=== PATIENT | male | born 1940 | race African-American/Black ===

== ENCOUNTER → 2016-12-13 | Outpatient (CLI) | payer MEDICARE, BC ==
[~2016-12-13] MED LIST: APIX5TAB PO; ASPI1TAB69 PO; ASPI325T PO; CARV6.25 PO; CARV6.252 PO; CLON.5 PO; CLON1 PO; CLON1TAB PO; CLON2TAB PO; FLEC100 PO; FLEC100T PO; LISI-360 PO; LISI10TA3 PO; MEMA1TAB2 PO; NAME10SO PO; PANT40TA3 PO; PROT40TA PO; RISP0.5T20 PO; RISP1TAB2 PO; SIMV40TA OR; TAB-TAB PO; WALKER WHEELS/F1 MIS; ZOCO40TA PO
[2016-12-13 12:38] LABS: AUTOMATED NEUTROPHIL # 4.2 TH/MM3 (1.8-7.7); BASOPHIL % 0.3 % (0.0-2.0); EOSINOPHIL # 0.2 TH/MM3 (0-0.4); EOSINOPHIL % 2.6 % (0.0-4.0); HEMATOCRIT 40.5 % (39.0-51.0); HEMO FLAGS DIFF FINAL; LYMPH % 23.1 % (9.0-44.0); LYMPHOCYTE # 1.6 TH/MM3 (1.0-4.8); MEAN CELL VOLUME 89.5 FL (80.0-100.0); MEAN CORPUSCULAR HEMOGLOBIN 30.8 PG (27.0-34.0); MEAN CORPUSCULAR HGB CONC 34.4 % (32.0-36.0); MONO % 12.7 % (0.0-8.0); NEUT % 61.3 % (16.0-70.0); PLATELET COUNT 169 TH/MM3 (150-450); RED BLOOD COUNT 4.52 MIL/MM3 (4.50-5.90); RED CELL DISTRIBUTION WIDTH 13.6 % (11.6-17.2); WHITE BLOOD COUNT 6.8 TH/MM3 (4.0-11.0)
[2016-12-13 13:04] LABS: POTASSIUM 4.3 MEQ/L (3.5-5.1)
== END ==
LOC: CPRE 11:27
PROVIDERS: ATTEND Orthopaedic Surgery Orthopaedic Surgery of the Spine
DX: Z01.812 Encounter for preprocedural laboratory examination (principal); M51.36 Other intervertebral disc degeneration, lumbar region
CPT/HCPCS: 36415; 80048; 85025

== ENCOUNTER 2016-12-18 12:32 | Observation (INO) | payer MEDICARE, BC ==
[~2016-12-18] VITALS: Ht 177.8 cm; Wt 90.7 kg
[~2016-12-18 12:32] MED LIST changes: -ASPI325T PO; -CARV6.25 PO; -CLON.5 PO; -CLON1 PO; -CLON1TAB PO; -FLEC100 PO; +LACTATED RINGER'S 1000 ML INJ 1,000 ML IV ONE; -LISI-360 PO; -NAME10SO PO; +NEOSTIGMINE 3 MG/3 ML SYR IV ONE; +ONDANSETRON HCL 4 MG/2 ML VIAL IV PUSH ONE; +PHENYLEPH/NS 1000 MCG/10 ML SYR IV ONE; +PROPOFOL 200 MG/20 ML AMP IV ONE; -PROT40TA PO; -RISP0.5T20 PO; -RISP1TAB2 PO; -SIMV40TA OR; -TAB-TAB PO; -WALKER WHEELS/F1 MIS; +ePHEDrine/NS 25 MG/5 ML SYR IV ONE
[2016-12-18] MEDS ORDERED: CHLORHEXIDINE GLUCONATE 2 % 1 PACK (2 CLOTHS) TOPICAL PRN (13:00)
[2016-12-18] MEDS ORDERED: INSULIN HUMAN REGULAR 1,000 UNITS/10 ML VIAL SQ PRN (13:00)
[2016-12-18] MEDS ORDERED: METOPROLOL TARTRATE 25 MG TAB PO PRN (13:00)
[2016-12-18] MEDS ORDERED: POVIDONE IODINE 5% (ANTISEPSIS KIT) 4 APPLICATIONS EACH NARE PRN (13:00)
[2016-12-18] MEDS ORDERED: SODIUM CHLORID 0.9% 500 ML IV PRN (13:00)
[2016-12-18] MEDS ORDERED: LACTATED RINGER'S 1000 ML IV PRN (13:00)
[2016-12-18] MEDS ORDERED: RISP1TAB2 PO (13:10)
[2016-12-18 13:12] VITALS: BP 185/104; PULSE 60; RESP 20; TEMP 98.6; O2SAT 99
[2016-12-18] MEDS ORDERED: GENTAMICIN SULFATE 80 MG/2 ML VIAL ONE (13:15)
[2016-12-18] MEDS ORDERED: CHLORHEXIDINE GLUCONATE 4% SOLN 120 ML BTL TOPICAL SCH (13:15)
[2016-12-18] MEDS ORDERED: ceFAZolin 1,000 MG/NS 100 ML IV SCH ×2 (13:15)
[2016-12-18] MEDS ORDERED: ceFAZolin INJ 1,000 MG VIAL ONE (14:26)
[2016-12-18] MEDS ORDERED: BUPIVACAINE/EPINEPHRINE 0.25% 50 ML VIAL ONE (14:26)
[2016-12-18] MEDS ORDERED: DO NOT ADM ANY ANTICOAGULANT DRUGS PRN (17:39)
[2016-12-18] MEDS ORDERED: ALUMINUM/MAGNESIUM/SIMETH 30 ML CUP PO PRN (17:45)
[2016-12-18] MEDS ORDERED: NALOXONE HCL 0.4 MG/ML AMP IV PRN ×2 (17:45)
[2016-12-18] MEDS ORDERED: BISACODYL 10 MG SUPP RECTAL PRN (17:45)
[2016-12-18] MEDS ORDERED: SODIUM CHLORIDE 0.9% FLUSH 5 ML FLUSH IVF PRN (17:45)
[2016-12-18] MEDS ORDERED: ONDANSETRON HCL 4 MG/2 ML VIAL IV PRN (17:45)
[2016-12-18] MEDS ORDERED: SOD PHOSPHATE/SOD BIPHOSPHATE (ADULT) ENEMA 133ML PR PRN (17:45)
[2016-12-18] MEDS ORDERED: ACETAMINOPHEN/HYDROcodone 325 MG/5 MG TAB PO PRN ×2 (17:45)
[2016-12-18] MEDS ORDERED: Post-op Orders (for Pharmacy) MISC XX ONE (17:45)
[2016-12-18] MEDS ORDERED: MORPHINE SULFATE 4 MG/ML INJ IV PUSH PRN (17:45)
--- NOTE | 2016-12-18 17:47 | RADRPT ---
EXAM DATE/TIME: 12/18/2016 16:58 [facility] COMPARISON: No previous studies available for comparison. INDICATIONS : Lumbar spine L5-S1 laminectomy. OR. MEDICAL HISTORY : None. SURGICAL HISTORY : None. ENCOUNTER: Initial ACUITY: 1 day PAIN SCORE: Non-responsive. LOCATION: Lumbar L5-S1 FINDINGS: A single lateral view of the lumbar spine was performed. There is a localization device placed poste riorly at the last disc space level. This appears to be L5-S1. CONCLUSION: 1. Level localization L5-S1. David Del Cid MD on December 18, 2016 at 17:44 Board Certified Radiologist. This report was verified electronically.
[2016-12-18] MEDS ORDERED: MIDAZOLAM HCL 2 MG/2 ML VIAL ONE (17:51)
[2016-12-18] MEDS ORDERED: *LABETALOL HCL 100 MG/20 ML VIAL PERIprocedural Use ONLY ONE (17:51)
[2016-12-18] MEDS ORDERED: fentaNYL CITRATE 250 MCG/5 ML AMP ONE (17:51)
[2016-12-18] MEDS ORDERED: *morphine SULFATE 8 MG/ML PERIprocedure ONLY ONE ×2 (18:05→18:52)
[2016-12-18] MEDS ORDERED: *ENALAPRILAT 1.25 MG/ML VIAL PERIprocedural Use ONLY ONE (19:18)
[2016-12-18 19:50] VITALS: O2SAT 98
[2016-12-18 20:00] VITALS: BP 175/92; PULSE 63; RESP 18; TEMP 96.5; O2SAT 100
[2016-12-18] MEDS: LISINOPRIL 10 MG TAB PO SCH (20:24)
[2016-12-18] MEDS: MEMANTINE HCL 10 MG TAB PO SCH (20:24)
[2016-12-18] MEDS: CARVEDILOL 6.25 MG TAB PO SCH (20:24)
[2016-12-18] MEDS: FLECAINIDE ACETATE 100 MG TAB PO SCH (20:25)
[2016-12-18] MEDS ORDERED: risperiDONE 1 MG TAB PO SCH (21:00)
[2016-12-18] MEDS ORDERED: ZOLPIDEM TARTRATE 5 MG TAB PO PRN (21:00)
[2016-12-18] MEDS ORDERED: clonazePAM 1 MG TAB PO SCH (21:00)
[2016-12-18] MEDS ORDERED: SODIUM CHLORIDE 0.9% FLUSH 5 ML FLUSH IVF SCH (21:00)
[2016-12-19 00:09] VITALS: BP 135/93; PULSE 72; RESP 18; TEMP 97.5; O2SAT 98
[2016-12-19 03:50] VITALS: BP 131/82; PULSE 75; RESP 19; TEMP 98.1; O2SAT 98
--- NOTE | 2016-12-19 07:03 | PD.ORT.PN ---
Subjective Subjective Remarks POD#1 L5-S1 garza,diskectomy All pre-op pain/weakness in legs gone No sob/chest Patient wishes to go home Objective Vitals Vital Signs Date Time Temp Pulse Resp B/P Pulse Ox O2 Delivery O2 Flow Rate FiO2 12/19/16 03:50 98.1 75 19 131/82 98 12/19/16 00:09 97.5 72 18 135/93 98 12/18/16 20:00 96.5 63 18 175/92 100 12/18/16 19:50 98 Nasal Cannula 2.00 12/18/16 19:30 64 14 164/94 97 Nasal Cannula 2 12/18/16 19:15 65 14 172/102 97 Nasal Cannula 2 12/18/16 19:00 98.2 64 12 166/98 97 Nasal Cannula 2 12/18/16 18:45 65 14 158/96 97 Nasal Cannula 2 12/18/16 18:30 65 14 160/87 99 Nasal Cannula 2 12/18/16 18:15 66 14 164/102 97 Nasal Cannula 2 12/18/16 18:00 67 14 166/84 97 Nasal Cannula 2 12/18/16 17:45 72 12 196/121 100 Simple Mask 8 12/18/16 17:41 97.6 71 12 198/96 100 Simple Mask 8 12/18/16 13:12 98.6 60 20 185/104 99 I/O 12/18/16 12/18/16 12/18/16 12/19/16 12/19/16 12/19/16 06:59 14:59 22:59 06:59 14:59 22:59 Intake Total 1340 ml 240 ml Output Total 25 ml 400 ml Balance 1315 ml -160 ml Intake Oral 240 ml 240 ml IV Total 100 ml Other 1000 ml Output Urine Total 400 ml Estimated Blood Loss 25 ml # Voids 1 1 # Bowel Movements 0 0 Objective Remarks Lumbar spine dressings dry,no swelling Motor LE +5/5 Assessment & Plan Assessment and Plan Ortho stable Expained operative findings;answered multiple questions D/C home today Jose Barrera MD December 19, 2016 07:03
[2016-12-19 08:00] VITALS: BP 123/77; PULSE 80; RESP 19; TEMP 98.6; O2SAT 96
[2016-12-19] MEDS: MEMANTINE HCL 10 MG TAB PO SCH (08:22)
[2016-12-19] MEDS: CARVEDILOL 6.25 MG TAB PO SCH (08:22)
[2016-12-19] MEDS: FLECAINIDE ACETATE 100 MG TAB PO SCH (08:22)
[2016-12-19] MEDS: LISINOPRIL 10 MG TAB PO SCH (08:22)
[2016-12-19] MEDS ORDERED: MULTIVITAMINS/MINERALS THERAPEUTIC TAB PO SCH (09:00)
[2016-12-19] MEDS ORDERED: PANTOPRAZOLE SOD 40 MG DELAYED RELEASE TAB PO SCH (09:00)
[2016-12-19] MEDS ORDERED: PRAVASTATIN SOD 80 MG TAB PO SCH (09:00)
[2016-12-19] MEDS ORDERED: NON-FORMULARY DRUG (Simvastatin (Zocor) 40 MG) PO SCH (09:00)
--- NOTE | 2016-12-19 11:18 | PD.CONS ---
HPI Service [facility] Consult Requested By Primary Care Physician Adryan Lopez M.D. Diagnoses: Past Family Social History Allergies: Coded Allergies: No Known Allergies (Unverified , 12/18/16) Physical Exam Vital Signs Vital Signs Date Time Temp Pulse Resp B/P Pulse Ox O2 Delivery O2 Flow Rate FiO2 12/19/16 08:00 98.6 80 19 123/77 96 12/19/16 03:50 98.1 75 19 131/82 98 12/19/16 00:09 97.5 72 18 135/93 98 12/18/16 20:00 96.5 63 18 175/92 100 12/18/16 19:50 98 Nasal Cannula 2.00 12/18/16 19:30 64 14 164/94 97 Nasal Cannula 2 12/18/16 19:15 65 14 172/102 97 Nasal Cannula 2 12/18/16 19:00 98.2 64 12 166/98 97 Nasal Cannula 2 12/18/16 18:45 65 14 158/96 97 Nasal Cannula 2 12/18/16 18:30 65 14 160/87 99 Nasal Cannula 2 12/18/16 18:15 66 14 164/102 97 Nasal Cannula 2 12/18/16 18:00 67 14 166/84 97 Nasal Cannula 2 12/18/16 17:45 72 12 196/121 100 Simple Mask 8 12/18/16 17:41 97.6 71 12 198/96 100 Simple Mask 8 12/18/16 13:12 98.6 60 20 185/104 99 Physical Exam GENERAL: This is a well-nourished, well-developed patient, in no apparent distress. SKIN: No rashes, ecchymoses or lesions. Cool and dry. HEAD: Atraumatic. Normocephalic. No temporal or scalp tenderness. EYES: Pupils equal round and reactive. Extraocular motions intact. No scleral icterus. No injection or drainage. ENT: Nose without bleeding, purulent drainage or septal hematoma. Throat without erythema, tonsillar hypertrophy or exudate. Uvula midline. Airway patent. NECK: Trachea midline. No JVD or lymphadenopathy. Supple, nontender, no meningeal signs. CARDIOVASCULAR: Regular rate and rhythm without murmurs, gallops, or rubs. RESPIRATORY: Clear to auscultation. Breath sounds equal bilaterally. No wheezes , rales, or rhonchi. GASTROINTESTINAL: Abdomen soft, non-tender, nondistended. No hepato-splenomegaly , or palpable masses. No guarding. MUSCULOSKELETAL: Extremities without clubbing, cyanosis, or edema. No joint tenderness, effusion, or edema noted. No calf tenderness. Negative Homans sign bilaterally. NEUROLOGICAL: Awake and alert. Cranial nerves II through XII intact. Motor and sensory grossly within normal limits. Five out of 5 muscle strength in all muscle groups. Normal speech. Mackenzie Reyes MD December 19, 2016 11:18
--- NOTE | 2016-12-19 11:51 | MP ---
cc: JOSE ESCOBAR M.D., JOSHUA R. M.D. GILLESPY, MARK ARAB, DINESH MD DATE OF SURGERY: 12/18/2016 PREOPERATIVE DIAGNOSIS: 1. L5-S1 large central right-sided herniated nucleus pulposus 2. Lumbar spine degenerative osteoarthritis. POSTOPERATIVE DIAGNOSIS 1. L5-S1 large central right-sided herniated nucleus pulposus. 2. Lumbar spine degenerative osteoarthritis. PROCEDURE: L5-S1 bilateral hemilaminectomy, foraminotomy, partial facetectomy, decompression nerve root; L5-S1 diskectomy. SURGEON Jose Escobar MD SHELL FREEZING MACHINE OPERATOR: ELTON Echevarria SPECIMENS None. ESTIMATED BLOOD LOSS: Less than 25 cc COMPLICATIONS None ANESTHESIA General DRAINS: None. CONDITION: The condition is stable. PLAN OF ACTIVITY: Per orders. PROCEDURE: The patient was brought into the operating room had satisfactory general anesthesia by the Department of Anesthesia. The patient was carefully transferred to the [facility] spinal frame. All pressure points were well-padded. Lumbosacral spine was prepped and draped in usual sterile manner. The localizing x-ray used under fluoroscopy, it identified the L5-S1 interspace. 20 cc of 0.25% Marcaine with epinephrine was used to infiltrate the subcutaneous tissue and operative site. A L5-S1 bilateral decompressive hemilaminectomy performed with foraminotomies and partial facetectomy on the right side. The ligamentum flavum was removed and nerve root was gently retracted medially. Patient found to have moderately large central right-sided herniated nucleus pulposus. The disk itself was removed in multiple large pieces. Patient found to have no further nerve compressive pathology. There is no bleeding. No evidence of cerebrospinal fluid leak. The wound was irrigated with copious amounts of sterile saline, the wound itself was soft and dry. The wound was closed in routine manner. Fascia closed #2 Tycron suture. Subcutaneous layers with 2-0 Vicryl. Skin approximated with interrupted 2-0 nylon. Sterile dressings were applied. The patient tolerated the procedure well and arrived in recovery room in stable and satisfactory condition. MD IRMA Avendano/jorge luis /5:23 PM /11:37 AM
--- NOTE | 2016-12-19 11:51 | HHI.FF ---
Face to Face Verification Diagnosis: (1) Atrial fibrillation (2) Hypertension (3) S/P diskectomy Physical Therapy Order: Evaluate and Treat Home Health Nursing Order: Medical education Signs/symptoms of disease process I have seen patient Phillip Dhaliwal on 12/19/16. My clinical findings support the need for the requested home health care services because: Ltd mobility - disease progression Patient has SOB I certify that my clinical findings support that this patient is homebound because: Post-op weakness Mackenzie Reyes MD December 19, 2016 11:51
[2016-12-19] MEDS ORDERED: WALKER WHEELS/F1 MIS (11:54)
[2016-12-19] MEDS ORDERED: DOCUSATE SODIUM 100 MG CAP PO SCH (21:00)
== END 2016-12-19 12:16 | disposition home or self-care (01) ==
LOC: HSDC 12:32 → N06A 20:00
PROVIDERS: ADMIT Orthopaedic Surgery Orthopaedic Surgery of the Spine; ATTEND Orthopaedic Surgery Orthopaedic Surgery of the Spine
DX: M51.27 Other intervertebral disc displacement, lumbosacral region (principal); M47.816 Spondylosis without myelopathy or radiculopathy, lumbar region; R29.6 Repeated falls; R26.81 Unsteadiness on feet; M25.432 Effusion, left wrist; I48.2 Chronic atrial fibrillation; R41.82 Altered mental status, unspecified; G93.40 Encephalopathy, unspecified; M54.30 Sciatica, unspecified side; I10 Essential (primary) hypertension; R74.8 Abnormal levels of other serum enzymes; E03.9 Hypothyroidism, unspecified; E78.5 Hyperlipidemia, unspecified; K21.9 Gastro-esophageal reflux disease without esophagitis; G47.30 Sleep apnea, unspecified; R45.1 Restlessness and agitation; Y92.009 Unspecified place in unspecified non-institutional (private) residence as the place of occurrence of the external cause; Z86.73 Personal history of transient ischemic attack (TIA), and cerebral infarction without residual deficits; Z95.0 Presence of cardiac pacemaker; Z85.46 Personal history of malignant neoplasm of prostate; Z79.01 Long term (current) use of anticoagulants
CPT/HCPCS: 00630; 63030; 70450; 71010; 72020; 72125; 73110; 76000; 80048; 81001; 85025; 94150; 97162; 99285; G0378; G8987; G8988; J0690; J1580; J2060; J2250; J2270; J2370; J2405; J2710; J3010; J7120; 82550; 82552; 83735; 84484; 93005; 95819; G9168-GN; G9169-GN; G9170-GN; J1630

== ENCOUNTER 2016-12-19 20:19 | Observation (INO) | payer MEDICARE, BC ==
[~2016-12-19] VITALS: Ht 180.3 cm; Wt 85.2 kg
[~2016-12-19 20:19] MED LIST changes: -APIX5TAB PO; -LACTATED RINGER'S 1000 ML INJ 1,000 ML IV ONE; -NEOSTIGMINE 3 MG/3 ML SYR IV ONE; -ONDANSETRON HCL 4 MG/2 ML VIAL IV PUSH ONE; -PHENYLEPH/NS 1000 MCG/10 ML SYR IV ONE; -PROPOFOL 200 MG/20 ML AMP IV ONE; +RISP1TAB2 PO; +WALKER WHEELS/F1 MIS; -ePHEDrine/NS 25 MG/5 ML SYR IV ONE
[2016-12-19 20:21] VITALS: BP 149/93; PULSE 73; RESP 16; TEMP 99.3; O2SAT 98
--- NOTE | 2016-12-19 20:31 | PD ---
Physical Exam Time Seen by Provider: 20:30 Narrative 76 y/o male discharged today after undergoing diskectomy/laminectomy yesterday. He has been confused, falling frequently. Vital signs reviewed. Seen at triage desk. Awaiting bed placement. Data Data Last Documented VS Vital Signs Date Time Temp Pulse Resp B/P Pulse Ox O2 Delivery O2 Flow Rate FiO2 12/19/16 20:21 99.3 73 16 149/93 98 Room Air [facility] Medical Record Reviewed: Yes Supervised Visit with MARTHA: Jackson Bergeron December 19, 2016 20:31
--- NOTE | 2016-12-19 22:06 | PD ---
HPI Chief Complaint: Fall Time Seen by Provider: 21:44 Travel History International Travel<30 days: No Contact w/Intl Traveler<30days: No Traveled to known affect area: No History of Present Illness HPI The patient is a 76 year old male who presents to the [facility] emergency department with a history of undergoing L5-S1 laminectomy and discectomy yesterday on December 18, 2016. According to the family at the bedside the patient was instructed that he would be admitted to the hospital for possibly 2 days and then go to rehabilitation. Today the patient became increasingly confused in the hospital. The patient became paranoid and insisted on leaving at 11 AM. According to the family the patient was discharged home early. They did drive him home. Since being home he's had multiple episodes of falling due to his unsteady gait. The patient has swelling to the left wrist. The patient denies having any pain. The patient is unable to recall having the surgery. The patient is oriented to person, however not play stating that he is at the "[facility] office". The patient is oriented to year, however not month. The patient is not oriented to situation. The patient's family is concerned that they are not able to care for him at home as he keeps getting off related to the confusion and they're concerned that he will fall and injure himself. The patient does have a baseline level of dementia, however he is usually oriented to person, place, and situation according to the family. The patient's family report that the pain medication that he was given postop seemed to make his confusion worse. The patient has not had any fevers postop. The patient has been eating and drinking well and passing gas according to the family. [facility] Past Medical History Narrative Medical The patient's past medical history is significant for a history of hypothyroid disorder, history of atrial fibrillation status post 3 prior ablations, history of a pacemaker placement, history of prostate cancer in 1999, history of hypertension, hyperlipidemia, dementia. The patient is normally anticoagulated on Eliquis, however this was stopped last Sunday. The patient did resume taking an aspirin daily today. 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) Psychiatric: Yes (DEMENTIA) Reproductive: No Respiratory: Yes Integumentary: No Radiation Therapy: Yes Sleep Apnea: Yes ("MINOR") Thyroid Disease: Yes ( growth removed) Ulcer: Yes Past Surgical History Narrative Surgical The patient's past surgical history is significant for L5-S1 laminectomy and discectomy on December 18, 2016, pacemaker placement, prostatectomy Abdominal Surgery: No AICD: No Cardiac Surgery: Yes (PACEMAKER) Ear Surgery: No Endocrine Surgery: Yes (GROWTH REMOVED FROM THYROID) Eye Surgery: No Genitourinary Surgery: Yes (PROSTATECTOMY) Gynecologic Surgery: No Joint Replacement: No Oral Surgery: No Pacemaker: Yes Thoracic Surgery: No Social History Alcohol Use: No Tobacco Use: No (FORMER) Substance Use: No Allergies-Medications (Allergen,Severity, Reaction): Coded Allergies: No Known Allergies (Unverified , 12/19/16) Reported Meds & Prescriptions Reported Meds & Active Scripts Active Walker with Front Wheels (Device) 1 Mis Mis 1 Ea .ROUTE DIRECTED Reported Risperidone 1 Mg Tab 1 Mg PO HS Aspirin 81 Mg Tabdr 81 Mg PO DAILY Zocor (Simvastatin) 40 Mg Tab 40 Mg PO DAILY Clonazepam 2 Mg Tab 2 Mg PO HS Pantoprazole (Pantoprazole Sodium) 40 Mg Tab 40 Mg PO DAILY Memantine 10 Mg Tab 10 Mg PO BID Lisinopril 10 Mg Tab 10 Mg PO BID Carvedilol 6.25 Mg Tab 6.25 Mg PO BID Flecainide (Flecainide Acetate) 100 Mg Tab 100 Mg PO BID Review of Systems Except as stated in HPI: all other systems reviewed are Neg General / Constitutional: No: Fever Eyes: No: Visual changes HENT: No: Headaches, Neck Stiffness, Neck Pain Cardiovascular: No: Chest Pain or Discomfort Respiratory: No: Shortness of Breath Gastrointestinal: No: Abdominal Pain Genitourinary: No: Dysuria Musculoskeletal: No: Pain Skin: No Rash Neurologic: Positive: Change in Mentation, No: Weakness, Focal Abnormalities, Headache, Slurred Speech, Sensory Disturbance Psychiatric: No: Depression Endocrine: No: Polydipsia Hematologic/Lymphatic: No: Easy Bruising Physical Exam Narrative General: The patient is a well-developed well-nourished male in no acute distress. Head and Neck exam: Head is normocephalic atraumatic. Eyes: EOMI, pupils are equal round and reactive to light. Nose: Midline septum with pink mucous membranes Mouth: Dentition unremarkable. Moist mucus membranes. Posterior oropharynx is not erythematous. No tonsillar hypertrophy. Uvula midline. Airway patent. Neck: No palpable lymphadenopathy. No nuchal rigidity. No thyromegaly. Cardiovascular: Regular rate and rhythm without murmurs, gallops, or rubs. Lungs: Clear to auscultation bilaterally. No wheezes, rhonchi, or rales. Abdomen: Soft, without tenderness to palpation in all 4 quadrants of the abdomen. No guarding, rebound, or rigidity. Normal bowel sounds are audible. No tenderness on palpation of McBurney's point. Extremities: No clubbing or cyanosis. No significant lower extremity edema. The patient's left wrist, the area of interest is have some swelling noted, however he denies any tenderness on palpation. He has full range of motion with extension, flexion, finger movements including putting his hand into a fist and extending his fingers. The patient's family report that he did bump his left wrist when he fell one of the times earlier today. 2+ pulses in all 4 extremities. Back: No spinous process tenderness to palpation. No costovertebral angle tenderness to palpation. The patient has a bandage in place along the low back that was removed. This was clean, dry, and intact. The patient has sutures in place. The patient's wound appears to be in good repair with minimal drainage. The patient has no surrounding erythema, edema, or tenderness on palpation. Neurologic Exam: Cranial nerves 2-12 were intact on exam. Strength is 5/5 in all 4 extremities. No sensory deficits noted. The patient is oriented to person, however not place , month, or situation. Skin Exam: No rash noted. Data Data Last Documented VS Vital Signs Date Time Temp Pulse Resp B/P Pulse Ox O2 Delivery O2 Flow Rate FiO2 12/19/16 22:38 70 20 165/92 96 Room Air 12/19/16 20:21 99.3 Orders Complete Blood Count With Diff (12/19/16 22:00) Basic Metabolic Panel (Bmp) (12/19/16 22:00) Urinalysis - C+S If Indicated (12/19/16 22:00) Ct Brain W/O Iv Contrast(Rout) (12/19/16 22:00) Iv Access Insert/Monitor (12/19/16 22:00) Ecg Monitoring (12/19/16 22:00) Oximetry (12/19/16 22:00) Ct Cerv Spine W/O Contrast (12/19/16 ) Chest, Single Ap (12/19/16 22:00) Wrist, Complete ([id number]) (12/19/16 22:00) Ice/Cold Pack (12/19/16 22:00) Place In Observation (12/19/16 ) Vital Signs (Adult) Q4H (12/19/16 22:47) Neuro Checks Q4H (12/19/16 22:47) Activity Bed Rest (12/19/16 22:47) Cut Out Operator / Telemetry .CONTINUOUS (12/19/16 22:47) Diet Heart Healthy (12/20/16 Breakfast) Sodium Chloride 0.9% Flush (Ns Flush) (12/19/16 23:00) Sodium Chloride 0.9% Flush (Ns Flush) (12/20/16 09:00) Ondansetron Inj (Zofran Inj) (12/19/16 23:00) Basic Metabolic Panel (Bmp) (12/20/16 06:00) Complete Blood Count With Diff (12/20/16 06:00) Case Management Consult (12/19/16 22:47) Naloxone Inj (Narcan Inj) (12/19/16 23:00) Admit Order (Ed Use Only) (12/19/16 22:49) Labs Laboratory Tests Test 12/19/16 22:08 White Blood Count 12.2 TH/MM3 Red Blood Count 4.80 MIL/MM3 Hemoglobin 13.8 GM/DL Hematocrit 42.4 % Mean Corpuscular Volume 88.3 FL Mean Corpuscular Hemoglobin 28.7 PG Mean Corpuscular Hemoglobin 32.6 % Concent Red Cell Distribution Width 13.5 % Platelet Count 142 TH/MM3 Mean Platelet Volume 8.1 FL Neutrophils (%) (Auto) 79.8 % Lymphocytes (%) (Auto) 12.9 % Monocytes (%) (Auto) 6.5 % Eosinophils (%) (Auto) 0.2 % Basophils (%) (Auto) 0.6 % Neutrophils # (Auto) 9.7 TH/MM3 Lymphocytes # (Auto) 1.6 TH/MM3 Monocytes # (Auto) 0.8 TH/MM3 Eosinophils # (Auto) 0.0 TH/MM3 Basophils # (Auto) 0.1 TH/MM3 CBC Comment DIFF FINAL Differential Comment Sodium Level 139 MEQ/L Potassium Level 4.5 MEQ/L Chloride Level 104 MEQ/L Carbon Dioxide Level 29.0 MEQ/L Anion Gap 6 MEQ/L Blood Urea Nitrogen 13 MG/DL Creatinine 1.09 MG/DL Estimat Glomerular Filtration 80 ML/MIN Rate Random Glucose 105 MG/DL Calcium Level 9.4 MG/DL MDM Medical Decision Making Medical Screen Exam Complete: Yes Emergency Medical Condition: Yes Medical Record Reviewed: Yes Interpretation(s) Last Impressions Wrist X-Ray 12/19/162199 Signed Impressions: Service Date/Time: Monday, December 19, 2016 22:16 - CONCLUSION: Normal examination for a patient of this age. Sami Luis MD Head CT 12/19/162199 Signed Impressions: Service Date/Time: Monday, December 19, 2016 23:03 - CONCLUSION: Negative noncontrast CT. Severino Jameson MD Chest X-Ray 12/19/162199 Signed Impressions: Service Date/Time: Monday, December 19, 2016 22:14 - CONCLUSION: 1. Pacer leads in right atrium and right ventricle. No focal consolidation or effusion. Sami Luis MD Cervical Spine CT 12/19/16 0000 Signed Impressions: Service Date/Time: Monday, December 19, 2016 23:03 - CONCLUSION: Negative acute trauma CT with no acute fracture or malalignment.. Severino Jameson MD Differential Diagnosis Altered mental status related to baseline level of dementia with increased confusion from new pain medication regimen, versus stress related to being postop, versus urinary tract infection, versus pneumonia, versus intracranial abnormality, versus metabolic encephalopathy Narrative Course During the course of the patients emergency department visit, the patients history, examination, and differential diagnosis were reviewed with the patient. The patient had IV access obtained and blood work sent for analysis. The patient was placed on a airbrush painter with oximetry and blood pressure monitoring. The patient was provided Ativan 0.5 mg IV 1 when he became agitated after being in the emergency department awaiting laboratory studies. The patients laboratory studies were reviewed and remarkable for a white count of 12.2, hemoglobin 13.8, platelets 142 with neutrophils 79.8, BMP is remarkable for a GFR of 80, urinalysis is unremarkable. Radiology studies were reviewed and remarkable for CT scan of the head and neck showed no acute abnormality. Left wrist x-ray showed no acute bony abnormality , chest x-ray showed no acute abnormality. The patient's case was discussed with Dr. Paredes who recommended that the patient be admitted to the hospitalist service. The patient's case was discussed with Dr. Lin who did agree to admit the patient for further evaluation and treatment at this time. The patients results were discussed with the patient, including the plan of care. I explained that further testing and/ or monitoring is indicated based on the patients history, examination, and/ or laboratory findings. Therefore, I recommended admission for additional evaluation. The patient expressed understanding and was agreeable with this plan. The patient was admitted to the hospital in stable condition and sent to a bed under the care of the [facility] hospitalist service. Physician Communication Physician Communication Spoke to Dr. Paredes at approximately 10:12 PM regarding this patient's case. He recommended that the patient be admitted to the hospitalist service for the confusion and a consultation be placed with Dr. Jose Barrera for the patient' s postoperative care. Diagnosis Primary Impression: Altered mental status Qualified Code: R41.0 - Disorientation Additional Impression: Postoperative confusion Admitting Information Admitting Physician Requests: Admit Maryann Warren MD December 19, 2016 22:06
[2016-12-19 22:38] VITALS: BP 165/92; PULSE 70; RESP 20; O2SAT 96
[2016-12-19 22:42] LABS: AUTOMATED NEUTROPHIL # 9.7 TH/MM3 (1.8-7.7); BASOPHIL # 0.1 TH/MM3 (0-0.2); BASOPHIL % 0.6 % (0.0-2.0); EOSINOPHIL % 0.2 % (0.0-4.0); HEMATOCRIT 42.4 % (39.0-51.0); HEMO FLAGS DIFF FINAL; LYMPH % 12.9 % (9.0-44.0); LYMPHOCYTE # 1.6 TH/MM3 (1.0-4.8); MEAN CELL VOLUME 88.3 FL (80.0-100.0); MEAN CORPUSCULAR HEMOGLOBIN 28.7 PG (27.0-34.0); MEAN CORPUSCULAR HGB CONC 32.6 % (32.0-36.0); MONO % 6.5 % (0.0-8.0); NEUT % 79.8 % (16.0-70.0); PLATELET COUNT 142 TH/MM3 (150-450); RED CELL DISTRIBUTION WIDTH 13.5 % (11.6-17.2); WHITE BLOOD COUNT 12.2 TH/MM3 (4.0-11.0)
--- NOTE | 2016-12-19 22:48 | RADRPT ---
EXAM DATE/TIME: 12/19/2016 22:14 [facility] COMPARISON: CHEST SINGLE AP, April 24, 2014, 12:43. INDICATIONS : Syncopal episode today. MEDICAL HISTORY : Hypertension. Hypercholesterolemia. Carcinoma, prostatic. A-fib. SURGICAL HISTORY : Pacemaker. ENCOUNTER: Initial ACUITY: 1 day PAIN SCORE: Non-responsive. LOCATION: Bilateral chest FINDINGS: A single view of the chest demonstrates pacer leads overlying right atrium and right ventricle. No ef fusion. No pneumothorax. Mildly tortuous aorta. CONCLUSION: 1. Pacer leads in right atrium and right ventricle. No focal consolidation or effusion. Sami Luis MD on December 19, 2016 at 22:45 Board Certified Radiologist. This report was verified electronically.
[2016-12-19 22:51] LABS: POTASSIUM 4.5 MEQ/L (3.5-5.1)
--- NOTE | 2016-12-19 22:54 | RADRPT ---
EXAM DATE/TIME: 12/19/2016 22:16 [facility] COMPARISON: No previous studies available for comparison. INDICATIONS : Left wrist pain after fall. MEDICAL HISTORY : None. SURGICAL HISTORY : None. ENCOUNTER: Initial ACUITY: 1 day PAIN SCORE: 5/10 LOCATION: Left wrist. FINDINGS: Three view examination of the left wrist demonstrates no soft tissue swelling, dislocation, or fractu re. The carpal bones are in normal alignment. The joint spaces are maintained. Bony mineralization is normal. CONCLUSION: Normal examination for a patient of this age. Sami Luis MD on December 19, 2016 at 22:51 Board Certified Radiologist. This report was verified electronically.
[2016-12-19] MEDS ORDERED: NALOXONE HCL 0.4 MG/ML AMP IV PRN (23:00)
[2016-12-19] MEDS ORDERED: ONDANSETRON HCL 4 MG/2 ML VIAL IVP PRN (23:00)
[2016-12-19] MEDS ORDERED: SODIUM CHLORIDE 0.9% FLUSH 10 ML FLUSH IV FLUSH PRN (23:00)
--- NOTE | 2016-12-19 23:21 | RADRPT ---
EXAM DATE/TIME: 12/19/2016 23:03 [facility] COMPARISON: No previous studies available for comparison. INDICATIONS : Altered mental status. RADIATION DOSE: 36.86 CTDIvol (mGy) MEDICAL HISTORY : Hypertension. Afib. SURGICAL HISTORY : Pacemaker. ENCOUNTER: Initial ACUITY: 1 day PAIN SCALE: 0/10 LOCATION: cranial TECHNIQUE: Multiple contiguous axial images were obtained of the head. Using automated exposure control and adj ustment of the mA and/or kV according to patient size, radiation dose was kept as low as reasonably a chievable to obtain optimal diagnostic quality images. FINDINGS: CEREBRUM: The ventricles are normal for age. No evidence of midline shift, mass lesion, hemorrhage or acute in farction. No extra-axial fluid collections are seen. POSTERIOR FOSSA: The cerebellum and brainstem are intact. The 4th ventricle is midline. The cerebellopontine angle i s unremarkable. EXTRACRANIAL: The visualized portion of the orbits is intact. SKULL: The calvaria is intact. No evidence of skull fracture. CONCLUSION: Negative noncontrast CT. Severino Jameson MD on December 19, 2016 at 23:18 Board Certified Radiologist. This report was verified electronically.
--- NOTE | 2016-12-19 23:23 | RADRPT ---
EXAM DATE/TIME: 12/19/2016 23:03 [place] COMPARISON: No previous studies available for comparison. INDICATIONS : Patient altered and fell today. RADIATION DOSE: 26.82 CTDIvol (mGy) MEDICAL HISTORY : None SURGICAL HISTORY : None. ENCOUNTER: Initial ACUITY: 1 day PAIN SCALE: 0/10 LOCATION: neck TECHNIQUE: Volumetric scanning of the cervical spine was performed. Multiplanar reconstructions i n the sagittal, coronal and oblique axial planes were performed. Using automated exposure control a nd adjustment of the mA and/or kV according to patient size, radiation dose was kept as low as reason ably achievable to obtain optimal diagnostic quality images. FINDINGS: The sagittal reconstructions demonstrate normal alignment and normal prevertebral soft tissues. The d ens is intact and there is a normal atlantoaxial relationship. There is fusion of the C4, C5 and C6 v ertebral bodies. Degenerative disc changes are noted at the C2-3, C3-4 and C6-7 levels with disc spac e narrowing and hypertrophic change. The axial images demonstrate that the vertebral bodies and posterior elements are intact. The soft ti ssues are within normal limits. There is no evidence of acute fracture or malalignment. Degenerative changes are again noted. CONCLUSION: Negative acute trauma CT with no acute fracture or malalignment.. Severino Jameson MD on December 19, 2016 at 23:19 Board Certified Radiologist. This report was verified electronically.
[2016-12-19] MEDS ORDERED: LORazepam 2 MG/ML VIAL IV PUSH ONE (23:30)
[2016-12-19 23:43] VITALS: BP 168/87; PULSE 66; RESP 20; O2SAT 98
[2016-12-19 23:43] LABS: BLOOD, URINE NEG (NEG); GLUCOSE,URINE NEG (NEG); KETONE, URINE NEG (NEG); NITRITE,URINE NEG (NEG); URINE COLOR LIGHT-YELLOW (YELLW/STRAW)
[2016-12-19 23:47] LABS: COMMENT (UR) CULT NOT INDICATED; CULTURE IF INDICATED CULT NOT INDICATED
[2016-12-20] VITALS (9 sets, daily range): BP systolic 113–165; BP diastolic 70–92; PULSE 60–81; RESP 18–20; TEMP 98.5–100.4; O2SAT 94–98
[2016-12-20] MEDS ORDERED: LISINOPRIL 10 MG TAB PO ONE (00:45)
[2016-12-20] MEDS ORDERED: CARVEDILOL 6.25 MG TAB PO ONE (00:45)
[2016-12-20] MEDS ORDERED: HALOPERIDOL LACTATE 5 MG/ML AMP IV PUSH ONE ×2 (01:30→05:00)
--- NOTE | 2016-12-20 02:35 | HHI.HP ---
[facility] Service [facility] Primary Care Physician dAryan Lopez M.D. Admission Diagnosis Post op confusion s/p laminectomy/ discectomy Diagnoses: Chief Complaint: not able to give complaints Travel History International Travel<30 Days: No Contact w/Intl Traveler <30 Da: No Traveled to Known Affected Are: No History of Present Illness History from ER physician communication, review of medical records, and nursing staff. Patient is an elderly gentleman who is quite sleepy and confused at present. He did receive Haldol 2 mg IV just about an hour prior to my arrival. This was given because he was severely agitated upon arrival to medical floors. As per ER physician communication, patient was brought in by family members because he was more and more agitated and kept falling while at home. He was just discharged from our hospital yesterday December 19, 2016 after having had laminectomy done on December 18, 2016. Family was present in ER they reported pt was increasingly paranoid and insisted on leaving around 11: 00a.m. on 12/19/16 post op day 1 He was then discharged and he became increasingly confused and fall down multiple times at home. Post in the emergency room and on medical floor, patient was oriented mostly to self. He does not remember that he had surgery. Review of Systems ROS Limitations: Altered Mental Status (not able to obtain ROS at all due to AMS) Past Family Social History Past Medical History Per EMR: Atrial fibrillationstatus post ablation 3 Chronic anticoagulationon Eliquis. This was stopped on Sunday. He was resumed on aspirin today. He was told to have Eliquis only a few days later. Status post pacemaker placement History of prostate cancerin 1999 Hypertension History of TIA Hyperlipidemia Dementia Hypothyroidism Arthritis GERD Sleep apnea Past Surgical History Per EMR: Pacemaker placement L5-S1 laminectomy and discectomy on December 18, 2016 Prostatectomy Goiter removal Reported Medications Patient's medications listed on EMRreviewed Allergies: Coded Allergies: No Known Allergies (Unverified , 12/19/16) Family History Not able to obtain Social History Not able to obtain.Per records, no history of smoking/alcohol abuse/drug abuse. Physical Exam Vital Signs Vital Signs Date Time Temp Pulse Resp B/P Pulse Ox O2 Delivery O2 Flow Rate FiO2 12/20/16 01:48 137/81 12/20/16 00:14 98.9 67 18 165/92 97 12/19/16 23:43 66 20 168/87 98 Room Air 12/19/16 23:11 65 20 96 12/19/16 22:38 70 20 165/92 96 Room Air 12/19/16 20:21 99.3 73 16 149/93 98 Room Air Physical Exam GENERAL: This is a well-nourished, well-developed patient, in no apparent distress. Mostly sleeping after receiving Haldol. Easily awakens to verbal stimuli. SKIN: No rashes, ecchymoses or lesions. Cool and dry. HEAD: Atraumatic. Normocephalic. No temporal or scalp tenderness. EYES: No scleral icterus. No injection or drainage. ENT: Nose without bleeding, purulent drainage or septal hematoma. Airway patent. NECK: Trachea midline. No JVD . Supple, nontender, no meningeal signs. CARDIOVASCULAR: Regular rate and rhythm without murmurs, gallops, or rubs. RESPIRATORY: Clear to auscultation. Breath sounds equal bilaterally. No wheezes , rales, or rhonchi. GASTROINTESTINAL: Abdomen soft, non-tender, nondistended. No guarding. MUSCULOSKELETAL: Extremities without clubbing, cyanosis, or edema. No calf tenderness. Surgical site at the back clean. No purulent discharge. Neurology: No obvious signs of acute deficits. Limited exam as patient is not able to follow commands properly. Laboratory Laboratory Tests Test 12/19/16 12/19/16 22:08 23:20 White Blood Count 12.2 Red Blood Count 4.80 Hemoglobin 13.8 Hematocrit 42.4 Mean Corpuscular Volume 88.3 Mean Corpuscular Hemoglobin 28.7 Mean Corpuscular Hemoglobin 32.6 Concent Red Cell Distribution Width 13.5 Platelet Count 142 Mean Platelet Volume 8.1 Neutrophils (%) (Auto) 79.8 Lymphocytes (%) (Auto) 12.9 Monocytes (%) (Auto) 6.5 Eosinophils (%) (Auto) 0.2 Basophils (%) (Auto) 0.6 Neutrophils # (Auto) 9.7 Lymphocytes # (Auto) 1.6 Monocytes # (Auto) 0.8 Eosinophils # (Auto) 0.0 Basophils # (Auto) 0.1 CBC Comment DIFF FINAL Differential Comment Sodium Level 139 Potassium Level 4.5 Chloride Level 104 Carbon Dioxide Level 29.0 Anion Gap 6 Blood Urea Nitrogen 13 Creatinine 1.09 Estimat Glomerular Filtration 80 Rate Random Glucose 105 Calcium Level 9.4 Urine Color LIGHT-YELLOW Urine Turbidity CLEAR Urine pH 6.0 Urine Specific Elrod 1.004 Urine Protein NEG Urine Glucose (UA) NEG Urine Ketones NEG Urine Occult Blood NEG Urine Nitrite NEG Urine Bilirubin NEG Urine Urobilinogen LESS THAN 2.0 Urine Leukocyte Esterase NEG Urine RBC LESS THAN 1 Urine WBC 1 Microscopic Urinalysis Comment CULT NOT INDICATED Result Diagram: 12/19/16220712/19/162207 Imaging Last 48 hours Impressions Wrist X-Ray 12/19/162199 Signed Impressions: Service Date/Time: Monday, December 19, 2016 22:16 - CONCLUSION: Normal examination for a patient of this age. Sami Luis MD Head CT 12/19/162199 Signed Impressions: Service Date/Time: Monday, December 19, 2016 23:03 - CONCLUSION: Negative noncontrast CT. Severino Jameson MD Chest X-Ray 12/19/162199 Signed Impressions: Service Date/Time: Monday, December 19, 2016 22:14 - CONCLUSION: 1. Pacer leads in right atrium and right ventricle. No focal consolidation or effusion. Sami Luis MD Cervical Spine CT 12/19/16 0000 Signed Impressions: Service Date/Time: Monday, December 19, 2016 23:03 - CONCLUSION: Negative acute trauma CT with no acute fracture or malalignment.. Severino Jameson MD Assessment and Plan Assessment and Plan Impression: Altered mental statuson postop day 1 of L5-S1 laminectomy and discectomy Mild leukocytosis with left shift. No evidence of acute infection. Likely stress response. Other comorbid conditions: Atrial fibrillationstatus post ablation 3 Chronic anticoagulationon Eliquis. This was stopped on Sunday. He was resumed on aspirin today. He was told to have Eliquis only a few days later. Status post pacemaker placement History of prostate cancerin 1999 Hypertension History of TIA Hyperlipidemia Dementia Hypothyroidism Arthritis GERD Sleep apnea Plan: Neurochecks every [address] is negative for any acute infarct/hemorrhage/mass affect. Likely this is secondary to postanesthesia and medications of factors. We'll monitor closely. We'll repeat his CBC in a.m. to follow for resolution. Otherwise, patient looks quite well. He would need physical therapy and possibly a rehabilitation placement. Case management was consulted. Resume home meds apart from Eliquis DVT prophylaxiswith SCD. Would need to resume Eliquis in a few days. GI prophylaxis on pantoprazole. Discussed Condition With patient, patient's nurse Jaylene Lin MD December 20, 2016 02:35
--- NOTE | 2016-12-20 07:43 | PD.ORT.PN ---
Subjective Subjective Remarks POD#2 L5-S1 lami,discectomy;readmitted for confusion last night Patient has h/o "early dementia" Pre op LE pain gone Objective Vitals Vital Signs Date Time Temp Pulse Resp B/P Pulse Ox O2 Delivery O2 Flow Rate FiO2 12/20/16 04:58 99.7 65 18 134/71 94 12/20/16 01:48 137/81 12/20/16 00:14 98.9 67 18 165/92 97 12/19/16 23:43 66 20 168/87 98 Room Air 12/19/16 23:11 65 20 96 12/19/16 22:38 70 20 165/92 96 Room Air 12/19/16 20:21 99.3 73 16 149/93 98 Room Air I/O 12/19/16 12/19/16 12/19/16 12/20/16 12/20/16 12/20/16 07:00 15:00 23:00 07:00 15:00 23:00 Intake Total 240 ml Output Total 700 ml Balance -460 ml Intake Oral 240 ml Output Urine Total 700 ml # Voids 1 # Bowel Movements 0 Result Diagram: 12/19/16220712/19/162207 Imaging Last 24 hours Impressions Wrist X-Ray 12/19/162199 Signed Impressions: Service Date/Time: Monday, December 19, 2016 22:16 - CONCLUSION: Normal examination for a patient of this age. Sami Luis MD Head CT 12/19/162199 Signed Impressions: Service Date/Time: Monday, December 19, 2016 23:03 - CONCLUSION: Negative noncontrast CT. Severino Jameson MD Chest X-Ray 12/19/162199 Signed Impressions: Service Date/Time: Monday, December 19, 2016 22:14 - CONCLUSION: 1. Pacer leads in right atrium and right ventricle. No focal consolidation or effusion. Sami Luis MD Objective Remarks Good strength bilateral LE Patient much more confused today,restrained;required Haldol for sedation last night Assessment & Plan Assessment and Plan OOB with assist PT,rehab Patient's expressed to me she cannot manange patient at home [employer] agent business services for SNF placement Jose Barrera MD December 20, 2016 07:43
[2016-12-20 07:56] LABS: AUTOMATED NEUTROPHIL # 9.1 TH/MM3 (1.8-7.7); BASOPHIL % 0.3 % (0.0-2.0); EOSINOPHIL % 0.3 % (0.0-4.0); HEMO FLAGS DIFF FINAL; LYMPH % 10.2 % (9.0-44.0); LYMPHOCYTE # 1.1 TH/MM3 (1.0-4.8); MEAN CELL VOLUME 88.5 FL (80.0-100.0); MEAN CORPUSCULAR HEMOGLOBIN 28.9 PG (27.0-34.0); MEAN CORPUSCULAR HGB CONC 32.7 % (32.0-36.0); MONO % 7.4 % (0.0-8.0); NEUT % 81.8 % (16.0-70.0); PLATELET COUNT 136 TH/MM3 (150-450); RED BLOOD COUNT 4.52 MIL/MM3 (4.50-5.90); RED CELL DISTRIBUTION WIDTH 13.9 % (11.6-17.2); WHITE BLOOD COUNT 11.2 TH/MM3 (4.0-11.0)
[2016-12-20 08:22] LABS: BICARBONATE 26.8 MEQ/L (21.0-32.0); POTASSIUM 3.7 MEQ/L (3.5-5.1)
[2016-12-20] MEDS: PRAVASTATIN SOD 40 MG TAB PO SCH (08:47)
[2016-12-20] MEDS: PANTOPRAZOLE SOD 40 MG DELAYED RELEASE TAB PO SCH (08:47)
[2016-12-20] MEDS: ASPIRIN EC 81 MG TABEC PO SCH (08:47)
[2016-12-20] MEDS: LISINOPRIL 10 MG TAB PO SCH ×2 (08:47→20:07)
[2016-12-20] MEDS: MEMANTINE HCL 10 MG TAB PO SCH ×2 (08:47→20:07)
[2016-12-20] MEDS: CARVEDILOL 6.25 MG TAB PO SCH ×2 (08:47→20:07)
[2016-12-20] MEDS: SODIUM CHLORIDE 0.9% FLUSH 10 ML FLUSH IV FLUSH SCH ×2 (08:48→20:07)
[2016-12-20] MEDS: FLECAINIDE ACETATE 100 MG TAB PO SCH ×2 (08:53→20:07)
--- NOTE | 2016-12-20 15:07 | HHI.PR ---
Subjective Remarks Follow-up altered mental status, atrial fibrillation. Patient remains confused. He has no complaints at this time. Denies pain currently. Objective Vitals Vital Signs Date Time Temp Pulse Resp B/P Pulse Ox O2 Delivery O2 Flow Rate FiO2 12/20/16 12:00 98.5 67 20 128/78 98 12/20/16 08:00 99.4 81 19 143/87 94 12/20/16 04:58 99.7 65 18 134/71 94 12/20/16 01:48 137/81 12/20/16 00:14 98.9 67 18 165/92 97 12/19/16 23:43 66 20 168/87 98 Room Air 12/19/16 23:11 65 20 96 12/19/16 22:38 70 20 165/92 96 Room Air 12/19/16 20:21 99.3 73 16 149/93 98 Room Air I/O 12/19/16 12/19/16 12/19/16 12/20/16 12/20/16 12/20/16 07:00 15:00 23:00 07:00 15:00 23:00 Intake Total 240 ml Output Total 700 ml Balance -460 ml Intake Oral 240 ml Output Urine Total 700 ml # Voids 1 # Bowel Movements 0 Result Diagram: 12/20/1630 12/20/16629 Imaging Last Impressions Wrist X-Ray 12/19/162199 Signed Impressions: Service Date/Time: Monday, December 19, 2016 22:16 - CONCLUSION: Normal examination for a patient of this age. Sami Luis MD Head CT 12/19/162199 Signed Impressions: Service Date/Time: Monday, December 19, 2016 23:03 - CONCLUSION: Negative noncontrast CT. Severino Jameson MD Chest X-Ray 12/19/162199 Signed Impressions: Service Date/Time: Monday, December 19, 2016 22:14 - CONCLUSION: 1. Pacer leads in right atrium and right ventricle. No focal consolidation or effusion. Sami Luis MD Cervical Spine CT 12/19/16 0000 Signed Impressions: Service Date/Time: Monday, December 19, 2016 23:03 - CONCLUSION: Negative acute trauma CT with no acute fracture or malalignment.. Severino Jameson MD Objective Remarks General: No acute distress. Heart: Regular rate and rhythm. No murmur. Lungs: Clear to auscultation bilaterally. No wheezes, rales, or rhonchi. Breathing is nonlabored. Abdomen: Soft, nontender, nondistended. Extremities: No lower extremity edema. Psych: Alert, confused. Not oriented to location, year, date. Urinary Catheter: No Vascular Central Line Catheter: No A/P Problem List: (1) Hyperlipidemia ICD Code: E78.5 Status: Acute (2) Atrial fibrillation ICD Code: I48.91 Status: Acute (3) Hypertension ICD Code: I10 Status: Acute (4) Postoperative confusion ICD Code: R41.0 Status: Acute (5) Encephalopathy ICD Code: G93.40 Status: Acute Assessment and Plan 1. Encephalopathy: Patient developed altered mental status on postop day 1 following L5-S1 laminectomy and discectomy. Appreciate orthopedic surgery recommendations. Patient remains confused. Does have baseline dementia as well. Continue Namenda. 2. History of atrial fibrillation: Status post ablation 3. On chronic anticoagulation Eliquis, which was stopped on Sunday. He was placed on aspirin yesterday. Continue flecainide, Coreg. 3. Hypertension: Continue Coreg, lisinopril. 4. Hyperlipidemia: Continue statin. 5. GERD: Continue Protonix. 6. DVT prophylaxis: On aspirin. Will resume anticoagulation when okay with surgery. Discharge Planning Patient will need SNF at discharge. Case management to assist with discharge planning. Curt De Los Santos MD December 20, 2016 15:07
[2016-12-20] MEDS: clonazePAM 1 MG TAB PO SCH (20:07)
[2016-12-20] MEDS: risperiDONE 1 MG TAB PO SCH (20:07)
[2016-12-21] VITALS (7 sets, daily range): BP systolic 109–140; BP diastolic 57–84; PULSE 63–88; RESP 17–18; TEMP 97.5–99.9; O2SAT 95–98
--- NOTE | 2016-12-21 08:29 | PD.ORT.PN ---
Subjective Subjective Remarks pt doing better, much less confused today than yesterday appears to be at his baseline mild confusion to his early dementia no complaints of radiating leg pain, mild back pain w/transfers Objective Vitals Vital Signs Date Time Temp Pulse Resp B/P Pulse Ox O2 Delivery O2 Flow Rate FiO2 12/21/16 07:41 97.5 68 17 128/75 97 12/21/16 03:12 99.9 68 18 137/81 96 12/21/16 00:01 98.6 75 18 140/84 98 12/20/16 20:30 74 12/20/16 19:39 98.7 76 18 113/70 97 12/20/16 17:05 68 12/20/16 16:00 100.4 60 18 133/74 98 12/20/16 12:00 98.5 67 20 128/78 98 I/O 12/20/16 12/20/16 12/20/16 12/21/16 12/21/16 12/21/16 07:00 15:00 23:00 07:00 15:00 23:00 Intake Total 240 ml 600 ml 360 ml 240 ml Output Total 700 ml 400 ml Balance -460 ml 600 ml -40 ml 240 ml Intake Oral 240 ml 600 ml 360 ml 240 ml Output Urine Total 700 ml 400 ml # Voids 1 2 2 # Bowel Movements 0 0 0 Result Diagram: 12/20/1662912/20/16 06 Imaging Last 24 hours Impressions Wrist X-Ray 12/19/162199 Signed Impressions: Service Date/Time: Monday, December 19, 2016 22:16 - CONCLUSION: Normal examination for a patient of this age. Sami Luis MD Head CT 12/19/162199 Signed Impressions: Service Date/Time: Monday, December 19, 2016 23:03 - CONCLUSION: Negative noncontrast CT. Severino Jameson MD Chest X-Ray 12/19/162199 Signed Impressions: Service Date/Time: Monday, December 19, 2016 22:14 - CONCLUSION: 1. Pacer leads in right atrium and right ventricle. No focal consolidation or effusion. Sami Luis MD Objective Remarks seen by Dr. Jose Barrera lumbar wound healing well Good strength bilateral LE Assessment & Plan Assessment and Plan dressing changes daily OOB with assist PT,rehab patient to be discharged to [facility] [place] [facility] today orthopedically stable okay to resume Eliquis on 12/25/16 from orthopedic point of view tylenol only for pain, do not recommend narcotic meds due to patients dementia and confusion. Sandhya Sands December 21, 2016 08:29
[2016-12-21] MEDS ORDERED: ACETAMINOPHEN 500 MG CPLT PO PRN (08:30)
[2016-12-21] MEDS: PRAVASTATIN SOD 40 MG TAB PO SCH (08:42)
[2016-12-21] MEDS: PANTOPRAZOLE SOD 40 MG DELAYED RELEASE TAB PO SCH (08:42)
[2016-12-21] MEDS: MEMANTINE HCL 10 MG TAB PO SCH ×2 (08:42→22:55)
[2016-12-21] MEDS: ASPIRIN EC 81 MG TABEC PO SCH (08:42)
[2016-12-21] MEDS: CARVEDILOL 6.25 MG TAB PO SCH ×2 (08:42→22:55)
[2016-12-21] MEDS: FLECAINIDE ACETATE 100 MG TAB PO SCH ×2 (08:42→22:56)
[2016-12-21] MEDS: LISINOPRIL 10 MG TAB PO SCH ×2 (08:42→22:55)
[2016-12-21] MEDS: SODIUM CHLORIDE 0.9% FLUSH 10 ML FLUSH IV FLUSH SCH ×2 (08:43→22:56)
--- NOTE | 2016-12-21 10:22 | HHI.PR ---
Subjective Remarks Follow-up encephalopathy. Patient remains confused. He denies pain currently. He has no complaints at this time. Objective Vitals Vital Signs Date Time Temp Pulse Resp B/P Pulse Ox O2 Delivery O2 Flow Rate FiO2 12/21/16 07:41 97.5 68 17 128/75 97 12/21/16 03:12 99.9 68 18 137/81 96 12/21/16 00:01 98.6 75 18 140/84 98 12/20/16 20:30 74 12/20/16 19:39 98.7 76 18 113/70 97 12/20/16 17:05 68 12/20/16 16:00 100.4 60 18 133/74 98 12/20/16 12:00 98.5 67 20 128/78 98 I/O 12/20/16 12/20/16 12/20/16 12/21/16 12/21/16 12/21/16 06:59 14:59 22:59 06:59 14:59 22:59 Intake Total 240 ml 600 ml 360 ml 240 ml Output Total 700 ml 400 ml Balance -460 ml 600 ml -40 ml 240 ml Intake Oral 240 ml 600 ml 360 ml 240 ml Output Urine Total 700 ml 400 ml # Voids 1 2 2 # Bowel Movements 0 0 0 Result Diagram: 12/20/1662912/20/16629 Imaging Last Impressions Wrist X-Ray 12/19/162199 Signed Impressions: Service Date/Time: Monday, December 19, 2016 22:16 - CONCLUSION: Normal examination for a patient of this age. Sami Luis MD Head CT 12/19/162199 Signed Impressions: Service Date/Time: Monday, December 19, 2016 23:03 - CONCLUSION: Negative noncontrast CT. Severino Jameson MD Chest X-Ray 12/19/162199 Signed Impressions: Service Date/Time: Monday, December 19, 2016 22:14 - CONCLUSION: 1. Pacer leads in right atrium and right ventricle. No focal consolidation or effusion. Sami Luis MD Cervical Spine CT 12/19/16 0000 Signed Impressions: Service Date/Time: Monday, December 19, 2016 23:03 - CONCLUSION: Negative acute trauma CT with no acute fracture or malalignment.. Severino Jameson MD Objective Remarks General: No acute distress. Heart: Regular rate and rhythm. No murmur. Lungs: Clear to auscultation bilaterally. No wheezes, rales, or rhonchi. Breathing is nonlabored. Abdomen: Soft, nontender, nondistended. Extremities: No lower extremity edema. Psych: Alert, confused. Not oriented to location, year, date. Procedures None Urinary Catheter: No Vascular Central Line Catheter: No A/P Problem List: (1) Hyperlipidemia ICD Code: E78.5 Status: Acute (2) Atrial fibrillation ICD Code: I48.91 Status: Acute (3) Hypertension ICD Code: I10 Status: Acute (4) Postoperative confusion ICD Code: R41.0 Status: Acute (5) Encephalopathy ICD Code: G93.40 Status: Acute Assessment and Plan 1. Encephalopathy: Patient developed altered mental status on postop day 1 following L5-S1 laminectomy and discectomy. Appreciate orthopedic surgery recommendations. Patient remains confused, but mental status does appear to be improving somewhat. Does have baseline dementia as well. Continue Namenda. 2. History of atrial fibrillation: Status post ablation 3. On chronic anticoagulation Eliquis, which was stopped on Sunday. He was placed on aspirin yesterday. Continue flecainide, Coreg. 3. Hypertension: Continue Coreg, lisinopril. 4. Hyperlipidemia: Continue statin. 5. GERD: Continue Protonix. 6. DVT prophylaxis: On aspirin. Will resume anticoagulation when okay with surgery. Per orthopedic surgery, okay to restart Eliquis on 12/25/16. Discharge Planning Patient will need SNF/rehabilitation at discharge. Case management to assist with discharge planning. Curt De Los Santos MD December 21, 2016 10:22
[2016-12-21] MEDS: risperiDONE 1 MG TAB PO SCH (22:55)
[2016-12-21] MEDS: clonazePAM 1 MG TAB PO SCH (22:55)
[2016-12-22] VITALS: BP 120/78; PULSE 70; RESP 16; TEMP 98.6; O2SAT 97
[2016-12-22 04:00] VITALS: BP 116/71; PULSE 67; RESP 18; TEMP 98.2; O2SAT 96
--- NOTE | 2016-12-22 07:06 | PD.ORT.PN ---
Subjective Subjective Remarks pt doing better appears to be at his baseline mild confusion to his early dementia no complaints of radiating leg pain, mild back pain w/transfers Objective Vitals Vital Signs Date Time Temp Pulse Resp B/P Pulse Ox O2 Delivery O2 Flow Rate FiO2 12/22/16 04:00 98.2 67 18 116/71 96 12/22/16 00:00 98.6 70 16 120/78 97 12/21/16 20:00 98.7 66 17 121/73 98 12/21/16 17:07 88 12/21/16 15:56 99.4 71 17 109/57 95 12/21/16 11:36 97.6 63 17 119/72 98 12/21/16 07:41 97.5 68 17 128/75 97 I/O 12/21/16 12/21/16 12/21/16 12/22/16 12/22/16 12/22/16 07:00 15:00 23:00 07:00 15:00 23:00 Intake Total 240 ml 500 ml 480 ml 360 ml Balance 240 ml 500 ml 480 ml 360 ml Intake Oral 240 ml 500 ml 480 ml 360 ml # Voids 2 2 3 3 # Bowel Movements 0 0 Result Diagram: 12/20/16 0630 12/20/16 0630 Imaging Last 24 hours Impressions Wrist X-Ray 12/19/162199 Signed Impressions: Service Date/Time: Monday, December 19, 2016 22:16 - CONCLUSION: Normal examination for a patient of this age. Sami Luis MD Head CT 12/19/162199 Signed Impressions: Service Date/Time: Monday, December 19, 2016 23:03 - CONCLUSION: Negative noncontrast CT. Severino Jameson MD Chest X-Ray 12/19/162199 Signed Impressions: Service Date/Time: Monday, December 19, 2016 22:14 - CONCLUSION: 1. Pacer leads in right atrium and right ventricle. No focal consolidation or effusion. Sami Luis MD Objective Remarks seen by Dr. Jose Barrera lumbar wound healing well Good strength bilateral LE Assessment & Plan Assessment and Plan dressing changes daily OOB with assist PT,rehab okay to resume Eliquis on 12/25/16 from orthopedic point of view tylenol only for pain, do not recommend narcotic meds due to patients dementia and confusion discharge to SNF today, orthopedically stable Sandhya Sands December 22, 2016 07:06
[2016-12-22 07:41] VITALS: BP 139/84; PULSE 66; RESP 18; TEMP 96.4; O2SAT 99
[2016-12-22] MEDS: CARVEDILOL 6.25 MG TAB PO SCH ×2 (09:20→19:50)
[2016-12-22] MEDS: FLECAINIDE ACETATE 100 MG TAB PO SCH ×2 (09:20→19:50)
[2016-12-22] MEDS: MEMANTINE HCL 10 MG TAB PO SCH ×2 (09:20→19:50)
[2016-12-22] MEDS: PANTOPRAZOLE SOD 40 MG DELAYED RELEASE TAB PO SCH (09:20)
[2016-12-22] MEDS: ASPIRIN EC 81 MG TABEC PO SCH (09:20)
[2016-12-22] MEDS: PRAVASTATIN SOD 40 MG TAB PO SCH (09:20)
[2016-12-22] MEDS: SODIUM CHLORIDE 0.9% FLUSH 10 ML FLUSH IV FLUSH SCH ×2 (09:21→19:52)
[2016-12-22] MEDS: LISINOPRIL 10 MG TAB PO SCH ×2 (09:21→19:50)
[2016-12-22 11:40] VITALS: BP 136/82; PULSE 60; RESP 18; TEMP 98.3; O2SAT 99
--- NOTE | 2016-12-22 12:00 | HHI.PR ---
Subjective Remarks Follow-up encephalopathy. Patient's is at bedside and provides further history. Apparently the patient does not have baseline confusion. He was driving up until about a week ago, just prior to surgery. He has been falling more recently and that has limited his physical activity. Up until about a month ago he was walking 6 miles per day. She states that he is slightly less confused today, but still does not know where we are or what year it is. The patient denies chest pain, dyspnea, nausea, vomiting. Objective Vitals Vital Signs Date Time Temp Pulse Resp B/P Pulse Ox O2 Delivery O2 Flow Rate FiO2 12/22/16 11:40 98.3 60 18 136/82 99 12/22/16 07:41 96.4 66 18 139/84 99 12/22/16 04:00 98.2 67 18 116/71 96 12/22/16 00:00 98.6 70 16 120/78 97 12/21/16 20:00 98.7 66 17 121/73 98 12/21/16 17:07 88 12/21/16 15:56 99.4 71 17 109/57 95 I/O 12/21/16 12/21/16 12/21/16 12/22/16 12/22/16 12/22/16 07:00 15:00 23:00 07:00 15:00 23:00 Intake Total 240 ml 500 ml 480 ml 360 ml Balance 240 ml 500 ml 480 ml 360 ml Intake Oral 240 ml 500 ml 480 ml 360 ml # Voids 2 2 3 3 # Bowel Movements 0 0 Result Diagram: 12/20/1662912/20/16629 Imaging Last Impressions Wrist X-Ray 12/19/162199 Signed Impressions: Service Date/Time: Monday, December 19, 2016 22:16 - CONCLUSION: Normal examination for a patient of this age. Sami Luis MD Head CT 12/19/162199 Signed Impressions: Service Date/Time: Monday, December 19, 2016 23:03 - CONCLUSION: Negative noncontrast CT. Severino Jameson MD Chest X-Ray 12/19/162199 Signed Impressions: Service Date/Time: Monday, December 19, 2016 22:14 - CONCLUSION: 1. Pacer leads in right atrium and right ventricle. No focal consolidation or effusion. Sami Luis MD Cervical Spine CT 12/19/16 0000 Signed Impressions: Service Date/Time: Monday, December 19, 2016 23:03 - CONCLUSION: Negative acute trauma CT with no acute fracture or malalignment.. Severino Jameson MD Objective Remarks General: No acute distress. Heart: Regular rate and rhythm. No murmur. Lungs: Clear to auscultation bilaterally. No wheezes, rales, or rhonchi. Breathing is nonlabored. Abdomen: Soft, nontender, nondistended. Extremities: No lower extremity edema. Psych: Alert, confused. Not oriented to location, year, date. States we are at [facility], it is 1976, and it is February. Procedures None Urinary Catheter: No Vascular Central Line Catheter: No A/P Problem List: (1) Encephalopathy ICD Code: G93.40 Status: Acute (2) Postoperative confusion ICD Code: R41.0 Status: Acute (3) Hyperlipidemia ICD Code: E78.5 Status: Chronic (4) Atrial fibrillation ICD Code: I48.91 Status: Chronic (5) Hypertension ICD Code: I10 Status: Chronic Assessment and Plan 1. Encephalopathy: Patient developed altered mental status on postop day 1 following L5-S1 laminectomy and discectomy. Appreciate orthopedic surgery recommendations. Patient remains confused, but mental status does appear to be improving somewhat. Does have baseline dementia, but according to his he had been functioning at a high level until the surgery. Continue Namenda. Check EEG, MRI of the brain. Occupational therapy, speech therapy. Discussed with Dr. Prasad, rehab medicine, about possible need for inpatient rehab at discharge. Consider neurology consult. 2. History of atrial fibrillation: Status post ablation 3. On chronic anticoagulation Eliquis, which was stopped on Sunday. He was placed on aspirin yesterday. Continue flecainide, Coreg. 3. Hypertension: Continue Coreg, lisinopril. 4. Hyperlipidemia: Continue statin. 5. GERD: Continue Protonix. 6. DVT prophylaxis: On aspirin. Will resume anticoagulation when okay with surgery. Per orthopedic surgery, okay to restart Eliquis on 12/25/16. From discussion with the patient's , it sounds that his mental status has changed and that he is not at his baseline currently. He remains quite confused. Discharge Planning Patient will need SNF/rehabilitation at discharge. Case management to assist with discharge planning. Curt De Los Santos MD December 22, 2016 12:00
[2016-12-22 15:42] VITALS: BP 158/99; PULSE 60; RESP 18; TEMP 97.4; O2SAT 99
[2016-12-22] MEDS: clonazePAM 1 MG TAB PO SCH (19:50)
[2016-12-22] MEDS: risperiDONE 1 MG TAB PO SCH (19:50)
[2016-12-22 20:15] VITALS: BP 145/92; PULSE 66; RESP 17; TEMP 98.3; O2SAT 98
[2016-12-23] VITALS (11 sets, daily range): BP systolic 123–179; BP diastolic 78–112; PULSE 59–80; RESP 16–18; TEMP 95.4–98.8; O2SAT 96–100
--- NOTE | 2016-12-23 04:59 | HHI.PR ---
Addendum to Inpatient Note Addendum Reason: Additional Documentation Additional Information The patient has had a couple 4 beat runs of V. tach this morning that were asymptomatic. Vital signs are stable and oxygen saturation is 100% on room air. Patient is not diaphoretic, short of breath, nausea, or vomiting. Will check CBC, BMP, magnesium, and troponin I and will follow results. Sophia Lopez December 23, 2016 04:59
[2016-12-23 05:36] LABS: AUTOMATED NEUTROPHIL # 5.1 TH/MM3 (1.8-7.7); BASOPHIL % 0.7 % (0.0-2.0); EOSINOPHIL # 0.1 TH/MM3 (0-0.4); EOSINOPHIL % 1.8 % (0.0-4.0); HEMATOCRIT 35.2 % (39.0-51.0); HEMO FLAGS DIFF FINAL; LYMPH % 17.1 % (9.0-44.0); LYMPHOCYTE # 1.2 TH/MM3 (1.0-4.8); MEAN CELL VOLUME 88.9 FL (80.0-100.0); MEAN CORPUSCULAR HGB CONC 33.8 % (32.0-36.0); MONO % 8.5 % (0.0-8.0); NEUT % 71.9 % (16.0-70.0); PLATELET COUNT 136 TH/MM3 (150-450); RED BLOOD COUNT 3.96 MIL/MM3 (4.50-5.90); RED CELL DISTRIBUTION WIDTH 13.4 % (11.6-17.2)
[2016-12-23 05:53] LABS: BICARBONATE 28.4 MEQ/L (21.0-32.0); MAGNESIUM 2.3 MG/DL (1.5-2.5); POTASSIUM 3.9 MEQ/L (3.5-5.1)
[2016-12-23] MEDS: PRAVASTATIN SOD 40 MG TAB PO SCH (08:12)
[2016-12-23] MEDS: LISINOPRIL 10 MG TAB PO SCH ×2 (08:12→20:08)
[2016-12-23] MEDS: FLECAINIDE ACETATE 100 MG TAB PO SCH ×2 (08:12→20:08)
[2016-12-23] MEDS: MEMANTINE HCL 10 MG TAB PO SCH ×2 (08:13→20:08)
[2016-12-23] MEDS: ASPIRIN EC 81 MG TABEC PO SCH (08:13)
[2016-12-23] MEDS: SODIUM CHLORIDE 0.9% FLUSH 10 ML FLUSH IV FLUSH SCH ×2 (08:13→20:08)
[2016-12-23] MEDS: CARVEDILOL 6.25 MG TAB PO SCH ×2 (08:13→20:08)
[2016-12-23] MEDS: PANTOPRAZOLE SOD 40 MG DELAYED RELEASE TAB PO SCH (08:13)
--- NOTE | 2016-12-23 08:29 | PD.ORT.PN ---
Subjective Post Op Day #: 4 Subjective Remarks having confusion. Objective Vitals Vital Signs Date Time Temp Pulse Resp B/P Pulse Ox O2 Delivery O2 Flow Rate FiO2 12/23/16 04:25 97.2 62 17 143/86 100 12/23/16 00:17 97.5 65 17 126/80 100 12/22/16 20:15 98.3 66 17 145/92 98 12/22/16 15:42 97.4 60 18 158/99 99 12/22/16 11:40 98.3 60 18 136/82 99 I/O 12/22/16 12/22/16 12/22/16 12/23/16 12/23/16 12/23/16 07:00 15:00 23:00 07:00 15:00 23:00 Intake Total 360 ml 600 ml 240 ml 240 ml Balance 360 ml 600 ml 240 ml 240 ml Intake Oral 360 ml 600 ml 240 ml 240 ml # Voids 3 6 2 3 # Bowel Movements 0 0 1 Result Diagram: 12/23/1651512/23/16515 Imaging Last 24 hours Impressions Wrist X-Ray 12/19/162199 Signed Impressions: Service Date/Time: Monday, December 19, 2016 22:16 - CONCLUSION: Normal examination for a patient of this age. Sami Luis MD Head CT 12/19/162199 Signed Impressions: Service Date/Time: Monday, December 19, 2016 23:03 - CONCLUSION: Negative noncontrast CT. Severino Jameson MD Chest X-Ray 12/19/162199 Signed Impressions: Service Date/Time: Monday, December 19, 2016 22:14 - CONCLUSION: 1. Pacer leads in right atrium and right ventricle. No focal consolidation or effusion. Sami Luis MD Objective Remarks lumbar wound healing well dressing c/d/i Good strength bilateral LE Assessment & Plan Ortho Post Op Day #: 4 Problem List: Assessment and Plan dressing changes daily OOB with assist PT,rehab okay to resume Eliquis on 12/25/16 from orthopedic point of view tylenol only for pain, do not recommend narcotic meds due to patients dementia and confusion orthopedically stable Chaparro Mora December 23, 2016 08:29
--- NOTE | 2016-12-23 10:26 | HHI.PR ---
Subjective Remarks Follow up encephalopathy, v-tach. Patient denies chest pain, dyspnea, headache, vision changes. No chest pain or palpitations overnight. Objective Vitals Vital Signs Date Time Temp Pulse Resp B/P Pulse Ox O2 Delivery O2 Flow Rate FiO2 12/23/16 04:25 97.2 62 17 143/86 100 12/23/16 00:17 97.5 65 17 126/80 100 12/22/16 20:15 98.3 66 17 145/92 98 12/22/16 15:42 97.4 60 18 158/99 99 12/22/16 11:40 98.3 60 18 136/82 99 I/O 12/22/16 12/22/16 12/22/16 12/23/16 12/23/16 12/23/16 07:00 15:00 23:00 07:00 15:00 23:00 Intake Total 360 ml 600 ml 240 ml 240 ml Balance 360 ml 600 ml 240 ml 240 ml Intake Oral 360 ml 600 ml 240 ml 240 ml # Voids 3 6 2 3 # Bowel Movements 0 0 1 Result Diagram: 12/23/1651512/23/16515 Imaging Last Impressions Wrist X-Ray 12/19/162199 Signed Impressions: Service Date/Time: Monday, December 19, 2016 22:16 - CONCLUSION: Normal examination for a patient of this age. Sami Luis MD Head CT 12/19/162199 Signed Impressions: Service Date/Time: Monday, December 19, 2016 23:03 - CONCLUSION: Negative noncontrast CT. Severino Jameson MD Chest X-Ray 12/19/162199 Signed Impressions: Service Date/Time: Monday, December 19, 2016 22:14 - CONCLUSION: 1. Pacer leads in right atrium and right ventricle. No focal consolidation or effusion. Sami Luis MD Cervical Spine CT 12/19/16 0000 Signed Impressions: Service Date/Time: Monday, December 19, 2016 23:03 - CONCLUSION: Negative acute trauma CT with no acute fracture or malalignment.. Severino Jameson MD Objective Remarks General: No acute distress. Sitting up in a chair. Heart: Regular rate and rhythm. No murmur. Lungs: Clear to auscultation bilaterally. No wheezes, rales, or rhonchi. Breathing is nonlabored. Abdomen: Soft, nontender, nondistended. Extremities: No lower extremity edema. Psych: Alert, confused. Oriented to [place] and year. Not oriented to month. Procedures None Urinary Catheter: No Vascular Central Line Catheter: No A/P Problem List: (1) Encephalopathy ICD Code: G93.40 Status: Acute (2) Postoperative confusion ICD Code: R41.0 Status: Acute (3) Hyperlipidemia ICD Code: E78.5 Status: Chronic (4) Atrial fibrillation ICD Code: I48.91 Status: Chronic (5) Hypertension ICD Code: I10 Status: Chronic (6) Ventricular tachycardia, nonsustained ICD Code: I47.2 Status: Acute (7) Elevated troponin I level ICD Code: R74.8 Status: Acute Assessment and Plan 1. Encephalopathy: Patient developed altered mental status on postop day 1 following L5-S1 laminectomy and discectomy. Appreciate orthopedic surgery recommendations. Patient remains confused, but mental status does appear to be improving somewhat. Does have baseline dementia, but according to his he had been functioning at a high level until the surgery. Continue Namenda. EEG is pending. Unable to do MRI due to pacemaker. Occupational therapy, speech therapy. Discussed with Dr. Prasad, rehab medicine, about possible need for inpatient rehab at discharge. Neurology consult is pending. 2. History of atrial fibrillation: Status post ablation 3. On chronic anticoagulation Eliquis, which was stopped on Sunday. Continue flecainide, Coreg , aspirin. 3. Hypertension: Continue Coreg, lisinopril. 4. Hyperlipidemia: Continue statin. 5. GERD: Continue Protonix. 6. DVT prophylaxis: On aspirin. Will resume anticoagulation when okay with surgery. Per orthopedic surgery, okay to restart Eliquis on 12/25/16. 7. Ventricular tachycardia: Patient had multiple short runs (~4 beats) of v- tach. He remained asymptomatic. Monitor on telemetry. Consult cardiology ( patient sees Dr. Berman). 8. Elevated troponin: Mildly elevated. Check serial cardiac enzymes. Discharge Planning Patient will need SNF/rehabilitation at discharge. Case management to assist with discharge planning. Curt De Los Santos MD December 23, 2016 10:26
--- NOTE | 2016-12-23 13:06 | MB ---
cc: LUKE CALZADA M.D., DINESH MD DATE OF CONSULTATION: 12/23/2016. REASON FOR CONSULTATION: Evaluate for "nonsustained ventricular tachycardia". HISTORY OF PRESENT ILLNESS: Mr. Dhaliwal is a pleasant 76-year-old gentleman with no recent history of smoking. No history of diabetes. Has history of hypertension and hyperlipidemia. No family history of coronary artery disease. No prior history of MIs or coronary artery disease. He is status post lumbar surgery and was brought back by the family because of increased confusion and agitation. This is slowly improving during his stay in-house. He is alert but and oriented only to place and person, not to time. He has some degree of dementia. He was able to answer most of my questions appropriately. He denies chest pain or shortness of breath. Denies palpitations, dizziness or syncope. Denies orthopnea, PND or leg swellings. ALLERGIES: NO KNOWN DRUG ALLERGIES. FAMILY HISTORY: Not possible to obtain accurately from him but he denies any family history of coronary artery disease or diabetes but admitted to cancer and hypertension in the family. SOCIAL HISTORY: He smoked for "a little bit" for a couple of years when he was in the [employer] and this was between ages [age] but none since then. He denies EtOH abuse or recreational drug use. MEDICATIONS: Medications at home include the following - 1. Lisinopril 10 milligrams p.o. twice a day. 2. Flecainide 100 milligrams p.o. twice a day. 3. Risperidone 1 milligram p.o. at bedtime. 4. Clonazepam 2 milligrams p.o. at bedtime. 5. Carvedilol 6.25 milligrams p.o. twice a day. 6. Memantine 10 milligrams p.o. twice a day. 7. Simvastatin 40 p.o. at bedtime. 8. Aspirin 81 milligrams p.o. daily. 9. Pantoprazole 40 milligrams p.o. daily. PAST MEDICAL AND SURGICAL HISTORY Includes as mentioned above. 1. History of ablation for atrial fibrillation. 2. Status post permanent pacemaker placement. 3. Chronic anticoagulation with Eliquis. 4. History of prostate cancer diagnosed in 1999. 5. History of TIA in the past. 6. Hyperlipidemia. 7. Dementia. 8. Hypothyroidism. 9. Gastroesophageal reflux disease (GERD). 10. Sleep apnea. 11. Prostatectomy. 12. Goiter removal in the past. 13. L5-S1 laminectomy and discectomy on December 18, 2016. REVIEW OF SYSTEMS: A twelve-point system review was unremarkable as much as I could obtain from him, apart from what is mentioned in the history of present illness. PHYSICAL EXAMINATION: GENERAL: A 76-year-old pleasant gentleman lying in bed in no acute distress. Alert and oriented times three and answers questions appropriately. VITAL SIGNS: Blood pressure is 123/83 mmHg, pulse of 65 beats per minute and regular, respirations 14 per minute, afebrile. HEAD, EYES, EARS, NOSE, THROAT: Head is normocephalic. Pupils are equal and reactive. Throat is within normal limits. NECK: The neck is supple. No carotid bruits. No thyromegaly. No jugular venous distention noted. LUNGS: Clear to auscultation and percussion. CARDIOVASCULAR: S1 and S2 are normal and there is a 1/6 systolic murmur with a faint S4 gallop. ABDOMEN: Lax and nontender. Normoactive bowel sounds. No organomegaly. No masses felt. EXTREMITIES: No cyanosis, clubbing or edema. Pulses 2+ bilaterally and no bruit noted. NEUROLOGIC: Difficult to assess but grossly intact with no focal deficits. He is alert and oriented to place and person. EKGs: There is no 12-lead EKG done. ASSESSMENT AND RECOMMENDATIONS: Wide complex arrhythmia with artifacts. There is no nonsustained ventricular tachycardia noted. He has some idioventricular rhythm versus ventricular pacing and the three to four beats noted are not fast enough to fit criteria for nonsustained ventricular tachycardia. There is some artifact on telemetry noted as well and these are not ventricular tachycardia. At this point, will continue his home cardiac medications. He has nonspecific troponin elevation of 0.06. Will get a 12-lead EKG. He denies any chest pain and would repeat the troponin in the morning and if it is further showing increased values and steady rise, then please re-consult. Otherwise, I will be available on an as-needed basis over the weekend and Dr. Berman will resume his care on Sunday, if he remains in-house. If his EKG shows any dynamic changes from prior tracings, then please re-consult. Check his electrolytes and supplement. His magnesium was 2.3 and he had a potassium of 3.9. Thyroid panel will be checked as well as a phosphorous level and treat as indicated. He has history of sleep apnea and he needs to have his C-PAP therapy to be continued because that can introduce some degree of arrhythmia as well but he appears to be in sinus overall with occasional pacing. Thank you for the consultation. MD BARTOLO Solo/RAMON /11:53 AM /12:43 PM
[2016-12-23] MEDS ORDERED: ENALAPRILAT 1.25 MG/ML VIAL IV PUSH PRN (13:15)
--- NOTE | 2016-12-23 14:42 | MG ---
cc: JENNIFER ROSADO Lab No: [id number] Date: 12/23/16 Age: 76 Sex: M Race: Hyperventilation not performed. HISTORY Confused. Dementia. MEDICATIONS 1. Aspirin. 2. Coreg. 3. Pravachol. DESCRIPTION Diffuse alpha and beta rhythms are noted. The patient falls asleep with some symmetric sleep spindles and overall synchronous and symmetric. No epileptiform or seizure activity is noted. There are no hemisphere asymmetries. Photic stimulation was performed without significant posterior driving. IMPRESSION A normal awake and sleep EEG. No evidence for a focal or diffuse abnormality. MD YARA Shin/BJAnabella /2:06 PM /2:29 PM
--- NOTE | 2016-12-23 16:20 | EKG ---
Date Performed: 12/23/2016 Time Performed: 12:58:14 PTAGE: 76 years EKG: ELECTRONIC ATRIAL PACEMAKER MODERATE T-WAVE ABNORMALITY, CONSIDER ANTEROLATERAL ISCHEMIA AB NORMAL ECG PREVIOUS TRACING : 04/04/2016 18.16 Compared to prior tracing no significant change DOCTOR: Amanda Null Interpretating Date/Time 12/23/2016 16:18:56
[2016-12-23 18:02] LABS: CKMB 2.4 NG/ML (0.5-3.6)
[2016-12-23] MEDS: clonazePAM 1 MG TAB PO SCH (20:08)
[2016-12-23] MEDS: risperiDONE 1 MG TAB PO SCH (20:08)
[2016-12-23] MEDS ORDERED: HALOPERIDOL LACTATE 5 MG/ML AMP IM ONE (21:30)
[2016-12-24] VITALS (7 sets, daily range): BP systolic 107–140; BP diastolic 64–88; PULSE 60–77; RESP 16–18; TEMP 97.8–99.1; O2SAT 94–100
--- NOTE | 2016-12-24 08:22 | PD.ORT.PN ---
Subjective Subjective Remarks having confusion. worse last night. Objective Vitals Vital Signs Date Time Temp Pulse Resp B/P Pulse Ox O2 Delivery O2 Flow Rate FiO2 12/24/16 08:02 98.5 60 18 140/88 94 12/24/16 04:35 98.3 60 16 109/73 100 12/23/16 23:00 98.2 65 16 128/81 98 12/23/16 20:15 98.8 66 16 162/103 98 12/23/16 16:00 96.2 80 16 123/78 96 12/23/16 15:07 60 12/23/16 14:15 128/86 12/23/16 12:00 95.4 59 16 149/98 100 12/23/16 09:30 123/83 I/O 12/23/16 12/23/16 12/23/16 12/24/16 12/24/16 12/24/16 07:00 15:00 23:00 07:00 15:00 23:00 Intake Total 240 ml 720 ml 240 ml 240 ml Output Total 675 ml 200 ml Balance 240 ml 45 ml 240 ml 40 ml Intake Oral 240 ml 720 ml 240 ml 240 ml Output Urine Total 675 ml 200 ml # Voids 3 2 2 # Bowel Movements 1 0 0 Result Diagram: 12/23/1616 12/23/16515 Imaging Last 24 hours Impressions Wrist X-Ray 12/19/162199 Signed Impressions: Service Date/Time: Monday, December 19, 2016 22:16 - CONCLUSION: Normal examination for a patient of this age. Sami Luis MD Head CT 12/19/162199 Signed Impressions: Service Date/Time: Monday, December 19, 2016 23:03 - CONCLUSION: Negative noncontrast CT. Severino Jameson MD Chest X-Ray 12/19/162199 Signed Impressions: Service Date/Time: Monday, December 19, 2016 22:14 - CONCLUSION: 1. Pacer leads in right atrium and right ventricle. No focal consolidation or effusion. Sami Luis MD Objective Remarks lumbar wound healing well dressing c/d/i Good strength bilateral LE neg homans Assessment & Plan Assessment and Plan dressing changes daily OOB with assist PT,rehab okay to resume Eliquis on 5/22/17 from orthopedic point of view tylenol only for pain, do not recommend narcotic meds due to patients dementia and confusion continues to have confusion cardiology following as well orthopedically stable Chaparro Mora December 24, 2016 08:22
[2016-12-24] MEDS: CARVEDILOL 6.25 MG TAB PO SCH ×2 (08:30→22:23)
[2016-12-24] MEDS: ASPIRIN EC 81 MG TABEC PO SCH (08:36)
[2016-12-24] MEDS: LISINOPRIL 10 MG TAB PO SCH ×2 (08:36→22:23)
[2016-12-24] MEDS: PRAVASTATIN SOD 40 MG TAB PO SCH (08:36)
[2016-12-24] MEDS: PANTOPRAZOLE SOD 40 MG DELAYED RELEASE TAB PO SCH (08:36)
[2016-12-24] MEDS: FLECAINIDE ACETATE 100 MG TAB PO SCH ×2 (08:36→22:22)
[2016-12-24] MEDS: MEMANTINE HCL 10 MG TAB PO SCH ×2 (08:36→22:22)
[2016-12-24] MEDS: SODIUM CHLORIDE 0.9% FLUSH 10 ML FLUSH IV FLUSH SCH ×2 (08:37→22:23)
--- NOTE | 2016-12-24 14:39 | HHI.PR ---
Subjective Remarks Follow up encephalopathy. Patient had increased agitation/confusion last night. Required restraints. The patient is more sedated today. He did receive Haldol last night. He has been more confused and is requiring significant cueing with physical therapy today. Objective Vitals Vital Signs Date Time Temp Pulse Resp B/P Pulse Ox O2 Delivery O2 Flow Rate FiO2 12/24/16 08:02 98.5 60 18 140/88 94 12/24/16 04:35 98.3 60 16 109/73 100 12/23/16 23:00 98.2 65 16 128/81 98 12/23/16 20:15 98.8 66 16 162/103 98 12/23/16 16:00 96.2 80 16 123/78 96 12/23/16 15:07 60 I/O 12/23/16 12/23/16 12/23/16 12/24/16 12/24/16 12/24/16 07:00 15:00 23:00 07:00 15:00 23:00 Intake Total 240 ml 720 ml 240 ml 240 ml Output Total 675 ml 200 ml Balance 240 ml 45 ml 240 ml 40 ml Intake Oral 240 ml 720 ml 240 ml 240 ml Output Urine Total 675 ml 200 ml # Voids 3 2 2 # Bowel Movements 1 0 0 Result Diagram: 12/23/1616 12/23/16515 Imaging Last Impressions Wrist X-Ray 12/19/162199 Signed Impressions: Service Date/Time: Monday, December 19, 2016 22:16 - CONCLUSION: Normal examination for a patient of this age. Sami Luis MD Head CT 12/19/162199 Signed Impressions: Service Date/Time: Monday, December 19, 2016 23:03 - CONCLUSION: Negative noncontrast CT. Severino Jameson MD Chest X-Ray 12/19/162199 Signed Impressions: Service Date/Time: Monday, December 19, 2016 22:14 - CONCLUSION: 1. Pacer leads in right atrium and right ventricle. No focal consolidation or effusion. Sami Luis MD Cervical Spine CT 12/19/16 0000 Signed Impressions: Service Date/Time: Monday, December 19, 2016 23:03 - CONCLUSION: Negative acute trauma CT with no acute fracture or malalignment.. Severino Jameson MD Objective Remarks General: No acute distress. Heart: Regular rate and rhythm. No murmur. Lungs: Clear to auscultation bilaterally. No wheezes, rales, or rhonchi. Breathing is nonlabored. Abdomen: Soft, nontender, nondistended. Extremities: No lower extremity edema. Psych: Alert, confused. Oriented to [place] and year. Not oriented to month. Procedures None Urinary Catheter: No Vascular Central Line Catheter: No A/P Problem List: (1) Encephalopathy ICD Code: G93.40 Status: Acute (2) Postoperative confusion ICD Code: R41.0 Status: Acute (3) Hyperlipidemia ICD Code: E78.5 Status: Chronic (4) Atrial fibrillation ICD Code: I48.91 Status: Chronic (5) Hypertension ICD Code: I10 Status: Chronic (6) Elevated troponin I level ICD Code: R74.8 Status: Acute Assessment and Plan 1. Encephalopathy: Patient developed altered mental status on postop day 1 following L5-S1 laminectomy and discectomy. Appreciate orthopedic surgery recommendations. Patient remains confused, but mental status does appear to be improving somewhat. Does have baseline dementia, but according to his he had been functioning at a high level until the surgery. Continue Namenda. EEG is pending. Unable to do MRI due to pacemaker. Occupational therapy, speech therapy. Discussed with Dr. Prasad, rehab medicine, about possible need for inpatient rehab at discharge. Appreciate neurology recommendations. 2. History of atrial fibrillation: Status post ablation 3. On chronic anticoagulation Eliquis, which was stopped on Sunday. Continue flecainide, Coreg , aspirin. 3. Hypertension: Continue Coreg, lisinopril. 4. Hyperlipidemia: Continue statin. 5. GERD: Continue Protonix. 6. DVT prophylaxis: On aspirin. Per orthopedic surgery, okay to restart Eliquis on 12/25/16. 7. Arrhythmia, wide complex: Also artifact present on telemetry. Appreciate cardiology recommendations. 8. Elevated troponin: Serial enzymes are negative. Appreciate cardiology recommendations. Discharge Planning Patient will need SNF/rehabilitation at discharge. Case management to assist with discharge planning. Curt De Los Santos MD December 24, 2016 14:39
[2016-12-24] MEDS ORDERED: HALOPERIDOL 0.5 MG TAB PO PRN (18:00)
[2016-12-24] MEDS: clonazePAM 1 MG TAB PO SCH (22:22)
[2016-12-24] MEDS: risperiDONE 1 MG TAB PO SCH (22:23)
--- NOTE | 2016-12-24 23:25 | HHI.PR ---
Review/Management Diagnosis Dementia Behavioral changes Sleep disorder s/p lumbar laminectomy Plan Neurochecks Q4h Risperidone 0.25mg bid Clonazepam 1mh nightly Placement/ rehab Diagnosis/Plan: Subjective Subjective Comments Patient is reportedly becomes more agitated at night, had to be under 4 point restraint the previous night As per daughter, patient with a sleep disorder, and h/o sleep walking During the encounter, patient was calm this afternoon EEG with no ictal activity Head CT scan with no acute intracranial abnormality Active Medications Current Medications Medications (Trade) Dose Ordered Sig/Benjamin Route Start Time Stop Time Status Last Admin (NS Flush) 2 ml UNSCH PRN IV FLUSH 12/19/16 23:00 (NS Flush) 2 ml BID IV FLUSH 12/20/16 09:00 12/24/16 22:23 (Zofran Inj) 4 mg Q6H PRN IVP 12/19/16 23:00 (Narcan Inj) 0.4 mg UNSCH PRN IV 12/19/16 23:00 (Ecotrin Ec) 81 mg DAILY PO 12/20/16 09:00 12/24/16 08:36 (Coreg) 6.25 mg BID PO 12/20/16 09:00 12/24/16 22:23 (Tambocor) 100 mg BID PO 12/20/16 09:00 12/24/16 22:22 (Prinivil) 10 mg BID PO 12/20/16 09:00 12/24/16 22:23 (Namenda) 10 mg BID PO 12/20/16 09:00 12/24/16 22:22 (Protonix) 40 mg DAILY PO 12/20/16 09:00 12/24/16 08:36 (risperDAL) 1 mg HS PO 12/20/16 21:00 12/24/16 22:23 (Pravachol) 80 mg DAILY PO 12/20/16 09:00 12/24/16 08:36 (Tylenol) 500 mg Q6H PRN PO 12/21/16 08:30 (Vasotec Inj) 0.625 mg Q6H PRN IV PUSH 12/23/16 13:15 (Haldol) 0.5 mg TID PRN PO 12/24/16 18:00 12/24/16 18:38 (KlonoPIN) 1 mg DAILY@18 PO 12/25/16 18:00 (KlonoPIN) 0.5 mg DAILY PO 12/25/16 09:00 (risperDAL) 0.5 mg BID@09,18 PO 12/25/16 09:00 Allergies Allergies Coded Allergies MRI PRECAUTION (Verified Adverse Reaction, Severe, MRI PRECAUTION/PACEMAKER, ) Exam I&O / VS 12/23/16 12/23/16 12/24/16 15:00 23:00 07:00 Intake Total 720 ml 240 ml Output Total 675 ml Balance 45 ml 240 ml Intake Oral 720 ml 240 ml Output Urine Total 675 ml # Voids 2 2 # Bowel Movements 0 Vital Signs Date Time Temp Pulse Resp B/P Pulse Ox O2 Delivery O2 Flow Rate FiO2 12/24/16 20:05 99.1 60 17 137/88 100 12/24/16 16:00 98.7 68 18 107/64 98 12/24/16 12:00 97.8 60 18 109/69 100 12/24/16 08:02 98.5 60 18 140/88 94 12/24/16 04:35 98.3 60 16 109/73 100 General: Alert and Oriented, No acute distress Eye: PERRL, Normal conjuctiva, Vision unchanged Respiratory: Lungs CTA, Non-labored respirations Cardiology: Normal rate, No murmur Neurologic: Alert, Oriented, Normal sensory, Normal motor, No focal defects, CN II-XII intact, Normal DTR's Psychiatric: Cooperative, Appropriate mood & affect Objective Micro and Labs Laboratory Tests Test 12/24/16 06:18 Troponin I 0.03 Bucky Chaudhari MD December 24, 2016 23:25
[2016-12-25 00:20] VITALS: BP 101/67; PULSE 57; RESP 17; TEMP 98.9; O2SAT 100
[2016-12-25 04:45] VITALS: BP 125/86; PULSE 52; RESP 18; TEMP 98.4; O2SAT 98
[2016-12-25 07:59] VITALS: BP 118/80; PULSE 65; RESP 18; TEMP 98.1; O2SAT 97
[2016-12-25] MEDS: ASPIRIN EC 81 MG TABEC PO SCH (08:59)
[2016-12-25] MEDS: PRAVASTATIN SOD 40 MG TAB PO SCH (08:59)
[2016-12-25] MEDS: FLECAINIDE ACETATE 100 MG TAB PO SCH (08:59)
[2016-12-25] MEDS: PANTOPRAZOLE SOD 40 MG DELAYED RELEASE TAB PO SCH (08:59)
[2016-12-25] MEDS: LISINOPRIL 10 MG TAB PO SCH (09:00)
[2016-12-25] MEDS: MEMANTINE HCL 10 MG TAB PO SCH (09:00)
[2016-12-25] MEDS ORDERED: risperiDONE 0.5 MG TAB PO SCH (09:00)
[2016-12-25] MEDS: SODIUM CHLORIDE 0.9% FLUSH 10 ML FLUSH IV FLUSH SCH (09:00)
[2016-12-25] MEDS: CARVEDILOL 6.25 MG TAB PO SCH (09:00)
[2016-12-25] MEDS ORDERED: clonazePAM 0.5 MG TAB PO SCH (09:00)
[2016-12-25 10:19] VITALS: BP 118/75
--- NOTE | 2016-12-25 10:36 | MB ---
cc: ALBARO CHAUDHARI MD DATE OF CONSULTATION: 12/22/2016 REASON FOR CONSULTATION: Encephalopathy. HISTORY OF PRESENT ILLNESS Mr. Dhaliwal is a 76-year-old -Citizen Of [place] male who is seen status post laminectomy / diskectomy with reported with altered mental status as per the emergency room physician on review of medical records, the patient was brought in by family members because he was more agitated kept falling more at home. He was just discharged from the hospital on 12/19/2016 status post laminectomy 12/18/2016. REVIEW OF SYSTEMS 12-point review of systems is negative except for what is stated in the HPI. PAST MEDICAL HISTORY 1. Atrial fibrillation status post ablation times three. 2. Chronic anticoagulation Eliquis. 3. Status post pacemaker placement. 4. Prostate cancer. 5. Hypertension 6. Transient ischemic attack. 7. Hyperlipidemia. 8. Dementia 9. Hypothyroidism. 10. Arthritis. 11. Gastroesophageal reflux disease. 12. Sleep apnea. PAST SURGICAL HISTORY 1. Pacemaker placement. 2. L5-S1 laminectomy diskectomy. 3. Prostatectomy. 4. Goiter removal. ALLERGIES NO KNOWN DRUG ALLERGIES. FAMILY HISTORY Noncontributory MEDICATIONS 1. Risperidone. 2. Aspirin. 3. Zocor. 4. Clonazepam. 5. Pantoprazole. 6. Memantine. 7. Lisinopril. 8. Carvedilol. 9. Flecainide. PHYSICAL EXAMINATION IN GENERAL: Awake, alert, pleasant not in acute distress and is walking in the hallway with physical therapy. HEAD, EYES, EARS, NOSE, AND THROAT: Atraumatic, normocephalic. Intact hearing. Intact vision. CARDIOVASCULAR SYSTEM: Regular rate and rhythm. RESPIRATORY: Clear to auscultation. No wheezes. EXTREMITIES: No clubbing, no cyanosis, no edema. NEUROLOGIC: Awake, alert, oriented to person, not to place ([place], [place]). time partially to time the 2016/ Sunday. Intact repetition. Intact speech content. Intact comprehension with historian good remote summary. Cranial nerves II-XII are grossly intact. Upper and lower extremity motor function is grossly intact with some give-way lower extremity status post surgery. Sensation intact bilateral symmetrical [id number] bilateral intact. Normal stance. No ataxia. DIAGNOSTIC IMAGING: - Head CT scan without contrast with was negative for any acute intracranial abnormality. LABORATORY DATA White blood cells 11.2, hemoglobin 13.1, MCV 88.5, sodium 140, potassium 3.7, calcium 9.2, random glucose of 114. BUN 10, creatinine 105. Urine unremarkable. DIAGNOSTIC IMPRESSION 1. Encephalopathy. 2. Likely metabolic related to medication adverse affect. 3. Chronic atrial fibrillation status post ablation. 4. Hypertension. 5. History of Transient ischemic attack. 6. Hyperlipidemia. 7. Dementia. PLAN 1. Neuro checks 2. Improving neurologic status and examination is unremarkable 3. EEG 4. Fall precautions. 5. Diet. 6. Call for questions Thank you for opportunity participate in care of the patient Albaro Chaudhari MD [facility]/jorge luis /11:26 PM /10:33 AM MTDD
[2016-12-25 12:00] VITALS: BP 108/68; PULSE 60; RESP 20; TEMP 97.7; O2SAT 98
[2016-12-25] MEDS ORDERED: CLON1 PO (14:50)
[2016-12-25] MEDS ORDERED: RISP0.5T20 PO (14:50)
[2016-12-25] MEDS ORDERED: CLON.5 PO (14:50)
--- NOTE | 2016-12-25 14:51 | HHI.DCPOC ---
Discharge Care Plan Diagnosis: (1) Elevated troponin I level (2) Hypertension (3) Atrial fibrillation (4) Hyperlipidemia (5) Encephalopathy (6) Postoperative confusion (7) Dementia Goals to Promote Your Health * To prevent worsening of your condition and complications * To maintain your health at the optimal level Directions to Meet Your Goals Take your medications as prescribed Follow your dietary instruction Follow activity as directed Keep your appointments as scheduled Take your immunizations and boosters as scheduled If your symptoms worsen call your PCP, if no PCP go to Urgent Care Center or Emergency Room Smoking is Dangerous to Your Health. Avoid second hand smoke Call the 24-hour hour crisis hotline for domestic abuse at Curt De Los Santos MD December 25, 2016 14:51
--- NOTE | 2016-12-25 14:52 | HHI.FF ---
Face to Face Verification Diagnosis: (1) Encephalopathy (2) Postoperative confusion (3) Hyperlipidemia (4) Atrial fibrillation (5) Hypertension (6) Elevated troponin I level (7) Dementia Physical Therapy Order: Evaluate and Treat Home Health Nursing Order: Nursing assessment with vital signs I have seen patient Phillip Dhaliwal on 12/25/16. My clinical findings support the need for the requested home health care services because: High risk of falls I certify that my clinical findings support that this patient is homebound because: Unsteady gait/balance Curt De Los Santos MD December 25, 2016 14:52
--- NOTE | 2016-12-25 14:53 | HHI.DS ---
Discharge Summary Admission Date December 19, 2016 at 22:51 Discharge Date: December 25, 2016 Admitting Diagnosis Post op confusion s/p laminectomy/ discectomy (1) Encephalopathy ICD Code: G93.40 (2) Postoperative confusion ICD Code: R41.0 (3) Hyperlipidemia ICD Code: E78.5 (4) Atrial fibrillation ICD Code: I48.91 (5) Hypertension ICD Code: I10 (6) Elevated troponin I level ICD Code: R74.8 Procedures None Brief History - From Admission History from ER physician communication, review of medical records, and nursing staff. Patient is an elderly gentleman who is quite sleepy and confused at present. He did receive Haldol 2 mg IV just about an hour prior to my arrival. This was given because he was severely agitated upon arrival to medical floors. As per ER physician communication, patient was brought in by family members because he was more and more agitated and kept falling while at home. He was just discharged from our hospital yesterday December 19, 2016 after having had laminectomy done on December 18, 2016. Family was present in ER they reported pt was increasingly paranoid and insisted on leaving around 11: 00a.m. on 12/19/16 post op day 1 He was then discharged and he became increasingly confused and fall down multiple times at home. Post in the emergency room and on medical floor, patient was oriented mostly to self. He does not remember that he had surgery. CBC/BMP: 12/23/16 0516 12/23/16 0516 Significant Findings Laboratory Tests Test 12/23/16 12/23/16 05:16 17:02 Red Blood Count 3.96 MIL/MM3 (4.50-5.90) Hemoglobin 11.9 GM/DL (13.0-17.0) Hematocrit 35.2 % (39.0-51.0) Platelet Count 136 TH/MM3 (150-450) Neutrophils (%) (Auto) 71.9 % (16.0-70.0) Monocytes (%) (Auto) 8.5 % (0.0-8.0) Troponin I 0.06 NG/ML (0.02-0.05) Total Creatine Kinase 373 U/L (39-308) PE at Discharge General: No acute distress. Heart: Regular rate and rhythm. No murmur. Lungs: Clear to auscultation bilaterally. No wheezes, rales, or rhonchi. Breathing is nonlabored. Abdomen: Soft, nontender, nondistended. Extremities: No lower extremity edema. Psych: Alert, confused. Oriented to [place] and year. Not oriented to month. Pt update on day of discharge The patient is reporting pain at the surgical site in his low back. Denies chest pain, dyspnea, nausea, vomiting, abdominal pain. He and his state that he is ready to go home. He has been confused today, about the same as yesterday. Hospital Course Patient was admitted for management of altered mental status. Orthopedic surgery was consulted for routine postoperative care. He continued to have confusion, which did improve somewhat throughout the hospitalization. Physical therapy was continued. Neurology was consulted. The patient's encephalopathy was felt to be most likely secondary to medications/anesthesia worsening his mental status on top of his baseline dementia. EEG was normal. Head CT was negative. Could not do MRI secondary to pacemaker. Case management was consulted for assistance with discharge planning. The patient did not meet criteria for inpatient rehabilitation and arrangements were not able to be made for fpc facility. The patient and his family were requesting discharge home and did not want to go to SNF anyway. Arrangements were made for discharge home with home health care. Pt Condition on Discharge: Stable Discharge Disposition: Disch w/ Home Health Serv Discharge Time: > 30 minutes Discharge Instructions DIET: Follow Instructions for: Heart Healthy Diet Activities you can perform: See Additionl Instruction Other Activity Instructions: With assistance Follow up Referrals: Orthopedics - 3-5 Days with Jose Barrera MD PCP Follow-up - 1 Week New Medications: Apixaban (Eliquis) 5 Mg Tab 5 MG PO BID Blood Clot Prevention #60 Ref 0 TAB Clonazepam (Klonopin) 1 Mg Tab 1 MG PO DAILY@18 Anxiety #15 Ref 0 TAB Clonazepam (Klonopin) 0.5 Mg Tab 0.5 MG PO DAILY Anxiety #15 Ref 0 TAB Risperidone (Risperdal) 0.5 Mg Tab 0.5 MG PO BID@09,18 agitation #60 Ref 0 TAB Continued Medications: Aspirin (Aspirin) 81 Mg Tabdr 81 MG PO DAILY TAB Carvedilol (Carvedilol) 6.25 Mg Tab 6.25 MG PO BID #60 Ref 0 TAB Flecainide (Flecainide) 100 Mg Tab 100 MG PO BID Regulate Heart Beat #60 Ref 0 TAB Lisinopril (Lisinopril) 10 Mg Tab 10 MG PO BID #30 Ref 0 TAB Memantine (Memantine) 10 Mg Tab 10 MG PO BID Alzheimer's Dementia Ref 0 TAB Pantoprazole (Pantoprazole) 40 Mg Tab 40 MG PO DAILY Reflux #30 Ref 0 TAB Simvastatin (Zocor) 40 Mg Tab 40 MG PO DAILY Cholesterol Management #30 Ref 0 TAB Discontinued Medications: Clonazepam (Clonazepam) 2 Mg Tab 2 MG PO HS #60 Ref 0 TAB Risperidone (Risperidone) 1 Mg Tab 1 MG PO HS #30 Ref 0 TAB Curt De Los Santos MD December 25, 2016 14:53
[2016-12-25] MEDS ORDERED: APIX5TAB PO (14:57)
--- NOTE | 2016-12-25 16:01 | EKG ---
Date Performed: 12/24/2016 Time Performed: 14:03:22 PTAGE: 76 years EKG: Sinus rhythm NONSPECIFIC T-WAVE ABNORMALITY When compared to previous tracing, T wave abnormalities are Slightly improved. BORDERLINE ECG PREVIOUS TRACING : 12/23/2016 12.58 DOCTOR: Lawrence Warren Interpretating Date/Time 12/25/2016 16:01:05
[2016-12-25] MEDS ORDERED: clonazePAM 1 MG TAB PO SCH (18:00)
== END 2016-12-25 15:57 | disposition home health service (06) ==
LOC: NEPE 20:19 → INTOOBSV 22:51 → NEDA 22:51 → N06A 12-20 00:06
PROVIDERS: ADMIT Family Medicine; ATTEND Family Medicine
DX: R29.6 Repeated falls (principal); R26.81 Unsteadiness on feet; M25.432 Effusion, left wrist; I48.2 Chronic atrial fibrillation; R41.82 Altered mental status, unspecified; G93.40 Encephalopathy, unspecified; M54.30 Sciatica, unspecified side; I10 Essential (primary) hypertension; R74.8 Abnormal levels of other serum enzymes; E03.9 Hypothyroidism, unspecified; E78.5 Hyperlipidemia, unspecified; K21.9 Gastro-esophageal reflux disease without esophagitis; G47.30 Sleep apnea, unspecified; R45.1 Restlessness and agitation; Y92.009 Unspecified place in unspecified non-institutional (private) residence as the place of occurrence of the external cause; Z86.73 Personal history of transient ischemic attack (TIA), and cerebral infarction without residual deficits; Z95.0 Presence of cardiac pacemaker; Z85.46 Personal history of malignant neoplasm of prostate; Z79.01 Long term (current) use of anticoagulants
CPT/HCPCS: 70450; 71010; 72125; 73110; 80048; 81001; 82550; 82552; 83735; 84484; 85025; 93005; 95819; 99285; G0378; G8987-GO; G8987-GP; G8988-GO; G8988-GP; G9168-GN; G9169-GN; G9170-GN; J1630; J2060

== ENCOUNTER 2017-04-28 12:59 | Emergency (ER) | payer MEDICARE, BC ==
[~2017-04-28] VITALS: Ht 180.3 cm; Wt 86.0 kg
[2017-04-28] VITALS (7 sets, daily range): BP systolic 159–187; BP diastolic 89–112; PULSE 60–64; RESP 14–23; TEMP 98.8; O2SAT 10–100
[~2017-04-28 12:59] MED LIST changes: +APIX5TAB PO; +CLON.5 PO; +CLON1 PO; -CLON2TAB PO; +RISP0.5T20 PO; -RISP1TAB2 PO
--- NOTE | 2017-04-28 13:17 | PD ---
Physical Exam Date Seen by Provider: Apr 28, 2017 Time Seen by Provider: 13:14 Narrative 77-year-old Afro-[place] male with severe headache right behind his left eye since this morning. Patient has history of TIA treated at [facility] discharge yesterday. This was #3 of 3. Patient currently being treated for bladder cancer with chemotherapy with his last chemotherapy treatment 3 days ago. Patient has had some nausea this morning. Patient denies visual changes. He denies any other neurological findings. Patient has a pacemaker and is an MRI precaution. Vital signs are reviewed. Patient is awaiting bed placement. Data Data Last Documented VS Vital Signs Date Time Temp Pulse Resp B/P (MAP) Pulse Ox O2 Delivery O2 Flow Rate FiO2 04/28/17 13:02 98.8 64 20 187/112 (137) 98 Room Air [facility] Medical Record Reviewed: Yes Supervised Visit with MARTHA: Yes Condition: Stable Liu Suero Apr 28, 2017 13:17
[2017-04-28] MEDS ORDERED: SODIUM CHLORIDE 0.9% FLUSH 10 ML FLUSH IVF PRN (13:30)
[2017-04-28] MEDS ORDERED: QUET1TAB7 PO (13:49)
[2017-04-28] MEDS ORDERED: AMLO10TA2 PO (13:49)
[2017-04-28] MEDS ORDERED: ASPI81CH37 CHEW (13:49)
[2017-04-28] MEDS ORDERED: CLON2TAB PO (13:49)
--- NOTE | 2017-04-28 14:02 | RADRPT ---
EXAM DATE/TIME: 04/28/2017 13:33 [place] COMPARISON: CT BRAIN W/O CONTRAST, December 19, 2016, 23:03. INDICATIONS : Cephalgia. RADIATION DOSE: 56.35 CTDIvol (mGy) MEDICAL HISTORY : Carcinoma, bladder. Cardiovascular disease Hypertension. SURGICAL HISTORY : Chemotherapy ENCOUNTER: Initial ACUITY: 1 day PAIN SCALE: 8/10 LOCATION: cranial TECHNIQUE: Multiple contiguous axial images were obtained of the head. Using automated exposure control and adj ustment of the mA and/or kV according to patient size, radiation dose was kept as low as reasonably a chievable to obtain optimal diagnostic quality images. DICOM format image data is available electro nically for review and comparison. FINDINGS: CEREBRUM: The ventricles are normal for age. No evidence of midline shift, mass lesion, hemorrhage or acute in farction. No extra-axial fluid collections are seen. POSTERIOR FOSSA: The cerebellum and brainstem are intact. The 4th ventricle is midline. The cerebellopontine angle i s unremarkable. EXTRACRANIAL: The visualized portion of the orbits is intact. SKULL: The calvaria is intact. No evidence of skull fracture. CONCLUSION: Stable negative noncontrast CT. Severino Jameson MD on April 28, 2017 at 13:59 Board Certified Radiologist. This report was verified electronically.
[2017-04-28 14:45] LABS: AUTOMATED NEUTROPHIL # 7.4 TH/MM3 (1.8-7.7); BASOPHIL % 0.2 % (0.0-2.0); EOSINOPHIL # 0.1 TH/MM3 (0-0.4); HEMATOCRIT 42.8 % (39.0-51.0); HEMO FLAGS DIFF FINAL; LYMPH % 10.5 % (9.0-44.0); LYMPHOCYTE # 0.9 TH/MM3 (1.0-4.8); MEAN CELL VOLUME 89.5 FL (80.0-100.0); MEAN CORPUSCULAR HEMOGLOBIN 29.4 PG (27.0-34.0); MEAN CORPUSCULAR HGB CONC 32.8 % (32.0-36.0); NEUT % 84.3 % (16.0-70.0); PLATELET COUNT 167 TH/MM3 (150-450); RED BLOOD COUNT 4.78 MIL/MM3 (4.50-5.90); RED CELL DISTRIBUTION WIDTH 13.2 % (11.6-17.2); WHITE BLOOD COUNT 8.7 TH/MM3 (4.0-11.0)
[2017-04-28 14:58] LABS: BLOOD, URINE NEG (NEG); COMMENT (UR) CULT NOT INDICATED; CULTURE IF INDICATED CULT NOT INDICATED; GLUCOSE,URINE NEG (NEG); KETONE, URINE NEG (NEG); MUCUS URINE FEW /lpf (OCC); NITRITE,URINE NEG (NEG); URINE COLOR LIGHT-YELLOW (YELLW/STRAW)
[2017-04-28] MEDS ORDERED: diphenhydrAMINE HCL 50 MG/ML VIAL IV PUSH ONE (15:00)
[2017-04-28] MEDS ORDERED: DEXAMETHASONE SOD PHOS 20 MG/5 ML VIAL IV PUSH ONE (15:00)
[2017-04-28] MEDS ORDERED: METOCLOPRAMIDE HCL 10 MG/2 ML VIAL IV PUSH ONE (15:00)
[2017-04-28 15:05] LABS: PROTHROMBIN TIME - PATIENT 11.4 SEC (9.8-11.6)
[2017-04-28 15:06] LABS: ALT (GPT) 25 U/L (12-78); ANION GAP 4 MEQ/L (5-15); AST (GOT) 27 U/L (15-37); BICARBONATE 27.6 MEQ/L (21.0-32.0); BLOOD UREA NITROGEN 12 MG/DL (7-18); CHLORIDE 102 MEQ/L (98-107); GLOMERULAR FILTRATION RATE 82 ML/MIN (>89); SODIUM (NA) 134 MEQ/L (136-145)
[2017-04-28 15:08] LABS: ALKALINE PHOSPHATASE 82 U/L (45-117); TOTAL BILIRUBIN ADULT 0.5 MG/DL (0.2-1.0)
--- NOTE | 2017-04-28 15:14 | PD ---
HPI Chief Complaint: Headache Time Seen by Provider: 13:50 Travel History International Travel<30 days: No Contact w/Intl Traveler<30days: No Traveled to known affect area: No History of Present Illness HPI Patient is a 77-year-old male who presents to emergency with complaints of severe headache behind his left eye which started this morning. As per patient' s was at bedside, patient has had multiple TIAs in the past few weeks. Patient's reports that on , patient was admitted for a TIA workup, reports that she was told by nursing to pick him up from the hospital as patient request to leave AGAINST MEDICAL ADVICE. Request concern as patient does have dementia and is unable to make decisions for himself. was concerned as he left AMA yesterday and she is not sure why he left the hospital Reports that during his inpatient stay, he was seen by Dr. Berman his move coordinator who was concerned for him. Reports that he never finished his TIA workup. Reports that when he had his symptoms on , he had speech changes as well as a severe headache. Patient at this time reports pain behind his left eye. Patient denies any vision changes at this time. Patient denies any fall or trauma. Patient denies any chest pain or shortness of breath. Patient's family reports the patient is on Eliquis as he has a pacemaker and has history of afib. Reports that his pacemaker is not MRI compatible. PFSH Past Medical History Arthritis: Yes Atrial Fibrillation: Yes Blood Disorders: No Heart Rhythm Problems: Yes Cancer: Yes (PROSTATE/BLADDER) Cardiovascular Problems: Yes (A FIB,A FLUTTER, MINI STROKE, PACE MAKER, BLOOD CLOTS) High Cholesterol: Yes Chemotherapy: Yes Chest Pain: No Congestive Heart Failure: No Cerebrovascular Accident: Yes (TIA X 3) Dementia: Yes Diabetes: No Diminished Hearing: No Endocrine: Yes Gastrointestinal Disorders: Yes GERD: Yes Glaucoma: No Genitourinary: Yes Hepatitis: No Hiatal Hernia: No Hypertension: Yes Immune Disorder: No Medical other: Yes (BLOOD CLOT) Musculoskeletal: Yes Neurologic: Yes (HERNIATED DISK, 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) Psychiatric: Yes (DEMENTIA) Reproductive: No Respiratory: Yes Integumentary: No Radiation Therapy: Yes Sleep Apnea: Yes Thyroid Disease: Yes ( growth removed) Ulcer: Yes Past Surgical History Abdominal Surgery: No AICD: No Cardiac Surgery: Yes (PACEMAKER, ABLATIONS X 2) Ear Surgery: No Endocrine Surgery: Yes (GROWTH REMOVED FROM THYROID) Eye Surgery: No Genitourinary Surgery: Yes (PROSTATECTOMY) Gynecologic Surgery: No Joint Replacement: No Oral Surgery: No Pacemaker: Yes Thoracic Surgery: No Other Surgery: Yes Social History Alcohol Use: No Tobacco Use: No Substance Use: No Allergies-Medications (Allergen,Severity, Reaction): Coded Allergies: MRI PRECAUTION (Verified Adverse Reaction, Severe, MRI PRECAUTION/ PACEMAKER, 04/28/17) [facility] PACEMAKER/ 12/22/16 [facility] Reported Meds & Prescriptions Reported Meds & Active Scripts Active Eliquis (Apixaban) 5 Mg Tab 5 Mg PO BID Reported Quetiapine (Quetiapine Fumarate) 25 Mg Tab 25 Mg PO HS Amlodipine (Amlodipine Besylate) 10 Mg Tab 10 Mg PO HS Clonazepam 2 Mg Tab 2 Mg PO HS Aspirin Low Dose (Aspirin) 81 Mg Chew 81 Mg CHEW HS Zocor (Simvastatin) 40 Mg Tab 40 Mg PO HS Pantoprazole (Pantoprazole Sodium) 40 Mg Tab 40 Mg PO DAILY Memantine 10 Mg Tab 10 Mg PO BID Lisinopril 10 Mg Tab 10 Mg PO DAILY Carvedilol 6.25 Mg Tab 6.25 Mg PO BID Flecainide (Flecainide Acetate) 100 Mg Tab 100 Mg PO BID Review of Systems General / Constitutional: No: Fever Eyes: No: Visual changes HENT: Positive: Headaches Cardiovascular: No: Chest Pain or Discomfort Respiratory: No: Shortness of Breath Gastrointestinal: Positive: Abdominal Pain Genitourinary: No: Dysuria Musculoskeletal: No: Pain Skin: No Rash Neurologic: No: Weakness Psychiatric: No: Depression Endocrine: No: Polydipsia Hematologic/Lymphatic: No: Easy Bruising Physical Exam Narrative GENERAL: NAD SKIN: Focused skin assessment warm/dry. HEAD: Atraumatic. Normocephalic. EYES: Pupils equal and round. No scleral icterus. No injection or drainage. ENT: No nasal bleeding or discharge. Mucous membranes pink and moist. NECK: Trachea midline. No JVD. CARDIOVASCULAR: Regular rate and rhythm. No murmur appreciated. RESPIRATORY: No accessory muscle use. Clear to auscultation. Breath sounds equal bilaterally. GASTROINTESTINAL: Abdomen soft, non-tender, nondistended. Hepatic and splenic margins not palpable. MUSCULOSKELETAL: No obvious deformities. No clubbing. No cyanosis. No edema. NEUROLOGICAL: Awake and alert. No obvious cranial nerve deficits. Motor grossly within normal limits. Normal speech. PSYCHIATRIC: Appropriate mood and affect; insight and judgment normal. Data Data Last Documented VS Vital Signs Date Time Temp Pulse Resp B/P (MAP) Pulse Ox O2 Delivery O2 Flow Rate FiO2 04/28/17 14:12 100 Room Air 04/28/17 13:02 98.8 64 20 Orders Orders Complete Blood Count With Diff (04/28/17 13:23) Comprehensive Metabolic Panel (04/28/17 13:23) Prothrombin Time / Inr (Pt) (04/28/17 13:23) Act Partial Throm Time (Ptt) (04/28/17 13:23) Ct Brain W/O Iv Contrast(Rout) (04/28/17 13:23) Ecg Monitoring (04/28/17 13:23) Iv Access Insert/Monitor (04/28/17 13:23) Oximetry (04/28/17 13:23) Sodium Chloride 0.9% Flush (Ns Flush) (04/28/17 13:30) Lipase (04/28/17 13:24) Urinalysis - C+S If Indicated (04/28/17 13:24) Dexamethasone Inj (Decadron Inj) (04/28/17 15:00) Metoclopramide Inj (Reglan Inj) (04/28/17 15:00) Diphenhydramine Inj (Benadryl Inj) (04/28/17 15:00) Electrocardiogram (04/28/17 ) Labs Laboratory Tests Test 04/28/17 14:05 04/28/17 14:36 White Blood Count 8.7 TH/MM3 Red Blood Count 4.78 MIL/MM3 Hemoglobin 14.0 GM/DL Hematocrit 42.8 % Mean Corpuscular Volume 89.5 FL Mean Corpuscular Hemoglobin 29.4 PG Mean Corpuscular Hemoglobin Concent 32.8 % Red Cell Distribution Width 13.2 % Platelet Count 167 TH/MM3 Mean Platelet Volume 8.1 FL Neutrophils (%) (Auto) 84.3 % Lymphocytes (%) (Auto) 10.5 % Monocytes (%) (Auto) 4.0 % Eosinophils (%) (Auto) 1.0 % Basophils (%) (Auto) 0.2 % Neutrophils # (Auto) 7.4 TH/MM3 Lymphocytes # (Auto) 0.9 TH/MM3 Monocytes # (Auto) 0.3 TH/MM3 Eosinophils # (Auto) 0.1 TH/MM3 Basophils # (Auto) 0.0 TH/MM3 CBC Comment DIFF FINAL Differential Comment Prothrombin Time 11.4 SEC Prothromb Time International Ratio 1.0 RATIO Activated Partial Thromboplast Time 30.0 SEC Blood Urea Nitrogen 12 MG/DL Creatinine 1.06 MG/DL Random Glucose 104 MG/DL Total Protein 7.9 GM/DL Albumin 4.1 GM/DL Calcium Level 9.0 MG/DL Alkaline Phosphatase 82 U/L Aspartate Amino Transf (AST/SGOT) 27 U/L Alanine Aminotransferase (ALT/SGPT) 25 U/L Total Bilirubin 0.5 MG/DL Sodium Level 134 MEQ/L Potassium Level 5.0 MEQ/L Chloride Level 102 MEQ/L Carbon Dioxide Level 27.6 MEQ/L Anion Gap 4 MEQ/L Estimat Glomerular Filtration Rate 82 ML/MIN Lipase 68 U/L Urine Color LIGHT-YELLOW Urine Turbidity CLEAR Urine pH 8.0 Urine Specific [place] 1.009 Urine Protein NEG mg/dL Urine Glucose (UA) NEG mg/dL Urine Ketones NEG mg/dL Urine Occult Blood NEG Urine Nitrite NEG Urine Bilirubin NEG Urine Urobilinogen LESS THAN 2.0 MG/DL Urine Leukocyte Esterase NEG Urine RBC 4 /hpf Urine WBC 2 /hpf Urine Mucus FEW /lpf Microscopic Urinalysis Comment CULT NOT INDICATED MDM Medical Decision Making Medical Screen Exam Complete: Yes Emergency Medical Condition: Yes Medical Record Reviewed: Yes Interpretation(s) Vital Signs Date Time Temp Pulse Resp B/P (MAP) Pulse Ox O2 Delivery O2 Flow Rate FiO2 04/28/17 14:12 100 Room Air 04/28/17 13:02 98.8 64 20 187/112 (137) 98 Room Air Differential Diagnosis Differential includes TIA, ich, complicated migraine, electrolyte abnormality, uti Narrative Course 77-year-old male who presents to emergency complaints of headache and TIA. Patient was worked up for TIA on for a hospital and left AMA, returns to emergency room with return of left-sided eye pain and headache. Family concerned for possible TIA. CT of head ordered. Labs ordered. Plan to administer migraine cocktail Last Impressions Head CT 04/28/17 1323 Signed Impressions: Service Date/Time: Friday, April 28, 2017 13:33 - CONCLUSION: Stable negative noncontrast CT. Severino Jameson MD Vital Signs Date Time Temp Pulse Resp B/P (MAP) Pulse Ox O2 Delivery O2 Flow Rate FiO2 04/28/17 14:12 100 Room Air 04/28/17 13:02 98.8 64 20 187/112 (137) 98 Room Air Patient reevaluated, patient reports that he is feeling much better at this time. Discussed with patient's and step daughter all results and studies and offered patient admission to the hospital for TIA workup. Patient as well as family refuses admission to the hospital, see workup from [facility], was seen by Dr. Grier on 04/27/17 and he did not believe that patient had a TIA. he did recommend EEG at that time. EEG was performed but currently pending. Patient family feel comfortable having patient discharged to home with outpatient follow up as patient does have a neurologist Dr. Vargas. Symptoms began after patient started chemotherapy for his cancer, could be symptoms from chemotherapy. Patient will talk to his urologist about maybe change of chemotherapy treatment for his bladder cancer. Signs and symptoms of when to return to the hospital was reviewed with patient and his family in detail Diagnosis Primary Impression: Cephalgia Qualified Codes: R51 - Headache Patient Instructions: General Instructions Additional Instructions: Please provide patient with a copy of his lab work and studies at discharge Return to ER as needed Please follow up with your neurologist as soon as possible Return to ER if symptoms worsen or persist Med/Other Pt SpecificInfo: Prescription(s) given Scripts Hnkzgtlyss-Tddhgmchveupq-Ibytxfce-Codeine (Fioricet-Codeine) 39-008-48-30 Mg Cap 1-2 CAP PO Q4H Y for HEADACHE, #12 CAP 0 Refills Do not exceed 6 capsules/day. Prov: Amina Silva DO 04/28/17 Disposition: 01 DISCHARGE HOME Condition: Stable Amina Silva DO Apr 28, 2017 15:14
[2017-04-28] MEDS ORDERED: BUTA1CAP2 PO (17:43)
--- NOTE | 2017-04-29 13:58 | EKG ---
Date Performed: 04/28/2017 Time Performed: 15:22:50 PTAGE: 77 years EKG: Sinus rhythm NONSPECIFIC T-WAVE ABNORMALITY Compared to prior tracing no significant change BORDERLINE ECG PREVIOUS TRACING : 12/24/2016 14.03 DOCTOR: Freddy Stevens Interpretating Date/Time 04/29/2017 13:57:24
[2017-05-23] MEDS ORDERED: WHEEMIS3 (16:35)
[2017-05-23] MEDS ORDERED: GETGO ROLLING W1 MI1 (16:35)
[2017-05-26] MEDS ORDERED: ONDA4TAB7 SL (12:16)
[2017-05-26] MEDS ORDERED: QUET1TAB7 PEG (12:16)
[2017-05-26] MEDS ORDERED: PRAV80TA PEG (12:16)
[2017-05-26] MEDS ORDERED: NAME10TA PEG (12:16)
[2017-05-26] MEDS ORDERED: PREV30TA3 PEG (12:16)
[2017-05-26] MEDS ORDERED: ASPI81CH25 CHEW (12:16)
[2017-05-26] MEDS ORDERED: GNP5TAB6 PO (12:16)
[2017-05-26] MEDS ORDERED: NYST1000 SWISH-SPIT (12:16)
[2017-05-26] MEDS ORDERED: LISI-519 PO (12:16)
[2017-05-26] MEDS ORDERED: DILT31TA PEG (12:16)
[2017-05-26] MEDS ORDERED: METO10TA PEG (12:16)
[2017-05-26] MEDS ORDERED: APIX5TAB G-TUBE (12:16)
[2017-05-26] MEDS ORDERED: CARV6.25 PEG (12:16)
== END 2017-04-28 18:19 | disposition home or self-care (01) ==
LOC: NEPE 12:59
DX: R51 Headache (principal); R94.31 Abnormal electrocardiogram [ECG] [EKG]; C67.9 Malignant neoplasm of bladder, unspecified; R11.0 Nausea; I48.91 Unspecified atrial fibrillation; E78.00 Pure hypercholesterolemia, unspecified; F03.90 Unspecified dementia, unspecified severity, without behavioral disturbance, psychotic disturbance, mood disturbance, and anxiety; I10 Essential (primary) hypertension; Z79.899 Other long term (current) drug therapy; Z86.73 Personal history of transient ischemic attack (TIA), and cerebral infarction without residual deficits; Z95.0 Presence of cardiac pacemaker; Z92.21 Personal history of antineoplastic chemotherapy
CPT/HCPCS: 70450; 80053; 81001; 83690; 85025; 85610; 85730; 93005; 96374; 96375; 99285; J1100; J1200; J2765

== ENCOUNTER 2017-04-29 09:29 | Inpatient (IN) | payer MEDICARE, BC ==
[~2017-04-29] VITALS: Ht 180.3 cm; Wt 81.4 kg
[~2017-04-29 09:29] MED LIST changes: +AMLO10TA2 PO; -ASPI1TAB69 PO; +ASPI81CH37 CHEW; +BUTA1CAP2 PO; -CLON.5 PO; -CLON1 PO; +CLON2TAB PO; +QUET1TAB7 PO; -RISP0.5T20 PO; -WALKER WHEELS/F1 MIS
[2017-04-29 09:31] VITALS: BP 140/80; PULSE 72; RESP 24; TEMP 98.7; O2SAT 97
--- NOTE | 2017-04-29 09:50 | PD ---
HPI Chief Complaint: Neuro Symptoms/ Deficits Time Seen by Provider: 09:49 Travel History International Travel<30 days: No Contact w/Intl Traveler<30days: No Traveled to known affect area: No History of Present Illness HPI 77-year-old male came to the emergency room with history of right sided weakness as per the family. The is giving the main history as well as her son. As per them patient was in the emergency room at [facility] [place] night for some weakness and was diagnosed with possible TIA. He was supposed to be admitted but patient left AMA. Yesterday he came to this emergency room for headache. He had a CAT scan and workup done. When he was discharged home with family noticed that he was leaning a little to the left side. Patient was last seen his baseline normal self at 11:30 in the morning. Since he went home as per the every time he try to stand up from a sitting position he kept falling. He has fallen about 6 times since then. He also noticed that he kept falling to his left side and has been unable to walk because of left-sided weakness. Patient has history of dementia. He is awake and answering questions although slowly. He is aware in time and place and person. Vital signs are stable. Patient has a pacemaker in the warned us that an MRI cannot be done. His brewery pumper is Dr. Berman. [facility] Past Medical History Narrative Medical List of his past medical, surgical, social and family history is reviewed from the nursing note. 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) Psychiatric: Yes (DEMENTIA) Reproductive: No Respiratory: Yes Integumentary: No Radiation Therapy: Yes Sleep Apnea: Yes Thyroid Disease: Yes ( growth removed) Ulcer: Yes Past Surgical History Abdominal Surgery: No AICD: No Cardiac Surgery: Yes (PACEMAKER, ABLATIONS X 2) Ear Surgery: No Endocrine Surgery: Yes (GROWTH REMOVED FROM THYROID) Eye Surgery: No Genitourinary Surgery: Yes (PROSTATECTOMY) Gynecologic Surgery: No Joint Replacement: No Oral Surgery: No Pacemaker: Yes Thoracic Surgery: No Other Surgery: Yes Social History Alcohol Use: No Tobacco Use: No Substance Use: No Allergies-Medications (Allergen,Severity, Reaction): Coded Allergies: MRI PRECAUTION (Verified Adverse Reaction, Severe, MRI PRECAUTION/ PACEMAKER, 04/29/17) [facility]ED PACEMAKER/ 12/22/16 [facility] Comments List of his allergies reviewed from the nursing note. Reported Meds & Prescriptions Reported Meds & Active Scripts Active Fioricet-Codeine (Ospuytyawl-Xkpdxvqzsbfon-Trfdhmdu-Codeine) 39-198-57-30 Mg Cap 1-2 Cap PO Q4H PRN Do not exceed 6 capsules/day. Eliquis (Apixaban) 5 Mg Tab 5 Mg PO BID Reported Quetiapine (Quetiapine Fumarate) 25 Mg Tab 25 Mg PO HS Amlodipine (Amlodipine Besylate) 10 Mg Tab 10 Mg PO HS Clonazepam 2 Mg Tab 2 Mg PO HS Aspirin Low Dose (Aspirin) 81 Mg Chew 81 Mg CHEW HS Zocor (Simvastatin) 40 Mg Tab 40 Mg PO HS Pantoprazole (Pantoprazole Sodium) 40 Mg Tab 40 Mg PO DAILY Memantine 10 Mg Tab 10 Mg PO BID Lisinopril 10 Mg Tab 10 Mg PO DAILY Carvedilol 6.25 Mg Tab 6.25 Mg PO BID Flecainide (Flecainide Acetate) 100 Mg Tab 100 Mg PO BID Narrative Medication List of his home medications reviewed from the nursing note. Review of Systems Except as stated in HPI: all other systems reviewed are Neg Physical Exam Narrative GENERAL: Awake, alert, dementia, elderly, looks older than his age SKIN: Focused skin assessment warm/dry. HEAD: Atraumatic. Normocephalic. EYES: Pupils equal and round. No scleral icterus. No injection or drainage. ENT: No nasal bleeding or discharge. Mucous membranes pink and moist. NECK: Trachea midline. No JVD. CARDIOVASCULAR: Regular rate and rhythm. No murmur appreciated. RESPIRATORY: No accessory muscle use. Clear to auscultation. Breath sounds equal bilaterally. GASTROINTESTINAL: Abdomen soft, non-tender, nondistended. Hepatic and splenic margins not palpable. MUSCULOSKELETAL: No obvious deformities. No clubbing. No cyanosis. No edema. NEUROLOGICAL: Awake and alert. No obvious cranial nerve deficits. Slight weakness of his left upper extremity. Normal speech. NIH stroke score of 2 PSYCHIATRIC: Appropriate mood and affect; insight and judgment normal. Data Data Last Documented VS Orders Orders Electrocardiogram (04/29/17 10:08) Prothrombin Time / Inr (Pt) (04/29/17 10:08) Complete Blood Count With Diff (04/29/17 10:08) Basic Metabolic Panel (Bmp) (04/29/17 10:08) Creatine Kinase (Cpk) (04/29/17 10:08) Troponin I (04/29/17 10:08) Urinalysis - C+S If Indicated (04/29/17 10:08) Ct Brain W/O Iv Contrast(Rout) (04/29/17 10:08) Ecg Monitoring (04/29/17 10:08) Iv Access Insert/Monitor (04/29/17 10:08) Oximetry (04/29/17 10:08) Sodium Chloride 0.9% Flush (Ns Flush) (04/29/17 10:15) Sodium Chlorid 0.9% 500 Ml Inj (Ns 500 M (04/29/17 10:15) Cta Brain W Iv Contrast W 3d (04/29/17 ) Cta Neck W Iv Contrast W 3d (04/29/17 ) Urine Culture (04/29/17 10:30) Ceftriaxone Inj (Rocephin Inj) (04/29/17 11:30) Iohexol 350 Inj (Omnipaque 350 Inj) (04/29/17 12:12) Admit Order (Ed Use Only) (04/29/17 13:21) Labs Laboratory Tests Test 04/29/17 10:15 04/29/17 10:30 White Blood Count 14.3 TH/MM3 Red Blood Count 4.92 MIL/MM3 Hemoglobin 14.2 GM/DL Hematocrit 43.6 % Mean Corpuscular Volume 88.6 FL Mean Corpuscular Hemoglobin 28.9 PG Mean Corpuscular Hemoglobin Concent 32.6 % Red Cell Distribution Width 13.1 % Platelet Count 191 TH/MM3 Mean Platelet Volume 8.0 FL Neutrophils (%) (Auto) 86.7 % Lymphocytes (%) (Auto) 7.0 % Monocytes (%) (Auto) 6.2 % Eosinophils (%) (Auto) 0.0 % Basophils (%) (Auto) 0.1 % Neutrophils # (Auto) 12.4 TH/MM3 Lymphocytes # (Auto) 1.0 TH/MM3 Monocytes # (Auto) 0.9 TH/MM3 Eosinophils # (Auto) 0.0 TH/MM3 Basophils # (Auto) 0.0 TH/MM3 CBC Comment DIFF FINAL Differential Comment Prothrombin Time 11.4 SEC Prothromb Time International Ratio 1.0 RATIO Blood Urea Nitrogen 23 MG/DL Creatinine 1.70 MG/DL Random Glucose 122 MG/DL Calcium Level 9.3 MG/DL Sodium Level 138 MEQ/L Potassium Level 4.3 MEQ/L Chloride Level 104 MEQ/L Carbon Dioxide Level 25.3 MEQ/L Anion Gap 9 MEQ/L Estimat Glomerular Filtration Rate 48 ML/MIN Total Creatine Kinase 133 U/L Troponin I 0.02 NG/ML Urine Color YELLOW Urine Turbidity HAZY Urine pH 5.5 Urine Specific [place] 1.024 Urine Protein 30 mg/dL Urine Glucose (UA) NEG mg/dL Urine Ketones TRACE mg/dL Urine Occult Blood SMALL Urine Nitrite NEG Urine Bilirubin NEG Urine Urobilinogen LESS THAN 2.0 MG/DL Urine Leukocyte Esterase TRACE Urine RBC 9 /hpf Urine WBC 2 /hpf Urine WBC Clumps OCC Urine Bacteria FEW /hpf Urine Hyaline Casts 26 /lpf Urine Mucus FEW /lpf Microscopic Urinalysis Comment CATH-CULTURE IND MDM Medical Decision Making Medical Screen Exam Complete: Yes Emergency Medical Condition: Yes Medical Record Reviewed: Yes Interpretation(s) Twelve-lead EKG was reviewed by me. Normal sinus rhythm, normal axis, diffuse T -wave inversion. Heart rate of 65 bpm. Differential Diagnosis CVA, advanced dementia, ACS, UTI, electrolyte abnormality Narrative Course 11:34 AM blood test results are back. WBC is elevated especially compared to yesterday. Patient has a UTI. I started him on IV Rocephin. Patient was given IV fluid bolus as well. BUN and creatinine has worsened some since yesterday. Awaiting for the CT scanner and CT angiogram of the brain. Patient will require admission eventually. 1:[address] scan of the head is negative. CTA of the head is negative as well. CT of the neck shows carotid dissection which is localized. I will discuss this with the vascular surgeon. Patient will be admitted to the ICU. Awaiting for the vascular surgeon and the waiter/waitress head. 1:11 PM as per the vascular surgeon Dr. Kidd he does not do carotid artery stenting. He was okay with me calling IR and consulting them. 1:44 PM as per the interventional radiologist nothing is to be done at this point except for anticoagulant. Patient is already on Eliquis and hence no heparin is ordered. Critical Care Narrative Aggregate critical care time was 45 minutes. Time to perform other separately billable procedures was not included in the critical care time. My time did not include minutes spent treating any other patients simultaneously or on activities that did not directly contribute to the patient's treatment. The services I provided to this patient were to treat and/or prevent clinically significant deterioration that could result in: Left-sided weakness, carotid dissection I provided critical care services requiring my management, as noted below: Chart data review, documentation time, medication orders and management, vital sign assessments/reviewing monitor data, ordering and reviewing lab tests, ordering and interpreting/reviewing x-rays and diagnostic studies, care of the patient and discussion of the patient with the admitting physicians. Procedures EKG Prior to Arrival: No Physician Communication Physician Communication Dr. Kidd, Dr. Hinkle, Dr. Chatman Diagnosis Primary Impression: Dementia Qualified Codes: F03.90 - Unspecified dementia without behavioral disturbance Additional Impressions: CVA (cerebral vascular accident) Qualified Codes: I63.8 - Other cerebral infarction Carotid artery dissection UTI (urinary tract infection) Qualified Codes: N39.0 - Urinary tract infection, site not specified Admitting Information Admitting Physician Requests: Caity Gibbons MD Apr 29, 2017 09:50
[2017-04-29 10:15] VITALS: O2SAT 97
[2017-04-29] MEDS ORDERED: SODIUM CHLORIDE 0.9% FLUSH 10 ML FLUSH IVF PRN (10:15)
[2017-04-29] MEDS ORDERED: SODIUM CHLORID 0.9% 500 ML INJ 500 ML IV ONE (10:15)
[2017-04-29 10:50] LABS: AUTOMATED NEUTROPHIL # 12.4 TH/MM3 (1.8-7.7); BASOPHIL % 0.1 % (0.0-2.0); HEMATOCRIT 43.6 % (39.0-51.0); HEMO FLAGS DIFF FINAL; MEAN CELL VOLUME 88.6 FL (80.0-100.0); MEAN CORPUSCULAR HEMOGLOBIN 28.9 PG (27.0-34.0); MEAN CORPUSCULAR HGB CONC 32.6 % (32.0-36.0); MONO % 6.2 % (0.0-8.0); NEUT % 86.7 % (16.0-70.0); PLATELET COUNT 191 TH/MM3 (150-450); RED BLOOD COUNT 4.92 MIL/MM3 (4.50-5.90); RED CELL DISTRIBUTION WIDTH 13.1 % (11.6-17.2); WHITE BLOOD COUNT 14.3 TH/MM3 (4.0-11.0)
[2017-04-29 11:03] LABS: BACTERIA, URINE FEW /hpf; BLOOD, URINE SMALL (NEG); COMMENT (UR) CATH-CULTURE IND; CULTURE IF INDICATED CATH CULTURE IND; GLUCOSE,URINE NEG (NEG); HYALINE CAST, URINE 26 /lpf (RARE); KETONE, URINE TRACE mg/dL (NEG); MUCUS URINE FEW /lpf (OCC); NITRITE,URINE NEG (NEG); PH, URINE 5.5 (5.0-8.5); URINE COLOR YELLOW (YELLW/STRAW)
[2017-04-29 11:05] LABS: PROTHROMBIN TIME - PATIENT 11.4 SEC (9.8-11.6)
[2017-04-29 11:12] LABS: BICARBONATE 25.3 MEQ/L (21.0-32.0); POTASSIUM 4.3 MEQ/L (3.5-5.1)
[2017-04-29] MEDS ORDERED: cefTRIAXone INJ 1,000 MG in SODIUM CHLORIDE 0.9% INJ 100 ML IV ONE (11:30)
--- NOTE | 2017-04-29 12:02 | RADRPT ---
EXAM DATE/TIME: 04/29/2017 11:31 [place] COMPARISON: CT BRAIN W/O CONTRAST, April 28, 2017, 13:33. INDICATIONS : Trauma; multiple falls last night. RADIATION DOSE: 42.43 CTDIvol (mGy) MEDICAL HISTORY : Dementia. Stroke Cardiovascular diseaseHypertention. SURGICAL HISTORY : Pacemaker. ENCOUNTER: Initial ACUITY: 1 day PAIN SCALE: 5/10 LOCATION: cranial TECHNIQUE: Multiple contiguous axial images were obtained of the head. Using automated exposure control and adj ustment of the mA and/or kV according to patient size, radiation dose was kept as low as reasonably a chievable to obtain optimal diagnostic quality images. DICOM format image data is available electro nically for review and comparison. FINDINGS: CEREBRUM: There is mild generalized atrophy. Ventricles are normal. There is moderate periventricular white mat ter low attenuation. No evidence of midline shift, mass lesion, hemorrhage or acute infarction. No extra-axial fluid collections are seen. POSTERIOR FOSSA: The cerebellum and brainstem demonstrate no acute finding. The 4th ventricle is midline. The cerebel lopontine angle is unremarkable. EXTRACRANIAL: Visualized sinuses are clear. SKULL: The calvaria is intact. No evidence of skull fracture. CONCLUSION: 1. Stable noncontrast head CT. No acute intracranial abnormality is identified. 2. Chronic changes include mild cerebral atrophy and periventricular white matter change characterist ic of chronic microvascular ischemia. Mikel Angel MD on April 29, 2017 at 11:59 Board Certified Radiologist. This report was verified electronically.
[2017-04-29] MEDS ORDERED: IOHEXOL 350 MG/ML 10 ML VIAL (for RAD DIAG) IV PUSH ONE (12:12)
--- NOTE | 2017-04-29 12:31 | RADRPT ---
EXAM DATE/TIME: 04/29/2017 11:34 [facility] COMPARISON: No previous studies available for comparison. INDICATIONS : Trauma; multiple falls last night. IV CONTRAST: 75 cc Omnipaque 350 (iohexol) IV ; Cumulative dose for multiple exams. RADIATION DOSE: 16.87 CTDIvol (mGy) ; Combined studies MEDICAL HISTORY : Dementia. Stroke Cardiovascular diseasehypertention SURGICAL HISTORY : Pacemaker. ENCOUNTER: Initial ACUITY: 1 day PAIN SCALE: 0/10 LOCATION: Bilateral neck Elevated flow velocities and ICA/CCA ratios have been found to correlate with increased degrees of vessel stenosis, calculated as percentage of diameter relative to a normal segment of distal ICA/CCA. TECHNIQUE: Volumetric scanning was performed using a multirow detector CT scanner. The data was post processed with a variety of visualization algorithms including full-volume maximum intensity projection, multip lanar sliding thin-slab reformation, curved-planar reformation, and surface-rendering techniques. Us ing automated exposure control and adjustment of the mA and/or kV according to patient size, radiatio n dose was kept as low as reasonably achievable to obtain optimal diagnostic quality images. DICOM f ormat image data is available electronically for review and comparison. FINDINGS: AORTIC ARCH: There is a three-vessel origin of the great vessels from the aorta. No evidence of ostial narrowing. There is mild atherosclerotic disease at the arch. RIGHT CAROTID: Right common carotid artery is tortuous. Bifurcation is within normal limits. There is minimal calcif ied plaque in the proximal internal carotid artery. The distal internal carotid artery at the C1-C2 l evel demonstrates a focal dilatation with short segment dissection measuring approximately 8 mm in cr aniocaudal dimension. The more distal internal carotid arteries within normal limits. LEFT CAROTID: The common carotid artery demonstrates no significant abnormality. There is minimal atherosclerotic c hange. There is minimal noncalcified plaque in the carotid bulb. No stenosis, aneurysm, or dissection is present. VERTEBRALS: The left vertebral artery is dominant. Right vertebral artery terminates into the posterior inferior cerebellar artery. CONCLUSION: 1. The distal right internal carotid artery at the C1-C2 level demonstrates a short segment of focal dissection measuring approximately 8 mm in length. The more distal internal carotid artery is normal. 2. There is no significant atherosclerotic disease or stenosis within either internal carotid artery. Mikel Angel MD on April 29, 2017 at 12:25 Board Certified Radiologist. This report was verified electronically.
--- NOTE | 2017-04-29 12:37 | RADRPT ---
EXAM DATE/TIME: 04/29/2017 11:34 [facility] COMPARISON: No previous studies available for comparison. INDICATIONS : Trauma; multiple falls last night. IV CONTRAST: 75 cc Omnipaque 350 (iohexol) IV ; Cumulative dose for multiple exams. RADIATION DOSE: 16.87 CTDIvol (mGy) ; Combined studies MEDICAL HISTORY : Dementia. Stroke Cardiovascular diseasehypertention SURGICAL HISTORY : Pacemaker. ENCOUNTER: Initial ACUITY: 1 day PAIN SCALE: 0/10 LOCATION: cranial TECHNIQUE: Volumetric scanning was performed using a multi-row detector CT scanner. The data was post processed with a variety of visualization algorithms including full volume maximum intensity projection, multi -planar sliding thin slab reformation, curved planar reformation, and surface rendering techniques. Using automated exposure control and adjustment of the mA and/or kV according to patient size, radiat ion dose was kept as low as reasonably achievable to obtain optimal diagnostic quality images. DICO M format image data is available electronically for review and comparison. FINDINGS: There is excellent visualization of the major intracranial arteries out to the second-order branch ve ssels. There is no evidence for aneurysm, vessel truncation or stenosis, and no evidence for vascula r malformation. The right vertebral artery terminates in the right PICA. Left vertebral artery and basilar artery are diminutive in size. There are patent posterior communicating arteries bilaterally. CONCLUSION: No acute intracranial vascular abnormality is identified. Mikel Angel MD on April 29, 2017 at 12:30 Board Certified Radiologist. This report was verified electronically.
--- NOTE | 2017-04-29 13:19 | HHI.HP ---
[facility] Service Critical Care Medicine Primary Care Physician Adryan Lopez M.D. Admission Diagnosis Diagnosis: Travel History International Travel<30 Days: No Contact w/Intl Traveler <30 Da: No Traveled to Known Affected Are: No History of Present Illness Is a 77-year-old [place] gentleman back presented to the ED with history of right sided weakness as per the family. The patient has a medical history significant for dementia, history obtained from patient's and son. On 04/27, per their report, the patient was in the emergency room at [facility] for some weakness and was diagnosed with possible TIA. He was supposed to be admitted but patient left AMA, after his hearing aids were lost/misplaced. Yesterday he came to [facility] with complaints of severe headache. Laboratory and imaging studies to include a CT were performed, the diagnoses of complex migraine the patient was discharged home. After discharge, with family noticed that he was leaning a little to the left side. Patient was last seen his baseline normal self at 11: 30 in the morning. Since he went home as per the every time he try to stand up from a sitting position he kept falling. He has fallen about 6 times since then. He also noticed that he kept falling to his left side and has been unable to walk because of left-sided weakness. Patient has history of dementia. He is awake and answering questions although slowly. He is aware in time and place and person. Vital signs are stable. Patient has a pacemaker in the warned us that an MRI cannot be done. His hand molder and caster is Dr. Berman. 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 Critical care medicine was consulted. [facility] Past Medical History Narrative Medical List of his past medical, surgical, social and family history is reviewed from the nursing note. 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) Psychiatric: Yes (DEMENTIA) Reproductive: No Respiratory: Yes Integumentary: No Radiation Therapy: Yes Sleep Apnea: Yes Thyroid Disease: Yes ( growth removed) Ulcer: Yes Past Surgical History Abdominal Surgery: No AICD: No Cardiac Surgery: Yes (PACEMAKER, ABLATIONS X 2) Ear Surgery: No Endocrine Surgery: Yes (GROWTH REMOVED FROM THYROID) Eye Surgery: No Genitourinary Surgery: Yes (PROSTATECTOMY) Gynecologic Surgery: No Joint Replacement: No Oral Surgery: No Pacemaker: Yes Thoracic Surgery: No Other Surgery: Yes Social History Alcohol Use: No Tobacco Use: No Substance Use: No Allergies-Medications (Allergen,Severity, Reaction): Coded Allergies: MRI PRECAUTION (Verified Adverse Reaction, Severe, MRI PRECAUTION/ PACEMAKER, 04/29/17) [facility] PACEMAKER/ 12/22/16 [facility] Comments List of his allergies reviewed from the nursing note. Reported Meds & Prescriptions Reported Meds & Active Scripts Active Fioricet-Codeine (Awkeebynsu-Aomqmsjgimndq-Likpusvl-Codeine) [id number] Mg Cap 1-2 Cap PO Q4H PRN Do not exceed 6 capsules/day. Eliquis (Apixaban) 5 Mg Tab 5 Mg PO BID Reported Quetiapine (Quetiapine Fumarate) 25 Mg Tab 25 Mg PO HS Amlodipine (Amlodipine Besylate) 10 Mg Tab 10 Mg PO HS Clonazepam 2 Mg Tab 2 Mg PO HS Aspirin Low Dose (Aspirin) 81 Mg Chew 81 Mg CHEW HS Zocor (Simvastatin) 40 Mg Tab 40 Mg PO HS Pantoprazole (Pantoprazole Sodium) 40 Mg Tab 40 Mg PO DAILY Memantine 10 Mg Tab 10 Mg PO BID Lisinopril 10 Mg Tab 10 Mg PO DAILY Carvedilol 6.25 Mg Tab 6.25 Mg PO BID Flecainide (Flecainide Acetate) 100 Mg Tab 100 Mg PO BID Narrative Medication List of his home medications reviewed from the nursing note. Review of Systems Except as stated in HPI: all other systems reviewed are Neg Past Family Social History Allergies: Coded Allergies: MRI PRECAUTION (Verified Adverse Reaction, Severe, MRI PRECAUTION/ PACEMAKER, 04/29/17) [facility] PACEMAKER/ 12/22/16 [facility] Physical Exam Vital Signs Vital Signs Date Time Temp Pulse Resp B/P (MAP) Pulse Ox O2 Delivery O2 Flow Rate FiO2 04/29/17 10:15 97 Room Air 04/29/17 09:31 98.7 72 24 140/80 (100) 97 Room Air Laboratory Laboratory Tests Test 04/29/17 10:15 04/29/17 10:30 White Blood Count 14.3 Red Blood Count 4.92 Hemoglobin 14.2 Hematocrit 43.6 Mean Corpuscular Volume 88.6 Mean Corpuscular Hemoglobin 28.9 Mean Corpuscular Hemoglobin Concent 32.6 Red Cell Distribution Width 13.1 Platelet Count 191 Mean Platelet Volume 8.0 Neutrophils (%) (Auto) 86.7 Lymphocytes (%) (Auto) 7.0 Monocytes (%) (Auto) 6.2 Eosinophils (%) (Auto) 0.0 Basophils (%) (Auto) 0.1 Neutrophils # (Auto) 12.4 Lymphocytes # (Auto) 1.0 Monocytes # (Auto) 0.9 Eosinophils # (Auto) 0.0 Basophils # (Auto) 0.0 CBC Comment DIFF FINAL Differential Comment Prothrombin Time 11.4 Prothromb Time International Ratio 1.0 Blood Urea Nitrogen 23 Creatinine 1.70 Random Glucose 122 Calcium Level 9.3 Sodium Level 138 Potassium Level 4.3 Chloride Level 104 Carbon Dioxide Level 25.3 Anion Gap 9 Estimat Glomerular Filtration Rate 48 Total Creatine Kinase 133 Troponin I 0.02 Urine Color YELLOW Urine Turbidity HAZY Urine pH 5.5 Urine Specific [place] 1.024 Urine Protein 30 Urine Glucose (UA) NEG Urine Ketones TRACE Urine Occult Blood SMALL Urine Nitrite NEG Urine Bilirubin NEG Urine Urobilinogen LESS THAN 2.0 Urine Leukocyte Esterase TRACE Urine RBC 9 Urine WBC 2 Urine WBC Clumps OCC Urine Bacteria FEW Urine Hyaline Casts 26 Urine Mucus FEW Microscopic Urinalysis Comment CATH-CULTURE IND Date/Time Source Procedure Growth Status 04/29/17 10:30 Urine Catheterized Urine Urine Culture Pending Received Result Diagram: 04/29/17 1015 04/29/17 1015 Imaging Last Impressions Head CT 04/29/17 1008 Signed Impressions: Service Date/Time: Saturday, April 29, 2017 11:31 - CONCLUSION: 1. Stable noncontrast head CT. No acute intracranial abnormality is identified. 2. Chronic changes include mild cerebral atrophy and periventricular white matter change characteristic of chronic microvascular ischemia. Mikel Angel MD Neck CTA 04/29/17 0000 Signed Impressions: Service Date/Time: Saturday, April 29, 2017 11:34 - CONCLUSION: 1. The distal right internal carotid artery at the C1-C2 level demonstrates a short segment of focal dissection measuring approximately 8 mm in length. The more distal internal carotid artery is normal. 2. There is no significant atherosclerotic disease or stenosis within either internal carotid artery. Mikel Angel MD Head CTA 04/29/17 0000 Signed Impressions: Service Date/Time: Saturday, April 29, 2017 11:34 - CONCLUSION: No acute intracranial vascular abnormality is identified. Mikel Angel MD Septic Shock Reassessment Heart: Regular rate and rhythm Lungs: Clear Skin: Warm Peripheral Pulses: Bounding Right Radial Bounding Left Radial Bounding Right Dorsalis Pedis Bounding Left Dorsalis Pedis Caprinbo VTE Risk Assessment Caprini VTE Risk Assessment: Mod/High Risk (score >= 2) Caprini Risk Assessment Model Point Value = 1 Point Value = 2 Point Value = 3 Point Value = 5 Age 41-60 Minor surgery BMI > 25 kg/m2 Swollen legs Varicose veins or History of unexplained or recurrent spontaneous Oral contraceptives or hormone replacement Sepsis (< 1 month) Serious lung disease, including pneumonia (< 1 month) Abnormal pulmonary function Acute myocardial infarction Congestive heart failure (< 1 month) History of inflammatory bowel disease Medical patient at bed rest Age 61-74 Arthroscopic surgery Major open surgery (> 45 min) Laparoscopic surgery (> 45 min) Malignancy Confined to bed (> 72 hours) Immobilizing plaster cast Central venous access Age >= 75 History of VTE Family history of VTE Factor V Leiden Prothrombin [id number] Lupus anticoagulant Anticardiolipin antibodies Elevated serum homocysteine Heparin-induced thrombocytopenia Other congenital or acquired thrombophilia Stroke (< 1 month) Elective arthroplasty Hip, pelvis, or leg fracture Acute spinal cord injury (< 1 month) Prophylaxis Regimen Total Risk Factor Score Risk Level Prophylaxis Regimen 0-1 Low Early ambulation 2 Moderate Order ONE of the following: *Sequential Compression Device (SCD) *Heparin 5000 units SQ BID 3-4 Higher Order ONE of the following medications: *Heparin 5000 units SQ TID *Enoxaparin/Lovenox 40 mg SQ daily (WT < 150 kg, CrCl > 30 mL/min) *Enoxaparin/Lovenox 30 mg SQ daily (WT < 150 kg, CrCl > 10-29 mL/min) *Enoxaparin/Lovenox 30 mg SQ BID (WT < 150 kg, CrCl > 30 mL/min) AND/OR *Sequential Compression Device (SCD) 5 or more Highest Order ONE of the following medications: *Heparin 5000 units SQ TID (Preferred with Epidurals) *Enoxaparin/Lovenox 40 mg SQ daily (WT < 150 kg, CrCl > 30 mL/min) *Enoxaparin/Lovenox 30 mg SQ daily (WT < 150 kg, CrCl > 10-29 mL/min) *Enoxaparin/Lovenox 30 mg SQ BID (WT < 150 kg, CrCl > 30 mL/min) AND *Sequential Compression Device (SCD) Assessment and Plan Assessment and Plan Assessment This is a 77-year-old gentleman that has presented to the emergency department 3 times in the last 3 days for neurologic symptomatology to include severe headaches left upper extremity weakness, vertigo. A chin noted to have after imaging studies right ICA focal dissection. Dr. Hinkel, interventional radiology was consulted by Dr. Rolle, no IR intervention regarding a stent is indicated secondary to adequate flow. The patient has had progressive neurological symptoms to include increasing weakness not only of the left upper extremity but now bilateral lower extremities and in the last 24 hours, symptoms of nausea and vomiting with dysphagia. The patient's home medications and include Eliquis, with last dose approximately 24-48 hours previously. The patient has been given a dose of aspirin 81 mg and heparin infusion will be instituted. The patient has a history of dementia and on multiple antidepressants last psychotic medications which will be held at this time. 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 History of TIA Hearing deficit Dementia Cephalgia Neurosurgery [id number] recommendations Neurology [id number] recommendations Neurochecks per ICU protocol 04/29 CTA brain-no acute vascular abnormality 04/29 CT brain-no acute abnormality Patient's home medications include Seroquel, clonazepam, memantidine-will hold for now Aspirin 81 mg one dose now, continue aspirin 81 mg daily Begin heparin infusion Respiratory: Maintain O2 sat greater than 92% Bronchodilators when necessary Cardiovascular: Pacemaker Dyslipidemia Hypertension Maintain MAP > 65mmHg Continue carvedilol 6.25 BID, [id number]/day, Norvasc 10mg/day Continue simvastatin Pacemaker-[facility] demand rate set at 60 Troponins 0.02 Renal: No Acosta -- Strict I/Os FEN/GI: Dysphagia Nausea Contact speech therapy for swallow evaluation and cognitive evaluation NPO for now Zofran 4 mg every 6 hours when necessary for nausea Protonix (home med) for GI prophylaxis Heme/ID: Monitor INR, on admission INR 1.0 Monitor CBC Heparin infusion Obtain cultures if clinically indicated Endocrine: Glucose monitoring per ICU protocol -- SSI Prophylaxis: GI Prophylaxis Protonix DVT Prophylaxis -- SCDs Heparin infusion Lines: Peripheral IVs 2 Dispo: This patient remains critically ill with one or more organ systems which are or may become a threat to life. I have spent in excess of 45 minutes discontinuously in the care and management of this patient. This time is exclusive of procedures, and includes, but is not limited to, evaluation of the patient, review of the medical record, discussions with family, consultants, nursing staff, or respiratory therapy, and documentation in the medical record. Code Status Full Discussed Condition With Dr. Rolle, ED RN and patient's at bedside Yue Chatman MD Apr 29, 2017 13:19
[2017-04-29] MEDS ORDERED: MAGNESIUM SULFATE INJ 2 GM in SODIUM CHLORIDE 0.9% INJ 96 ML IV PRN (14:00)
[2017-04-29] MEDS ORDERED: SENNOSIDES 8.6 MG TAB PO PRN (14:00)
[2017-04-29] MEDS ORDERED: POTASSIUM PHOSPHATE INJ 30 MMOL in SODIUM CHLOR 0.9% 250 ML INJ 250 ML IV PRN (14:00)
[2017-04-29] MEDS ORDERED: LACTULOSE SYRUP 20 GM/30 ML CUP PO PRN (14:00)
[2017-04-29] MEDS ORDERED: POTASSIUM PHOSPHATE MONOBASIC 500 MG TAB PO/TUBE PRN (14:00)
[2017-04-29] MEDS ORDERED: BISACODYL 10 MG SUPP RECTAL PRN (14:00)
[2017-04-29] MEDS ORDERED: SODIUM PHOSPHATE INJ 30 MMOL in SODIUM CHLOR 0.9% 250 ML INJ 240 ML IV PRN (14:00)
[2017-04-29] MEDS ORDERED: POTASSIUM CHLOR 40 MEQ PREMIX 100 ML IV PRN ×2 (14:00)
[2017-04-29] MEDS ORDERED: SODIUM CHLORIDE 0.9% FLUSH 10 ML FLUSH IV FLUSH PRN (14:00)
[2017-04-29] MEDS ORDERED: ONDANSETRON HCL 4 MG/2 ML VIAL IV PUSH ONE (14:00)
[2017-04-29] MEDS ORDERED: MAGNESIUM SULFATE INJ 4 GM in SODIUM CHLORIDE 0.9% INJ 92 ML IV PRN (14:00)
[2017-04-29] MEDS ORDERED: POTASSIUM PHOSPHATE MONOBASIC 500 MG TAB PO PRN (14:00)
[2017-04-29] MEDS ORDERED: MISCELLANEOUS NURSING INFORMATION XX SCH (14:00)
[2017-04-29] MEDS ORDERED: POTASSIUM CHLORIDE 25 MEQ EFFERVESCENT TAB PO PRN (14:00)
[2017-04-29] MEDS ORDERED: MAGNESIUM OXIDE 400 MG TAB PO PRN (14:00)
[2017-04-29] MEDS ORDERED: CHLORHEXIDINE GLUCONATE 2 % 1 PACK (2 CLOTHS) TOP PRN (14:00)
[2017-04-29] MEDS ORDERED: MAGNESIUM HYDROXIDE SUSP 30 ML CUP PO PRN (14:00)
[2017-04-29] MEDS ORDERED: POTASSIUM CHLOR 20 MEQ PREMIX 100 ML IV PRN ×2 (14:00)
[2017-04-29] MEDS ORDERED: DEXTROSE 50% IN WATER 50 ML VIAL(D50) IV PUSH PRN (14:15)
[2017-04-29] MEDS ORDERED: GLUCAGON 1 MG/ML VIAL OTHER PRN (14:15)
[2017-04-29 15:00] VITALS: BP 164/91; PULSE 66; RESP 17; O2SAT 100
[2017-04-29 17:00] VITALS: BP 171/87; PULSE 70; RESP 22; TEMP 98.2; O2SAT 100
[2017-04-29] MEDS ORDERED: ASPIRIN 81 MG CHEW TAB CHEW ONE (17:00)
[2017-04-29] MEDS: INSULIN ASPART SUPPLEMENTAL SCALE SQ SCH ×2 (17:00→21:00)
[2017-04-29] MEDS: SODIUM CHLOR 0.9% 1000 ML INJ 1,000 ML IV SCH (17:30)
--- NOTE | 2017-04-29 17:55 | PD.CONS ---
[facility] Service Neurosurgery Consult Requested By Dr Chatman Reason for Consult Carotid artery dissection Primary Care Physician Adryan Lopez M.D. History of Present Illness This is a 77-year-old [place] male who presented to the ED with new onset right sided weakness. He has a medical history significant for dementia. On 04/27, per their report, the patient was in the emergency room at [facility] [place] [facility] for some weakness and was diagnosed with possible TIA. He was supposed to be admitted but patient left AMA, after his hearing aids were misplaced. Yesterday he came to [facility] with complaints of severe headache. Laboratory and imaging studies to include a CT were performed, the diagnoses of complex migraine the patient was discharged home. After discharge, with family noticed that he was leaning to the left side. He was last seen his baseline at 11:30 in the morning. Since he went home as per the every time he try to stand up from a sitting position he kept falling. He has fallen about 6 times. He also noticed that he kept falling to his left side and has been unable to walk because of left- sided weakness. He has a pacemaker and MRI cannot be done. 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 Neurosurgery was consulted. Review of Systems ros is not possible due to his clinical condition Past Family Social History Allergies: Coded Allergies: MRI PRECAUTION (Verified Adverse Reaction, Severe, MRI PRECAUTION/ PACEMAKER, 04/29/17) [facility] PACEMAKER/ 12/22/16 [facility] Past Medical History 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 Eliquis (Apixaban) 5 Mg Tab 5 Mg PO BID Quetiapine (Quetiapine Fumarate) 25 Mg Tab 25 Mg PO HS Amlodipine (Amlodipine Besylate) 10 Mg Tab 10 Mg PO HS Clonazepam 2 Mg Tab 2 Mg PO HS Aspirin Low Dose (Aspirin) 81 Mg Chew 81 Mg CHEW HS Zocor (Simvastatin) 40 Mg Tab 40 Mg PO HS Pantoprazole (Pantoprazole Sodium) 40 Mg Tab 40 Mg PO DAILY Memantine 10 Mg Tab 10 Mg PO BID Lisinopril 10 Mg Tab 10 Mg PO DAILY Carvedilol 6.25 Mg Tab 6.25 Mg PO BID Flecainide (Flecainide Acetate) 100 Mg Tab 100 Mg PO BID Active Ordered Medications Current Medications Sodium Chloride (NS Flush) 2 ml UNSCH PRN IVF FLUSH AFTER USING IV ACCESS; Start 04/29/17 at 10:15; Stop 04/29/17 at 14:19; Status DC Sodium Chloride 500 ml @ 500 mls/hr BOLUS ONCE IV Last administered on 10:36; Start 04/29/17 at 10:15; Stop 04/29/17 at 11:14; Status DC Ceftriaxone Sodium 1000 mg/ Sodium Chloride 100 ml @ 200 mls/hr ONCE ONCE IV Last administered on 04/29/17 12:15; Start 04/29/17 at 11:30; Stop 04/29/17 at 11:59; Status DC Iohexol (Omnipaque 350 Inj) 75 ml STK-MED ONCE IV PUSH Last administered on 12:12; Start 04/29/17 at 12:12; Stop 04/29/17 at 12:13; Status DC Ondansetron HCl (Zofran Inj) 4 mg ONCE ONCE IV PUSH Last administered on 13:51; Start 04/29/17 at 14:00; Stop 04/29/17 at 14:01; Status DC Sodium Chloride 1,000 ml @ 42 mls/hr [id number] IV Last administered on 17:30; Start 04/29/17 at 14:00 Sodium Chloride (NS Flush) 2 ml UNSCH PRN IV FLUSH FLUSH AFTER USING IV ACCESS ; Start 04/29/17 at 14:00 Sodium Chloride (NS Flush) 2 ml BID IV FLUSH Last administered on 04/29/17 20: 21; Start 04/29/17 at 21:00 Pantoprazole Sodium (Protonix Inj) 40 mg DAILY IV PUSH ; Start 04/30/17 at 09:00 Ondansetron HCl (Zofran Inj) 4 mg Q6H PRN IV PUSH NAUSEA OR VOMITING; Start at 14:00 Albuterol/ Ipratropium (Duoneb Neb) 1 ampule Q4HR NEB PRN INH WHEEZING; Start 04/29/17 at 14:00 Miscellaneous Information 1 [id number] ; Start 04/29/17 at 14:00 Chlorhexidine Gluconate (Chlorhexidine 2% Cloth) 3 pack Taper DAILY@04 TOP ; Start 04/30/17 at 04:00; Stop 04/26/18 at 03:59 Chlorhexidine Gluconate (Chlorhexidine 2% Cloth) 3 pack UNSCH PRN TOP HYGIENIC CARE; Start 04/29/17 at 14:00 Senna/Docusate Sodium (Leonila-Colace) 1 tab BID PO Last administered on 20:21; Start 04/29/17 at 21:00 Magnesium Hydroxide (Milk Of Magnesia Liq) 30 ml Q12H PRN PO MILD - MODERATE CONSTIPATION; Start 04/29/17 at 14:00 Sennosides (Senokot) 17.2 mg Q12H PRN PO MODERATE - SEVERE CONSTIPATION; Start 04/29/17 at 14:00 Bisacodyl (Dulcolax Supp) 10 mg DAILY PRN RECTAL SEVERE CONSITIPATION; Start at 14:00 Lactulose (Lactulose Liq) 30 ml DAILY PRN PO SEVERE CONSITIPATION; Start at 14:00 Potassium Chloride 100 ml @ 50 mls/hr Q2H PRN IV For Potassium 2.8 - 3.2 mEq/L ; Start 04/29/17 at 14:00 Potassium Chloride 100 ml @ 50 mls/hr Q2H PRN IV For Potassium 2.8 - 3.2 mEq/L ; Start 04/29/17 at 14:00 Potassium Bicarb/ Potassium Chloride (K-Lyte Cl Eff) 50 meq UNSCH PRN PO For Potassium 3.3 - 3.5 mEq/L; Start 04/29/17 at 14:00 Potassium Chloride 100 ml @ 25 mls/hr UNSCH PRN IV For Potassium 3.3 - 3.5 mEq /L; Start 04/29/17 at 14:00 Potassium Chloride 100 ml @ 50 mls/hr Q2H PRN IV For Potassium 3.3 - 3.5 mEq/L ; Start 04/29/17 at 14:00 Magnesium Sulfate 4 gm/Sodium Chloride 100 ml @ 50 mls/hr UNSCH PRN IV For Magnesium 0.9 - 1.1 mg/dL; Start 04/29/17 at 14:00 Magnesium Oxide (Mag-Ox) 800 mg UNSCH PRN PO For Magnesium 1.2 - 1.6 mg/dL; Start 04/29/17 at 14:00 Magnesium Sulfate 2 gm/Sodium Chloride 100 ml @ 50 mls/hr UNSCH PRN IV For Magnesium 1.2 - 1.6 mg/dL; Start 04/29/17 at 14:00 Potassium Phosphate (K-Phos) 2,000 mg Q4H PRN PO For Phosphorus < 2.5 mg/dL; Start 04/29/17 at 14:00 Sodium Phosphate 30 mmol/Sodium Chloride 250 ml @ 42 mls/hr UNSCH PRN IV For Phosphorus < 2.5 mg/dL; Start 04/29/17 at 14:00 Potassium Phosphate (K-Phos) 2,000 mg UNSCH PRN PO/TUBE SEE LABEL COMMENTS; Start 04/29/17 at 14:00 Potassium Phosphate 30 mmol/ Sodium Chloride 260 ml @ 42 mls/hr UNSCH PRN IV SEE LABEL COMMENTS; Start 04/29/17 at 14:00 Dextrose (D50w (Vial) Inj) 50 ml UNSCH PRN IV PUSH HYPOGLYCEMIA-SEE COMMENTS; Start 04/29/17 at 14:15 Glucagon (Glucagon Inj) 1 mg UNSCH PRN OTHER HYPOGLYCEMIA-SEE COMMENTS; Start 04/29/17 at 14:15 Insulin Aspart (NovoLOG SUPPLEMENTAL SCALE) 1 ACHS SLIDING SCALE SQ ; Start at 17:00 Acetaminophen (Ofirmev 1000 Mg/ 100 ml Inj) 1,000 mg Q6H PRN IV PAIN SCALE 3 TO 10; Start 04/29/17 at 14:15 Aspirin (Aspirin Chew) 81 mg DAILY CHEW ; Start 04/30/17 at 09:00 Aspirin (Aspirin Chew) 81 mg ONCE ONCE CHEW Last administered on 04/29/17 17: 00; Start 04/29/17 at 17:00; Stop 04/29/17 at 17:05; Status DC Amlodipine Besylate (Norvasc) 10 mg HS PO Last administered on 04/29/17 20:21 ; Start 04/29/17 at 21:00 Carvedilol (Coreg) 6.25 mg BID PO Last administered on 04/29/17 20:21; Start 04/29/17 at 21:00 Lisinopril (Prinivil) 10 mg DAILY PO ; Start 04/30/17 at 09:00 Pravastatin Sodium (Pravachol) 80 mg HS PO Last administered on 04/29/17 20:21 ; Start 04/29/17 at 21:00 Heparin Sodium/ Dextrose 250 ml @ 10.56 mls/ hr TITRATE PRN IV Coagulation management Last administered on 04/29/17 19:37; Start 04/29/17 at 17:15 Labetalol HCl (Trandate Inj) 10 mg Q4H PRN IV PUSH SBP >140 Last administered on 04/30/17 02:51; Start 04/29/17 at 20:00 Nicardipine HCl 25 mg/Sodium Chloride 250 ml @ 50 mls/hr TITRATE PRN IV Blood pressure management Last administered on 04/30/17 04:02; Start 04/29/17 at 20: 00 Haloperidol Lactate (Haldol Inj) 2 mg Q6H PRN IV PUSH FOR PATIENT SAFETY DUE TO AGITATION/HALLUCINATIONS Last administered on 04/29/17 22:00; Start 9/24/ 17 at 22:00 Haloperidol Lactate (Haldol Inj) 2 mg ONCE ONCE IV PUSH Last administered on 02:33; Start 04/30/17 at 02:00; Stop 04/30/17 at 02:07; Status DC Dexmedetomidine HCl 200 mcg/ Sodium Chloride 52 ml @ 4.59 mls/hr TITRATE PRN IV SEDATION Last administered on 04/30/17 07:30; Start 04/30/17 at 02:00 Sodium Chloride 1,000 ml @ 999 mls/hr Q1H1M ONCE IV Last administered on 09:30; Start 04/30/17 at 09:30; Stop 04/30/17 at 10:30 Family History His family history was reviewed and is noncontributory to these events prompting to admission Social History Alcohol Use: No Tobacco Use: No Substance Use: No Physical Exam Vital Signs Vital Signs Date Time Temp Pulse Resp B/P (MAP) Pulse Ox O2 Delivery O2 Flow Rate FiO2 04/29/17 15:00 66 17 164/91 (115) 100 Room Air 04/29/17 10:15 97 Room Air 04/29/17 09:31 98.7 72 24 140/80 (100) 97 Room Air Physical Exam The patient is sedated. Localizes to painful stimulus with all 4 extremities. Cranial Nerves: Pupils equal, round, reactive to light. Eyes appear conjugated. There was no nystagmus, no papilledema. Face musculature appeared symmetrical at rest. Face sensation, olfaction, visual titus, and hearing cannot be adequately assessed due to his neurological condition. The patient has a corneal reflex. He has a gag reflex. The sternocleidomastoid and trapezius are symmetrical. Cervical Spine: His neck is soft, supple, without nuchal rigidity. Motor: His muscle tone and bulk are normal. He moves all 4 extremities Reflexes: Deep tendon reflexes are 1+ and symmetrical in the biceps, triceps, and brachioradialis, bilaterally, in the upper extremities. In the lower extremities, the patellar and ankles are 1+, bilaterally. There is a bilateral plantar flexion response. There is no clonus or other abnormal reflexes noted. Sensory: On examination there is response to painful stimuli, localizing with upper and lower extremities. Cerebellar: Examination cannot be adequately assessed due to the patient's neurological condition. Laboratory Laboratory Tests Test 04/29/17 10:15 04/29/17 10:30 White Blood Count 14.3 Red Blood Count 4.92 Hemoglobin 14.2 Hematocrit 43.6 Mean Corpuscular Volume 88.6 Mean Corpuscular Hemoglobin 28.9 Mean Corpuscular Hemoglobin Concent 32.6 Red Cell Distribution Width 13.1 Platelet Count 191 Mean Platelet Volume 8.0 Neutrophils (%) (Auto) 86.7 Lymphocytes (%) (Auto) 7.0 Monocytes (%) (Auto) 6.2 Eosinophils (%) (Auto) 0.0 Basophils (%) (Auto) 0.1 Neutrophils # (Auto) 12.4 Lymphocytes # (Auto) 1.0 Monocytes # (Auto) 0.9 Eosinophils # (Auto) 0.0 Basophils # (Auto) 0.0 CBC Comment DIFF FINAL Differential Comment Prothrombin Time 11.4 Prothromb Time International Ratio 1.0 Blood Urea Nitrogen 23 Creatinine 1.70 Random Glucose 122 Calcium Level 9.3 Sodium Level 138 Potassium Level 4.3 Chloride Level 104 Carbon Dioxide Level 25.3 Anion Gap 9 Estimat Glomerular Filtration Rate 48 Total Creatine Kinase 133 Troponin I 0.02 Urine Color YELLOW Urine Turbidity HAZY Urine pH 5.5 Urine Specific Parker 1.024 Urine Protein 30 Urine Glucose (UA) NEG Urine Ketones TRACE Urine Occult Blood SMALL Urine Nitrite NEG Urine Bilirubin NEG Urine Urobilinogen LESS THAN 2.0 Urine Leukocyte Esterase TRACE Urine RBC 9 Urine WBC 2 Urine WBC Clumps OCC Urine Bacteria FEW Urine Hyaline Casts 26 Urine Mucus FEW Microscopic Urinalysis Comment CATH-CULTURE IND Date/Time Source Procedure Growth Status 04/29/17 10:30 Urine Catheterized Urine Urine Culture Pending Received Result Diagram: 04/29/17 1015 04/29/17 1015 Imaging Last Impressions Head CT 04/29/17 1008 Signed Impressions: Service Date/Time: Saturday, April 29, 2017 11:31 - CONCLUSION: 1. Stable noncontrast head CT. No acute intracranial abnormality is identified. 2. Chronic changes include mild cerebral atrophy and periventricular white matter change characteristic of chronic microvascular ischemia. Mikel Angel MD Neck CTA 04/29/17 0000 Signed Impressions: Service Date/Time: Saturday, April 29, 2017 11:34 - CONCLUSION: 1. The distal right internal carotid artery at the C1-C2 level demonstrates a short segment of focal dissection measuring approximately 8 mm in length. The more distal internal carotid artery is normal. 2. There is no significant atherosclerotic disease or stenosis within either internal carotid artery. Mikel Angel MD Head CTA 04/29/17 0000 Signed Impressions: Service Date/Time: Saturday, April 29, 2017 11:34 - CONCLUSION: No acute intracranial vascular abnormality is identified. Mikel Angel MD Assessment and Plan Assessment and Plan Septic Shock Reassessment Heart: Regular rate and rhythm Lungs: Clear Skin: Warm Peripheral Pulses: Bounding Right Radial Bounding Left Radial Bounding Right Dorsalis Pedis Bounding Left Dorsalis Pedis Caprini VTE Risk Assessment Caprini VTE Risk Assessment Caprini VTE Risk Assessment: Mod/High Risk (score >= 2) Caprini Risk Assessment Model Point Value = 1 Point Value = 2 Point Value = 3 Point Value = 5 Age 41-60 Minor surgery BMI > 25 kg/m2 Swollen legs Varicose veins or History of unexplained or recurrent spontaneous Oral contraceptives or hormone replacement Sepsis (< 1 month) Serious lung disease, including pneumonia (< 1 month) Abnormal pulmonary function Acute myocardial infarction Congestive heart failure (< 1 month) History of inflammatory bowel disease Medical patient at bed rest Age 61-74 Arthroscopic surgery Major open surgery (> 45 min) Laparoscopic surgery (> 45 min) Malignancy Confined to bed (> 72 hours) Immobilizing plaster cast Central venous access Age >= 75 History of VTE Family history of VTE Factor V Leiden Prothrombin [id number] Lupus anticoagulant Anticardiolipin antibodies Elevated serum homocysteine Heparin-induced thrombocytopenia Other congenital or acquired thrombophilia Stroke (< 1 month) Elective arthroplasty Hip, pelvis, or leg fracture Acute spinal cord injury (< 1 month) Prophylaxis Regimen Total Risk Factor Score Risk Level Prophylaxis Regimen 0-1 Low Early ambulation 2 Moderate Order ONE of the following: *Sequential Compression Device (SCD) *Heparin 5000 units SQ BID 3-4 Higher Order ONE of the following medications: *Heparin 5000 units SQ TID *Enoxaparin/Lovenox 40 mg SQ daily (WT < 150 kg, CrCl > 30 mL/min) *Enoxaparin/Lovenox 30 mg SQ daily (WT < 150 kg, CrCl > 10-29 mL/min) *Enoxaparin/Lovenox 30 mg SQ BID (WT < 150 kg, CrCl > 30 mL/min) AND/OR *Sequential Compression Device (SCD) 5 or more Highest Order ONE of the following medications: *Heparin 5000 units SQ TID (Preferred with Epidurals) *Enoxaparin/Lovenox 40 mg SQ daily (WT < 150 kg, CrCl > 30 mL/min) *Enoxaparin/Lovenox 30 mg SQ daily (WT < 150 kg, CrCl > 10-29 mL/min) *Enoxaparin/Lovenox 30 mg SQ BID (WT < 150 kg, CrCl > 30 mL/min) AND *Sequential Compression Device (SCD) Attending Statement A/P 8mm right ICA internal carotid artery dissection at the level of C1-C2 History of TIA Hearing deficit Dementia Cephalgia Continue neuro checks in a serial fashion. CT brain-no acute abnormality. A follow-up CT of the head will be obtained in 24 hours. Start heparin drip and aspirin Neurology [id number] recommendations Recommend to consult invasive radiology shunt to determine whether he could be a candidate for stenting Consult vascular surgeon HTN. Continue carvedilol 6.25 BID, [id number]/day, Norvasc 10mg/day Hyperlipidemia. Continue simvastatin Pacemaker-St. [facility]pesh demand rate set at 60 Consult speech therapy for swallow evaluation and cognitive evaluation Pulmonary.. Continue aggressive pulmonary toilette, nasotracheal suction, and breathing treatments with nebulizers. Nutrition. NPO Renal. monitor closely urine output, BUN and creatinine Endocrine. Monitor serial Acu checks and SSI as needed in detail ID monitor for signs of infection Protonix for stress ulcer prophylaxis Redd hassan and SCD's for DVT prophylaxis. Milton Harris MD Apr 29, 2017 17:55
[2017-04-29 18:36] LABS: HEMATOCRIT 41.8 % (39.0-51.0); MEAN CELL VOLUME 88.2 FL (80.0-100.0); MEAN CORPUSCULAR HEMOGLOBIN 29.4 PG (27.0-34.0); MEAN CORPUSCULAR HGB CONC 33.3 % (32.0-36.0); PLATELET COUNT 169 TH/MM3 (150-450); RED BLOOD COUNT 4.74 MIL/MM3 (4.50-5.90); RED CELL DISTRIBUTION WIDTH 13.3 % (11.6-17.2); REVIEW FLAG FINAL; WHITE BLOOD COUNT 16.6 TH/MM3 (4.0-11.0)
[2017-04-29 18:46] LABS: APTT (PATIENT) 26.1 SEC (24.3-30.1); PROTHROMBIN TIME - PATIENT 11.6 SEC (9.8-11.6)
[2017-04-29] MEDS: HEPARIN-D5W 25,000 U/250 ML 250 ML IV PRN (19:37)
--- NOTE | 2017-04-29 19:52 | HHI.CCPN ---
Subjective Remarks/Hospital Course Noted patient being started on heparin. Hypertensive. Will target SBP 120-140 in effort to balance avoiding propagation of dissection while avoiding cerebral ischemia. I have examined patient to understand his baseline level of L hemiparesis. Will monitor exam as BP is lowered. Labetalol prn and nicardipine if needed. Discussed this with patient and family at bedside in detail. Discussed with mine shifter RN. Objective Vital Signs Date Time Temp Pulse Resp B/P (MAP) Pulse Ox O2 Delivery O2 Flow Rate FiO2 04/29/17 17:00 100 Room Air 04/29/17 17:00 98.2 70 22 171/87 (115) Result Diagram: 04/29/17 1809 04/29/17 1015 Imaging Last Impressions Head CT 04/29/17 1008 Signed Impressions: Service Date/Time: Saturday, April 29, 2017 11:31 - CONCLUSION: 1. Stable noncontrast head CT. No acute intracranial abnormality is identified. 2. Chronic changes include mild cerebral atrophy and periventricular white matter change characteristic of chronic microvascular ischemia. Mikel Angel MD Neck CTA 04/29/17 0000 Signed Impressions: Service Date/Time: Saturday, April 29, 2017 11:34 - CONCLUSION: 1. The distal right internal carotid artery at the C1-C2 level demonstrates a short segment of focal dissection measuring approximately 8 mm in length. The more distal internal carotid artery is normal. 2. There is no significant atherosclerotic disease or stenosis within either internal carotid artery. Mikel Angel MD Head CTA 04/29/17 0000 Signed Impressions: Service Date/Time: Saturday, April 29, 2017 11:34 - CONCLUSION: No acute intracranial vascular abnormality is identified. Mikel Angel MD A/P Assessment and Plan Alethea Hutson MD Apr 29, 2017 19:52
[2017-04-29 20:00] VITALS: BP 157/83; PULSE 70; RESP 18; TEMP 98.6; O2SAT 99
[2017-04-29] MEDS: CARVEDILOL 6.25 MG TAB PO SCH (20:21)
[2017-04-29] MEDS: PRAVASTATIN SOD 80 MG TAB PO SCH (20:21)
[2017-04-29] MEDS: DOCUSATE SODIUM 50 MG/SENNA 8.6 MG TAB PO SCH (20:21)
[2017-04-29] MEDS: SODIUM CHLORIDE 0.9% FLUSH 10 ML FLUSH IV FLUSH SCH (20:21)
[2017-04-29] MEDS: LABETALOL HCL 100 MG/20 ML VIAL IV PUSH PRN (20:22)
[2017-04-29 22:00] VITALS: PULSE 84
[2017-04-29] MEDS: HALOPERIDOL LACTATE 5 MG/ML AMP IV PUSH PRN (22:00)
[2017-04-30] VITALS (12 sets, daily range): BP systolic 98–157; BP diastolic 57–96; PULSE 60–96; RESP 15–26; TEMP 97.9–98.9; O2SAT 94–100
[2017-04-30] MEDS ORDERED: HALOPERIDOL LACTATE 5 MG/ML AMP IV PUSH ONE (02:00)
[2017-04-30 02:27] LABS: APTT (PATIENT) 38.3 SEC (24.3-30.1)
[2017-04-30] MEDS: LABETALOL HCL 100 MG/20 ML VIAL IV PUSH PRN (02:51)
[2017-04-30] MEDS: CHLORHEXIDINE GLUCONATE 2 % 1 PACK (2 CLOTHS) TOP SCH (04:00)
[2017-04-30] MEDS: niCARdipine INJ 25 MG in SODIUM CHLOR 0.9% 250 ML INJ 240 ML IV PRN ×2 (04:02→17:36)
[2017-04-30 05:18] LABS: HEMATOCRIT 40.8 % (39.0-51.0); MEAN CELL VOLUME 87.7 FL (80.0-100.0); MEAN CORPUSCULAR HEMOGLOBIN 28.9 PG (27.0-34.0); PLATELET COUNT 161 TH/MM3 (150-450); RED BLOOD COUNT 4.65 MIL/MM3 (4.50-5.90); RED CELL DISTRIBUTION WIDTH 13.2 % (11.6-17.2); REVIEW FLAG FINAL; WHITE BLOOD COUNT 14.7 TH/MM3 (4.0-11.0)
[2017-04-30 05:58] LABS: BICARBONATE 22.9 MEQ/L (21.0-32.0); MAGNESIUM 2.2 MG/DL (1.5-2.5); POTASSIUM 3.2 MEQ/L (3.5-5.1)
[2017-04-30] MEDS: DEXMEDETOMIDINE INJ 200 MCG in SODIUM CHLORIDE 0.9% INJ 50 ML IV PRN ×5 (07:30→23:37)
[2017-04-30] MEDS: INSULIN ASPART SUPPLEMENTAL SCALE SQ SCH ×4 (08:00→20:31)
[2017-04-30] MEDS: ASPIRIN 81 MG CHEW TAB CHEW SCH (09:00)
[2017-04-30] MEDS: DOCUSATE SODIUM 50 MG/SENNA 8.6 MG TAB PO SCH ×2 (09:00→20:31)
[2017-04-30] MEDS: LISINOPRIL 10 MG TAB PO SCH (09:00)
[2017-04-30] MEDS: SODIUM CHLORIDE 0.9% FLUSH 10 ML FLUSH IV FLUSH SCH ×2 (09:00→20:32)
[2017-04-30] MEDS: PANTOPRAZOLE SODIUM 40 MG VIAL IV PUSH SCH (09:00)
[2017-04-30] MEDS: CARVEDILOL 6.25 MG TAB PO SCH ×2 (09:00→20:31)
[2017-04-30] MEDS ORDERED: SODIUM CHLOR 0.9% 1000 ML INJ 1,000 ML IV ONE (09:30)
--- NOTE | 2017-04-30 10:12 | HHI.NSPN ---
Note Status Status: Progress Note Interval History Diagnosis Carotid artery dissection Interval History This is a 77-year-old English English male who presented to the ED with new onset right sided weakness. He has a medical history significant for dementia. On 04/27, per their report, the patient was in the emergency room at [facility] [place] for some weakness and was diagnosed with possible TIA. He was supposed to be admitted but patient left AMA, after his hearing aids were misplaced. Yesterday he came to [facility] [place] with complaints of severe headache. Laboratory and imaging studies to include a CT were performed, the diagnoses of complex migraine the patient was discharged home. After discharge, with family noticed that he was leaning to the left side. He was last seen his baseline at 11:30 in the morning. Since he went home as per the every time he try to stand up from a sitting position he kept falling. He has fallen about 6 times. He also noticed that he kept falling to his left side and has been unable to walk because of left- sided weakness. He has a pacemaker and MRI cannot be done. 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 Neurosurgery was consulted. 04/30. sedated. Response to pain. Moving all 4 extremities Labs, Micro, & Vital Signs Results Date Time Temp Pulse Resp B/P (MAP) Pulse Ox O2 Delivery O2 Flow Rate FiO2 04/30/17 06:00 96 04/30/17 04:02 112 159/90 04/30/17 04:00 98.9 92 26 157/93 (114) 96 04/30/17 04:00 92 04/30/17 02:00 90 04/30/17 00:00 94 04/30/17 00:00 98.2 94 25 151/96 (114) 100 04/29/17 22:00 84 04/29/17 20:00 70 04/29/17 20:00 98.6 70 18 157/83 (107) 99 04/29/17 19:00 100 Room Air 04/29/17 17:00 100 Room Air 04/29/17 17:00 98.2 70 22 171/87 (115) 100 04/29/17 15:00 66 17 164/91 (115) 100 Room Air 04/29/17 10:15 97 Room Air Constitutional Vital Signs Date Time Temp Pulse Resp B/P (MAP) Pulse Ox O2 Delivery O2 Flow Rate FiO2 04/30/17 06:00 96 04/30/17 04:02 112 159/90 04/30/17 04:00 98.9 92 26 157/93 (114) 96 04/30/17 04:00 92 04/30/17 02:00 90 04/30/17 00:00 94 04/30/17 00:00 98.2 94 25 151/96 (114) 100 04/29/17 22:00 84 04/29/17 20:00 70 04/29/17 20:00 98.6 70 18 157/83 (107) 99 04/29/17 19:00 100 Room Air 04/29/17 17:00 100 Room Air 04/29/17 17:00 98.2 70 22 171/87 (115) 100 04/29/17 15:00 66 17 164/91 (115) 100 Room Air 04/29/17 10:15 97 Room Air Physical Exam The patient is sedated. Localizes to painful stimulus with all 4 extremities. Cranial Nerves: Pupils equal, round, reactive to light. Eyes appear conjugated. There was no nystagmus, no papilledema. Face musculature appeared symmetrical at rest. Face sensation, olfaction, visual titus, and hearing cannot be adequately assessed due to his neurological condition. The patient has a corneal reflex. He has a gag reflex. The sternocleidomastoid and trapezius are symmetrical. Cervical Spine: His neck is soft, supple, without nuchal rigidity. Motor: His muscle tone and bulk are normal. He moves all 4 extremities Reflexes: Deep tendon reflexes are 1+ and symmetrical in the biceps, triceps, and brachioradialis, bilaterally, in the upper extremities. In the lower extremities, the patellar and ankles are 1+, bilaterally. There is a bilateral plantar flexion response. There is no clonus or other abnormal reflexes noted. Sensory: On examination there is response to painful stimuli, localizing with upper and lower extremities. Cerebellar: Examination cannot be adequately assessed due to the patient's neurological condition. Medications Current Medications Current Medications Sodium Chloride (NS Flush) 2 ml UNSCH PRN IVF FLUSH AFTER USING IV ACCESS; Start 04/29/17 at 10:15; Stop 04/29/17 at 14:19; Status DC Sodium Chloride 500 ml @ 500 mls/hr BOLUS ONCE IV Last administered on 10:36; Start 04/29/17 at 10:15; Stop 04/29/17 at 11:14; Status DC Ceftriaxone Sodium 1000 mg/ Sodium Chloride 100 ml @ 200 mls/hr ONCE ONCE IV Last administered on 04/29/17 12:15; Start 04/29/17 at 11:30; Stop 04/29/17 at 11:59; Status DC Iohexol (Omnipaque 350 Inj) 75 ml STK-MED ONCE IV PUSH Last administered on 12:12; Start 04/29/17 at 12:12; Stop 04/29/17 at 12:13; Status DC Ondansetron HCl (Zofran Inj) 4 mg ONCE ONCE IV PUSH Last administered on 13:51; Start 04/29/17 at 14:00; Stop 04/29/17 at 14:01; Status DC Sodium Chloride 1,000 ml @ 42 mls/hr [id number] IV Last administered on 17:30; Start 04/29/17 at 14:00 Sodium Chloride (NS Flush) 2 ml UNSCH PRN IV FLUSH FLUSH AFTER USING IV ACCESS ; Start 04/29/17 at 14:00 Sodium Chloride (NS Flush) 2 ml BID IV FLUSH Last administered on 04/29/17 20: 21; Start 04/29/17 at 21:00 Pantoprazole Sodium (Protonix Inj) 40 mg DAILY IV PUSH ; Start 04/30/17 at 09:00 Ondansetron HCl (Zofran Inj) 4 mg Q6H PRN IV PUSH NAUSEA OR VOMITING; Start at 14:00 Albuterol/ Ipratropium (Duoneb Neb) 1 ampule Q4HR NEB PRN INH WHEEZING; Start 04/29/17 at 14:00 Miscellaneous Information 1 [id number] XX ; Start 04/29/17 at 14:00 Chlorhexidine Gluconate (Chlorhexidine 2% Cloth) 3 pack Taper DAILY@04 TOP ; Start 04/30/17 at 04:00; Stop 04/26/18 at 03:59 Chlorhexidine Gluconate (Chlorhexidine 2% Cloth) 3 pack UNSCH PRN TOP HYGIENIC CARE; Start 04/29/17 at 14:00 Senna/Docusate Sodium (Leonila-Colace) 1 tab BID PO Last administered on t 20:21; Start 04/29/17 at 21:00 Magnesium Hydroxide (Milk Of Magnesia Liq) 30 ml Q12H PRN PO MILD - MODERATE CONSTIPATION; Start 04/29/17 at 14:00 Sennosides (Senokot) 17.2 mg Q12H PRN PO MODERATE - SEVERE CONSTIPATION; Start 04/29/17 at 14:00 Bisacodyl (Dulcolax Supp) 10 mg DAILY PRN RECTAL SEVERE CONSITIPATION; Start at 14:00 Lactulose (Lactulose Liq) 30 ml DAILY PRN PO SEVERE CONSITIPATION; Start at 14:00 Potassium Chloride 100 ml @ 50 mls/hr Q2H PRN IV For Potassium 2.8 - 3.2 mEq/L ; Start 04/29/17 at 14:00 Potassium Chloride 100 ml @ 50 mls/hr Q2H PRN IV For Potassium 2.8 - 3.2 mEq/L ; Start 04/29/17 at 14:00 Potassium Bicarb/ Potassium Chloride (K-Lyte Cl Eff) 50 meq UNSCH PRN PO For Potassium 3.3 - 3.5 mEq/L; Start 04/29/17 at 14:00 Potassium Chloride 100 ml @ 25 mls/hr UNSCH PRN IV For Potassium 3.3 - 3.5 mEq /L; Start 04/29/17 at 14:00 Potassium Chloride 100 ml @ 50 mls/hr Q2H PRN IV For Potassium 3.3 - 3.5 mEq/L ; Start 04/29/17 at 14:00 Magnesium Sulfate 4 gm/Sodium Chloride 100 ml @ 50 mls/hr UNSCH PRN IV For Magnesium 0.9 - 1.1 mg/dL; Start 04/29/17 at 14:00 Magnesium Oxide (Mag-Ox) 800 mg UNSCH PRN PO For Magnesium 1.2 - 1.6 mg/dL; Start 04/29/17 at 14:00 Magnesium Sulfate 2 gm/Sodium Chloride 100 ml @ 50 mls/hr UNSCH PRN IV For Magnesium 1.2 - 1.6 mg/dL; Start 04/29/17 at 14:00 Potassium Phosphate (K-Phos) 2,000 mg Q4H PRN PO For Phosphorus < 2.5 mg/dL; Start 04/29/17 at 14:00 Sodium Phosphate 30 mmol/Sodium Chloride 250 ml @ 42 mls/hr UNSCH PRN IV For Phosphorus < 2.5 mg/dL; Start 04/29/17 at 14:00 Potassium Phosphate (K-Phos) 2,000 mg UNSCH PRN PO/TUBE SEE LABEL COMMENTS; Start 04/29/17 at 14:00 Potassium Phosphate 30 mmol/ Sodium Chloride 260 ml @ 42 mls/hr UNSCH PRN IV SEE LABEL COMMENTS; Start 04/29/17 at 14:00 Dextrose (D50w (Vial) Inj) 50 ml UNSCH PRN IV PUSH HYPOGLYCEMIA-SEE COMMENTS; Start 04/29/17 at 14:15 Glucagon (Glucagon Inj) 1 mg UNSCH PRN OTHER HYPOGLYCEMIA-SEE COMMENTS; Start 04/29/17 at 14:15 Insulin Aspart (NovoLOG SUPPLEMENTAL SCALE) 1 ACHS SLIDING SCALE SQ ; Start at 17:00 Acetaminophen (Ofirmev 1000 Mg/ 100 ml Inj) 1,000 mg Q6H PRN IV PAIN SCALE 3 TO 10; Start 04/29/17 at 14:15 Aspirin (Aspirin Chew) 81 mg DAILY CHEW ; Start 04/30/17 at 09:00 Aspirin (Aspirin Chew) 81 mg ONCE ONCE CHEW Last administered on 04/29/17 17: 00; Start 04/29/17 at 17:00; Stop 04/29/17 at 17:05; Status DC Amlodipine Besylate (Norvasc) 10 mg HS PO Last administered on 04/29/17 20:21 ; Start 04/29/17 at 21:00 Carvedilol (Coreg) 6.25 mg BID PO Last administered on 04/29/17 20:21; Start 04/29/17 at 21:00 Lisinopril (Prinivil) 10 mg DAILY PO ; Start 04/30/17 at 09:00 Pravastatin Sodium (Pravachol) 80 mg HS PO Last administered on 04/29/17 20:21 ; Start 04/29/17 at 21:00 Heparin Sodium/ Dextrose 250 ml @ 10.56 mls/ hr TITRATE PRN IV Coagulation management Last administered on 04/29/17 19:37; Start 04/29/17 at 17:15 Labetalol HCl (Trandate Inj) 10 mg Q4H PRN IV PUSH SBP >140 Last administered on 04/30/17 02:51; Start 04/29/17 at 20:00 Nicardipine HCl 25 mg/Sodium Chloride 250 ml @ 50 mls/hr TITRATE PRN IV Blood pressure management Last administered on 04/30/17 04:02; Start 04/29/17 at 20: 00 Haloperidol Lactate (Haldol Inj) 2 mg Q6H PRN IV PUSH FOR PATIENT SAFETY DUE TO AGITATION/HALLUCINATIONS Last administered on 04/29/17 22:00; Start at 22:00 Haloperidol Lactate (Haldol Inj) 2 mg ONCE ONCE IV PUSH Last administered on 02:33; Start 04/30/17 at 02:00; Stop 04/30/17 at 02:07; Status DC Dexmedetomidine HCl 200 mcg/ Sodium Chloride 52 ml @ 4.59 mls/hr TITRATE PRN IV SEDATION Last administered on 04/30/17 07:30; Start 04/30/17 at 02:00 Sodium Chloride 1,000 ml @ 999 mls/hr Q1H1M ONCE IV Last administered on 09:30; Start 04/30/17 at 09:30; Stop 04/30/17 at 10:30 Medical Decision Making MDM Remarks Last [address] 04/29/17 1008 Signed Impressions: Service Date/Time: Saturday, April 29, 2017 11:31 - CONCLUSION: 1. Stable noncontrast head CT. No acute intracranial abnormality is identified. 2. Chronic changes include mild cerebral atrophy and periventricular white matter change characteristic of chronic microvascular ischemia. Mikel Angel MD Neck CTA 04/29/17 0000 Signed Impressions: Service Date/Time: Saturday, April 29, 2017 11:34 - CONCLUSION: 1. The distal right internal carotid artery at the C1-C2 level demonstrates a short segment of focal dissection measuring approximately 8 mm in length. The more distal internal carotid artery is normal. 2. There is no significant atherosclerotic disease or stenosis within either internal carotid artery. Mikel Angel MD Head CTA 04/29/17 0000 Signed Impressions: Service Date/Time: Saturday, April 29, 2017 11:34 - CONCLUSION: No acute intracranial vascular abnormality is identified. Mikel Angel MD Plan Plan Remarks Septic Shock Reassessment Heart: Regular rate and rhythm Lungs: Clear Skin: Warm Peripheral Pulses: Bounding Right Radial Bounding Left Radial Bounding Right Dorsalis Pedis Bounding Left Dorsalis Pedis Caprini VTE Risk Assessment Caprini VTE Risk Assessment Caprini VTE Risk Assessment: Mod/High Risk (score >= 2) Caprini Risk Assessment Model Point Value = 1 Point Value = 2 Point Value = 3 Point Value = 5 Age 41-60 Minor surgery BMI > 25 kg/m2 Swollen legs Varicose veins or History of unexplained or recurrent spontaneous Oral contraceptives or hormone replacement Sepsis (< 1 month) Serious lung disease, including pneumonia (< 1 month) Abnormal pulmonary function Acute myocardial infarction Congestive heart failure (< 1 month) History of inflammatory bowel disease Medical patient at bed rest Age 61-74 Arthroscopic surgery Major open surgery (> 45 min) Laparoscopic surgery (> 45 min) Malignancy Confined to bed (> 72 hours) Immobilizing plaster cast Central venous access Age >= 75 History of VTE Family history of VTE Factor V Leiden Prothrombin [id number] Lupus anticoagulant Anticardiolipin antibodies Elevated serum homocysteine Heparin-induced thrombocytopenia Other congenital or acquired thrombophilia Stroke (< 1 month) Elective arthroplasty Hip, pelvis, or leg fracture Acute spinal cord injury (< 1 month) Prophylaxis Regimen Total Risk Factor Score Risk Level Prophylaxis Regimen 0-1 Low Early ambulation 2 Moderate Order ONE of the following: *Sequential Compression Device (SCD) *Heparin 5000 units SQ BID 3-4 Higher Order ONE of the following medications: *Heparin 5000 units SQ TID *Enoxaparin/Lovenox 40 mg SQ daily (WT < 150 kg, CrCl > 30 mL/min) *Enoxaparin/Lovenox 30 mg SQ daily (WT < 150 kg, CrCl > 10-29 mL/min) *Enoxaparin/Lovenox 30 mg SQ BID (WT < 150 kg, CrCl > 30 mL/min) AND/OR *Sequential Compression Device (SCD) 5 or more Highest Order ONE of the following medications: *Heparin 5000 units SQ TID (Preferred with Epidurals) *Enoxaparin/Lovenox 40 mg SQ daily (WT < 150 kg, CrCl > 30 mL/min) *Enoxaparin/Lovenox 30 mg SQ daily (WT < 150 kg, CrCl > 10-29 mL/min) *Enoxaparin/Lovenox 30 mg SQ BID (WT < 150 kg, CrCl > 30 mL/min) AND *Sequential Compression Device (SCD) Attending Statement A/P right ICA internal carotid artery dissection at the level of C1-C2 History of TIA Hearing deficit Dementia Cephalgia Continue neuro checks in a serial fashion. CT brain-no acute abnormality. Recommend an MRI of the brain to rule out ischemic infarction Continue full anticoagulation with heparin drip and aspirin Neurology [id number] recommendations Recommend to consult invasive radiology shunt to determine whether he could be a candidate for stenting ConsultATION vascular surgeon was noted HTN. Continue carvedilol 6.25 BID, btilaglnrs86nd/day, Norvasc 10mg/day Hyperlipidemia. Continue simvastatin Pacemaker-St. Kalpesh demand rate set at 60 Consult speech therapy for swallow evaluation and cognitive evaluation Pulmonary.. Continue aggressive pulmonary toilette, nasotracheal suction, and breathing treatments with nebulizers. Nutrition. NPO Renal. monitor closely urine output, BUN and creatinine Endocrine. Monitor serial Acu checks and SSI as needed in detail ID monitor for signs of infection Protonix for stress ulcer prophylaxis Redd hassan and SCD's for DVT prophylaxis. Milton Harris MD Apr 30, 2017 10:12
[2017-04-30] MEDS: RESP: ALBUTEROL 2.5 MG/IPRATROPIUM 0.5 MG NEB (PRN) INH (12:25)
[2017-04-30 12:59] LABS: APTT (PATIENT) 52.7 SEC (24.3-30.1)
--- NOTE | 2017-04-30 13:40 | PD.CAR.PN ---
CVT Progress Note Subjective/Hospital Course: 04/30/17 Patient seen and evaluated Full consult dictated and discussed with family At this point would not recommend stenting due to complexity of comorbidities that could be involved in this patient's neurologic deterioration, including hypertension paroxysmal atrial fibrillation, coronary artery disease small vessel disease of the brain and dementia etc. Stenting is generally indicated for patients with carotid dissection who fail anticoagulation therapy. In this particular patient I will only one point of reference this time so I would like to see how patient does in next few days before making decision on stenting versus not. Stenting itself carries a risk of stroke as such an should be carefully considered before proceeding with it. Will continue follow the patient Continue heparin anticoagulation Thanks J Objective: Vital Signs Date Time Temp Pulse Resp B/P (MAP) Pulse Ox O2 Delivery O2 Flow Rate FiO2 04/30/17 07:00 98 Room Air 04/30/17 06:00 96 04/30/17 04:02 112 159/90 04/30/17 04:00 98.9 92 26 157/93 (114) 96 04/30/17 04:00 92 04/30/17 02:00 90 04/30/17 00:00 94 04/30/17 00:00 98.2 94 25 151/96 (114) 100 04/29/17 22:00 84 04/29/17 20:00 70 04/29/17 20:00 98.6 70 18 157/83 (107) 99 04/29/17 19:00 100 Room Air 04/29/17 17:00 100 Room Air 04/29/17 17:00 98.2 70 22 171/87 (115) 100 04/29/17 15:00 66 17 164/91 (115) 100 Room Air Labs: Laboratory Tests Test 04/30/17 02:03 04/30/17 04:55 04/30/17 11:54 Activated Partial Thromboplast Time 38.3 SEC (24.3-30.1) 52.7 SEC (24.3-30.1) White Blood Count 14.7 TH/MM3 (4.0-11.0) Red Blood Count 4.65 MIL/MM3 (4.50-5.90) Hemoglobin 13.4 GM/DL (13.0-17.0) Hematocrit 40.8 % (39.0-51.0) Mean Corpuscular Volume 87.7 FL (80.0-100.0) Mean Corpuscular Hemoglobin 28.9 PG (27.0-34.0) Mean Corpuscular Hemoglobin Concent 33.0 % (32.0-36.0) Red Cell Distribution Width 13.2 % (11.6-17.2) Platelet Count 161 TH/MM3 (150-450) Mean Platelet Volume 8.0 FL (7.0-11.0) Blood Urea Nitrogen 19 MG/DL (7-18) Creatinine 1.17 MG/DL (0.60-1.30) Random Glucose 135 MG/DL (74-106) Calcium Level 9.1 MG/DL (8.5-10.1) Phosphorus Level 2.8 MG/DL (2.5-4.9) Magnesium Level 2.2 MG/DL (1.5-2.5) Sodium Level 141 MEQ/L (136-145) Potassium Level 3.2 MEQ/L (3.5-5.1) Chloride Level 107 MEQ/L (98-107) Carbon Dioxide Level 22.9 MEQ/L (21.0-32.0) Anion Gap 11 MEQ/L (5-15) Estimat Glomerular Filtration Rate 73 ML/MIN (>89) Result Diagram: 04/30/17 0455 04/30/17 0455 Nitin Dooley MD Apr 30, 2017 13:40
[2017-04-30] MEDS: SODIUM CHLOR 0.9% 1000 ML INJ 1,000 ML IV SCH (13:49)
--- NOTE | 2017-04-30 13:58 | MB ---
cc: NITIN SOSA MD DATE OF CONSULTATION: 04/30/2017 REASON FOR CONSULTATION Right carotid artery dissection. HISTORY OF PRESENT DISEASE This unfortunate 77-year-old male was brought to our hospital with signs and symptoms of TIA versus an evolving stroke. The patient on work-up was found to have a very short segment of carotid artery dissection on the right just before entry to the skull. Question arose about the significance of this or any connection to the patient's symptoms now or earlier. The past medical history of this is complex. The patient has had symptoms since November this year with several episodes of weakness, inability to walk and slurring of speech. He was seen since November in several hospitals including [facility] where he signed out AMA, [facility], and a few other places. The patient keeps falling and is unable to walk. He also has a history of dementia. At this point he is disoriented, trying to get up and I cannot get anything from the patient with all things translated through the family. PAST MEDICAL HISTORY 1. Prostate and bladder cancer for which the patient is receiving chemotherapy. 2. Coronary artery disease. 3. Paroxysmal atrial fibrillation. 4. Pacemaker placement for sick sinus syndrome. 5. Repeated TIAs in the last 4-5 months. 6. COPD. 7. Arthritis. PAST SURGICAL HISTORY 1. Pacemaker placement. 2. Cardiac ablation. 3. Prostatectomy for which the patient is not receiving chemotherapy. 4. Partial thyroidectomy. SOCIAL HISTORY The patient does not smoke or drink. He is suffering fairly advanced neurocognitive changes with dementia. PHYSICAL EXAMINATION GENERAL: A 77-year-old gentleman. HEENT: Normocephalic. No trauma to the head. Pupils are equally reactive. Extraocular muscles intact. NECK: Supple. Bilateral carotid pulses. I do not perceive any bruits. CHEST: Clear. Decreased breath sounds of both lung titus consistent with moderate COPD. HEART: Regular rhythm. At this point the patient does not have atrial fibrillation and is being controlled apparently with a number of medications for the same including flecainide and amlodipine as well as quetiapine and carvedilol. ABDOMEN: Soft. No rebound or guarding. No masses. EXTREMITIES: The patient has bilateral femoral pulse on palpation, distal pulses by Doppler. No signs of acute vascular deficit. BACK: Normal. NEUROLOGIC: On neurologic exam the patient is confused and demented and it is very hard to get anything out of him, although I am told that he could answer simple questions appropriately in the past. He seems to be moving all four extremities but he is not talking to me. The patient apparently is whispering to the family otherwise. IMPRESSION/RECOMMENDATIONS CTA indeed shows a 1 cm in length carotid dissection distally just before the base of the skull entry at the level of C1-C2. This is an isolated finding. The remainder of the carotid study seems to be fine and the patient does not have any hemodynamically significant stenosis. The reasons for dissection are many. In the majority of younger people the dissection will occur due to a trauma either in a motor vehicle crash with the seat belt or due to a blow to the neck. Spontaneous carotid dissection occurs occasionally in patients with connective tissue disease like Marfan's syndrome, Ivan-Donlos syndrome or other dysplastic musculoskeletal congenital disorders. The range of these is very low in general. Spontaneous dissection of the carotid can also occur in adults due to degenerative disease of the vessels, arteriosclerotic plaques flushing off and things like that. I am not sure why this gentleman had the dissection and if it was related to some sort of a traumatic event or simply arteriosclerotic disease. Either way he does have this flap in the vessel. The approach to these is variable and ranges from observation, anticoagulation, stent placement and surgery. Clearly surgery is out of question this high in the neck, but a stent would not be a bad option. Stent placement is only indicated in patients who have symptoms despite anticoagulation. I have never seen this gentleman before so I have no point of reference but it seems like since he is on heparin he has not had any symptoms that have worsened. In this particular gentleman there are many reasons for TIAs and neurologic deficits other than this small flap. The patient has advanced arteriosclerotic disease and small vessel disease of the brain based on his cardiovascular history. He has hypertension that is very hard to control and he has dementia. All of these will lead to neurologic symptoms and it is very hard to tell if the flap has anything to do with this. At this point I believe the patient should be observed, kept on anticoagulants and will see how he does. If the patient suddenly has a deterioration in neurologic status on anticoagulants that can be clearly related to the flap by physiologic behavior and by anatomic location then the patient should have a stent; otherwise, a stent should not be placed. Placing a stent itself has its risks of stroke and neurologic deficit and therefore decision to do this has to be carefully weighed off. I will discuss this with interventional radiology as well. Right now would not recommend placement of a stent as long as the patient is not getting worse on anticoagulants. Thank you very much for the referral. Critical care time 40 minutes. Nitin CHANG /1:22 PM /1:36 PM
--- NOTE | 2017-04-30 13:58 | EKG ---
Date Performed: 04/29/2017 Time Performed: 09:42:43 PTAGE: 77 years EKG: Sinus rhythm ST DEVIATION AND MODERATE T-WAVE ABNORMALITY, CONSIDER LATERAL ISCHEMIA ABNORMAL ECG Compared to mino or tracing no significant change PREVIOUS TRACING : 04/28/2017 15.22 DOCTOR: Thai Rivas Interpretating Date/Time 04/30/2017 13:56:04
--- NOTE | 2017-04-30 16:11 | PD.VS.CON ---
History of Present Illness Chief Complaint: Distal RIGHT internal carotid artery w/ a short segment of focal dissection (8 mm in length) Consult Requested by: History of Present Illness Pt pleasantly confused - HX obtained by spouse at the BS Mr. Dhaliwal is a pleasantly confused 77/AA/M who has been having episodes of slurred speech, unilateral weakness (Left) and headaches since November of this year. reported symptoms developed after receiving chemotherapy treatments for bladder cancer Recent episode several days ago where he was seen and evaluated at [facility] where they informed the of the R ICA dissection (found back in November) Pt left AMA and continued to have difficulties speaking with left sided weakness , brought patient to [place] for an evaluation of reoccurring symptoms is unsure if dissection has changed in size reported pt was walking 6 miles daily before these episodes developed Pt in restraints currently as patient became combative last night (Gayatri Rosenthal) Past/Family/Social History Past Medical History Bladder CA Prostate CA Atrial Fibrillation TIA Dementia Hyperlipidemia Past Surgical History Pacemaker Ablations X2 Growth removed from Thyroid Prostatectomy Social History Neg- Smoker Neg- alcohol Neg- Illicit drug usage Live with spouse at home (Gayatri Rosenthal) Home Medications Active Scripts Cztucdmfud-Ozrpyrpiywwal-Okxypqgf-Codeine (Fioricet-Codeine) 46-056-14-30 Mg Cap , 1-2 CAP PO Q4H Y for HEADACHE, #12 CAP 0 Refills Do not exceed 6 capsules/day. Prov:Amina Silva DO 04/28/17 Apixaban (Eliquis) 5 Mg Tab, 5 MG PO BID for Blood Clot Prevention, #60 TAB 0 Refills Prov:Curt De Los Santos MD 12/25/16 Reported Medications Quetiapine (Quetiapine) 25 Mg Tab, 25 MG PO HS, #30 TAB 0 Refills 04/28/17 Amlodipine (Amlodipine) 10 Mg Tab, 10 MG PO HS for Blood Pressure Management, # 30 TAB 0 Refills 04/28/17 Clonazepam (Clonazepam) 2 Mg Tab, 2 MG PO HS, #60 TAB 0 Refills 04/28/17 Aspirin (Aspirin Low Dose) 81 Mg Chew, 81 MG CHEW HS, TAB 0 Refills 04/28/17 Simvastatin (Zocor) 40 Mg Tab, 40 MG PO HS for Cholesterol Management, #30 TAB 0 Refills 5/10/17 Pantoprazole (Pantoprazole) 40 Mg Tab, 40 MG PO DAILY for Reflux, #30 TAB 0 Refills 12/13/16 Memantine (Memantine) 10 Mg Tab, 10 MG PO BID for Alzheimer's Dementia, TAB 0 Refills 12/13/16 Lisinopril (Lisinopril) 10 Mg Tab, 10 MG PO DAILY, #30 TAB 0 Refills 12/13/16 Carvedilol (Carvedilol) 6.25 Mg Tab, 6.25 MG PO BID, #60 TAB 0 Refills 12/13/16 Flecainide (Flecainide) 100 Mg Tab, 100 MG PO BID for Regulate Heart Beat, #60 TAB 0 Refills 12/13/16 Discontinued Scripts Clonazepam (Klonopin) 0.5 Mg Tab, 0.5 MG PO DAILY for Anxiety, #15 TAB 0 Refills Prov:Curt De Los Santos MD 12/25/16 Clonazepam (Klonopin) 1 Mg Tab, 1 MG PO DAILY@18 for Anxiety, #15 TAB 0 Refills Prov:Curt De Los Santos MD 12/25/16 Walker with Front Wheels (Walker with Front Wheels) 1 Mis Mis, 1 EA .ROUTE DIRECTED, #1 EA 0 Refills Prov:Mackenzie Reyes MD 12/19/16 Coded Allergies: MRI PRECAUTION (Verified Adverse Reaction, Severe, MRI PRECAUTION/ PACEMAKER, 04/29/17) [facility] PACEMAKER/ 12/22/16 VSV Physical Exam Vitals/I&O Date Time Temp Pulse Resp B/P (MAP) Pulse Ox O2 Delivery O2 Flow Rate FiO2 04/30/17 07:00 98 Room Air 04/30/17 06:00 96 04/30/17 04:02 112 159/90 04/30/17 04:00 98.9 92 26 157/93 (114) 96 04/30/17 04:00 92 04/30/17 02:00 90 04/30/17 00:00 94 04/30/17 00:00 98.2 94 25 151/96 (114) 100 04/29/17 22:00 84 04/29/17 20:00 70 04/29/17 20:00 98.6 70 18 157/83 (107) 99 04/29/17 19:00 100 Room Air 04/29/17 17:00 100 Room Air 04/29/17 17:00 98.2 70 22 171/87 (115) 100 04/30/17 04/30/17 04/30/17 07:00 15:00 23:00 Intake Total 200 ml Balance 200 ml Neuro: Alert and confused Oriented X1 CN 2-12 intact (Gayatri Rosenthal SCIENCE ANALYST) Laboratory Tests Test 04/29/17 18:09 04/30/17 02:03 04/30/17 04:55 04/30/17 11:54 White Blood Count 16.6 14.7 Red Blood Count 4.74 4.65 Hemoglobin 13.9 13.4 Hematocrit 41.8 40.8 Mean Corpuscular Volume 88.2 87.7 Mean Corpuscular Hemoglobin 29.4 28.9 Mean Corpuscular Hemoglobin Concent 33.3 33.0 Red Cell Distribution Width 13.3 13.2 Platelet Count 169 161 Mean Platelet Volume 7.9 8.0 Prothrombin Time 11.6 Prothromb Time International Ratio 1.0 Activated Partial Thromboplast Time 26.1 38.3 52.7 Phosphorus Level 2.8 2.8 Blood Urea Nitrogen 19 Creatinine 1.17 Random Glucose 135 Calcium Level 9.1 Magnesium Level 2.2 Sodium Level 141 Potassium Level 3.2 Chloride Level 107 Carbon Dioxide Level 22.9 Anion Gap 11 Estimat Glomerular Filtration Rate 73 Date/Time Source Procedure Growth Status 04/29/17 10:30 Urine Catheterized Urine Urine Culture - Preliminary NO GROWTH IN 24 HOURS. Resulted Last [address] 04/29/17 1008 Signed Impressions: Service Date/Time: Saturday, April 29, 2017 11:31 - CONCLUSION: 1. Stable noncontrast head CT. No acute intracranial abnormality is identified. 2. Chronic changes include mild cerebral atrophy and periventricular white matter change characteristic of chronic microvascular ischemia. Mikel Angel MD Neck CTA 04/29/17 0000 Signed Impressions: Service Date/Time: Saturday, April 29, 2017 11:34 - CONCLUSION: 1. The distal right internal carotid artery at the C1-C2 level demonstrates a short segment of focal dissection measuring approximately 8 mm in length. The more distal internal carotid artery is normal. 2. There is no significant atherosclerotic disease or stenosis within either internal carotid artery. Mikel Angel MD Head CTA 04/29/17 0000 Signed Impressions: Service Date/Time: Saturday, April 29, 2017 11:34 - CONCLUSION: No acute intracranial vascular abnormality is identified. Mikel Angel MD (Gayatri Rosenthal) Assessment and Plan Assessment: (1) Carotid artery dissection Status: Acute (2) CVA (cerebral vascular accident) Status: Acute Plan Pt seen and evaluated for a RIGHT ICA dissection Plan Will obtain recent CT from [facility] for comparison Not a surgical candidate at this time If ICA dissection w/o change would Recommend an out patient surveillance CTA Discussed w/ Gayatri LEROY [facility] [phone] (Gayatri Rosenthal) Plan Focal high R ICA dissection with minimal aneurysmal degeneration. This radiographically looks benign and I am told it was known back in November. I will get the old images (from an outside hospital) for comparison but I suspect nothing needs to be done except interval imaging, likely a repeat CTA in 1year. Inocencio Carmona MD [facility] [employer] forest ranger [facility] - Heart and Vascular Surgery at [facility] [phone] (Inocencio Carmona MD) Problem Qualifiers (1) CVA (cerebral vascular accident): Qualified Codes: I63.8 - Other cerebral infarction Gayatri Rosenthal Apr 30, 2017 16:11 Inocencio Carmona MD May 01, 2017 04:55
--- NOTE | 2017-04-30 17:20 | HHI.CCPN ---
Subjective Remarks/Hospital Course Noted patient being started on heparin. Hypertensive. Will target SBP 120-140 in effort to balance avoiding propagation of dissection while avoiding cerebral ischemia. I have examined patient to understand his baseline level of L hemiparesis. Will monitor exam as BP is lowered. Labetalol prn and nicardipine if needed. Discussed this with patient and family at bedside in detail. Discussed with shift coordinator RN. 04/30: No change in neurological status. Continue anticoagulation. Objective Vital Signs Date Time Temp Pulse Resp B/P (MAP) Pulse Ox O2 Delivery O2 Flow Rate FiO2 04/30/17 08:00 73 04/30/17 08:00 98.5 16 98/57 (71) 99 04/30/17 07:00 Room Air Intake and Output 04/30/17 04/30/17 05/01/17 08:00 16:00 00:00 Intake Total 200 ml Balance 200 ml Result Diagram: 04/30/17 0455 04/30/17 0455 Imaging Last Impressions Head CT 04/29/17 1008 Signed Impressions: Service Date/Time: Saturday, April 29, 2017 11:31 - CONCLUSION: 1. Stable noncontrast head CT. No acute intracranial abnormality is identified. 2. Chronic changes include mild cerebral atrophy and periventricular white matter change characteristic of chronic microvascular ischemia. Mikel Angel MD Neck CTA 04/29/17 0000 Signed Impressions: Service Date/Time: Saturday, April 29, 2017 11:34 - CONCLUSION: 1. The distal right internal carotid artery at the C1-C2 level demonstrates a short segment of focal dissection measuring approximately 8 mm in length. The more distal internal carotid artery is normal. 2. There is no significant atherosclerotic disease or stenosis within either internal carotid artery. Mikel Angel MD Head CTA 04/29/17 0000 Signed Impressions: Service Date/Time: Saturday, April 29, 2017 11:34 - CONCLUSION: No acute intracranial vascular abnormality is identified. Mikel Angel MD Objective Remarks Head: Atraumatic. Neck: Supple, airway widely patent. Lungs: Clear, no adventitious sounds. Heart: NL S1S2, freq PMB. No JVD. Abdomen: Benign, soft, no guarding. Neuro: Confused. Uncooperative. Speech unclear. Moves 4 limbs spontaneously. ANA MARÍA. A/P Assessment and Plan Assessment: This is a 77-year-old gentleman that has presented to the emergency department 3 times in the last 3 days for neurologic symptomatology to include severe headaches left upper extremity weakness, vertigo. Noted to have after imaging studies right ICA focal dissection. Dr. Hinkle, interventional radiology was consulted by Dr. Rolle, no IR intervention regarding a stent is indicated secondary to adequate flow. The patient has had progressive neurological symptoms to include increasing weakness not only of the left upper extremity but now bilateral lower extremities and in the last 24 hours, symptoms of nausea and vomiting with dysphagia. The patient's home medications and include Eliquis, with last dose approximately 24-48 hours previously. The patient has been given a dose of aspirin 81 mg and heparin infusion will be instituted. The patient has a history of dementia and on multiple antidepressants last psychotic medications which will be held at this time. 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 History of TIA Hearing deficit Dementia Cephalgia Neurosurgery bnoragcci-nvqswo-dh recommendations Neurology qbretzfrt-byttgh-yp recommendations Neurochecks per ICU protocol 04/29 CTA brain-no acute vascular abnormality 04/29 CT brain-no acute abnormality Patient's home medications include Seroquel, clonazepam, memantidine-will hold for now Aspirin 81 mg one dose now, continue aspirin 81 mg daily Continue heparin infusion Respiratory: Maintain O2 sat greater than 92% Bronchodilators when necessary Cardiovascular: Pacemaker Dyslipidemia Hypertension Maintain MAP > 65mmHg Continue carvedilol 6.25 BID, [id number]/day, Norvasc 10mg/day Continue simvastatin Pacemaker-St. Kalpesh demand rate set at 60 Troponins 0.02 Renal: No Acosta -- Strict I/Os FEN/GI: Dysphagia Nausea Contact speech therapy for swallow evaluation and cognitive evaluation NPO for now Zofran 4 mg every 6 hours when necessary for nausea Protonix (home med) for GI prophylaxis Heme/ID: Monitor INR, on admission INR 1.0 Monitor CBC Heparin infusion Endocrine: Glucose monitoring per ICU protocol -- SSI Prophylaxis: GI Prophylaxis - Protonix DVT Prophylaxis- SCDs - Heparin infusion Lines: Peripheral IVs 2 Dispo: Overall impression: Appears to have a fixed neurological deficit, continue heparin and hopefully avoid complete occlusion or embolic event. Shahbaz Larsen MD Apr 30, 2017 17:20
--- NOTE | 2017-04-30 17:55 | PD.TRANSFR ---
Transfer Summary Admission Date Apr 29, 2017 at 13:22 Transfer Date: May 01, 2017 Admitting Diagnosis Diagnoses: (1) CVA (cerebral vascular accident) Diagnosis: Principal (2) Altered mental status Diagnosis: Principal (3) Carotid artery dissection Diagnosis: Secondary Significant Findings Presented to ED with chronic dementia and +/- acute left arm weakness. Scans revealed chronic right internal carotid artery dissection, probable embolic debris from site. Evaluated by Neurosurgery and Vascular surgery. Recommendations were for anticoagulation. On heparin gtt, convert to oral anticoagulation long-term. Start coumadin tonight. Objective Vital Signs Date Time Temp Pulse Resp B/P (MAP) Pulse Ox O2 Delivery O2 Flow Rate FiO2 04/30/17 17:36 65 149/89 04/30/17 16:00 98.9 15 95 04/30/17 07:00 Room Air Intake and Output 04/30/17 04/30/17 05/01/17 08:00 16:00 00:00 Intake Total 200 ml 980 ml Balance 200 ml 980 ml Result Diagram: 04/30/17 0455 04/30/17 0455 Imaging Last Impressions Head CT 04/29/17 1008 Signed Impressions: Service Date/Time: Saturday, April 29, 2017 11:31 - CONCLUSION: 1. Stable noncontrast head CT. No acute intracranial abnormality is identified. 2. Chronic changes include mild cerebral atrophy and periventricular white matter change characteristic of chronic microvascular ischemia. Mikel Angel MD Neck CTA 04/29/17 0000 Signed Impressions: Service Date/Time: Saturday, April 29, 2017 11:34 - CONCLUSION: 1. The distal right internal carotid artery at the C1-C2 level demonstrates a short segment of focal dissection measuring approximately 8 mm in length. The more distal internal carotid artery is normal. 2. There is no significant atherosclerotic disease or stenosis within either internal carotid artery. Mikel Angel MD Head CTA 04/29/17 0000 Signed Impressions: Service Date/Time: Saturday, April 29, 2017 11:34 - CONCLUSION: No acute intracranial vascular abnormality is identified. Mikel Angel MD Objective Remarks Head: Atraumatic. Neck: Supple, airway widely patent. Lungs: Clear, no adventitious sounds. Heart: NL S1S2, freq PMB. No JVD. Abdomen: Benign, soft, no guarding. Neuro: Confused. Uncooperative. Speech unclear. Moves 4 limbs spontaneously. ANA MARÍA. A/P Assessment and Plan Assessment: This is a 77-year-old gentleman that has presented to the emergency department 3 times in the last 3 days for neurologic symptomatology to include severe headaches left upper extremity weakness, vertigo. Noted to have after imaging studies right ICA focal dissection. Dr. Hinkle, interventional radiology was consulted by Dr. Rolle, no IR intervention regarding a stent is indicated secondary to adequate flow. The patient has had progressive neurological symptoms to include increasing weakness not only of the left upper extremity but now bilateral lower extremities and in the last 24 hours, symptoms of nausea and vomiting with dysphagia. The patient's home medications and include Eliquis, with last dose approximately 24-48 hours previously. The patient has been given a dose of aspirin 81 mg and heparin infusion will be instituted. The patient has a history of dementia and on multiple antidepressants last psychotic medications which will be held at this time. 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 History of TIA Hearing deficit Dementia Cephalgia Neurosurgery abdkrbzzn-fltwds-dv recommendations Neurology pswkovswc-yanukk-xz recommendations Neurochecks per ICU protocol 04/29 CTA brain-no acute vascular abnormality 04/29 CT brain-no acute abnormality Patient's home medications include Seroquel, clonazepam, memantidine-will hold for now Aspirin 81 mg one dose now, continue aspirin 81 mg daily Continue heparin infusion Respiratory: Maintain O2 sat greater than 92% Bronchodilators when necessary Cardiovascular: Pacemaker Dyslipidemia Hypertension Maintain MAP > 65mmHg Continue carvedilol 6.25 BID, nrimxnlped58ld/day, Norvasc 10mg/day Continue simvastatin Pacemaker-St. Kalpesh demand rate set at 60 Troponins 0.02 Renal: No Acosta -- Strict I/Os FEN/GI: Dysphagia Nausea Contact speech therapy for swallow evaluation and cognitive evaluation NPO for now Zofran 4 mg every 6 hours when necessary for nausea Protonix (home med) for GI prophylaxis Heme/ID: Monitor INR, on admission INR 1.0 Monitor CBC Heparin infusion Endocrine: Glucose monitoring per ICU protocol -- SSI Prophylaxis: GI Prophylaxis - Protonix DVT Prophylaxis- SCDs - Heparin infusion Lines: Peripheral IVs 2 Dispo: Overall impression: Appears to have a fixed neurological deficit, continue heparin and hopefully avoid complete occlusion or embolic event. Shahbaz Larsen MD Apr 30, 2017 17:55
[2017-04-30] MEDS: WARFARIN SOD 5 MG TAB PO SCH (18:00)
[2017-04-30] MEDS: POTASSIUM CHLOR 10 MEQ PREMIX 100 ML IV PRN ×4 (19:59→23:03)
[2017-04-30] MEDS: PRAVASTATIN SOD 80 MG TAB PO SCH (20:31)
[2017-04-30] MEDS: LORazepam 2 MG/ML VIAL IV SCH (20:31)
[2017-05-01] VITALS (13 sets, daily range): BP systolic 110–141; BP diastolic 64–89; PULSE 60–81; RESP 15–24; TEMP 97.9–99.7; O2SAT 93–99
[2017-05-01] MEDS: POTASSIUM CHLOR 10 MEQ PREMIX 100 ML IV PRN ×4 (00:10→03:25)
[2017-05-01] MEDS: DEXMEDETOMIDINE INJ 200 MCG in SODIUM CHLORIDE 0.9% INJ 50 ML IV PRN ×4 (02:38→12:50)
[2017-05-01] MEDS: HALOPERIDOL LACTATE 5 MG/ML AMP IV PUSH PRN (03:20)
[2017-05-01] MEDS: CHLORHEXIDINE GLUCONATE 2 % 1 PACK (2 CLOTHS) TOP SCH (03:22)
[2017-05-01 05:17] LABS: APTT (PATIENT) 73.2 SEC (24.3-30.1); INTERNATIONAL NORMALIZED RATIO 1.1 RATIO; PROTHROMBIN TIME - PATIENT 12.1 SEC (9.8-11.6)
[2017-05-01 05:31] LABS: BICARBONATE 25.9 MEQ/L (21.0-32.0); POTASSIUM 4.2 MEQ/L (3.5-5.1)
[2017-05-01] MEDS: LABETALOL HCL 100 MG/20 ML VIAL IV PUSH PRN (06:03)
[2017-05-01] MEDS: INSULIN ASPART SUPPLEMENTAL SCALE SQ SCH ×4 (08:00→21:00)
[2017-05-01] MEDS: CARVEDILOL 6.25 MG TAB PO SCH ×2 (08:09→21:00)
[2017-05-01] MEDS: ASPIRIN 81 MG CHEW TAB CHEW SCH (08:09)
[2017-05-01] MEDS: LISINOPRIL 10 MG TAB PO SCH (08:10)
[2017-05-01] MEDS: DOCUSATE SODIUM 50 MG/SENNA 8.6 MG TAB PO SCH ×2 (08:10→21:00)
[2017-05-01] MEDS: LORazepam 2 MG/ML VIAL IV SCH ×2 (08:37→21:00)
[2017-05-01] MEDS: SODIUM CHLORIDE 0.9% FLUSH 10 ML FLUSH IV FLUSH SCH ×2 (08:38→21:11)
[2017-05-01] MEDS: PANTOPRAZOLE SODIUM 40 MG VIAL IV PUSH SCH (08:38)
--- NOTE | 2017-05-01 11:04 | RADRPT ---
EXAM DATE/TIME: 05/01/2017 10:45 [place] COMPARISON: CT BRAIN W/O CONTRAST, April 29, 2017, 11:31. INDICATIONS : Follow up cerebrovascular accident. RADIATION DOSE: 65.35 CTDIvol (mGy) MEDICAL HISTORY : Cerebrovascular disease. Cardiovascular disease Carcinoma, prostate.Bladder cancer. Dementia. Hyper tension. SURGICAL HISTORY : Pacemaker. ENCOUNTER: Subsequent ACUITY: 2 days PAIN SCALE: 0/10 LOCATION: cranial TECHNIQUE: Multiple contiguous axial images were obtained of the head. Using automated exposure control and adj ustment of the mA and/or kV according to patient size, radiation dose was kept as low as reasonably a chievable to obtain optimal diagnostic quality images. DICOM format image data is available electro nically for review and comparison. FINDINGS: There is mild volume loss and patchy hypodensity in the bilateral periventricular white matter and ce ntrum semiovale characteristic of chronic microvascular ischemic disease, and unchanged. No signs of acute infarct, hemorrhage or mass. No fractures. CONCLUSION: No significant change has occurred. Rony Palm MD on May 01, 2017 at 11:02 Board Certified Radiologist. This report was verified electronically.
--- NOTE | 2017-05-01 12:40 | MB ---
cc: MAYNOR PARADA M.D. DATE OF CONSULTATION April 30, 2017 HISTORY OF PRESENT ILLNESS This is a 77-year-old seen in neurological consultation. The patient has a history of dementia that appears to be moderately severe. His family is at bedside. On 04/27 he had the TIA type of syndrome, went to [facility] and apparently he signed out AMA. On the he came to [place] [facility] for headache and was treated as migraine, went home. Yesterday he was falling, leaning to the left, unable to walk and the family observed left-sided weakness. He was brought to the hospital and admitted. He was discovered to have some right distal internal carotid artery dissection, a small length of dissection. The CT brain was negative. There is also a history of atrial fibrillation and pacemaker. According to what I can gather from the , he has been having memory problems for four years or so. He has not been driving the past few months. He has been treated for prostate/bladder cancer. It is unclear if the patient is taking liquid Eliquis or not, but he takes some quetiapine. The initial dictation was not completed as above. In summary, I remember the physical exam when the patient was agitated, alert and he was partially oriented. He has mild generalized bradykinesis, moving all four extremities without any major weakness, but there seems to be some less motor functions involving the left-sided extremities. The reflexes were grossly symmetrical 1+, plantar responses as far as I remember were flexor. ASSESSMENT Recent TIA/stroke syndrome leading to evaluation at the [facility] and the patient declined hospitalization. He now came to [place] for further evaluation and management of the related neurologic deficits which includes mild left hemiparesis, difficulty with gait, falling. The evaluation showed a right internal carotid artery distal dissection. There is a history of dementia and a history of apparent atrial fibrillation. We will continue with the anticoagulation for the time being, supportive medical care. Discussed with the family extensively at the bedside. Stroke rehab. He could use some Ativan as the patient had been taking clonazepam at home for the past couple of years and the was concerned that without this medication, the patient would not rest. He was given some Haldol in the middle of the night with some limited benefit. I will follow the neurological care. MD JOHN PAUL Dalal/SSB /8:17 AM /12:36 PM
[2017-05-01] MEDS: SODIUM CHLOR 0.9% 1000 ML INJ 1,000 ML IV SCH (13:38)
[2017-05-01] MEDS: HEPARIN-D5W 25,000 U/250 ML 250 ML IV PRN (14:26)
--- NOTE | 2017-05-01 15:08 | HHI.PR ---
Review/Management Daily Summary 05/01 less agitated this am moves 4 limbs probable mild left hemiparesis data reviewed right ica dissection/small area, stable clinically heparin, coumadin for [address] months [address] follow up [address] angio neck in 2-3 months Subjective Subjective Comments seen early this am Active Medications Current Medications Medications (Trade) Dose Ordered Sig/Benjamin Route Start Time Stop Time Status Last Admin Sodium Chloride 1,000 ml @ 42 mls/hr [id number] IV 04/29/17 14:00 04/30/17 13:49 (NS Flush) 2 ml UNSCH PRN IV FLUSH 04/29/17 14:00 (NS Flush) 2 ml BID IV FLUSH 04/29/17 21:00 05/01/17 08:38 (Protonix Inj) 40 mg DAILY IV PUSH 04/30/17 09:00 05/01/17 08:38 (Zofran Inj) 4 mg Q6H PRN IV PUSH 04/29/17 14:00 (Duoneb Neb) 1 ampule Q4HR NEB PRN INH 04/29/17 14:00 04/30/17 12:25 Miscellaneous Information 1 Q361D XX 04/29/17 14:00 (Chlorhexidine 2% Cloth) 3 pack Taper DAILY@04 TOP 04/30/17 04:00 04/26/18 03:59 (Chlorhexidine 2% Cloth) 3 pack UNSCH PRN TOP 04/29/17 14:00 (Leonila-Colace) 1 tab BID PO 04/29/17 21:00 04/29/17 20:21 (Milk Of Magnesia Liq) 30 ml Q12H PRN PO 04/29/17 14:00 (Senokot) 17.2 mg Q12H PRN PO 04/29/17 14:00 (Dulcolax Supp) 10 mg DAILY PRN RECTAL 04/29/17 14:00 (Lactulose Liq) 30 ml DAILY PRN PO 04/29/17 14:00 Potassium Chloride 100 ml @ 50 mls/hr Q2H PRN IV 04/29/17 14:00 Potassium Chloride 100 ml @ 50 mls/hr Q2H PRN IV 04/29/17 14:00 (K-Lyte Cl Eff) 50 meq UNSCH PRN PO 04/29/17 14:00 Potassium Chloride 100 ml @ 25 mls/hr UNSCH PRN IV 04/29/17 14:00 Potassium Chloride 100 ml @ 50 mls/hr Q2H PRN IV 04/29/17 14:00 Magnesium Sulfate 4 gm/Sodium Chloride 100 ml @ 50 mls/hr UNSCH PRN IV 04/29/17 14:00 (Mag-Ox) 800 mg UNSCH PRN PO 04/29/17 14:00 Magnesium Sulfate 2 gm/Sodium Chloride 100 ml @ 50 mls/hr UNSCH PRN IV 04/29/17 14:00 (K-Phos) 2,000 mg Q4H PRN PO 04/29/17 14:00 Sodium Phosphate 30 mmol/Sodium Chloride 250 ml @ 42 mls/hr UNSCH PRN IV 04/29/17 14:00 (K-Phos) 2,000 mg UNSCH PRN PO/TUBE 04/29/17 14:00 Potassium Phosphate 30 mmol/ Sodium Chloride 260 ml @ 42 mls/hr UNSCH PRN IV 04/29/17 14:00 (D50w (Vial) Inj) 50 ml UNSCH PRN IV PUSH 04/29/17 14:15 (Glucagon Inj) 1 mg UNSCH PRN OTHER 04/29/17 14:15 (NovoLOG SUPPLEMENTAL SCALE) 1 ACHS SLIDING SCALE SQ 04/29/17 17:00 (Ofirmev 1000 Mg/ 100 ml Inj) 1,000 mg Q6H PRN IV 04/29/17 14:15 (Aspirin Chew) 81 mg DAILY CHEW 04/30/17 09:00 (Norvasc) 10 mg HS PO 04/29/17 21:00 04/29/17 20:21 (Coreg) 6.25 mg BID PO 04/29/17 21:00 04/29/17 20:21 (Prinivil) 10 mg DAILY PO 04/30/17 09:00 (Pravachol) 80 mg HS PO 04/29/17 21:00 04/29/17 20:21 Heparin Sodium/ Dextrose 250 ml @ 10.56 mls/ hr TITRATE PRN IV 04/29/17 17:15 05/01/17 14:26 (Trandate Inj) 10 mg Q4H PRN IV PUSH 04/29/17 20:00 05/01/17 06:03 Nicardipine HCl 25 mg/Sodium Chloride 250 ml @ 50 mls/hr TITRATE PRN IV 04/29/17 20:00 04/30/17 17:36 (Haldol Inj) 2 mg Q6H PRN IV PUSH 04/29/17 22:00 05/01/17 03:20 Dexmedetomidine HCl 200 mcg/ Sodium Chloride 52 ml @ 4.59 mls/hr TITRATE PRN IV 04/30/17 02:00 05/01/17 12:50 (Coumadin) 5 mg DAILY@1600 PO 04/30/17 18:00 (Ativan Inj) 1 mg BID IV 04/30/17 21:00 05/01/17 08:37 Potassium Chloride 100 ml @ 100 mls/hr Q1H PRN IV 04/30/17 20:00 05/01/17 03:25 Allergies Allergies Coded Allergies MRI PRECAUTION (Verified Adverse Reaction, Severe, MRI PRECAUTION/PACEMAKER, ) Exam I&O / VS Vital Signs Date Time Temp Pulse Resp B/P (MAP) Pulse Ox O2 Delivery O2 Flow Rate FiO2 05/01/17 14:00 61 05/01/17 12:00 98.8 60 18 113/64 (80) 96 05/01/17 12:00 60 05/01/17 10:00 62 05/01/17 08:00 81 05/01/17 08:00 99.6 81 18 141/75 (97) 96 05/01/17 07:00 66 124/63 05/01/17 06:47 92 154/83 05/01/17 06:00 79 05/01/17 04:31 60 127/67 05/01/17 04:30 98.3 60 22 127/67 (87) 93 05/01/17 04:16 60 150/76 05/01/17 04:00 72 05/01/17 02:00 60 05/01/17 00:00 97.9 60 20 130/72 (91) 98 05/01/17 00:00 62 04/30/17 22:00 60 04/30/17 20:00 65 04/30/17 20:00 97.9 62 18 128/70 (89) 98 04/30/17 19:00 Room Air 04/30/17 18:00 65 04/30/17 17:36 65 149/89 04/30/17 16:00 98.9 66 15 127/75 (92) 95 04/30/17 16:00 60 Objective Radiology Results Last [address] 05/01/17 0000 Signed Impressions: Service Date/Time: Monday, May 01, 2017 10:45 - CONCLUSION: No significant change has occurred. Rony Palm MD Laboratory Tests Test 04/29/17 10:15 04/29/17 10:30 04/29/17 18:09 04/30/17 02:03 White Blood Count 14.3 TH/MM3 (4.0-11.0) 16.6 TH/MM3 (4.0-11.0) Neutrophils (%) (Auto) 86.7 % (16.0-70.0) Lymphocytes (%) (Auto) 7.0 % (9.0-44.0) Neutrophils # (Auto) 12.4 TH/MM3 (1.8-7.7) Blood Urea Nitrogen 23 MG/DL (7-18) Creatinine 1.70 MG/DL (0.60-1.30) Random Glucose 122 MG/DL (74-106) Estimat Glomerular Filtration Rate 48 ML/MIN (>89) Urine Turbidity HAZY (CLEAR) Urine Protein 30 mg/dL (NEG-TRACE) Urine Ketones TRACE mg/dL (NEG) Urine Occult Blood SMALL (NEG) Urine Leukocyte Esterase TRACE (NEG) Urine RBC 9 /hpf (0-3) Urine WBC Clumps OCC (NONE) Urine Bacteria FEW /hpf (NONE) Urine Mucus FEW /lpf (OCC) Activated Partial Thromboplast Time 38.3 SEC (24.3-30.1) Test 04/30/17 04:55 04/30/17 11:54 05/01/17 04:01 White Blood Count 14.7 TH/MM3 (4.0-11.0) Blood Urea Nitrogen 19 MG/DL (7-18) Random Glucose 135 MG/DL (74-106) 112 MG/DL (74-106) Potassium Level 3.2 MEQ/L (3.5-5.1) Estimat Glomerular Filtration Rate 73 ML/MIN (>89) 87 ML/MIN (>89) Activated Partial Thromboplast Time 52.7 SEC (24.3-30.1) 73.2 SEC (24.3-30.1) Prothrombin Time 12.1 SEC (9.8-11.6) Micro and Labs Laboratory Tests Test 05/01/17 04:01 Prothrombin Time 12.1 Prothromb Time International Ratio 1.1 Activated Partial Thromboplast Time 73.2 Blood Urea Nitrogen 12 Creatinine 1.01 Random Glucose 112 Calcium Level 8.5 Sodium Level 140 Potassium Level 4.2 Chloride Level 106 Carbon Dioxide Level 25.9 Anion Gap 8 Estimat Glomerular Filtration Rate 87 Date/Time Source Procedure Growth Status 04/29/17 10:30 Urine Catheterized Urine Urine Culture - Final NO GROWTH IN 48 HOURS. Complete Meagan Grier MD May 01, 2017 15:08
[2017-05-01] MEDS: WARFARIN SOD 5 MG TAB PO SCH (16:00)
--- NOTE | 2017-05-01 16:39 | PD.VS.PN ---
Subjective Subjective/Hospital Course Pt sitting up in bed/restraints applied to all 4 ext at the BS Pt alert in NAD (Gayatri Rosenthal) Objective Vitals/I&O Date Time Temp Pulse Resp B/P (MAP) Pulse Ox O2 Delivery O2 Flow Rate FiO2 05/01/17 14:00 61 05/01/17 12:00 98.8 60 18 113/64 (80) 96 05/01/17 12:00 60 05/01/17 10:00 62 05/01/17 08:00 81 05/01/17 08:00 99.6 81 18 141/75 (97) 96 05/01/17 07:00 66 124/63 05/01/17 06:47 92 154/83 05/01/17 06:00 79 05/01/17 04:31 60 127/67 05/01/17 04:30 98.3 60 22 127/67 (87) 93 05/01/17 04:16 60 150/76 05/01/17 04:00 72 05/01/17 02:00 60 05/01/17 00:00 97.9 60 20 130/72 (91) 98 05/01/17 00:00 62 04/30/17 22:00 60 04/30/17 20:00 65 04/30/17 20:00 97.9 62 18 128/70 (89) 98 04/30/17 19:00 Room Air 04/30/17 18:00 65 04/30/17 17:36 65 149/89 05/01/17 05/01/17 05/01/17 07:00 15:00 23:00 Intake Total 1476.7 ml Output Total 850 ml Balance 626.7 ml (Gayatri Rosenthal) Laboratory Laboratory Tests Test 05/01/17 04:01 Prothrombin Time 12.1 Prothromb Time International Ratio 1.1 Activated Partial Thromboplast Time 73.2 Blood Urea Nitrogen 12 Creatinine 1.01 Random Glucose 112 Calcium Level 8.5 Sodium Level 140 Potassium Level 4.2 Chloride Level 106 Carbon Dioxide Level 25.9 Anion Gap 8 Estimat Glomerular Filtration Rate 87 Date/Time Source Procedure Growth Status 04/29/17 10:30 Urine Catheterized Urine Urine Culture - Final NO GROWTH IN 48 HOURS. Complete Imaging Last [address] 05/01/17 0000 Signed Impressions: Service Date/Time: Monday, May 01, 2017 10:45 - CONCLUSION: No significant change has occurred. Rony Palm MD (Gayatri Rosenthal) Assessment and Plan Assessment: (1) Carotid artery dissection Status: Acute (2) CVA (cerebral vascular accident) Status: Acute Plan Focal high R ICA dissection with minimal aneurysmal degeneration. This radiographically looks benign and I am told it was known back in November. I will get the old images (from an outside hospital) for comparison but I suspect nothing needs to be done except interval imaging, likely a repeat CTA Plan Obtained and reviewed imaging (CTA neck) from November for comparison No acute findings No surgical intervention at this time as dissection appears to be healing Arranged out patient follow up with a surveillance CTA (neck) Gayatri LEROY [facility] [phone] Discharge Planning Arranged out patient f/u (Gayatri Rosenthal) Plan I reviewed old CT from November and earlier in Apr. The carotid dissection appears to radiographically be healing without adverse sequelae. I think medical management (antiplatelet, statin and since he is on it already for a-fib , anticoagulation) and repeat imaging in 6m is appropriate. HAve set up appointment already. Discussed with his family and the patient himself. (Inocencio Carmona MD) Problem Qualifiers (1) CVA (cerebral vascular accident): Qualified Codes: I63.8 - Other cerebral infarction Gayatri Rosenthal May 01, 2017 16:39 Inocencio Carmona MD May 01, 2017 17:44
--- NOTE | 2017-05-01 18:43 | PD.CAR.PN ---
CVT Progress Note Subjective/Hospital Course: 04/30/17 Patient seen and evaluated Full consult dictated and discussed with family At this point would not recommend stenting due to complexity of comorbidities that could be involved in this patient's neurologic deterioration, including hypertension paroxysmal atrial fibrillation, coronary artery disease small vessel disease of the brain and dementia etc. Stenting is generally indicated for patients with carotid dissection who fail anticoagulation therapy. In this particular patient I will only one point of reference this time so I would like to see how patient does in next few days before making decision on stenting versus not. Stenting itself carries a risk of stroke as such an should be carefully considered before proceeding with it. Will continue follow the patient Continue heparin anticoagulation Thanks J 05/01/17 Patient has not had mute TIAs as from the clinical exam Blood pressure remains stable Agree with Dr. Santiago that patient should remain on anticoagulants during the hospitalization enough to discharge At this point risk off carotid stenting outweighs possible benefits Objective: Vital Signs Date Time Temp Pulse Resp B/P (MAP) Pulse Ox O2 Delivery O2 Flow Rate FiO2 05/01/17 18:00 61 05/01/17 16:00 60 05/01/17 16:00 99.4 60 15 110/70 (83) 97 05/01/17 14:00 61 05/01/17 12:00 98.8 60 18 113/64 (80) 96 05/01/17 12:00 60 05/01/17 10:00 62 05/01/17 08:00 81 05/01/17 08:00 99.6 81 18 141/75 (97) 96 05/01/17 07:00 66 124/63 05/01/17 06:47 92 154/83 05/01/17 06:00 79 05/01/17 04:31 60 127/67 05/01/17 04:30 98.3 60 22 127/67 (87) 93 05/01/17 04:16 60 150/76 05/01/17 04:00 72 05/01/17 02:00 60 05/01/17 00:00 97.9 60 20 130/72 (91) 98 05/01/17 00:00 62 04/30/17 22:00 60 04/30/17 20:00 65 04/30/17 20:00 97.9 62 18 128/70 (89) 98 9/25/17 19:00 Room Air Result Diagram: 04/30/17 0455 05/01/17 0401 Nitin Dooley MD May 01, 2017 18:43
[2017-05-01] MEDS: PRAVASTATIN SOD 80 MG TAB PO SCH (21:00)
[2017-05-02] VITALS (12 sets, daily range): BP systolic 127–164; BP diastolic 76–88; PULSE 60–108; RESP 14–27; TEMP 97.5–99.9; O2SAT 96–98
[2017-05-02] MEDS: CHLORHEXIDINE GLUCONATE 2 % 1 PACK (2 CLOTHS) TOP SCH (04:17)
[2017-05-02] MEDS: LABETALOL HCL 100 MG/20 ML VIAL IV PUSH PRN (04:18)
[2017-05-02] MEDS: RESP: ALBUTEROL 2.5 MG/IPRATROPIUM 0.5 MG NEB (PRN) INH ×2 (04:30→10:51)
[2017-05-02 04:55] LABS: HEMATOCRIT 38.8 % (39.0-51.0); MEAN CELL VOLUME 88.6 FL (80.0-100.0); MEAN CORPUSCULAR HEMOGLOBIN 29.3 PG (27.0-34.0); MEAN CORPUSCULAR HGB CONC 33.1 % (32.0-36.0); PLATELET COUNT 134 TH/MM3 (150-450); RED BLOOD COUNT 4.37 MIL/MM3 (4.50-5.90); RED CELL DISTRIBUTION WIDTH 13.3 % (11.6-17.2); REVIEW FLAG FINAL; WHITE BLOOD COUNT 8.4 TH/MM3 (4.0-11.0)
[2017-05-02 05:00] LABS: APTT (PATIENT) 67.4 SEC (24.3-30.1); INTERNATIONAL NORMALIZED RATIO 1.1 RATIO; PROTHROMBIN TIME - PATIENT 12.5 SEC (9.8-11.6)
[2017-05-02] MEDS: INSULIN ASPART SUPPLEMENTAL SCALE SQ SCH ×4 (08:00→21:00)
[2017-05-02] MEDS: DOCUSATE SODIUM 50 MG/SENNA 8.6 MG TAB PO SCH ×2 (09:00→21:00)
[2017-05-02] MEDS: SODIUM CHLORIDE 0.9% FLUSH 10 ML FLUSH IV FLUSH SCH ×2 (09:00→22:08)
[2017-05-02] MEDS: ASPIRIN 81 MG CHEW TAB CHEW SCH (09:00)
[2017-05-02] MEDS: LISINOPRIL 10 MG TAB PO SCH (09:00)
[2017-05-02] MEDS: CARVEDILOL 6.25 MG TAB PO SCH ×2 (09:00→21:00)
[2017-05-02] MEDS: PANTOPRAZOLE SODIUM 40 MG VIAL IV PUSH SCH (09:05)
[2017-05-02] MEDS: LORazepam 2 MG/ML VIAL IV SCH ×2 (09:06→22:08)
[2017-05-02] MEDS: niCARdipine INJ 25 MG in SODIUM CHLOR 0.9% 250 ML INJ 240 ML IV PRN (09:07)
[2017-05-02] MEDS: HEPARIN-D5W 25,000 U/250 ML 250 ML IV PRN (09:19)
--- NOTE | 2017-05-02 09:35 | HHI.PR ---
Review/Management Daily Summary 05/01 less agitated this am moves 4 limbs probable mild left hemiparesis data reviewed right ica dissection/small area, stable clinically heparin, coumadin for [address] and follow up ct angio neck in 2-3 months 05/02 spoke with family at bedside spoke with rn will try to get him oob use prn ativan dementia with itt more agitation and less cooperation, getting him oob would help heparin/coumadin Subjective Subjective Comments No new neuro events reported No headache Active Medications Current Medications Medications (Trade) Dose Ordered Sig/Benjamin Route Start Time Stop Time Status Last Admin Sodium Chloride 1,000 ml @ 42 mls/hr [id number] IV 04/29/17 14:00 04/30/17 13:49 (NS Flush) 2 ml UNSCH PRN IV FLUSH 04/29/17 14:00 (NS Flush) 2 ml BID IV FLUSH 04/29/17 21:00 05/01/17 21:11 (Protonix Inj) 40 mg DAILY IV PUSH 04/30/17 09:00 05/02/17 09:05 (Zofran Inj) 4 mg Q6H PRN IV PUSH 04/29/17 14:00 (Duoneb Neb) 1 ampule Q4HR NEB PRN INH 04/29/17 14:00 05/02/17 04:30 Miscellaneous Information 1 Q361D XX 04/29/17 14:00 (Chlorhexidine 2% Cloth) 3 pack Taper DAILY@04 TOP 04/30/17 04:00 04/26/18 03:59 05/02/17 04:17 (Chlorhexidine 2% Cloth) 3 pack UNSCH PRN TOP 04/29/17 14:00 (Leonila-Colace) 1 tab BID PO 04/29/17 21:00 04/29/17 20:21 (Milk Of Magnesia Liq) 30 ml Q12H PRN PO 04/29/17 14:00 (Senokot) 17.2 mg Q12H PRN PO 04/29/17 14:00 (Dulcolax Supp) 10 mg DAILY PRN RECTAL 04/29/17 14:00 (Lactulose Liq) 30 ml DAILY PRN PO 04/29/17 14:00 Potassium Chloride 100 ml @ 50 mls/hr Q2H PRN IV 04/29/17 14:00 Potassium Chloride 100 ml @ 50 mls/hr Q2H PRN IV 04/29/17 14:00 (K-Lyte Cl Eff) 50 meq UNSCH PRN PO 04/29/17 14:00 Potassium Chloride 100 ml @ 25 mls/hr UNSCH PRN IV 04/29/17 14:00 Potassium Chloride 100 ml @ 50 mls/hr Q2H PRN IV 04/29/17 14:00 Magnesium Sulfate 4 gm/Sodium Chloride 100 ml @ 50 mls/hr UNSCH PRN IV 04/29/17 14:00 (Mag-Ox) 800 mg UNSCH PRN PO 04/29/17 14:00 Magnesium Sulfate 2 gm/Sodium Chloride 100 ml @ 50 mls/hr UNSCH PRN IV 04/29/17 14:00 (K-Phos) 2,000 mg Q4H PRN PO 04/29/17 14:00 Sodium Phosphate 30 mmol/Sodium Chloride 250 ml @ 42 mls/hr UNSCH PRN IV 04/29/17 14:00 (K-Phos) 2,000 mg UNSCH PRN PO/TUBE 04/29/17 14:00 Potassium Phosphate 30 mmol/ Sodium Chloride 260 ml @ 42 mls/hr UNSCH PRN IV 04/29/17 14:00 (D50w (Vial) Inj) 50 ml UNSCH PRN IV PUSH 04/29/17 14:15 (Glucagon Inj) 1 mg UNSCH PRN OTHER 04/29/17 14:15 (NovoLOG SUPPLEMENTAL SCALE) 1 ACHS SLIDING SCALE SQ 04/29/17 17:00 (Ofirmev 1000 Mg/ 100 ml Inj) 1,000 mg Q6H PRN IV 04/29/17 14:15 (Aspirin Chew) 81 mg DAILY CHEW 04/30/17 09:00 (Norvasc) 10 mg HS PO 04/29/17 21:00 04/29/17 20:21 (Coreg) 6.25 mg BID PO 04/29/17 21:00 04/29/17 20:21 (Prinivil) 10 mg DAILY PO 04/30/17 09:00 (Pravachol) 80 mg HS PO 04/29/17 21:00 04/29/17 20:21 Heparin Sodium/ Dextrose 250 ml @ 10.56 mls/ hr TITRATE PRN IV 04/29/17 17:15 05/02/17 09:19 (Trandate Inj) 10 mg Q4H PRN IV PUSH 04/29/17 20:00 05/02/17 04:18 Nicardipine HCl 25 mg/Sodium Chloride 250 ml @ 50 mls/hr TITRATE PRN IV 04/29/17 20:00 05/02/17 09:07 (Haldol Inj) 2 mg Q6H PRN IV PUSH 04/29/17 22:00 05/01/17 03:20 Dexmedetomidine HCl 200 mcg/ Sodium Chloride 52 ml @ 4.59 mls/hr TITRATE PRN IV 04/30/17 02:00 05/01/17 12:50 (Coumadin) 5 mg DAILY@1600 PO 04/30/17 18:00 (Ativan Inj) 1 mg BID IV 04/30/17 21:00 05/02/17 09:06 Potassium Chloride 100 ml @ 100 mls/hr Q1H PRN IV 04/30/17 20:00 05/01/17 03:25 (Duoneb Neb) 1 ampule Q2HR NEB PRN NEB 05/02/17 04:30 Allergies Allergies Coded Allergies MRI PRECAUTION (Verified Adverse Reaction, Severe, MRI PRECAUTION/PACEMAKER, ) Exam I&O / VS Vital Signs Date Time Temp Pulse Resp B/P (MAP) Pulse Ox O2 Delivery O2 Flow Rate FiO2 05/02/17 09:07 85 157/90 05/02/17 06:00 72 05/02/17 04:00 98.9 92 27 164/84 (110) 98 05/02/17 04:00 92 05/02/17 02:00 70 05/02/17 00:00 99.9 82 25 131/79 (96) 96 05/02/17 00:00 82 05/01/17 22:00 70 05/01/17 20:00 99.7 75 24 132/89 (103) 99 05/01/17 20:00 75 05/01/17 18:00 61 05/01/17 16:00 60 05/01/17 16:00 99.4 60 15 110/70 (83) 97 05/01/17 14:00 61 05/01/17 12:00 98.8 60 18 113/64 (80) 96 05/01/17 12:00 60 05/01/17 10:00 62 Objective Micro and Labs Laboratory Tests Test 05/02/17 04:33 05/02/17 08:30 White Blood Count 8.4 Red Blood Count 4.37 Hemoglobin 12.8 Hematocrit 38.8 Mean Corpuscular Volume 88.6 Mean Corpuscular Hemoglobin 29.3 Mean Corpuscular Hemoglobin Concent 33.1 Red Cell Distribution Width 13.3 Platelet Count 134 Mean Platelet Volume 8.1 Prothrombin Time 12.5 Prothromb Time International Ratio 1.1 Activated Partial Thromboplast Time 67.4 Date/Time Source Procedure Growth Status 04/29/17 10:30 Urine Catheterized Urine Urine Culture - Final NO GROWTH IN 48 HOURS. Complete Meagan Grier MD May 02, 2017 09:35
[2017-05-02 10:42] LABS: BICARBONATE 23.6 MEQ/L (21.0-32.0); MAGNESIUM 2.5 MG/DL (1.5-2.5); POTASSIUM 3.5 MEQ/L (3.5-5.1)
[2017-05-02] MEDS: ACETAMINOPHEN 1000 MG/100 ML VIAL IV PRN (11:07)
--- NOTE | 2017-05-02 12:24 | HHI.PR ---
Subjective Remarks 77 years old right handed male seen with at bedside basically came in with headache0 seen as OP at [facility] and ewsarmad DC from ER noted by to be falling or leaning to the left side and was brought in here admitted under [facility] service transferred to [facility] service no headaches, or nausea or vomiting denies any pain- but patient appears coughing intermittently from own secretions moves all extremities spontaneously= + drift left UE Objective Vitals Vital Signs Date Time Temp Pulse Resp B/P (MAP) Pulse Ox O2 Delivery O2 Flow Rate FiO2 05/02/17 10:00 86 05/02/17 09:07 85 157/90 05/02/17 08:00 99.6 85 18 159/78 (105) 97 05/02/17 08:00 108 05/02/17 06:00 72 05/02/17 04:00 98.9 92 27 164/84 (110) 98 05/02/17 04:00 92 05/02/17 02:00 70 05/02/17 00:00 99.9 82 25 131/79 (96) 96 05/02/17 00:00 82 05/01/17 22:00 70 05/01/17 20:00 99.7 75 24 132/89 (103) 99 05/01/17 20:00 75 05/01/17 18:00 61 05/01/17 16:00 60 05/01/17 16:00 99.4 60 15 110/70 (83) 97 05/01/17 14:00 61 I/O 05/01/17 05/01/17 05/01/17 05/02/17 05/02/17 05/02/17 07:00 15:00 23:00 07:00 15:00 23:00 Intake Total 1476.7 ml 867 ml 644 ml Output Total 850 ml 750 ml 800 ml Balance 626.7 ml 117 ml -156 ml Intake IV Total 1476.7 ml 867 ml 644 ml Output Urine Total 850 ml 750 ml 800 ml # Bowel Movements 0 0 Result Diagram: 05/02/17 0433 05/02/17 0830 Imaging Last Impressions Head CT 05/01/17 0000 Signed Impressions: Service Date/Time: Monday, May 01, 2017 10:45 - CONCLUSION: No significant change has occurred. Rony Palm MD Neck CTA 04/29/17 0000 Signed Impressions: Service Date/Time: Saturday, April 29, 2017 11:34 - CONCLUSION: 1. The distal right internal carotid artery at the C1-C2 level demonstrates a short segment of focal dissection measuring approximately 8 mm in length. The more distal internal carotid artery is normal. 2. There is no significant atherosclerotic disease or stenosis within either internal carotid artery. Mikel Angel MD Head CTA 04/29/17 0000 Signed Impressions: Service Date/Time: Saturday, April 29, 2017 11:34 - CONCLUSION: No acute intracranial vascular abnormality is identified. 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 Noted to have after imaging studies right ICA focal dissection. Dr. Hinkle, interventional radiology was consulted by Dr. Rolle, no IR intervention regarding a stent is indicated secondary to adequate flow. The patient has had progressive neurological symptoms to include increasing weakness not only of the left upper extremity but now bilateral lower extremities and in the last 24 hours, symptoms of nausea and vomiting with dysphagia. The patient's home medications and include Eliquis, with last dose approximately 24-48 hours previously. The patient has been given a dose of aspirin 81 mg and heparin infusion will be instituted. The patient has a history of dementia and on multiple antidepressants last psychotic medications which will be held at this time. 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 History of TIA Hearing deficit Dementia Cephalgia Neurosurgery [id number] recommendations Neurology [id number] recommendations Neurochecks per ICU protocol 04/29 CTA brain-no acute vascular abnormality 04/29 CT brain-no acute abnormality Patient's home medications include Seroquel, clonazepam, memantidine-will hold for now Aspirin 81 mg one dose now, continue aspirin 81 mg daily Continue heparin infusion- start Coumadin and ff INR- ordered but patient NPO - failed swallowing PT/OT/speech therapy daily Respiratory: stable Maintain O2 sat greater than 92% Bronchodilators when necessary Cardiovascular: Pacemaker Dyslipidemia Hypertension Maintain MAP > 65mmHg Continue carvedilol 6.25 BID, [id number]/day, Norvasc 10mg/day Continue simvastatin Pacemaker-[facility]. Kalpesh demand rate set at 60 Troponins 0.02 Renal: No Acosta -- Strict I/Os FEN/GI: Dysphagia- failed swallowing -speech therapist ff- d/w Ramila keep NPO d/w through the course- from [facility] till now has not eaten for 6 days Insert NGT- for TF and med administration route start TF- dietary consult Zofran 4 mg every 6 hours when necessary for nausea Protonix (home med) for GI prophylaxis Heme/ID: Monitor INR, on admission INR 1.0 Monitor CBC Heparin infusion start coumadin Endocrine: Glucose monitoring per ICU protocol -- SSI Prophylaxis: GI Prophylaxis - Protonix DVT Prophylaxis- SCDs - Heparin infusion Activity- out of bed to chair daily d/w patient and at length- may need NGT Problem Qualifiers (1) CVA (cerebral vascular accident): Qualified Codes: I63.8 - Other cerebral infarction Gillian Hernandez MD May 02, 2017 12:23
[2017-05-02] MEDS: WARFARIN SOD 5 MG TAB PO SCH (16:00)
[2017-05-02] MEDS ORDERED: ZIPRASIDONE MESYLATE 20 MG VIAL IM ONE (17:00)
[2017-05-02] MEDS: PRAVASTATIN SOD 80 MG TAB PO SCH (21:00)
[2017-05-02] MEDS: DEXMEDETOMIDINE INJ 200 MCG in SODIUM CHLORIDE 0.9% INJ 50 ML IV PRN (22:06)
[2017-05-03] VITALS (12 sets, daily range): BP systolic 98–164; BP diastolic 63–98; PULSE 60–101; RESP 10–21; TEMP 97.4–100.5; O2SAT 96–100
[2017-05-03] MEDS: DEXMEDETOMIDINE INJ 200 MCG in SODIUM CHLORIDE 0.9% INJ 50 ML IV PRN ×2 (03:12→07:12)
[2017-05-03] MEDS: RESP: ALBUTEROL 2.5 MG/IPRATROPIUM 0.5 MG NEB (PRN) INH ×2 (04:05→20:56)
[2017-05-03] MEDS: SODIUM CHLOR 0.9% 1000 ML INJ 1,000 ML IV SCH (04:37)
[2017-05-03] MEDS: CHLORHEXIDINE GLUCONATE 2 % 1 PACK (2 CLOTHS) TOP SCH (04:37)
[2017-05-03 06:36] LABS: APTT (PATIENT) 63.9 SEC (24.3-30.1); PROTHROMBIN TIME - PATIENT 11.4 SEC (9.8-11.6)
[2017-05-03 07:01] LABS: ALT (GPT) 27 U/L (12-78); ANION GAP 8 MEQ/L (5-15); AST (GOT) 24 U/L (15-37); BICARBONATE 24.8 MEQ/L (21.0-32.0); BLOOD UREA NITROGEN 13 MG/DL (7-18); CHLORIDE 110 MEQ/L (98-107); GLOMERULAR FILTRATION RATE 97 ML/MIN (>89); POTASSIUM 3.9 MEQ/L (3.5-5.1); SODIUM (NA) 143 MEQ/L (136-145)
[2017-05-03 07:03] LABS: ALKALINE PHOSPHATASE 59 U/L (45-117); TOTAL BILIRUBIN ADULT 0.4 MG/DL (0.2-1.0)
[2017-05-03] MEDS: INSULIN ASPART SUPPLEMENTAL SCALE SQ SCH ×4 (08:00→20:42)
[2017-05-03] MEDS: SODIUM CHLORIDE 0.9% FLUSH 10 ML FLUSH IV FLUSH SCH ×2 (09:00→21:00)
[2017-05-03] MEDS: LISINOPRIL 10 MG TAB PO SCH (09:00)
[2017-05-03] MEDS: ASPIRIN 81 MG CHEW TAB CHEW SCH (09:00)
[2017-05-03] MEDS: CARVEDILOL 6.25 MG TAB PO SCH ×2 (09:00→21:00)
[2017-05-03] MEDS: DOCUSATE SODIUM 50 MG/SENNA 8.6 MG TAB PO SCH ×2 (09:00→21:00)
[2017-05-03] MEDS: PANTOPRAZOLE SODIUM 40 MG VIAL IV PUSH SCH (09:34)
[2017-05-03] MEDS: LORazepam 2 MG/ML VIAL IV SCH ×2 (09:34→21:08)
[2017-05-03] MEDS: HEPARIN-D5W 25,000 U/250 ML 250 ML IV PRN (09:36)
[2017-05-03] MEDS ORDERED: MIDAZOLAM HCL 5 MG/ML VIAL (1 ML) IM ONE (11:15)
--- NOTE | 2017-05-03 13:15 | RADRPT ---
EXAM DATE/TIME: 05/03/2017 12:09 CORRECTION Corrected on: May 03, 2017; [place] COMPARISON: No previous studies available for comparison. INDICATIONS : Dobhoff placement. MEDICAL HISTORY : Hypertension. Carcinoma, bladder. Cerebrovascular disease. Cardiovascular disease Carcinoma, pro state. SURGICAL HISTORY : Pacemaker. ENCOUNTER: Initial ACUITY: 1 day PAIN SCORE: Non-responsive. LOCATION: Abdomen FINDINGS: A feeding tube is not seen over the abdomen. Intestinal gas pattern is nonspecific and benign. There are degenerative bony changes. No suspicious calcific densities. CONCLUSION: Feeding tube is not seen Mikel Martins MD on May 03, 2017 at 13:16 Board Certified Radiologist. This report was verified electronically.
--- NOTE | 2017-05-03 13:17 | HHI.PR ---
Subjective Remarks seen with at bedside no headaches or complains had Dobhoff placed this am ff all commands, smiled states his name and place Objective Vitals Vital Signs Date Time Temp Pulse Resp B/P (MAP) Pulse Ox O2 Delivery O2 Flow Rate FiO2 05/03/17 12:00 98.1 61 17 164/97 (119) 100 05/03/17 12:00 61 05/03/17 10:00 60 05/03/17 08:00 98.0 62 21 157/98 (117) 100 05/03/17 08:00 62 05/03/17 06:00 60 05/03/17 04:00 60 05/03/17 04:00 98.2 60 11 144/88 (106) 98 05/03/17 02:00 66 05/03/17 00:00 97.4 60 10 98/63 (75) 96 05/03/17 00:00 60 05/02/17 22:00 64 05/02/17 20:00 60 05/02/17 20:00 97.5 60 14 141/88 (105) 98 05/02/17 18:00 60 05/02/17 16:00 98.6 80 26 134/79 (97) 98 05/02/17 16:00 68 05/02/17 14:00 76 I/O 05/02/17 05/02/17 05/02/17 05/03/17 05/03/17 05/03/17 07:00 15:00 23:00 07:00 15:00 23:00 Intake Total 644 ml 457 ml 826.6 ml Output Total 800 ml 1200 ml 875 ml Balance -156 ml -743 ml -48.4 ml Intake Oral 0 ml IV Total 644 ml 457 ml 826.6 ml Output Urine Total 800 ml 1200 ml 875 ml # Bowel Movements 0 0 0 Result Diagram: 05/02/17 0433 05/03/17 0608 Imaging Last Impressions Head CT 05/01/17 0000 Signed Impressions: Service Date/Time: Monday, May 01, 2017 10:45 - CONCLUSION: No significant change has occurred. Rony Palm MD Neck CTA 04/29/17 0000 Signed Impressions: Service Date/Time: Saturday, April 29, 2017 11:34 - CONCLUSION: 1. The distal right internal carotid artery at the C1-C2 level demonstrates a short segment of focal dissection measuring approximately 8 mm in length. The more distal internal carotid artery is normal. 2. There is no significant atherosclerotic disease or stenosis within either internal carotid artery. Mikel Angel MD Head CTA 04/29/17 0000 Signed Impressions: Service Date/Time: Saturday, April 29, 2017 11:34 - CONCLUSION: No acute intracranial vascular abnormality is identified. 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 Noted to have after imaging studies right ICA focal dissection. Dr. Hinkle, interventional radiology was consulted by Dr. Rolle, no IR intervention regarding a stent is indicated secondary to adequate flow. T 8mm right ICA internal carotid artery dissection at the level of C1-C2- - april 27 History of TIA Hearing deficit Dementia Cephalgia Neurosurgery uicaiegpq-hyxelv-cw recommendations Neurology ahtpmmjjt-bjvtze-cj recommendations Neurochecks per ICU protocol 04/29 CTA brain-no acute vascular abnormality 04/29 CT brain-no acute abnormality Patient's home medications include Seroquel, clonazepam, memantidine-will hold for now Aspirin 81 mg one dose now, continue aspirin 81 mg daily Continue heparin infusion- start Coumadin and ff INR- ordered but patient NPO - failed swallowing PT/OT/speech therapy daily Respiratory: stable Maintain O2 sat greater than 92% Bronchodilators when necessary Cardiovascular: Pacemaker Dyslipidemia Hypertension Maintain MAP > 65mmHg Continue carvedilol 6.25 BID, [id number]/day, Norvasc 10mg/day Continue simvastatin Pacemaker-St. Kalpesh demand rate set at 60 Troponins 0.02 Renal: No Acosta -- Strict I/Os FEN/GI: Dysphagia- failed swallowing- -speech therapist ff- d/w Ramila d/w through the course- from [facility] till now has not eaten for 6 days Insert NGT- for TF and med administration route- placed 05/04 start TF- dietary recommendations Zofran 4 mg every 6 hours when necessary for nausea Protonix (home med) for GI prophylaxis consider GI consult- to evaluate for PEG- patient had the acute event 04/27- failed swallowing- still Heme/ID: Monitor INR, on admission INR 1.0 Monitor CBC Heparin infusion start coumadin Endocrine: Glucose monitoring per ICU protocol -- SSI Prophylaxis: GI Prophylaxis - Protonix DVT Prophylaxis- SCDs - Heparin infusion Activity- out of bed to chair daily d/w patient and at length- may need eventual PEG Problem Qualifiers (1) CVA (cerebral vascular accident): Qualified Codes: I63.8 - Other cerebral infarction Gillian Hernandez MD May 03, 2017 13:17
[2017-05-03] MEDS: LABETALOL HCL 100 MG/20 ML VIAL IV PUSH PRN (13:28)
--- NOTE | 2017-05-03 14:18 | RADRPT ---
EXAM DATE/TIME: 05/03/2017 12:09 [place] COMPARISON: CHEST SINGLE AP, December 19, 2016, 22:14. INDICATIONS : Dobhoff placement. MEDICAL HISTORY : Hypertension. Carcinoma, bladder. Cerebrovascular disease. Cardiovascular disease Carcinoma, pro state SURGICAL HISTORY : Pacemaker. ENCOUNTER: Initial ACUITY: 1 day PAIN SCORE: Non-responsive. LOCATION: Bilateral chest FINDINGS: Single AP view of the chest. Feeding tube is coiled in the esophagus. Tip is not seen but is above th e [id number] of the radiograph. Lungs are clear. Cardiac pacemaker again noted. CONCLUSION: Feeding tube coiled in the mid esophagus. Milton Doshi MD on May 03, 2017 at 14:16 Board Certified Radiologist. This report was verified electronically.
--- NOTE | 2017-05-03 15:34 | PD.CONS ---
HPI History of Present Illness This is a 77 year old male with a history of dementia, TIA x2, who presented to the emergency room for evaluation of right sided weakness. Workup revealed a 8 mm right ICA internal carotid artery dissection at the level of C1-C2. IR was consulted but no IR intervention was recommended secondary to adequate blood flow. He was evaluated by Neurosurgery, Cardiovascular surgery, and neurology. He is currently on a heparin drip. He is getting physical therapy and speech therapy, but he has not passed his swallow evaluation. The nurse attempted to place a Dobhoff tube for feedings, but this was unsuccessful. GI was consulted for PEG tube placement. The tower foreman is following and has recommended Jevity 1.5 at 65cc/hr. The patient is lethargic but follows commands. He denies any nausea, vomiting, or abdominal pain. Spoke to Tigist Dhaliwal regarding procedure, risks, and benefits and she would like to proceed. 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 Quetiapine (Quetiapine Fumarate) 25 Mg Tab 25 Mg PO HS 04/28/17 Reported Amlodipine (Amlodipine Besylate) 10 Mg Tab 10 Mg PO HS 04/28/17 Reported Clonazepam 2 Mg Tab 2 Mg PO HS 04/28/17 Reported Aspirin Low Dose (Aspirin) 81 Mg Chew 81 Mg CHEW HS 04/28/17 Reported Eliquis (Apixaban) 5 Mg Tab 5 Mg PO BID 12/25/16 Rx Zocor (Simvastatin) 40 Mg Tab 40 Mg PO HS 12/13/16 Reported Pantoprazole (Pantoprazole Sodium) 40 Mg Tab 40 Mg PO DAILY 12/13/16 Reported Memantine 10 Mg Tab 10 Mg PO BID 12/13/16 Reported Lisinopril 10 Mg Tab 10 Mg PO DAILY 12/13/16 Reported Carvedilol 6.25 Mg Tab 6.25 Mg PO BID 12/13/16 Reported Flecainide (Flecainide Acetate) 100 Mg Tab 100 Mg PO BID 12/13/16 Reported Family History Unable to obtain Social History No tobacco, etoh, illicit drug use. (Ceci Cruz) Review of Systems Constitutional: COMPLAINS OF: Fatigue, DENIES: Weight loss Respiratory: COMPLAINS OF: Cough, DENIES: Shortness of breath Cardiovascular: DENIES: Chest pain Gastrointestinal: COMPLAINS OF: Difficulty Swallowing, DENIES: Abdominal pain, Nausea, Vomiting Neurologic: COMPLAINS OF: Localized weakness ROS Poor historian, difficult to obtain (Ceci Cruz) GI Exam Vitals I&O Vital Signs Date Time Temp Pulse Resp B/P (MAP) Pulse Ox O2 Delivery O2 Flow Rate FiO2 05/03/17 12:00 98.1 61 17 164/97 (119) 100 05/03/17 12:00 61 05/03/17 10:00 60 05/03/17 08:00 98.0 62 21 157/98 (117) 100 05/03/17 08:00 62 05/03/17 06:00 60 05/03/17 04:00 60 05/03/17 04:00 98.2 60 11 144/88 (106) 98 05/03/17 02:00 66 05/03/17 00:00 97.4 60 10 98/63 (75) 96 05/03/17 00:00 60 05/02/17 22:00 64 05/02/17 20:00 60 05/02/17 20:00 97.5 60 14 141/88 (105) 98 05/02/17 18:00 60 05/02/17 16:00 98.6 80 26 134/79 (97) 98 05/02/17 16:00 68 I/O 05/02/17 05/02/17 05/02/17 05/03/17 05/03/17 05/03/17 07:00 15:00 23:00 07:00 15:00 23:00 Intake Total 644 ml 457 ml 826.6 ml Output Total 800 ml 1200 ml 875 ml Balance -156 ml -743 ml -48.4 ml Intake Oral 0 ml IV Total 644 ml 457 ml 826.6 ml Output Urine Total 800 ml 1200 ml 875 ml # Bowel Movements 0 0 0 Imaging Last Impressions Abdomen X-Ray 05/03/17 1144 Signed Impressions: Service Date/Time: April 12:09 - CONCLUSION: Feeding tube is not seen Mikel Martins MD Chest X-Ray 05/03/17 0000 Signed Impressions: Service Date/Time: April 12:09 - CONCLUSION: Feeding tube coiled in the mid esophagus. Milton Doshi MD Head CT 05/01/17 0000 Signed Impressions: Service Date/Time: Monday, May 01, 2017 10:45 - CONCLUSION: No significant change has occurred. Rony Palm MD Neck CTA 04/29/17 0000 Signed Impressions: Service Date/Time: Saturday, April 29, 2017 11:34 - CONCLUSION: 1. The distal right internal carotid artery at the C1-C2 level demonstrates a short segment of focal dissection measuring approximately 8 mm in length. The more distal internal carotid artery is normal. 2. There is no significant atherosclerotic disease or stenosis within either internal carotid artery. Mikel Angel MD Head CTA 04/29/17 0000 Signed Impressions: Service Date/Time: Saturday, April 29, 2017 11:34 - CONCLUSION: No acute intracranial vascular abnormality is identified. Mikel Angel MD Laboratory Test 05/03/17 06:08 05/03/17 14:00 Prothrombin Time 11.4 SEC Prothromb Time International Ratio 1.0 RATIO Activated Partial Thromboplast Time 63.9 SEC Blood Urea Nitrogen 13 MG/DL Creatinine 0.92 MG/DL Random Glucose 121 MG/DL Total Protein 7.0 GM/DL Albumin 3.1 GM/DL Calcium Level 8.7 MG/DL Alkaline Phosphatase 59 U/L Aspartate Amino Transf (AST/SGOT) 24 U/L Alanine Aminotransferase (ALT/SGPT) 27 U/L Total Bilirubin 0.4 MG/DL Sodium Level 143 MEQ/L Potassium Level 3.9 MEQ/L 4.3 MEQ/L Chloride Level 110 MEQ/L Carbon Dioxide Level 24.8 MEQ/L Anion Gap 8 MEQ/L Estimat Glomerular Filtration Rate 97 ML/MIN Date/Time Source Procedure Growth Status 04/29/17 10:30 Urine Catheterized Urine Urine Culture - Final NO GROWTH IN 48 HOURS. Complete Physical Examination HEENT: Normocephalic; atraumatic; no jaundice CHEST: CTA, diminished bases CARDIAC: RRR ABDOMEN: Soft, nondistended, nontender; no hepatosplenomegaly; bowel sounds are present in all four quadrants. EXTREMITIES: No clubbing, cyanosis, or edema. SKIN: Normal; no rash; no jaundice. 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 Pt with CVA, 8 mm right ICA internal carotid artery dissection at the level of C1-C2- no IR intervention recommended secondary to adequate blood flow. On heparin drip. ST following, has not passed swallow evaluation. Nurse unsuccessful with placing Dobhoff tube. GI was consulted for PEG tube placement. Compensation Administrator recommends Jevity 1.5 at 65cc/hr. Spoke to Tigist Dhaliwal regarding procedure, risks, and benefits and she would like to proceed. PLAN: - Plan for egd with peg tube placement - Obtain consents - NPO after MN - Hold heparin - Compensation Administrator recommends Jevity 1.5 at 65cc/hr. - Pt seen and examined by Dr. Matthews and myself and this note is written on his behalf (Ceci Cruz) Physician Comments Patient was seen and examined, agree with above-noted, we'll proceed with upper endoscopy with PEG tube placement in the morning, will obtain consent antibiotic as appropriately needed (Carmelita Matthews MD) Ceci Cruz May 03, 2017 15:34 Carmelita Matthews MD May 03, 2017 19:12
[2017-05-03] MEDS: WARFARIN SOD 5 MG TAB PO SCH (16:00)
[2017-05-03] MEDS: niCARdipine INJ 25 MG in SODIUM CHLOR 0.9% 250 ML INJ 240 ML IV PRN (16:30)
[2017-05-03] MEDS: PRAVASTATIN SOD 80 MG TAB PO SCH (21:00)
[2017-05-04] VITALS (12 sets, daily range): BP systolic 128–181; BP diastolic 78–111; PULSE 86–131; RESP 17–28; TEMP 98.6–99.7; O2SAT 94–99
[2017-05-04] MEDS: HALOPERIDOL LACTATE 5 MG/ML AMP IV PUSH PRN ×3 (03:03→18:00)
[2017-05-04 04:00] LABS: APTT (PATIENT) 52.9 SEC (24.3-30.1)
[2017-05-04] MEDS: CHLORHEXIDINE GLUCONATE 2 % 1 PACK (2 CLOTHS) TOP SCH (04:00)
[2017-05-04] MEDS: ACETAMINOPHEN 1000 MG/100 ML VIAL IV PRN (04:05)
[2017-05-04] MEDS: INSULIN ASPART SUPPLEMENTAL SCALE SQ SCH ×4 (08:00→20:27)
[2017-05-04] MEDS: LORazepam 2 MG/ML VIAL IV SCH ×2 (08:01→20:26)
[2017-05-04] MEDS: PANTOPRAZOLE SODIUM 40 MG VIAL IV PUSH SCH (08:01)
[2017-05-04] MEDS: CARVEDILOL 6.25 MG TAB PO SCH ×2 (08:02→20:25)
[2017-05-04] MEDS: LISINOPRIL 10 MG TAB PO SCH (08:02)
[2017-05-04] MEDS: SODIUM CHLORIDE 0.9% FLUSH 10 ML FLUSH IV FLUSH SCH ×2 (08:02→20:26)
[2017-05-04] MEDS: DOCUSATE SODIUM 50 MG/SENNA 8.6 MG TAB PO SCH ×2 (08:02→20:25)
[2017-05-04] MEDS: ASPIRIN 81 MG CHEW TAB CHEW SCH (08:02)
--- NOTE | 2017-05-04 08:53 | HHI.PR ---
Subjective Remarks seen with at bedside having hiccups spoke more today- stated his name and "hospital", "[facility]" ff all commands pulled out his dubhoff yesterday Objective Vitals Vital Signs Date Time Temp Pulse Resp B/P (MAP) Pulse Ox O2 Delivery O2 Flow Rate FiO2 05/04/17 06:00 89 05/04/17 04:00 99.1 95 20 139/93 (108) 97 05/04/17 04:00 89 05/04/17 02:00 89 05/04/17 00:00 86 05/04/17 00:00 99.7 90 17 128/84 (99) 99 05/03/17 22:00 89 05/03/17 20:00 100.5 101 15 147/91 (109) 97 05/03/17 20:00 88 05/03/17 18:00 82 05/03/17 17:00 76 167/98 05/03/17 16:30 84 210/101 05/03/17 16:00 97.8 75 16 145/85 (105) 98 05/03/17 16:00 65 05/03/17 14:00 67 05/03/17 12:00 98.1 61 17 164/97 (119) 100 05/03/17 12:00 61 05/03/17 10:00 60 I/O 05/03/17 05/03/17 05/03/17 05/04/17 05/04/17 05/04/17 07:00 15:00 23:00 07:00 15:00 23:00 Intake Total 826.6 ml 590 ml Output Total 875 ml 500 ml 1450 ml Balance -48.4 ml 90 ml -1450 ml Intake Oral 0 ml IV Total 826.6 ml 590 ml Output Urine Total 875 ml 500 ml 1450 ml # Bowel Movements 0 0 0 Result Diagram: 05/02/17 0433 05/03/17 1400 Imaging Last Impressions Abdomen X-Ray 05/03/17 1144 Signed Impressions: Service Date/Time: April 12:09 - CONCLUSION: Feeding tube is not seen Mikel Martins MD Chest X-Ray 05/03/17 0000 Signed Impressions: Service Date/Time: April 12:09 - CONCLUSION: Feeding tube coiled in the mid esophagus. Milton Doshi MD Head CT 05/01/17 0000 Signed Impressions: Service Date/Time: Monday, May 01, 2017 10:45 - CONCLUSION: No significant change has occurred. Rony Palm MD Neck CTA 04/29/17 0000 Signed Impressions: Service Date/Time: Saturday, April 29, 2017 11:34 - CONCLUSION: 1. The distal right internal carotid artery at the C1-C2 level demonstrates a short segment of focal dissection measuring approximately 8 mm in length. The more distal internal carotid artery is normal. 2. There is no significant atherosclerotic disease or stenosis within either internal carotid artery. Mikel Angel MD Head CTA 04/29/17 0000 Signed Impressions: Service Date/Time: Saturday, April 29, 2017 11:34 - CONCLUSION: No acute intracranial vascular abnormality is identified. 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 Noted to have after imaging studies right ICA focal dissection. Dr. Hinkle, interventional radiology was consulted by Dr. Rolle, no IR intervention regarding a stent is indicated secondary to adequate flow. T 8mm right ICA internal carotid artery dissection at the level of C1-C2- - april 27 History of TIA Hearing deficit Dementia Cephalgia Failed Swallowing Neurology ff 04/29 CTA brain-no acute vascular abnormality 04/29 CT brain-no acute abnormality continue on Seroquel, on chronic benz0- currently on IV Ativan q 12 continue aspirin 81 mg daily Continue heparin infusion- start Coumadin and ff INR once PEG placed ordered but patient NPO - failed swallowing PT/OT/speech therapy daily Respiratory: stable Maintain O2 sat greater than 92% Bronchodilators when necessary Cardiovascular: Pacemaker Dyslipidemia Hypertension Maintain MAP > 65mmHg Continue carvedilol 6.25 BID, [id number]/day, Norvasc 10mg/day Continue simvastatin Pacemaker-St. Kalpesh demand rate set at 60 Renal: No Acosta -- Strict I/Os FEN/GI: Dysphagia- failed swallowing- -speech therapist ff- d/w Ramila d/w through the course- from [facility] till now has not eaten for 6 days start TF- dietary recommendations for PEG placement Zofran 4 mg every 6 hours when necessary for nausea Protonix (home med) for GI prophylaxis Heme/ID: Monitor INR, on admission INR 1.0 Monitor CBC Heparin infusion start coumadin Endocrine: Glucose monitoring per ICU protocol -- SSI Prophylaxis: GI Prophylaxis - Protonix DVT Prophylaxis- SCDs - Heparin infusion Activity- out of bed to chair daily PT/OT daily Problem Qualifiers (1) CVA (cerebral vascular accident): Qualified Codes: I63.8 - Other cerebral infarction Gillian Hernandez MD May 04, 2017 08:53
--- NOTE | 2017-05-04 09:10 | HHI.PR ---
Review/Management Daily Summary 05/01 less agitated this am moves 4 limbs probable mild left hemiparesis data reviewed right ica dissection/small area, stable clinically heparin, coumadin for 3 months and follow up ct angio neck in 2-3 months 05/02 spoke with family at bedside spoke with rn will try to get him oob use prn ativan dementia with itt more agitation and less cooperation, getting him oob would help heparin/coumadin Subjective Subjective Comments slept poorly during night otherwise ok PEG today continue anticoagulation otherwise per previous pLAN I WILL BE OUT OF TOWN, CALL PRN FOR NEURO follow up Active Medications Current Medications Medications (Trade) Dose Ordered Sig/Benjamin Route Start Time Stop Time Status Last Admin Sodium Chloride 1,000 ml @ 42 mls/hr [id number] IV 04/29/17 14:00 05/03/17 04:37 (NS Flush) 2 ml UNSCH PRN IV FLUSH 04/29/17 14:00 (NS Flush) 2 ml BID IV FLUSH 04/29/17 21:00 05/04/17 08:02 (Protonix Inj) 40 mg DAILY IV PUSH 04/30/17 09:00 05/04/17 08:01 (Zofran Inj) 4 mg Q6H PRN IV PUSH 04/29/17 14:00 (Duoneb Neb) 1 ampule Q4HR NEB PRN INH 04/29/17 14:00 05/03/17 20:56 Miscellaneous Information 1 [id number] XX 04/29/17 14:00 (Chlorhexidine 2% Cloth) 3 pack Taper DAILY@04 TOP 04/30/17 04:00 04/26/18 03:59 05/03/17 04:37 (Chlorhexidine 2% Cloth) 3 pack UNSCH PRN TOP 04/29/17 14:00 (Leonila-Colace) 1 tab BID PO 04/29/17 21:00 04/29/17 20:21 (Milk Of Magnesia Liq) 30 ml Q12H PRN PO 04/29/17 14:00 (Senokot) 17.2 mg Q12H PRN PO 04/29/17 14:00 (Dulcolax Supp) 10 mg DAILY PRN RECTAL 04/29/17 14:00 (Lactulose Liq) 30 ml DAILY PRN PO 04/29/17 14:00 Potassium Chloride 100 ml @ 50 mls/hr Q2H PRN IV 04/29/17 14:00 Potassium Chloride 100 ml @ 50 mls/hr Q2H PRN IV 04/29/17 14:00 05/02/17 21:10 (K-Lyte Cl Eff) 50 meq UNSCH PRN PO 04/29/17 14:00 Potassium Chloride 100 ml @ 25 mls/hr UNSCH PRN IV 04/29/17 14:00 Potassium Chloride 100 ml @ 50 mls/hr Q2H PRN IV 04/29/17 14:00 Magnesium Sulfate 4 gm/Sodium Chloride 100 ml @ 50 mls/hr UNSCH PRN IV 04/29/17 14:00 (Mag-Ox) 800 mg UNSCH PRN PO 04/29/17 14:00 Magnesium Sulfate 2 gm/Sodium Chloride 100 ml @ 50 mls/hr UNSCH PRN IV 04/29/17 14:00 (K-Phos) 2,000 mg Q4H PRN PO 04/29/17 14:00 Sodium Phosphate 30 mmol/Sodium Chloride 250 ml @ 42 mls/hr UNSCH PRN IV 04/29/17 14:00 (K-Phos) 2,000 mg UNSCH PRN PO/TUBE 04/29/17 14:00 Potassium Phosphate 30 mmol/ Sodium Chloride 260 ml @ 42 mls/hr UNSCH PRN IV 04/29/17 14:00 (D50w (Vial) Inj) 50 ml UNSCH PRN IV PUSH 04/29/17 14:15 (Glucagon Inj) 1 mg UNSCH PRN OTHER 04/29/17 14:15 (NovoLOG SUPPLEMENTAL SCALE) 1 ACHS SLIDING SCALE SQ 04/29/17 17:00 (Ofirmev 1000 Mg/ 100 ml Inj) 1,000 mg Q6H PRN IV 04/29/17 14:15 05/04/17 04:05 (Aspirin Chew) 81 mg DAILY CHEW 04/30/17 09:00 (Norvasc) 10 mg HS PO 04/29/17 21:00 04/29/17 20:21 (Coreg) 6.25 mg BID PO 04/29/17 21:00 04/29/17 20:21 (Prinivil) 10 mg DAILY PO 04/30/17 09:00 (Pravachol) 80 mg HS PO 04/29/17 21:00 04/29/17 20:21 Heparin Sodium/ Dextrose 250 ml @ 10.56 mls/ hr TITRATE PRN IV 04/29/17 17:15 Future Hold 05/03/17 09:36 (Trandate Inj) 10 mg Q4H PRN IV PUSH 04/29/17 20:00 05/03/17 13:28 Nicardipine HCl 25 mg/Sodium Chloride 250 ml @ 50 mls/hr TITRATE PRN IV 04/29/17 20:00 05/03/17 16:30 (Haldol Inj) 2 mg Q6H PRN IV PUSH 04/29/17 22:00 05/04/17 03:03 Dexmedetomidine HCl 200 mcg/ Sodium Chloride 52 ml @ 4.59 mls/hr TITRATE PRN IV 04/30/17 02:00 05/03/17 07:12 (Coumadin) 5 mg DAILY@1600 PO 04/30/17 18:00 (Ativan Inj) 1 mg BID IV 04/30/17 21:00 05/04/17 08:01 Potassium Chloride 100 ml @ 100 mls/hr Q1H PRN IV 04/30/17 20:00 05/01/17 03:25 (Duoneb Neb) 1 ampule Q2HR NEB PRN NEB 05/02/17 04:30 (Geodon Inj) 20 mg Q4H PRN IM 05/02/17 17:00 Allergies Allergies Coded Allergies MRI PRECAUTION (Verified Adverse Reaction, Severe, MRI PRECAUTION/PACEMAKER, ) Exam I&O / VS Vital Signs Date Time Temp Pulse Resp B/P (MAP) Pulse Ox O2 Delivery O2 Flow Rate FiO2 05/04/17 06:00 89 05/04/17 04:00 99.1 95 20 139/93 (108) 97 05/04/17 04:00 89 05/04/17 02:00 89 05/04/17 00:00 86 05/04/17 00:00 99.7 90 17 128/84 (99) 99 05/03/17 22:00 89 05/03/17 20:00 100.5 101 15 147/91 (109) 97 05/03/17 20:00 88 05/03/17 18:00 82 05/03/17 17:00 76 167/98 9/28/17 16:30 84 210/101 05/03/17 16:00 97.8 75 16 145/85 (105) 98 05/03/17 16:00 65 05/03/17 14:00 67 05/03/17 12:00 98.1 61 17 164/97 (119) 100 05/03/17 12:00 61 05/03/17 10:00 60 Objective Micro and Labs Laboratory Tests Test 05/03/17 14:00 05/04/17 03:00 Potassium Level 4.3 Activated Partial Thromboplast Time 52.9 Date/Time Source Procedure Growth Status 04/29/17 10:30 Urine Catheterized Urine Urine Culture - Final NO GROWTH IN 48 HOURS. Complete Meagan Grier MD May 04, 2017 09:10
[2017-05-04] MEDS: LABETALOL HCL 100 MG/20 ML VIAL IV PUSH PRN (10:11)
[2017-05-04] MEDS: ZIPRASIDONE MESYLATE 20 MG VIAL IM PRN (10:12)
[2017-05-04] MEDS ORDERED: SODIUM CHLORIDE 0.9% 20 ML VIAL IV ONE (12:00)
[2017-05-04] MEDS ORDERED: PROPOFOL 200 MG/20 ML AMP IV ONE (12:00)
[2017-05-04] MEDS ORDERED: ONDANSETRON HCL 4 MG/2 ML VIAL IV PUSH ONE (12:00)
[2017-05-04] MEDS ORDERED: LIDOCAINE HCL 1% PF 5 ML AMPULE OTHER ONE (12:00)
[2017-05-04] MEDS ORDERED: ROCURONIUM INJ 50 MG/5 ML SYRINGE IV PUSH ONE (12:00)
[2017-05-04] MEDS: niCARdipine INJ 25 MG in SODIUM CHLOR 0.9% 250 ML INJ 240 ML IV PRN ×2 (12:10→18:00)
[2017-05-04] MEDS: SODIUM CHLOR 0.9% 1000 ML INJ 1,000 ML IV SCH (13:05)
[2017-05-04] MEDS ORDERED: HEPARIN-D5W 25,000 U/250 ML 250 ML IV PRN (13:30)
[2017-05-04] MEDS: WARFARIN SOD 5 MG TAB PO SCH (16:00)
[2017-05-04] MEDS ORDERED: SUGAMMADEX SODIUM 200 MG/2 ML VIAL IV PUSH ONE ×2 (16:27)
[2017-05-04] MEDS ORDERED: ceFAZolin INJ 1,000 MG VIAL IV ONE (16:33)
--- NOTE | 2017-05-04 16:50 | HHI.NSPN ---
Note Status Status: Progress Note Interval History Diagnosis THIS IS A NOTE FROM 05/03 DURING ROUNDS Carotid artery dissection Interval History THIS IS A NOTE FROM 05/03 DURING ROUNDS This is a 77-year-old [place] male who presented to the ED with new onset right sided weakness. He has a medical history significant for dementia. On 04/27, per their report, the patient was in the emergency room at [facility] Sunday night for some weakness and was diagnosed with possible TIA. He was supposed to be admitted but patient left AMA, after his hearing aids were misplaced. Yesterday he came to [facility] with complaints of severe headache. Laboratory and imaging studies to include a CT were performed, the diagnoses of complex migraine the patient was discharged home. After discharge, with family noticed that he was leaning to the left side. He was last seen his baseline at 11:30 in the morning. Since he went home as per the every time he try to stand up from a sitting position he kept falling. He has fallen about 6 times. He also noticed that he kept falling to his left side and has been unable to walk because of left- sided weakness. He has a pacemaker and MRI cannot be done. 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 Neurosurgery was consulted. 04/30. Intubated and sedated. Response to pain. Moving all 4 extremities 05/03. His mental status is improoving. Denies headaches or complains. Unable to swallow. A Dobhoff feeding tube was placed this amFollows simple commands, smiled states his name and place Labs, Micro, & Vital Signs Results THIS IS A NOTE FROM 05/03 DURING ROUNDS Date Time Temp Pulse Resp B/P (MAP) Pulse Ox O2 Delivery O2 Flow Rate FiO2 05/04/17 16:00 112 05/04/17 16:00 99.2 112 24 157/87 (110) 95 05/04/17 14:00 131 05/04/17 12:10 108 181/111 05/04/17 12:00 115 05/04/17 12:00 98.6 100 20 181/111 (134) 95 05/04/17 10:00 95 05/04/17 08:00 101 05/04/17 08:00 98.7 95 22 147/97 (114) 95 05/04/17 06:00 89 05/04/17 04:00 99.1 95 20 139/93 (108) 97 05/04/17 04:00 89 05/04/17 02:00 89 05/04/17 00:00 86 05/04/17 00:00 99.7 90 17 128/84 (99) 99 05/03/17 22:00 89 05/03/17 20:00 100.5 101 15 147/91 (109) 97 05/03/17 20:00 88 05/03/17 18:00 82 05/03/17 17:00 76 167/98 Constitutional THIS IS A NOTE FROM 05/03 DURING ROUNDS Vital Signs Date Time Temp Pulse Resp B/P (MAP) Pulse Ox O2 Delivery O2 Flow Rate FiO2 05/04/17 16:00 112 05/04/17 16:00 99.2 112 24 157/87 (110) 95 05/04/17 14:00 131 05/04/17 12:10 108 181/111 05/04/17 12:00 115 05/04/17 12:00 98.6 100 20 181/111 (134) 95 05/04/17 10:00 95 05/04/17 08:00 101 05/04/17 08:00 98.7 95 22 147/97 (114) 95 05/04/17 06:00 89 05/04/17 04:00 99.1 95 20 139/93 (108) 97 05/04/17 04:00 89 05/04/17 02:00 89 05/04/17 00:00 86 05/04/17 00:00 99.7 90 17 128/84 (99) 99 05/03/17 22:00 89 05/03/17 20:00 100.5 101 15 147/91 (109) 97 05/03/17 20:00 88 05/03/17 18:00 82 05/03/17 17:00 76 167/98 Physical Exam THIS IS A NOTE FROM 05/03 DURING ROUNDS Mr winter is awake, alert. Oriented to self and place. Speech fluent. Follows commands Cranial Nerves: Pupils equal, round, reactive to light. Eyes appear conjugated. There was no nystagmus, no papilledema. Face musculature appeared symmetrical at rest. Face sensation, olfaction, visual titus, and hearing cannot be adequately assessed due to his neurological condition. The patient has a corneal reflex. He has a gag reflex. The sternocleidomastoid and trapezius are symmetrical. Cervical Spine: His neck is soft, supple, without nuchal rigidity. Motor: He moves all 4 extremities weakly and follows commands Reflexes: Deep tendon reflexes are 1+ and symmetrical in the biceps, triceps, and brachioradialis, bilaterally, in the upper extremities. In the lower extremities, the patellar and ankles are 1+, bilaterally. There is a bilateral plantar flexion response. There is no clonus or other abnormal reflexes noted. Sensory: On examination there is good response to pain localizing with upper and lower extremities. Cerebellar: Examination cannot be adequately assessed due to the patient's neurological condition. Medications Current Medications THIS IS A NOTE FROM 05/03 DURING ROUNDS Current Medications Sodium Chloride (NS Flush) 2 ml UNSCH PRN IVF FLUSH AFTER USING IV ACCESS; Start 04/29/17 at 10:15; Stop 04/29/17 at 14:19; Status DC Sodium Chloride 500 ml @ 500 mls/hr BOLUS ONCE IV Last administered on 10:36; Start 04/29/17 at 10:15; Stop 04/29/17 at 11:14; Status DC Ceftriaxone Sodium 1000 mg/ Sodium Chloride 100 ml @ 200 mls/hr ONCE ONCE IV Last administered on 04/29/17 12:15; Start 04/29/17 at 11:30; Stop 04/29/17 at 11:59; Status DC Iohexol (Omnipaque 350 Inj) 75 ml STK-MED ONCE IV PUSH Last administered on 12:12; Start 04/29/17 at 12:12; Stop 04/29/17 at 12:13; Status DC Ondansetron HCl (Zofran Inj) 4 mg ONCE ONCE IV PUSH Last administered on 13:51; Start 04/29/17 at 14:00; Stop 04/29/17 at 14:01; Status DC Sodium Chloride 1,000 ml @ 42 mls/hr [id number] IV Last administered on 06:55; Start 04/29/17 at 14:00 Sodium Chloride (NS Flush) 2 ml UNSCH PRN IV FLUSH FLUSH AFTER USING IV ACCESS ; Start 04/29/17 at 14:00 Sodium Chloride (NS Flush) 2 ml BID IV FLUSH Last administered on 05/05/17 08: 00; Start 04/29/17 at 21:00 Pantoprazole Sodium (Protonix Inj) 40 mg DAILY IV PUSH Last administered on 07:59; Start 04/30/17 at 09:00 Ondansetron HCl (Zofran Inj) 4 mg Q6H PRN IV PUSH NAUSEA OR VOMITING; Start at 14:00 Albuterol/ Ipratropium (Duoneb Neb) 1 ampule Q4HR NEB PRN INH WHEEZING Last administered on 05/05/17 06:15; Start 04/29/17 at 14:00 Miscellaneous Information 1 Q361D XX ; Start 04/29/17 at 14:00 Chlorhexidine Gluconate (Chlorhexidine 2% Cloth) Taper DAILY@04 TOP Last administered on 05/03/17 04:37; Start 04/30/17 at 04:00; Stop 04/26/18 at 03:59 Chlorhexidine Gluconate (Chlorhexidine 2% Cloth) 3 pack UNSCH PRN TOP HYGIENIC CARE; Start 04/29/17 at 14:00 Senna/Docusate Sodium (Leonila-Colace) 1 tab BID PO Last administered on 07:59; Start 04/29/17 at 21:00 Magnesium Hydroxide (Milk Of Magnesia Liq) 30 ml Q12H PRN PO MILD - MODERATE CONSTIPATION; Start 04/29/17 at 14:00 Sennosides (Senokot) 17.2 mg Q12H PRN PO MODERATE - SEVERE CONSTIPATION; Start 04/29/17 at 14:00 Bisacodyl (Dulcolax Supp) 10 mg DAILY PRN RECTAL SEVERE CONSITIPATION; Start at 14:00 Lactulose (Lactulose Liq) 30 ml DAILY PRN PO SEVERE CONSITIPATION; Start at 14:00 Potassium Chloride 100 ml @ 50 mls/hr Q2H PRN IV For Potassium 2.8 - 3.2 mEq/L ; Start 04/29/17 at 14:00 Potassium Chloride 100 ml @ 50 mls/hr Q2H PRN IV For Potassium 2.8 - 3.2 mEq/ L Last administered on 05/02/17t 21:10; Start 04/29/17 at 14:00 Potassium Bicarb/ Potassium Chloride (K-Lyte Cl Eff) 50 meq UNSCH PRN PO For Potassium 3.3 - 3.5 mEq/L; Start 04/29/17 at 14:00 Potassium Chloride 100 ml @ 25 mls/hr UNSCH PRN IV For Potassium 3.3 - 3.5 mEq /L; Start 04/29/17 at 14:00 Potassium Chloride 100 ml @ 50 mls/hr Q2H PRN IV For Potassium 3.3 - 3.5 mEq/L ; Start 04/29/17 at 14:00 Magnesium Sulfate 4 gm/Sodium Chloride 100 ml @ 50 mls/hr UNSCH PRN IV For Magnesium 0.9 - 1.1 mg/dL; Start 04/29/17 at 14:00 Magnesium Oxide (Mag-Ox) 800 mg UNSCH PRN PO For Magnesium 1.2 - 1.6 mg/dL; Start 04/29/17 at 14:00 Magnesium Sulfate 2 gm/Sodium Chloride 100 ml @ 50 mls/hr UNSCH PRN IV For Magnesium 1.2 - 1.6 mg/dL; Start 04/29/17 at 14:00 Potassium Phosphate (K-Phos) 2,000 mg Q4H PRN PO For Phosphorus < 2.5 mg/dL; Start 04/29/17 at 14:00 Sodium Phosphate 30 mmol/Sodium Chloride 250 ml @ 42 mls/hr UNSCH PRN IV For Phosphorus < 2.5 mg/dL; Start 04/29/17 at 14:00 Potassium Phosphate (K-Phos) 2,000 mg UNSCH PRN PO/TUBE SEE LABEL COMMENTS; Start 04/29/17 at 14:00 Potassium Phosphate 30 mmol/ Sodium Chloride 260 ml @ 42 mls/hr UNSCH PRN IV SEE LABEL COMMENTS; Start 04/29/17 at 14:00 Dextrose (D50w (Vial) Inj) 50 ml UNSCH PRN IV PUSH HYPOGLYCEMIA-SEE COMMENTS; Start 04/29/17 at 14:15 Glucagon (Glucagon Inj) 1 mg UNSCH PRN OTHER HYPOGLYCEMIA-SEE COMMENTS; Start 04/29/17 at 14:15 Insulin Aspart (NovoLOG SUPPLEMENTAL SCALE) 1 ACHS SLIDING SCALE SQ ; Start at 17:00 Acetaminophen (Ofirmev 1000 Mg/ 100 ml Inj) 1,000 mg Q6H PRN IV PAIN SCALE 3 TO 10 Last administered on 05/04/17 04:05; Start 04/29/17 at 14:15 Aspirin (Aspirin Chew) 81 mg DAILY CHEW Last administered on 05/05/17 07:59; Start 04/30/17 at 09:00 Aspirin (Aspirin Chew) 81 mg ONCE ONCE CHEW Last administered on 04/29/17 17: 00; Start 04/29/17 at 17:00; Stop 04/29/17 at 17:05; Status DC Amlodipine Besylate (Norvasc) 10 mg HS PO Last administered on 05/04/17 20:25 ; Start 04/29/17 at 21:00 Carvedilol (Coreg) 6.25 mg BID PO Last administered on 05/05/17 07:59; Start 04/29/17 at 21:00 Lisinopril (Prinivil) 10 mg DAILY PO Last administered on 05/05/17 07:59; Start 04/30/17 at 09:00 Pravastatin Sodium (Pravachol) 80 mg HS PO Last administered on 05/04/17 20:26 ; Start 04/29/17 at 21:00 Heparin Sodium/ Dextrose 250 ml @ 10.56 mls/ hr TITRATE PRN IV Coagulation management Last administered on 05/03/17 09:36; Start 04/29/17 at 17:15; Stop 05/04/17 at 13:25; Status DC Labetalol HCl (Trandate Inj) 10 mg Q4H PRN IV PUSH SBP >140 Last administered on 05/04/17 10:11; Start 04/29/17 at 20:00 Nicardipine HCl 25 mg/Sodium Chloride 250 ml @ 50 mls/hr TITRATE PRN IV Blood pressure management Last administered on 05/04/17 18:00; Start 04/29/17 at 20: 00 Haloperidol Lactate (Haldol Inj) 2 mg Q6H PRN IV PUSH FOR PATIENT SAFETY DUE TO AGITATION/HALLUCINATIONS Last administered on 05/04/17 18:00; Start at 22:00 Haloperidol Lactate (Haldol Inj) 2 mg ONCE ONCE IV PUSH Last administered on 02:33; Start 04/30/17 at 02:00; Stop 04/30/17 at 02:07; Status DC Dexmedetomidine HCl 200 mcg/ Sodium Chloride 52 ml @ 4.59 mls/hr TITRATE PRN IV SEDATION Last administered on 05/03/17 07:12; Start 04/30/17 at 02:00 Sodium Chloride 1,000 ml @ 999 mls/hr Q1H1M ONCE IV Last administered on 09:30; Start 04/30/17 at 09:30; Stop 04/30/17 at 10:30; Status DC Warfarin Sodium (Coumadin) 5 mg DAILY@1600 PO ; Start 04/30/17 at 18:00 Patient Medication Teaching (Coumadin Booklet) 1 ONCE ONCE .XX Last administered on 05/01/17 16:22; Start 04/30/17 at 18:15; Stop 04/30/17 at 18:16 ; Status DC Lorazepam (Ativan Inj) 1 mg BID IV Last administered on 05/05/17 08:00; Start 04/30/17 at 21:00 Potassium Chloride 100 ml @ 100 mls/hr Q1H PRN IV For Potassium 2.8-3.2 mEq/L Last administered on 05/01/17 03:25; Start 04/30/17 at 20:00 Patient Medication Teaching (Coumadin Booklet) 1 STK-MED ONCE .ROUTE ; Start at 16:21; Stop 05/01/17 at 16:22; Status DC Albuterol/ Ipratropium (Duoneb Neb) 1 ampule Q2HR NEB PRN NEB SECRETIONS; Start 05/02/17 at 04:30 Ziprasidone (Geodon Inj) 20 mg Q4H PRN IM SEVERE AGITATION Last administered on 05/04/17 10:12; Start 05/02/17 at 17:00 Ziprasidone (Geodon Inj) 20 mg ONCE ONCE IM Last administered on 05/02/17 17: 30; Start 05/02/17 at 17:00; Stop 05/02/17 at 17:14; Status DC Midazolam HCl (Versed Inj) 5 mg ONCE ONCE IM ; Start 05/03/17 at 11:15; Stop at 15:36; Status DC Heparin Sodium/ Dextrose 250 ml @ 10 mls/hr TITRATE PRN IV Coagulation management; Start 05/04/17 at 13:30; Status Future Hold Sugammadex Sodium (Bridion Inj) 200 mg STK-MED ONCE IV PUSH ; Start 05/04/17 at 16:27; Stop 05/04/17 at 16:28; Status DC Cefazolin Sodium (Ancef Inj) 1,000 mg ONCE ONCE IV Last administered on t 16:29; Start 05/04/17 at 16:33; Stop 05/04/17 at 16:37; Status DC Miscellaneous Information ALL NURSING DEPARTME... UNSCH PRN .XX SEE LABEL COMMENTS; Start 05/04/17 at 17:01; Stop 05/05/17 at 17:00 Medical Decision Making MDM Remarks THIS IS A NOTE FROM 05/03 DURING ROUNDS Last 48 hours Impressions Abdomen X-Ray 05/03/17 1144 Signed Impressions: Service Date/Time: April 12:09 - CONCLUSION: Feeding tube is not seen Mikel Martins MD Last [address] 04/29/17 1008 Signed Impressions: Service Date/Time: Saturday, April 29, 2017 11:31 - CONCLUSION: 1. Stable noncontrast head CT. No acute intracranial abnormality is identified. 2. Chronic changes include mild cerebral atrophy and periventricular white matter change characteristic of chronic microvascular ischemia. Mikel Angel MD Neck CTA 04/29/17 0000 Signed Impressions: Service Date/Time: Saturday, April 29, 2017 11:34 - CONCLUSION: 1. The distal right internal carotid artery at the C1-C2 level demonstrates a short segment of focal dissection measuring approximately 8 mm in length. The more distal internal carotid artery is normal. 2. There is no significant atherosclerotic disease or stenosis within either internal carotid artery. Mikel Angel MD Head CTA 04/29/17 0000 Signed Impressions: Service Date/Time: Saturday, April 29, 2017 11:34 - CONCLUSION: No acute intracranial vascular abnormality is identified. Mikel Angel MD Plan Plan Remarks THIS IS A NOTE FROM 05/03 DURING ROUNDS Septic Shock Reassessment Heart: Regular rate and rhythm Lungs: Clear Skin: Warm Peripheral Pulses: Bounding Right Radial Bounding Left Radial Bounding Right Dorsalis Pedis Bounding Left Dorsalis Pedis Caprini VTE Risk Assessment Caprini VTE Risk Assessment Caprini VTE Risk Assessment: Mod/High Risk (score >= 2) Caprini Risk Assessment Model Point Value = 1 Point Value = 2 Point Value = 3 Point Value = 5 Age 41-60 Minor surgery BMI > 25 kg/m2 Swollen legs Varicose veins or History of unexplained or recurrent spontaneous Oral contraceptives or hormone replacement Sepsis (< 1 month) Serious lung disease, including pneumonia (< 1 month) Abnormal pulmonary function Acute myocardial infarction Congestive heart failure (< 1 month) History of inflammatory bowel disease Medical patient at bed rest Age 61-74 Arthroscopic surgery Major open surgery (> 45 min) Laparoscopic surgery (> 45 min) Malignancy Confined to bed (> 72 hours) Immobilizing plaster cast Central venous access Age >= 75 History of VTE Family history of VTE Factor V Leiden Prothrombin [id number] Lupus anticoagulant Anticardiolipin antibodies Elevated serum homocysteine Heparin-induced thrombocytopenia Other congenital or acquired thrombophilia Stroke (< 1 month) Elective arthroplasty Hip, pelvis, or leg fracture Acute spinal cord injury (< 1 month) Prophylaxis Regimen Total Risk Factor Score Risk Level Prophylaxis Regimen 0-1 Low Early ambulation 2 Moderate Order ONE of the following: *Sequential Compression Device (SCD) *Heparin 5000 units SQ BID 3-4 Higher Order ONE of the following medications: *Heparin 5000 units SQ TID *Enoxaparin/Lovenox 40 mg SQ daily (WT < 150 kg, CrCl > 30 mL/min) *Enoxaparin/Lovenox 30 mg SQ daily (WT < 150 kg, CrCl > 10-29 mL/min) *Enoxaparin/Lovenox 30 mg SQ BID (WT < 150 kg, CrCl > 30 mL/min) AND/OR *Sequential Compression Device (SCD) 5 or more Highest Order ONE of the following medications: *Heparin 5000 units SQ TID (Preferred with Epidurals) *Enoxaparin/Lovenox 40 mg SQ daily (WT < 150 kg, CrCl > 30 mL/min) *Enoxaparin/Lovenox 30 mg SQ daily (WT < 150 kg, CrCl > 10-29 mL/min) *Enoxaparin/Lovenox 30 mg SQ BID (WT < 150 kg, CrCl > 30 mL/min) AND *Sequential Compression Device (SCD) Attending Statement THIS IS A NOTE FROM 05/03 DURING ROUNDS 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 Failed swallow test. Dobhoff tube has been placed. Startr tube feedings. He will need a PEG for nutrition Continue neuro checks.. CT brain-no acute abnormality. MRI of the brain Could not be done due to pacemaker. Follow up CT on 05/01 was stable Continue full anticoagulation with heparin drip and aspirin. Vascular surgeon has been consulted Defer to Neurology further recommendations HTN. Continue carvedilol 6.25 BID, [id number]/day, Norvasc 10mg/day Hyperlipidemia. Continue simvastatin Pacemaker-St. Kalpesh demand rate set at 60 Pulmonary.. Continue aggressive pulmonary toilette, nasotracheal suction, and breathing treatments with nebulizers. Renal. Continue to monitor closely urine output, BUN and creatinine Endocrine. Continue to onitor serial Acu checks and SSI as needed in detail Contiue to ID monitor for signs of infection Continue Protonix for stress ulcer prophylaxis Continue Redd hassan and SCD's for DVT prophylaxis. Milton Harris MD May 04, 2017 16:50
--- NOTE | 2017-05-04 16:50 | PD.PROCEDR ---
GI Procedure REFERRING PHYSICIAN BOGDAN PROCEDURE PERFORMED EGD with PEG placement INDICATION FOR PROCEDURE Dysphagia, CVA PROCEDURE: The procedure, risks and benefits were discussed with Mr. Dhaliwal and informed consent was obtained. Anesthesia sedated him with Diprivan. He was placed in the left lateral decubitus position. EGD: The Pentax videoscope was introduced through the oropharynx and advanced to the second portion of the duodenum under direct visualization. Retroflexion was performed in the stomach. FINDINGS: Esophagus this was normal Stomach this was normal Duodenum this was normal Following the evaluation of the stomach and the duodenum the stomach was insufflated with air and the area of PEG placement was identified through indentation and transillumination the area was prepped and draped in usual fashion 5 cc of lidocaine were injected locally a small incision was made then an Angiocath was passed into the stomach through which a guidewire was passed this was retrieved with the scope into that a PEG tube was attached and pulled into place and thereafter secured in usual fashion The patient tolerated procedure well and there are no immediate complications ESTIMATED BLOOD LOSS: None SPECIMENS REMOVED: None COMPLICATIONS: None IMPRESSION: Normal EGD Successful PEG placement PLAN: 1. May use PEG tube for medications today 2. May start feeding tomorrow 3. May obtain nutritional consult for tube feeding 4. Flush tube with 50 cc of water every 4-6 hours 5. Always flush tube after feedings 6. Apply abdominal binder as necessary 7. Clamp G-tube after use and flush. Amado Bazzi MD May 04, 2017 16:50
--- NOTE | 2017-05-04 16:50 | HHI.NSPN ---
Note Status Status: Progress Note Interval History Diagnosis Carotid artery dissection Interval History This is a 77-year-old [place] male who presented to the ED with new onset right sided weakness. He has a medical history significant for dementia. On 04/27, per their report, the patient was in the emergency room at [facility] [place] night for some weakness and was diagnosed with possible TIA. He was supposed to be admitted but patient left AMA, after his hearing aids were misplaced. Yesterday he came to [facility] [place] with complaints of severe headache. Laboratory and imaging studies to include a CT were performed, the diagnoses of complex migraine the patient was discharged home. After discharge, with family noticed that he was leaning to the left side. He was last seen his baseline at 11:30 in the morning. Since he went home as per the every time he try to stand up from a sitting position he kept falling. He has fallen about 6 times. He also noticed that he kept falling to his left side and has been unable to walk because of left- sided weakness. He has a pacemaker and MRI cannot be done. 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 Neurosurgery was consulted. 04/30. Intubated and sedated. Response to pain. Moving all 4 extremities 9.29, Failed swallow eval. For a PEG tube today by GI Labs, Micro, & Vital Signs Results Date Time Temp Pulse Resp B/P (MAP) Pulse Ox O2 Delivery O2 Flow Rate FiO2 05/04/17 16:00 112 05/04/17 16:00 99.2 112 24 157/87 (110) 95 05/04/17 14:00 131 05/04/17 12:10 108 181/111 05/04/17 12:00 115 05/04/17 12:00 98.6 100 20 181/111 (134) 95 05/04/17 10:00 95 05/04/17 08:00 101 05/04/17 08:00 98.7 95 22 147/97 (114) 95 05/04/17 06:00 89 05/04/17 04:00 99.1 95 20 139/93 (108) 97 05/04/17 04:00 89 05/04/17 02:00 89 05/04/17 00:00 86 05/04/17 00:00 99.7 90 17 128/84 (99) 99 05/03/17 22:00 89 05/03/17 20:00 100.5 101 15 147/91 (109) 97 05/03/17 20:00 88 05/03/17 18:00 82 05/03/17 17:00 76 167/98 Constitutional Vital Signs Date Time Temp Pulse Resp B/P (MAP) Pulse Ox O2 Delivery O2 Flow Rate FiO2 05/04/17 16:00 112 05/04/17 16:00 99.2 112 24 157/87 (110) 95 05/04/17 14:00 131 05/04/17 12:10 108 181/111 05/04/17 12:00 115 05/04/17 12:00 98.6 100 20 181/111 (134) 95 05/04/17 10:00 95 05/04/17 08:00 101 05/04/17 08:00 98.7 95 22 147/97 (114) 95 05/04/17 06:00 89 05/04/17 04:00 99.1 95 20 139/93 (108) 97 05/04/17 04:00 89 05/04/17 02:00 89 05/04/17 00:00 86 05/04/17 00:00 99.7 90 17 128/84 (99) 99 05/03/17 22:00 89 05/03/17 20:00 100.5 101 15 147/91 (109) 97 05/03/17 20:00 88 05/03/17 18:00 82 05/03/17 17:00 76 167/98 Physical Exam Mr winter is awake, alert. Oriented to self and place. Speech fluent. Follows commands Cranial Nerves: Pupils equal, round, reactive to light. Eyes appear conjugated. There was no nystagmus, no papilledema. Face musculature appeared symmetrical at rest. Face sensation, olfaction, visual titus, and hearing cannot be adequately assessed due to his neurological condition. The patient has a corneal reflex. He has a gag reflex. The sternocleidomastoid and trapezius are symmetrical. Cervical Spine: His neck is soft, supple, without nuchal rigidity. Motor: He moves all 4 extremities weakly and follows commands Reflexes: Deep tendon reflexes are 1+ and symmetrical in the biceps, triceps, and brachioradialis, bilaterally, in the upper extremities. In the lower extremities, the patellar and ankles are 1+, bilaterally. There is a bilateral plantar flexion response. There is no clonus or other abnormal reflexes noted. Sensory: On examination there is good response to pain localizing with upper and lower extremities. Cerebellar: Examination cannot be adequately assessed due to the patient's neurological condition. Medications Current Medications Current Medications Sodium Chloride (NS Flush) 2 ml UNSCH PRN IVF FLUSH AFTER USING IV ACCESS; Start 04/29/17 at 10:15; Stop 04/29/17 at 14:19; Status DC Sodium Chloride 500 ml @ 500 mls/hr BOLUS ONCE IV Last administered on 10:36; Start 04/29/17 at 10:15; Stop 04/29/17 at 11:14; Status DC Ceftriaxone Sodium 1000 mg/ Sodium Chloride 100 ml @ 200 mls/hr ONCE ONCE IV Last administered on 04/29/17 12:15; Start 04/29/17 at 11:30; Stop 04/29/17 at 11:59; Status DC Iohexol (Omnipaque 350 Inj) 75 ml STK-MED ONCE IV PUSH Last administered on 12:12; Start 04/29/17 at 12:12; Stop 04/29/17 at 12:13; Status DC Ondansetron HCl (Zofran Inj) 4 mg ONCE ONCE IV PUSH Last administered on 13:51; Start 04/29/17 at 14:00; Stop 04/29/17 at 14:01; Status DC Sodium Chloride 1,000 ml @ 42 mls/hr [id number] IV Last administered on 06:55; Start 04/29/17 at 14:00 Sodium Chloride (NS Flush) 2 ml UNSCH PRN IV FLUSH FLUSH AFTER USING IV ACCESS ; Start 04/29/17 at 14:00 Sodium Chloride (NS Flush) 2 ml BID IV FLUSH Last administered on 05/05/17 08: 00; Start 04/29/17 at 21:00 Pantoprazole Sodium (Protonix Inj) 40 mg DAILY IV PUSH Last administered on 07:59; Start 04/30/17 at 09:00 Ondansetron HCl (Zofran Inj) 4 mg Q6H PRN IV PUSH NAUSEA OR VOMITING; Start at 14:00 Albuterol/ Ipratropium (Duoneb Neb) 1 ampule Q4HR NEB PRN INH WHEEZING Last administered on 05/05/17 06:15; Start 04/29/17 at 14:00 Miscellaneous Information 1 [id number] XX ; Start 04/29/17 at 14:00 Chlorhexidine Gluconate (Chlorhexidine 2% Cloth) Taper DAILY@04 TOP Last administered on 05/03/17 04:37; Start 04/30/17 at 04:00; Stop 04/26/18 at 03:59 Chlorhexidine Gluconate (Chlorhexidine 2% Cloth) 3 pack UNSCH PRN TOP HYGIENIC CARE; Start 04/29/17 at 14:00 Senna/Docusate Sodium (Leonila-Colace) 1 tab BID PO Last administered on 07:59; Start 04/29/17 at 21:00 Magnesium Hydroxide (Milk Of Magnesia Liq) 30 ml Q12H PRN PO MILD - MODERATE CONSTIPATION; Start 04/29/17 at 14:00 Sennosides (Senokot) 17.2 mg Q12H PRN PO MODERATE - SEVERE CONSTIPATION; Start 04/29/17 at 14:00 Bisacodyl (Dulcolax Supp) 10 mg DAILY PRN RECTAL SEVERE CONSITIPATION; Start at 14:00 Lactulose (Lactulose Liq) 30 ml DAILY PRN PO SEVERE CONSITIPATION; Start at 14:00 Potassium Chloride 100 ml @ 50 mls/hr Q2H PRN IV For Potassium 2.8 - 3.2 mEq/L ; Start 04/29/17 at 14:00 Potassium Chloride 100 ml @ 50 mls/hr Q2H PRN IV For Potassium 2.8 - 3.2 mEq/ L Last administered on 05/02/17 21:10; Start 04/29/17 at 14:00 Potassium Bicarb/ Potassium Chloride (K-Lyte Cl Eff) 50 meq UNSCH PRN PO For Potassium 3.3 - 3.5 mEq/L; Start 04/29/17 at 14:00 Potassium Chloride 100 ml @ 25 mls/hr UNSCH PRN IV For Potassium 3.3 - 3.5 mEq /L; Start 04/29/17 at 14:00 Potassium Chloride 100 ml @ 50 mls/hr Q2H PRN IV For Potassium 3.3 - 3.5 mEq/L ; Start 04/29/17 at 14:00 Magnesium Sulfate 4 gm/Sodium Chloride 100 ml @ 50 mls/hr UNSCH PRN IV For Magnesium 0.9 - 1.1 mg/dL; Start 04/29/17 at 14:00 Magnesium Oxide (Mag-Ox) 800 mg UNSCH PRN PO For Magnesium 1.2 - 1.6 mg/dL; Start 04/29/17 at 14:00 Magnesium Sulfate 2 gm/Sodium Chloride 100 ml @ 50 mls/hr UNSCH PRN IV For Magnesium 1.2 - 1.6 mg/dL; Start 04/29/17 at 14:00 Potassium Phosphate (K-Phos) 2,000 mg Q4H PRN PO For Phosphorus < 2.5 mg/dL; Start 04/29/17 at 14:00 Sodium Phosphate 30 mmol/Sodium Chloride 250 ml @ 42 mls/hr UNSCH PRN IV For Phosphorus < 2.5 mg/dL; Start 04/29/17 at 14:00 Potassium Phosphate (K-Phos) 2,000 mg UNSCH PRN PO/TUBE SEE LABEL COMMENTS; Start 04/29/17 at 14:00 Potassium Phosphate 30 mmol/ Sodium Chloride 260 ml @ 42 mls/hr UNSCH PRN IV SEE LABEL COMMENTS; Start 04/29/17 at 14:00 Dextrose (D50w (Vial) Inj) 50 ml UNSCH PRN IV PUSH HYPOGLYCEMIA-SEE COMMENTS; Start 04/29/17 at 14:15 Glucagon (Glucagon Inj) 1 mg UNSCH PRN OTHER HYPOGLYCEMIA-SEE COMMENTS; Start 04/29/17 at 14:15 Insulin Aspart (NovoLOG SUPPLEMENTAL SCALE) 1 ACHS SLIDING SCALE SQ ; Start at 17:00 Acetaminophen (Ofirmev 1000 Mg/ 100 ml Inj) 1,000 mg Q6H PRN IV PAIN SCALE 3 TO 10 Last administered on 05/04/17t 04:05; Start 04/29/17 at 14:15 Aspirin (Aspirin Chew) 81 mg DAILY CHEW Last administered on 05/05/17 07:59; Start 04/30/17 at 09:00 Aspirin (Aspirin Chew) 81 mg ONCE ONCE CHEW Last administered on 04/29/17 17: 00; Start 04/29/17 at 17:00; Stop 04/29/17 at 17:05; Status DC Amlodipine Besylate (Norvasc) 10 mg HS PO Last administered on 05/04/17 20:25 ; Start 04/29/17 at 21:00 Carvedilol (Coreg) 6.25 mg BID PO Last administered on 05/05/17 07:59; Start 04/29/17 at 21:00 Lisinopril (Prinivil) 10 mg DAILY PO Last administered on 05/05/17 07:59; Start 04/30/17 at 09:00 Pravastatin Sodium (Pravachol) 80 mg HS PO Last administered on 05/04/17 20:26 ; Start 04/29/17 at 21:00 Heparin Sodium/ Dextrose 250 ml @ 10.56 mls/ hr TITRATE PRN IV Coagulation management Last administered on 05/03/17 09:36; Start 04/29/17 at 17:15; Stop 05/04/17 at 13:25; Status DC Labetalol HCl (Trandate Inj) 10 mg Q4H PRN IV PUSH SBP >140 Last administered on 05/04/17 10:11; Start 04/29/17 at 20:00 Nicardipine HCl 25 mg/Sodium Chloride 250 ml @ 50 mls/hr TITRATE PRN IV Blood pressure management Last administered on 05/04/17 18:00; Start 04/29/17 at 20: 00 Haloperidol Lactate (Haldol Inj) 2 mg Q6H PRN IV PUSH FOR PATIENT SAFETY DUE TO AGITATION/HALLUCINATIONS Last administered on 05/04/17 18:00; Start at 22:00 Haloperidol Lactate (Haldol Inj) 2 mg ONCE ONCE IV PUSH Last administered on 02:33; Start 04/30/17 at 02:00; Stop 04/30/17 at 02:07; Status DC Dexmedetomidine HCl 200 mcg/ Sodium Chloride 52 ml @ 4.59 mls/hr TITRATE PRN IV SEDATION Last administered on 05/03/17 07:12; Start 04/30/17 at 02:00 Sodium Chloride 1,000 ml @ 999 mls/hr Q1H1M ONCE IV Last administered on 09:30; Start 04/30/17 at 09:30; Stop 04/30/17 at 10:30; Status DC Warfarin Sodium (Coumadin) 5 mg DAILY@1600 PO ; Start 04/30/17 at 18:00 Patient Medication Teaching (Coumadin Booklet) 1 ONCE ONCE .XX Last administered on 05/01/17 16:22; Start 04/30/17 at 18:15; Stop 04/30/17 at 18:16 ; Status DC Lorazepam (Ativan Inj) 1 mg BID IV Last administered on 05/05/17 08:00; Start 04/30/17 at 21:00 Potassium Chloride 100 ml @ 100 mls/hr Q1H PRN IV For Potassium 2.8-3.2 mEq/L Last administered on 05/01/17 03:25; Start 04/30/17 at 20:00 Patient Medication Teaching (Coumadin Booklet) 1 STK-MED ONCE .ROUTE ; Start at 16:21; Stop 05/01/17 at 16:22; Status DC Albuterol/ Ipratropium (Duoneb Neb) 1 ampule Q2HR NEB PRN NEB SECRETIONS; Start 05/02/17 at 04:30 Ziprasidone (Geodon Inj) 20 mg Q4H PRN IM SEVERE AGITATION Last administered on 05/04/17 10:12; Start 05/02/17 at 17:00 Ziprasidone (Geodon Inj) 20 mg ONCE ONCE IM Last administered on 05/02/17 17: 30; Start 05/02/17 at 17:00; Stop 05/02/17 at 17:14; Status DC Midazolam HCl (Versed Inj) 5 mg ONCE ONCE IM ; Start 05/03/17 at 11:15; Stop at 15:36; Status DC Heparin Sodium/ Dextrose 250 ml @ 10 mls/hr TITRATE PRN IV Coagulation management; Start 05/04/17 at 13:30; Status Future Hold Sugammadex Sodium (Bridion Inj) 200 mg STK-MED ONCE IV PUSH ; Start 05/04/17 at 16:27; Stop 05/04/17 at 16:28; Status DC Cefazolin Sodium (Ancef Inj) 1,000 mg ONCE ONCE IV Last administered on t 16:29; Start 05/04/17 at 16:33; Stop 05/04/17 at 16:37; Status DC Miscellaneous Information ALL NURSING DEPARTME... UNSCH PRN .XX SEE LABEL COMMENTS; Start 05/04/17 at 17:01; Stop 05/05/17 at 17:00 Medical Decision Making MDM Remarks Last 48 hours Impressions Abdomen X-Ray 05/03/17 1144 Signed Impressions: Service Date/Time: April 12:09 - CONCLUSION: Feeding tube is not seen Mikel Martins MD Last [address] 04/29/17 1008 Signed Impressions: Service Date/Time: Saturday, April 29, 2017 11:31 - CONCLUSION: 1. Stable noncontrast head CT. No acute intracranial abnormality is identified. 2. Chronic changes include mild cerebral atrophy and periventricular white matter change characteristic of chronic microvascular ischemia. Mikel Angel MD Neck CTA 04/29/17 0000 Signed Impressions: Service Date/Time: Saturday, April 29, 2017 11:34 - CONCLUSION: 1. The distal right internal carotid artery at the C1-C2 level demonstrates a short segment of focal dissection measuring approximately 8 mm in length. The more distal internal carotid artery is normal. 2. There is no significant atherosclerotic disease or stenosis within either internal carotid artery. Mikel Angel MD Head CTA 04/29/17 0000 Signed Impressions: Service Date/Time: Saturday, April 29, 2017 11:34 - CONCLUSION: No acute intracranial vascular abnormality is identified. Mikel Angel MD Plan Plan Remarks Septic Shock Reassessment Heart: Regular rate and rhythm Lungs: Clear Skin: Warm Peripheral Pulses: Bounding Right Radial Bounding Left Radial Bounding Right Dorsalis Pedis Bounding Left Dorsalis Pedis Caprini VTE Risk Assessment Caprini VTE Risk Assessment Caprini VTE Risk Assessment: Mod/High Risk (score >= 2) Caprini Risk Assessment Model Point Value = 1 Point Value = 2 Point Value = 3 Point Value = 5 Age 41-60 Minor surgery BMI > 25 kg/m2 Swollen legs Varicose veins or History of unexplained or recurrent spontaneous Oral contraceptives or hormone replacement Sepsis (< 1 month) Serious lung disease, including pneumonia (< 1 month) Abnormal pulmonary function Acute myocardial infarction Congestive heart failure (< 1 month) History of inflammatory bowel disease Medical patient at bed rest Age 61-74 Arthroscopic surgery Major open surgery (> 45 min) Laparoscopic surgery (> 45 min) Malignancy Confined to bed (> 72 hours) Immobilizing plaster cast Central venous access Age >= 75 History of VTE Family history of VTE Factor V Leiden Prothrombin [id number] Lupus anticoagulant Anticardiolipin antibodies Elevated serum homocysteine Heparin-induced thrombocytopenia Other congenital or acquired thrombophilia Stroke (< 1 month) Elective arthroplasty Hip, pelvis, or leg fracture Acute spinal cord injury (< 1 month) Prophylaxis Regimen Total Risk Factor Score Risk Level Prophylaxis Regimen 0-1 Low Early ambulation 2 Moderate Order ONE of the following: *Sequential Compression Device (SCD) *Heparin 5000 units SQ BID 3-4 Higher Order ONE of the following medications: *Heparin 5000 units SQ TID *Enoxaparin/Lovenox 40 mg SQ daily (WT < 150 kg, CrCl > 30 mL/min) *Enoxaparin/Lovenox 30 mg SQ daily (WT < 150 kg, CrCl > 10-29 mL/min) *Enoxaparin/Lovenox 30 mg SQ BID (WT < 150 kg, CrCl > 30 mL/min) AND/OR *Sequential Compression Device (SCD) 5 or more Highest Order ONE of the following medications: *Heparin 5000 units SQ TID (Preferred with Epidurals) *Enoxaparin/Lovenox 40 mg SQ daily (WT < 150 kg, CrCl > 30 mL/min) *Enoxaparin/Lovenox 30 mg SQ daily (WT < 150 kg, CrCl > 10-29 mL/min) *Enoxaparin/Lovenox 30 mg SQ BID (WT < 150 kg, CrCl > 30 mL/min) AND *Sequential Compression Device (SCD) Attending Statement 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 Failed swallow test. Dobhoff tube yesterday. Will undergo a PEG for nutrition today Continue neuro checks.. CT brain-no acute abnormality. MRI of the brain Could not be done due to pacemaker. Follow up CT on 05/01 was stable Continue full anticoagulation with heparin drip and aspirin. Vascular surgeon has been consulted Defer to Neurology further recommendations HTN. Continue carvedilol 6.25 BID, [id number]/day, Norvasc 10mg/day Hyperlipidemia. Continue simvastatin Pacemaker-St. Kalpesh demand rate set at 60 Pulmonary.. Continue aggressive pulmonary toilette, nasotracheal suction, and breathing treatments with nebulizers. Renal. Continue to monitor closely urine output, BUN and creatinine Endocrine. Continue to onitor serial Acu checks and SSI as needed in detail Contiue to ID monitor for signs of infection Continue Protonix for stress ulcer prophylaxis Continue Redd hose and SCD's for DVT prophylaxis. Milton Harris MD May 04, 2017 16:50
[2017-05-04] MEDS ORDERED: DO NOT ADM ANY ANTICOAGULANT DRUGS PRN (17:01)
[2017-05-04] MEDS: PRAVASTATIN SOD 80 MG TAB PO SCH (20:26)
[2017-05-04] MEDS: RESP: ALBUTEROL 2.5 MG/IPRATROPIUM 0.5 MG NEB (PRN) INH (20:32)
[2017-05-05] VITALS (12 sets, daily range): BP systolic 103–156; BP diastolic 73–97; PULSE 81–113; RESP 14–21; TEMP 98.4–100.6; O2SAT 94–97
[2017-05-05] MEDS: CHLORHEXIDINE GLUCONATE 2 % 1 PACK (2 CLOTHS) TOP SCH (04:00)
[2017-05-05 05:11] LABS: HEMATOCRIT 39.3 % (39.0-51.0); MEAN CELL VOLUME 87.2 FL (80.0-100.0); MEAN CORPUSCULAR HEMOGLOBIN 28.8 PG (27.0-34.0); PLATELET COUNT 172 TH/MM3 (150-450); RED BLOOD COUNT 4.51 MIL/MM3 (4.50-5.90); RED CELL DISTRIBUTION WIDTH 13.4 % (11.6-17.2); REVIEW FLAG FINAL; WHITE BLOOD COUNT 11.8 TH/MM3 (4.0-11.0)
[2017-05-05 05:18] LABS: APTT (PATIENT) 26.8 SEC (24.3-30.1)
[2017-05-05] MEDS: RESP: ALBUTEROL 2.5 MG/IPRATROPIUM 0.5 MG NEB (PRN) INH (06:15)
[2017-05-05] MEDS: SODIUM CHLOR 0.9% 1000 ML INJ 1,000 ML IV SCH (06:55)
[2017-05-05] MEDS: INSULIN ASPART SUPPLEMENTAL SCALE SQ SCH ×4 (07:58→21:00)
[2017-05-05] MEDS: DOCUSATE SODIUM 50 MG/SENNA 8.6 MG TAB PO SCH ×2 (07:59→21:00)
[2017-05-05] MEDS: CARVEDILOL 6.25 MG TAB PO SCH ×2 (07:59→21:44)
[2017-05-05] MEDS: ASPIRIN 81 MG CHEW TAB CHEW SCH (07:59)
[2017-05-05] MEDS: LISINOPRIL 10 MG TAB PO SCH (07:59)
[2017-05-05] MEDS: PANTOPRAZOLE SODIUM 40 MG VIAL IV PUSH SCH (07:59)
[2017-05-05] MEDS: LORazepam 2 MG/ML VIAL IV SCH (08:00)
[2017-05-05] MEDS: SODIUM CHLORIDE 0.9% FLUSH 10 ML FLUSH IV FLUSH SCH ×2 (08:00→21:00)
[2017-05-05] MEDS: ZIPRASIDONE MESYLATE 20 MG VIAL IM PRN ×2 (09:39→16:48)
--- NOTE | 2017-05-05 11:43 | MB ---
cc: MARYJANE HARRIS M.D. Progress note 05/01/17 during rounds Diagnosis Carotid artery dissection Interval History This is a 77-year-old [place] male who presented to the ED with new onset right sided weakness. He has a medical history significant for dementia. On 04/27, per their report, the patient was in the emergency room at [facility] night for some weakness and was diagnosed with possible TIA. He was supposed to be admitted but patient left AMA, after his hearing aids were misplaced. Yesterday he came to [facility] with complaints of severe headache. Laboratory and imaging studies to include a CT were performed, the diagnoses of complex migraine the patient was discharged home. After discharge, with family noticed that he was leaning to the left side. He was last seen his baseline at 11:30 in the morning. Since he went home as per the every time he try to stand up from a sitting position he kept falling. He has fallen about 6 times. He also noticed that he kept falling to his left side and has been unable to walk because of left- sided weakness. He has a pacemaker and MRI cannot be done. 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 Neurosurgery was consulted. 04/30. Intubated and sedated. Response to pain. Moving all 4 extremities 05/01/2017 the patient has been agitated. He is sedated. His blood pressure is well-controlled. An MRI of the brain has been ordered, however, he was unable to undergo his MRI due to the presence of his pacemaker. Labs, Micro, & Vital Signs Results Date Time Temp Pulse Resp B/P (MAP) Pulse Ox O2 Delivery O2 Flow Rate FiO2 05/04/17 16:00 112 05/04/17 16:00 99.2 112 24 157/87 (110) 95 05/04/17 14:00 131 05/04/17 12:10 108 181/111 05/04/17 12:00 115 05/04/17 12:00 98.6 100 20 181/111 (134) 95 05/04/17 10:00 95 05/04/17 08:00 101 05/04/17 08:00 98.7 95 22 147/97 (114) 95 05/04/17 06:00 89 05/04/17 04:00 99.1 95 20 139/93 (108) 97 05/04/17 04:00 89 05/04/17 02:00 89 05/04/17 00:00 86 05/04/17 00:00 99.7 90 17 128/84 (99) 99 05/03/17 22:00 89 05/03/17 20:00 100.5 101 15 147/91 (109) 97 05/03/17 20:00 88 05/03/17 18:00 82 05/03/17 17:00 76 167/98 Constitutional Vital Signs Date Time Temp Pulse Resp B/P (MAP) Pulse Ox O2 Delivery O2 Flow Rate FiO2 05/04/17 16:00 112 05/04/17 16:00 99.2 112 24 157/87 (110) 95 05/04/17 14:00 131 05/04/17 12:10 108 181/111 05/04/17 12:00 115 05/04/17 12:00 98.6 100 20 181/111 (134) 95 05/04/17 10:00 95 05/04/17 08:00 101 05/04/17 08:00 98.7 95 22 147/97 (114) 95 05/04/17 06:00 89 05/04/17 04:00 99.1 95 20 139/93 (108) 97 05/04/17 04:00 89 05/04/17 02:00 89 05/04/17 00:00 86 05/04/17 00:00 99.7 90 17 128/84 (99) 99 05/03/17 22:00 89 05/03/17 20:00 100.5 101 15 147/91 (109) 97 05/03/17 20:00 88 05/03/17 18:00 82 05/03/17 17:00 76 167/98 Physical Exam Mr winter is awake, alert. Oriented to self and place. Speech fluent. Follows commands Cranial Nerves: Pupils equal, round, reactive to light. Eyes appear conjugated. There was no nystagmus, no papilledema. Face musculature appeared symmetrical at rest. Face sensation, olfaction, visual titus, and hearing cannot be adequately assessed due to his neurological condition. The patient has a corneal reflex. He has a gag reflex. The sternocleidomastoid and trapezius are symmetrical. Cervical Spine: His neck is soft, supple, without nuchal rigidity. Motor: He moves all 4 extremities weakly and follows commands Reflexes: Deep tendon reflexes are 1+ and symmetrical in the biceps, triceps, and brachioradialis, bilaterally, in the upper extremities. In the lower extremities, the patellar and ankles are 1+, bilaterally. There is a bilateral plantar flexion response. There is no clonus or other abnormal reflexes noted. Sensory: On examination there is good response to pain localizing with upper and lower extremities. Cerebellar: Examination cannot be adequately assessed due to the patient's neurological condition. Medications Current Medications Current Medications Sodium Chloride (NS Flush) 2 ml UNSCH PRN IVF FLUSH AFTER USING IV ACCESS; Start 04/29/17 at 10:15; Stop 04/29/17 at 14:19; Status DC Sodium Chloride 500 ml @ 500 mls/hr BOLUS ONCE IV Last administered on 10:36; Start 04/29/17 at 10:15; Stop 04/29/17 at 11:14; Status DC Ceftriaxone Sodium 1000 mg/ Sodium Chloride 100 ml @ 200 mls/hr ONCE ONCE IV Last administered on 04/29/17 12:15; Start 04/29/17 at 11:30; Stop 04/29/17 at 11:59; Status DC Iohexol (Omnipaque 350 Inj) 75 ml STK-MED ONCE IV PUSH Last administered on 12:12; Start 04/29/17 at 12:12; Stop 04/29/17 at 12:13; Status DC Ondansetron HCl (Zofran Inj) 4 mg ONCE ONCE IV PUSH Last administered on 13:51; Start 04/29/17 at 14:00; Stop 04/29/17 at 14:01; Status DC Sodium Chloride 1,000 ml @ 42 mls/hr [id number] IV Last administered on 06:55; Start 04/29/17 at 14:00 Sodium Chloride (NS Flush) 2 ml UNSCH PRN IV FLUSH FLUSH AFTER USING IV ACCESS ; Start 04/29/17 at 14:00 Sodium Chloride (NS Flush) 2 ml BID IV FLUSH Last administered on 05/05/17 08: 00; Start 04/29/17 at 21:00 Pantoprazole Sodium (Protonix Inj) 40 mg DAILY IV PUSH Last administered on 07:59; Start 04/30/17 at 09:00 Ondansetron HCl (Zofran Inj) 4 mg Q6H PRN IV PUSH NAUSEA OR VOMITING; Start at 14:00 Albuterol/ Ipratropium (Duoneb Neb) 1 ampule Q4HR NEB PRN INH WHEEZING Last administered on 05/05/17 06:15; Start 04/29/17 at 14:00 Miscellaneous Information 1 [id number] XX ; Start 04/29/17 at 14:00 Chlorhexidine Gluconate (Chlorhexidine 2% Cloth) Taper DAILY@04 TOP Last administered on 05/03/17 04:37; Start 04/30/17 at 04:00; Stop 04/26/18 at 03:59 Chlorhexidine Gluconate (Chlorhexidine 2% Cloth) 3 pack UNSCH PRN TOP HYGIENIC CARE; Start 04/29/17 at 14:00 Senna/Docusate Sodium (Leonila-Colace) 1 tab BID PO Last administered on 07:59; Start 04/29/17 at 21:00 Magnesium Hydroxide (Milk Of Magnesia Liq) 30 ml Q12H PRN PO MILD - MODERATE CONSTIPATION; Start 04/29/17 at 14:00 Sennosides (Senokot) 17.2 mg Q12H PRN PO MODERATE - SEVERE CONSTIPATION; Start 04/29/17 at 14:00 Bisacodyl (Dulcolax Supp) 10 mg DAILY PRN RECTAL SEVERE CONSITIPATION; Start at 14:00 Lactulose (Lactulose Liq) 30 ml DAILY PRN PO SEVERE CONSITIPATION; Start at 14:00 Potassium Chloride 100 ml @ 50 mls/hr Q2H PRN IV For Potassium 2.8 - 3.2 mEq/L ; Start 04/29/17 at 14:00 Potassium Chloride 100 ml @ 50 mls/hr Q2H PRN IV For Potassium 2.8 - 3.2 mEq/ L Last administered on 05/02/17 21:10; Start 04/29/17 at 14:00 Potassium Bicarb/ Potassium Chloride (K-Lyte Cl Eff) 50 meq UNSCH PRN PO For Potassium 3.3 - 3.5 mEq/L; Start 04/29/17 at 14:00 Potassium Chloride 100 ml @ 25 mls/hr UNSCH PRN IV For Potassium 3.3 - 3.5 mEq /L; Start 04/29/17 at 14:00 Potassium Chloride 100 ml @ 50 mls/hr Q2H PRN IV For Potassium 3.3 - 3.5 mEq/L ; Start 04/29/17 at 14:00 Magnesium Sulfate 4 gm/Sodium Chloride 100 ml @ 50 mls/hr UNSCH PRN IV For Magnesium 0.9 - 1.1 mg/dL; Start 04/29/17 at 14:00 Magnesium Oxide (Mag-Ox) 800 mg UNSCH PRN PO For Magnesium 1.2 - 1.6 mg/dL; Start 04/29/17 at 14:00 Magnesium Sulfate 2 gm/Sodium Chloride 100 ml @ 50 mls/hr UNSCH PRN IV For Magnesium 1.2 - 1.6 mg/dL; Start 04/29/17 at 14:00 Potassium Phosphate (K-Phos) 2,000 mg Q4H PRN PO For Phosphorus < 2.5 mg/dL; Start 04/29/17 at 14:00 Sodium Phosphate 30 mmol/Sodium Chloride 250 ml @ 42 mls/hr UNSCH PRN IV For Phosphorus < 2.5 mg/dL; Start 04/29/17 at 14:00 Potassium Phosphate (K-Phos) 2,000 mg UNSCH PRN PO/TUBE SEE LABEL COMMENTS; Start 04/29/17 at 14:00 Potassium Phosphate 30 mmol/ Sodium Chloride 260 ml @ 42 mls/hr UNSCH PRN IV SEE LABEL COMMENTS; Start 04/29/17 at 14:00 Dextrose (D50w (Vial) Inj) 50 ml UNSCH PRN IV PUSH HYPOGLYCEMIA-SEE COMMENTS; Start 04/29/17 at 14:15 Glucagon (Glucagon Inj) 1 mg UNSCH PRN OTHER HYPOGLYCEMIA-SEE COMMENTS; Start 04/29/17 at 14:15 Insulin Aspart (NovoLOG SUPPLEMENTAL SCALE) 1 ACHS SLIDING SCALE SQ ; Start at 17:00 Acetaminophen (Ofirmev 1000 Mg/ 100 ml Inj) 1,000 mg Q6H PRN IV PAIN SCALE 3 TO 10 Last administered on 05/04/17t 04:05; Start 04/29/17 at 14:15 Aspirin (Aspirin Chew) 81 mg DAILY CHEW Last administered on 05/05/17 07:59; Start 04/30/17 at 09:00 Aspirin (Aspirin Chew) 81 mg ONCE ONCE CHEW Last administered on 04/29/17 17: 00; Start 04/29/17 at 17:00; Stop 04/29/17 at 17:05; Status DC Amlodipine Besylate (Norvasc) 10 mg HS PO Last administered on 05/04/17 20:25 ; Start 04/29/17 at 21:00 Carvedilol (Coreg) 6.25 mg BID PO Last administered on 05/05/17 07:59; Start 04/29/17 at 21:00 Lisinopril (Prinivil) 10 mg DAILY PO Last administered on 05/05/17 07:59; Start 04/30/17 at 09:00 Pravastatin Sodium (Pravachol) 80 mg HS PO Last administered on 05/04/17 20:26 ; Start 04/29/17 at 21:00 Heparin Sodium/ Dextrose 250 ml @ 10.56 mls/ hr TITRATE PRN IV Coagulation management Last administered on 05/03/17 09:36; Start 04/29/17 at 17:15; Stop 05/04/17 at 13:25; Status DC Labetalol HCl (Trandate Inj) 10 mg Q4H PRN IV PUSH SBP >140 Last administered on 05/04/17 10:11; Start 04/29/17 at 20:00 Nicardipine HCl 25 mg/Sodium Chloride 250 ml @ 50 mls/hr TITRATE PRN IV Blood pressure management Last administered on 05/04/17 18:00; Start 04/29/17 at 20: 00 Haloperidol Lactate (Haldol Inj) 2 mg Q6H PRN IV PUSH FOR PATIENT SAFETY DUE TO AGITATION/HALLUCINATIONS Last administered on 05/04/17 18:00; Start at 22:00 Haloperidol Lactate (Haldol Inj) 2 mg ONCE ONCE IV PUSH Last administered on 02:33; Start 04/30/17 at 02:00; Stop 04/30/17 at 02:07; Status DC Dexmedetomidine HCl 200 mcg/ Sodium Chloride 52 ml @ 4.59 mls/hr TITRATE PRN IV SEDATION Last administered on 05/03/17 07:12; Start 04/30/17 at 02:00 Sodium Chloride 1,000 ml @ 999 mls/hr Q1H1M ONCE IV Last administered on 09:30; Start 04/30/17 at 09:30; Stop 04/30/17 at 10:30; Status DC Warfarin Sodium (Coumadin) 5 mg DAILY@1600 PO ; Start 04/30/17 at 18:00 Patient Medication Teaching (Coumadin Booklet) 1 ONCE ONCE .XX Last administered on 05/01/17 16:22; Start 04/30/17 at 18:15; Stop 04/30/17 at 18:16 ; Status DC Lorazepam (Ativan Inj) 1 mg BID IV Last administered on 05/05/17 08:00; Start 04/30/17 at 21:00 Potassium Chloride 100 ml @ 100 mls/hr Q1H PRN IV For Potassium 2.8-3.2 mEq/L Last administered on 05/01/17 03:25; Start 04/30/17 at 20:00 Patient Medication Teaching (Coumadin Booklet) 1 STK-MED ONCE .ROUTE ; Start at 16:21; Stop 05/01/17 at 16:22; Status DC Albuterol/ Ipratropium (Duoneb Neb) 1 ampule Q2HR NEB PRN NEB SECRETIONS; Start 05/02/17 at 04:30 Ziprasidone (Geodon Inj) 20 mg Q4H PRN IM SEVERE AGITATION Last administered on 05/04/17 10:12; Start 05/02/17 at 17:00 Ziprasidone (Geodon Inj) 20 mg ONCE ONCE IM Last administered on 05/02/17 17: 30; Start 05/02/17 at 17:00; Stop 05/02/17 at 17:14; Status DC Midazolam HCl (Versed Inj) 5 mg ONCE ONCE IM ; Start 05/03/17 at 11:15; Stop at 15:36; Status DC Heparin Sodium/ Dextrose 250 ml @ 10 mls/hr TITRATE PRN IV Coagulation management; Start 05/04/17 at 13:30; Status Future Hold Sugammadex Sodium (Bridion Inj) 200 mg STK-MED ONCE IV PUSH ; Start 05/04/17 at 16:27; Stop 05/04/17 at 16:28; Status DC Cefazolin Sodium (Ancef Inj) 1,000 mg ONCE ONCE IV Last administered on t 16:29; Start 05/04/17 at 16:33; Stop 05/04/17 at 16:37; Status DC Miscellaneous Information ALL NURSING DEPARTME... UNSCH PRN .XX SEE LABEL COMMENTS; Start 05/04/17 at 17:01; Stop 05/05/17 at 17:00 Medical Decision Making MDM Remarks Last 48 hours Impressions Abdomen X-Ray 05/03/17 1144 Signed Impressions: Service Date/Time: April 12:09 - CONCLUSION: Feeding tube is not seen Mikel Martins MD Last [address] 04/29/17 1008 Signed Impressions: Service Date/Time: Saturday, April 29, 2017 11:31 - CONCLUSION: 1. Stable noncontrast head CT. No acute intracranial abnormality is identified. 2. Chronic changes include mild cerebral atrophy and periventricular white matter change characteristic of chronic microvascular ischemia. Mikel Angel MD Neck CTA 04/29/17 0000 Signed Impressions: Service Date/Time: Saturday, April 29, 2017 11:34 - CONCLUSION: 1. The distal right internal carotid artery at the C1-C2 level demonstrates a short segment of focal dissection measuring approximately 8 mm in length. The more distal internal carotid artery is normal. 2. There is no significant atherosclerotic disease or stenosis within either internal carotid artery. Mikel Angel MD Head CTA 04/29/17 0000 Signed Impressions: Service Date/Time: Saturday, April 29, 2017 11:34 - CONCLUSION: No acute intracranial vascular abnormality is identified. Mikel Angel MD Plan Plan Remarks Septic Shock Reassessment Heart: Regular rate and rhythm Lungs: Clear Skin: Warm Peripheral Pulses: Bounding Right Radial Bounding Left Radial Bounding Right Dorsalis Pedis Bounding Left Dorsalis Pedis Caprini VTE Risk Assessment Caprini VTE Risk Assessment Caprini VTE Risk Assessment: Mod/High Risk (score >= 2) Caprini Risk Assessment Model Point Value = 1 Point Value = 2 Point Value = 3 Point Value = 5 Age 41-60 Minor surgery BMI > 25 kg/m2 Swollen legs Varicose veins or History of unexplained or recurrent spontaneous Oral contraceptives or hormone replacement Sepsis (< 1 month) Serious lung disease, including pneumonia (< 1 month) Abnormal pulmonary function Acute myocardial infarction Congestive heart failure (< 1 month) History of inflammatory bowel disease Medical patient at bed rest Age 61-74 Arthroscopic surgery Major open surgery (> 45 min) Laparoscopic surgery (> 45 min) Malignancy Confined to bed (> 72 hours) Immobilizing plaster cast Central venous access Age >= 75 History of VTE Family history of VTE Factor V Leiden Prothrombin [id number] Lupus anticoagulant Anticardiolipin antibodies Elevated serum homocysteine Heparin-induced thrombocytopenia Other congenital or acquired thrombophilia Stroke (< 1 month) Elective arthroplasty Hip, pelvis, or leg fracture Acute spinal cord injury (< 1 month) Prophylaxis Regimen Total Risk Factor Score Risk Level Prophylaxis Regimen 0-1 Low Early ambulation 2 Moderate Order ONE of the following: *Sequential Compression Device (SCD) *Heparin 5000 units SQ BID 3-4 Higher Order ONE of the following medications: *Heparin 5000 units SQ TID *Enoxaparin/Lovenox 40 mg SQ daily (WT < 150 kg, CrCl > 30 mL/min) *Enoxaparin/Lovenox 30 mg SQ daily (WT < 150 kg, CrCl > 10-29 mL/min) *Enoxaparin/Lovenox 30 mg SQ BID (WT < 150 kg, CrCl > 30 mL/min) AND/OR *Sequential Compression Device (SCD) 5 or more Highest Order ONE of the following medications: *Heparin 5000 units SQ TID (Preferred with Epidurals) *Enoxaparin/Lovenox 40 mg SQ daily (WT < 150 kg, CrCl > 30 mL/min) *Enoxaparin/Lovenox 30 mg SQ daily (WT < 150 kg, CrCl > 10-29 mL/min) *Enoxaparin/Lovenox 30 mg SQ BID (WT < 150 kg, CrCl > 30 mL/min) AND *Sequential Compression Device (SCD) Attending Statement 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 Failed swallow test. Dobhoff tube yesterday. Will undergo a PEG for nutrition today Continue neuro checks.. CT brain-no acute abnormality. MRI of the brain Could not be done due to pacemaker. Follow up CT on 05/01 was stable Continue full anticoagulation with heparin drip and aspirin. Vascular surgeon has been consulted Defer to Neurology further recommendations HTN. Continue carvedilol 6.25 BID, [id number]/day, Norvasc 10mg/day Hyperlipidemia. Continue simvastatin Pacemaker-[employer] Kalpesh demand rate set at 60 Pulmonary.. Continue aggressive pulmonary toilette, nasotracheal suction, and breathing treatments with nebulizers. Renal. Continue to monitor closely urine output, BUN and creatinine Endocrine. Continue to onitor serial Acu checks and SSI as needed in detail Contiue to ID monitor for signs of infection Continue Protonix for stress ulcer prophylaxis Continue Redd hose and SCD's for DVT prophylaxis. Maryjane Harris MD FV/EO /8:41 AM /11:34 AM TERESA
--- NOTE | 2017-05-05 11:49 | MB ---
cc: MARYJANE MANCIA M.D. PROGRESS NOTE 05/02/17 during rounds Diagnosis Carotid artery dissection Interval History This is a 77-year-old [place] male who presented to the ED with new onset right sided weakness. He has a medical history significant for dementia. On 04/27, per their report, the patient was in the emergency room at [facility] night for some weakness and was diagnosed with possible TIA. He was supposed to be admitted but patient left AMA, after his hearing aids were misplaced. Yesterday he came to [facility] with complaints of severe headache. Laboratory and imaging studies to include a CT were performed, the diagnoses of complex migraine the patient was discharged home. After discharge, with family noticed that he was leaning to the left side. He was last seen his baseline at 11:30 in the morning. Since he went home as per the every time he try to stand up from a sitting position he kept falling. He has fallen about 6 times. He also noticed that he kept falling to his left side and has been unable to walk because of left- sided weakness. He has a pacemaker and MRI cannot be done. 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 Neurosurgery was consulted. 04/30. Intubated and sedated. Response to pain. Moving all 4 extremities 05/01/2017 the patient has been agitated. He is sedated. His blood pressure is well-controlled. An MRI of the brain has been ordered, however, he was unable to undergo his MRI due to the presence of his pacemaker. The patient remains agitated and sedated. He is restrained. He arouses to sternal rub. He does not follow command. CT of the brain has been ordered. Labs, Micro, & Vital Signs Results Date Time Temp Pulse Resp B/P (MAP) Pulse Ox O2 Delivery O2 Flow Rate FiO2 05/04/17 16:00 112 05/04/17 16:00 99.2 112 24 157/87 (110) 95 05/04/17 14:00 131 05/04/17 12:10 108 181/111 05/04/17 12:00 115 05/04/17 12:00 98.6 100 20 181/111 (134) 95 05/04/17 10:00 95 05/04/17 08:00 101 05/04/17 08:00 98.7 95 22 147/97 (114) 95 05/04/17 06:00 89 05/04/17 04:00 99.1 95 20 139/93 (108) 97 05/04/17 04:00 89 05/04/17 02:00 89 05/04/17 00:00 86 05/04/17 00:00 99.7 90 17 128/84 (99) 99 05/03/17 22:00 89 05/03/17 20:00 100.5 101 15 147/91 (109) 97 05/03/17 20:00 88 05/03/17 18:00 82 05/03/17 17:00 76 167/98 Constitutional Vital Signs Date Time Temp Pulse Resp B/P (MAP) Pulse Ox O2 Delivery O2 Flow Rate FiO2 05/04/17 16:00 112 05/04/17 16:00 99.2 112 24 157/87 (110) 95 05/04/17 14:00 131 05/04/17 12:10 108 181/111 05/04/17 12:00 115 05/04/17 12:00 98.6 100 20 181/111 (134) 95 05/04/17 10:00 95 05/04/17 08:00 101 05/04/17 08:00 98.7 95 22 147/97 (114) 95 05/04/17 06:00 89 05/04/17 04:00 99.1 95 20 139/93 (108) 97 05/04/17 04:00 89 05/04/17 02:00 89 05/04/17 00:00 86 05/04/17 00:00 99.7 90 17 128/84 (99) 99 05/03/17 22:00 89 05/03/17 20:00 100.5 101 15 147/91 (109) 97 05/03/17 20:00 88 05/03/17 18:00 82 05/03/17 17:00 76 167/98 Physical Exam Mr winter is awake, alert. Oriented to self and place. Speech fluent. Follows commands Cranial Nerves: Pupils equal, round, reactive to light. Eyes appear conjugated. There was no nystagmus, no papilledema. Face musculature appeared symmetrical at rest. Face sensation, olfaction, visual titus, and hearing cannot be adequately assessed due to his neurological condition. The patient has a corneal reflex. He has a gag reflex. The sternocleidomastoid and trapezius are symmetrical. Cervical Spine: His neck is soft, supple, without nuchal rigidity. Motor: He moves all 4 extremities weakly and follows commands Reflexes: Deep tendon reflexes are 1+ and symmetrical in the biceps, triceps, and brachioradialis, bilaterally, in the upper extremities. In the lower extremities, the patellar and ankles are 1+, bilaterally. There is a bilateral plantar flexion response. There is no clonus or other abnormal reflexes noted. Sensory: On examination there is good response to pain localizing with upper and lower extremities. Cerebellar: Examination cannot be adequately assessed due to the patient's neurological condition. Medications Current Medications Current Medications Sodium Chloride (NS Flush) 2 ml UNSCH PRN IVF FLUSH AFTER USING IV ACCESS; Start 04/29/17 at 10:15; Stop 04/29/17 at 14:19; Status DC Sodium Chloride 500 ml @ 500 mls/hr BOLUS ONCE IV Last administered on 10:36; Start 04/29/17 at 10:15; Stop 04/29/17 at 11:14; Status DC Ceftriaxone Sodium 1000 mg/ Sodium Chloride 100 ml @ 200 mls/hr ONCE ONCE IV Last administered on 04/29/17 12:15; Start 04/29/17 at 11:30; Stop 04/29/17 at 11:59; Status DC Iohexol (Omnipaque 350 Inj) 75 ml STK-MED ONCE IV PUSH Last administered on 12:12; Start 04/29/17 at 12:12; Stop 04/29/17 at 12:13; Status DC Ondansetron HCl (Zofran Inj) 4 mg ONCE ONCE IV PUSH Last administered on 13:51; Start 04/29/17 at 14:00; Stop 04/29/17 at 14:01; Status DC Sodium Chloride 1,000 ml @ 42 mls/hr [id number] IV Last administered on 06:55; Start 04/29/17 at 14:00 Sodium Chloride (NS Flush) 2 ml UNSCH PRN IV FLUSH FLUSH AFTER USING IV ACCESS ; Start 04/29/17 at 14:00 Sodium Chloride (NS Flush) 2 ml BID IV FLUSH Last administered on 05/05/17 08: 00; Start 04/29/17 at 21:00 Pantoprazole Sodium (Protonix Inj) 40 mg DAILY IV PUSH Last administered on 07:59; Start 04/30/17 at 09:00 Ondansetron HCl (Zofran Inj) 4 mg Q6H PRN IV PUSH NAUSEA OR VOMITING; Start at 14:00 Albuterol/ Ipratropium (Duoneb Neb) 1 ampule Q4HR NEB PRN INH WHEEZING Last administered on 05/05/17 06:15; Start 04/29/17 at 14:00 Miscellaneous Information 1 Q361D XX ; Start 04/29/17 at 14:00 Chlorhexidine Gluconate (Chlorhexidine 2% Cloth) Taper DAILY@04 TOP Last administered on 05/03/17 04:37; Start 04/30/17 at 04:00; Stop 04/26/18 at 03:59 Chlorhexidine Gluconate (Chlorhexidine 2% Cloth) 3 pack UNSCH PRN TOP HYGIENIC CARE; Start 04/29/17 at 14:00 Senna/Docusate Sodium (Leonila-Colace) 1 tab BID PO Last administered on 07:59; Start 04/29/17 at 21:00 Magnesium Hydroxide (Milk Of Magnesia Liq) 30 ml Q12H PRN PO MILD - MODERATE CONSTIPATION; Start 04/29/17 at 14:00 Sennosides (Senokot) 17.2 mg Q12H PRN PO MODERATE - SEVERE CONSTIPATION; Start 04/29/17 at 14:00 Bisacodyl (Dulcolax Supp) 10 mg DAILY PRN RECTAL SEVERE CONSITIPATION; Start at 14:00 Lactulose (Lactulose Liq) 30 ml DAILY PRN PO SEVERE CONSITIPATION; Start at 14:00 Potassium Chloride 100 ml @ 50 mls/hr Q2H PRN IV For Potassium 2.8 - 3.2 mEq/L ; Start 04/29/17 at 14:00 Potassium Chloride 100 ml @ 50 mls/hr Q2H PRN IV For Potassium 2.8 - 3.2 mEq/ L Last administered on 05/02/17t 21:10; Start 04/29/17 at 14:00 Potassium Bicarb/ Potassium Chloride (K-Lyte Cl Eff) 50 meq UNSCH PRN PO For Potassium 3.3 - 3.5 mEq/L; Start 04/29/17 at 14:00 Potassium Chloride 100 ml @ 25 mls/hr UNSCH PRN IV For Potassium 3.3 - 3.5 mEq /L; Start 04/29/17 at 14:00 Potassium Chloride 100 ml @ 50 mls/hr Q2H PRN IV For Potassium 3.3 - 3.5 mEq/L ; Start 04/29/17 at 14:00 Magnesium Sulfate 4 gm/Sodium Chloride 100 ml @ 50 mls/hr UNSCH PRN IV For Magnesium 0.9 - 1.1 mg/dL; Start 04/29/17 at 14:00 Magnesium Oxide (Mag-Ox) 800 mg UNSCH PRN PO For Magnesium 1.2 - 1.6 mg/dL; Start 04/29/17 at 14:00 Magnesium Sulfate 2 gm/Sodium Chloride 100 ml @ 50 mls/hr UNSCH PRN IV For Magnesium 1.2 - 1.6 mg/dL; Start 04/29/17 at 14:00 Potassium Phosphate (K-Phos) 2,000 mg Q4H PRN PO For Phosphorus < 2.5 mg/dL; Start 04/29/17 at 14:00 Sodium Phosphate 30 mmol/Sodium Chloride 250 ml @ 42 mls/hr UNSCH PRN IV For Phosphorus < 2.5 mg/dL; Start 04/29/17 at 14:00 Potassium Phosphate (K-Phos) 2,000 mg UNSCH PRN PO/TUBE SEE LABEL COMMENTS; Start 04/29/17 at 14:00 Potassium Phosphate 30 mmol/ Sodium Chloride 260 ml @ 42 mls/hr UNSCH PRN IV SEE LABEL COMMENTS; Start 04/29/17 at 14:00 Dextrose (D50w (Vial) Inj) 50 ml UNSCH PRN IV PUSH HYPOGLYCEMIA-SEE COMMENTS; Start 04/29/17 at 14:15 Glucagon (Glucagon Inj) 1 mg UNSCH PRN OTHER HYPOGLYCEMIA-SEE COMMENTS; Start 04/29/17 at 14:15 Insulin Aspart (NovoLOG SUPPLEMENTAL SCALE) 1 ACHS SLIDING SCALE SQ ; Start at 17:00 Acetaminophen (Ofirmev 1000 Mg/ 100 ml Inj) 1,000 mg Q6H PRN IV PAIN SCALE 3 TO 10 Last administered on 05/04/17 04:05; Start 04/29/17 at 14:15 Aspirin (Aspirin Chew) 81 mg DAILY CHEW Last administered on 05/05/17 07:59; Start 04/30/17 at 09:00 Aspirin (Aspirin Chew) 81 mg ONCE ONCE CHEW Last administered on 04/29/17 17: 00; Start 04/29/17 at 17:00; Stop 04/29/17 at 17:05; Status DC Amlodipine Besylate (Norvasc) 10 mg HS PO Last administered on 05/04/17 20:25 ; Start 04/29/17 at 21:00 Carvedilol (Coreg) 6.25 mg BID PO Last administered on 05/05/17 07:59; Start 04/29/17 at 21:00 Lisinopril (Prinivil) 10 mg DAILY PO Last administered on 05/05/17 07:59; Start 04/30/17 at 09:00 Pravastatin Sodium (Pravachol) 80 mg HS PO Last administered on 05/04/17 20:26 ; Start 04/29/17 at 21:00 Heparin Sodium/ Dextrose 250 ml @ 10.56 mls/ hr TITRATE PRN IV Coagulation management Last administered on 05/03/17 09:36; Start 04/29/17 at 17:15; Stop 05/04/17 at 13:25; Status DC Labetalol HCl (Trandate Inj) 10 mg Q4H PRN IV PUSH SBP >140 Last administered on 05/04/17 10:11; Start 04/29/17 at 20:00 Nicardipine HCl 25 mg/Sodium Chloride 250 ml @ 50 mls/hr TITRATE PRN IV Blood pressure management Last administered on 05/04/17 18:00; Start 04/29/17 at 20: 00 Haloperidol Lactate (Haldol Inj) 2 mg Q6H PRN IV PUSH FOR PATIENT SAFETY DUE TO AGITATION/HALLUCINATIONS Last administered on 05/04/17 18:00; Start at 22:00 Haloperidol Lactate (Haldol Inj) 2 mg ONCE ONCE IV PUSH Last administered on 02:33; Start 04/30/17 at 02:00; Stop 04/30/17 at 02:07; Status DC Dexmedetomidine HCl 200 mcg/ Sodium Chloride 52 ml @ 4.59 mls/hr TITRATE PRN IV SEDATION Last administered on 05/03/17 07:12; Start 04/30/17 at 02:00 Sodium Chloride 1,000 ml @ 999 mls/hr Q1H1M ONCE IV Last administered on 09:30; Start 04/30/17 at 09:30; Stop 04/30/17 at 10:30; Status DC Warfarin Sodium (Coumadin) 5 mg DAILY@1600 PO ; Start 04/30/17 at 18:00 Patient Medication Teaching (Coumadin Booklet) 1 ONCE ONCE .XX Last administered on 05/01/17 16:22; Start 04/30/17 at 18:15; Stop 04/30/17 at 18:16 ; Status DC Lorazepam (Ativan Inj) 1 mg BID IV Last administered on 05/05/17 08:00; Start 04/30/17 at 21:00 Potassium Chloride 100 ml @ 100 mls/hr Q1H PRN IV For Potassium 2.8-3.2 mEq/L Last administered on 05/01/17 03:25; Start 04/30/17 at 20:00 Patient Medication Teaching (Coumadin Booklet) 1 STK-MED ONCE .ROUTE ; Start at 16:21; Stop 05/01/17 at 16:22; Status DC Albuterol/ Ipratropium (Duoneb Neb) 1 ampule Q2HR NEB PRN NEB SECRETIONS; Start 05/02/17 at 04:30 Ziprasidone (Geodon Inj) 20 mg Q4H PRN IM SEVERE AGITATION Last administered on 05/04/17 10:12; Start 05/02/17 at 17:00 Ziprasidone (Geodon Inj) 20 mg ONCE ONCE IM Last administered on 05/02/17 17: 30; Start 05/02/17 at 17:00; Stop 05/02/17 at 17:14; Status DC Midazolam HCl (Versed Inj) 5 mg ONCE ONCE IM ; Start 05/03/17 at 11:15; Stop at 15:36; Status DC Heparin Sodium/ Dextrose 250 ml @ 10 mls/hr TITRATE PRN IV Coagulation management; Start 05/04/17 at 13:30; Status Future Hold Sugammadex Sodium (Bridion Inj) 200 mg STK-MED ONCE IV PUSH ; Start 05/04/17 at 16:27; Stop 05/04/17 at 16:28; Status DC Cefazolin Sodium (Ancef Inj) 1,000 mg ONCE ONCE IV Last administered on t 16:29; Start 05/04/17 at 16:33; Stop 05/04/17 at 16:37; Status DC Miscellaneous Information ALL NURSING DEPARTME... UNSCH PRN .XX SEE LABEL COMMENTS; Start 05/04/17 at 17:01; Stop 05/05/17 at 17:00 Medical Decision Making MDM Remarks Last 48 hours Impressions Abdomen X-Ray 05/03/17 1144 Signed Impressions: Service Date/Time: April 12:09 - CONCLUSION: Feeding tube is not seen Mikel Martins MD Last [address] 04/29/17 1008 Signed Impressions: Service Date/Time: Saturday, April 29, 2017 11:31 - CONCLUSION: 1. Stable noncontrast head CT. No acute intracranial abnormality is identified. 2. Chronic changes include mild cerebral atrophy and periventricular white matter change characteristic of chronic microvascular ischemia. Mikel Angel MD Neck CTA 04/29/17 0000 Signed Impressions: Service Date/Time: Saturday, April 29, 2017 11:34 - CONCLUSION: 1. The distal right internal carotid artery at the C1-C2 level demonstrates a short segment of focal dissection measuring approximately 8 mm in length. The more distal internal carotid artery is normal. 2. There is no significant atherosclerotic disease or stenosis within either internal carotid artery. Mikel Angel MD Head CTA 04/29/17 0000 Signed Impressions: Service Date/Time: Saturday, April 29, 2017 11:34 - CONCLUSION: No acute intracranial vascular abnormality is identified. Mikel Angel MD Plan Plan Remarks Septic Shock Reassessment Heart: Regular rate and rhythm Lungs: Clear Skin: Warm Peripheral Pulses: Bounding Right Radial Bounding Left Radial Bounding Right Dorsalis Pedis Bounding Left Dorsalis Pedis Caparmani VTE Risk Assessment Caprini VTE Risk Assessment Caparmani VTE Risk Assessment: Mod/High Risk (score >= 2) Caprini Risk Assessment Model Point Value = 1 Point Value = 2 Point Value = 3 Point Value = 5 Age 41-60 Minor surgery BMI > 25 kg/m2 Swollen legs Varicose veins or History of unexplained or recurrent spontaneous Oral contraceptives or hormone replacement Sepsis (< 1 month) Serious lung disease, including pneumonia (< 1 month) Abnormal pulmonary function Acute myocardial infarction Congestive heart failure (< 1 month) History of inflammatory bowel disease Medical patient at bed rest Age 61-74 Arthroscopic surgery Major open surgery (> 45 min) Laparoscopic surgery (> 45 min) Malignancy Confined to bed (> 72 hours) Immobilizing plaster cast Central venous access Age >= 75 History of VTE Family history of VTE Factor V Leiden Prothrombin [id number] Lupus anticoagulant Anticardiolipin antibodies Elevated serum homocysteine Heparin-induced thrombocytopenia Other congenital or acquired thrombophilia Stroke (< 1 month) Elective arthroplasty Hip, pelvis, or leg fracture Acute spinal cord injury (< 1 month) Prophylaxis Regimen Total Risk Factor Score Risk Level Prophylaxis Regimen 0-1 Low Early ambulation 2 Moderate Order ONE of the following: *Sequential Compression Device (SCD) *Heparin 5000 units SQ BID 3-4 Higher Order ONE of the following medications: *Heparin 5000 units SQ TID *Enoxaparin/Lovenox 40 mg SQ daily (WT < 150 kg, CrCl > 30 mL/min) *Enoxaparin/Lovenox 30 mg SQ daily (WT < 150 kg, CrCl > 10-29 mL/min) *Enoxaparin/Lovenox 30 mg SQ BID (WT < 150 kg, CrCl > 30 mL/min) AND/OR *Sequential Compression Device (SCD) 5 or more Highest Order ONE of the following medications: *Heparin 5000 units SQ TID (Preferred with Epidurals) *Enoxaparin/Lovenox 40 mg SQ daily (WT < 150 kg, CrCl > 30 mL/min) *Enoxaparin/Lovenox 30 mg SQ daily (WT < 150 kg, CrCl > 10-29 mL/min) *Enoxaparin/Lovenox 30 mg SQ BID (WT < 150 kg, CrCl > 30 mL/min) AND *Sequential Compression Device (SCD) Attending Statement right ICA internal carotid artery dissection at the level of C1-C2 History of TIA Hearing deficit Dementia Cephalgia Continue neuro checks.. CT brain-no acute abnormality. MRI of the brain Could not be done due to pacemaker. Follow up CT on 05/01 was stable Continue full anticoagulation with heparin drip and aspirin. Vascular surgeon has been consulted Defer to Neurology further recommendations HTN. Continue carvedilol 6.25 BID, [id number]/day, Norvasc 10mg/day Hyperlipidemia. Continue simvastatin Pacemaker-St. Kalpesh demand rate set at 60 Pulmonary.. Continue aggressive pulmonary toilette, nasotracheal suction, and breathing treatments with nebulizers. Renal. Continue to monitor closely urine output, BUN and creatinine Endocrine. Continue to onitor serial Acu checks and SSI as needed in detail Contiue to ID monitor for signs of infection Continue Protonix for stress ulcer prophylaxis Continue Redd hose and SCD's for DVT prophylaxis. MD KELSY Fernandez/JHON /8:44 AM /11:41 AM TERESA
--- NOTE | 2017-05-05 11:53 | MB ---
cc: MARYJANE MANCIA M.D. KELSY/JHON /8:46 AM /11:46 AM MTDD
--- NOTE | 2017-05-05 14:08 | HHI.GIFU ---
Subjective Remarks Followup for PEG tube, placed yesterday. (Milagros Ansari) Objective Vitals I&O Vital Signs Date Time Temp Pulse Resp B/P (MAP) Pulse Ox O2 Delivery O2 Flow Rate FiO2 05/05/17 12:00 99 05/05/17 12:00 98.7 99 21 147/97 (114) 97 05/05/17 10:00 98 05/05/17 08:00 98.4 82 14 129/79 (96) 94 05/05/17 08:00 82 05/05/17 06:00 92 05/05/17 04:00 98.7 81 19 103/73 (83) 94 05/05/17 04:00 81 05/05/17 02:00 83 05/05/17 00:00 99.1 91 14 110/75 (87) 95 05/05/17 00:00 91 05/04/17 22:00 94 05/04/17 20:00 99.7 119 28 146/78 (100) 94 05/04/17 20:00 119 05/04/17 18:00 127 05/04/17 18:00 120 197/95 05/04/17 17:45 108 16 147/84 (105) 100 Nasal Cannula 2 05/04/17 17:30 97 16 130/85 (100) 100 Nasal Cannula 2 05/04/17 17:10 98.3 96 16 123/78 (93) 100 Simple Mask 8 05/04/17 16:00 112 05/04/17 16:00 99.2 112 24 157/87 (110) 95 I/O 05/04/17 05/04/17 05/04/17 05/05/17 05/05/17 05/05/17 07:00 15:00 23:00 07:00 15:00 23:00 Intake Total 804 ml Output Total 1450 ml 1250 ml 550 ml Balance -1450 ml -446 ml -550 ml IV Total 804 ml Other 0 ml Output Urine Total 1450 ml 1250 ml 550 ml # Voids 3 # Bowel Movements 0 0 0 Laboratory Laboratory Tests Test 05/05/17 04:29 White Blood Count 11.8 Red Blood Count 4.51 Hemoglobin 13.0 Hematocrit 39.3 Mean Corpuscular Volume 87.2 Mean Corpuscular Hemoglobin 28.8 Mean Corpuscular Hemoglobin Concent 33.0 Red Cell Distribution Width 13.4 Platelet Count 172 Mean Platelet Volume 8.3 Activated Partial Thromboplast Time 26.8 Date/Time Source Procedure Growth Status 04/29/17 10:30 Urine Catheterized Urine Urine Culture - Final NO GROWTH IN 48 HOURS. Complete Imaging Last Impressions Abdomen X-Ray 05/03/17 1144 Signed Impressions: Service Date/Time: April 12:09 - CONCLUSION: Feeding tube is not seen Mikel Martins MD Chest X-Ray 05/03/17 0000 Signed Impressions: Service Date/Time: April 12:09 - CONCLUSION: Feeding tube coiled in the mid esophagus. Milton Doshi MD Head CT 05/01/17 0000 Signed Impressions: Service Date/Time: Monday, May 01, 2017 10:45 - CONCLUSION: No significant change has occurred. Rony Palm MD Neck CTA 04/29/17 0000 Signed Impressions: Service Date/Time: Saturday, April 29, 2017 11:34 - CONCLUSION: 1. The distal right internal carotid artery at the C1-C2 level demonstrates a short segment of focal dissection measuring approximately 8 mm in length. The more distal internal carotid artery is normal. 2. There is no significant atherosclerotic disease or stenosis within either internal carotid artery. Mikel Angel MD Head CTA 04/29/17 0000 Signed Impressions: Service Date/Time: Saturday, April 29, 2017 11:34 - CONCLUSION: No acute intracranial vascular abnormality is identified. Mikel Angel MD Physical Exam HEENT: Normocephalic; atraumatic; no jaundice. NECK: Neck is supple CHEST: CTA, diminished CARDIAC: Regular rate and rhythm with no murmur gallop or rubs. ABDOMEN: Soft, nondistended, nontender; no hepatosplenomegaly; bowel sounds are present. PEG C/D/I EXTREMITIES: No clubbing, cyanosis, or edema. SKIN: Normal; no rash; no jaundice. SHOES SALESPERSON: Lethargic. Generalized weakness. (Milagros Ansari) Assessment and Plan Plan ASSESSMENT: - Dysphagia, FEN. Pt with CVA, 8 mm right ICA internal carotid artery dissection at the level of C1-C2- no IR intervention recommended secondary to adequate blood flow. On heparin drip. ST following, has not passed swallow evaluation. Nurse unsuccessful with placing Dobhoff tube. PEG placed 05/04/17 without complications. Olericulturist recommends Jevity 1.5 at 65cc/hr. PLAN: - Okay to start TF today - Olericulturist recommends Jevity 1.5 at 65cc/hr. - Flush tube with 50 cc of water every 4-6 hours - Flush tube after feedings - Apply abdominal binder as necessary - Clamp G-tube after use and flush. - Supportive care Patient seen and examined by Dr. Matthews and myself and this note is written on his behalf (Milagros Ansari) Plan Patient was seen and examined, tube in good position, no complaint except some hiccups, I encouraged patient to start feeding, may use Zofran to see if that would help hiccups (Carmelita Matthews MD) Milagros Ansari May 05, 2017 14:08 Carmelita Matthews MD May 05, 2017 14:59
[2017-05-05] MEDS: ONDANSETRON HCL 4 MG/2 ML VIAL IV PUSH PRN (14:17)
[2017-05-05] MEDS: WARFARIN SOD 5 MG TAB PO SCH (16:29)
--- NOTE | 2017-05-05 17:53 | HHI.PR ---
Subjective Remarks awake and alert, states his name occasional agitation - at home on Seroquel and Klonopin tolerating tube feedings - gradually increase rate ff commands Objective Vitals Vital Signs Date Time Temp Pulse Resp B/P (MAP) Pulse Ox O2 Delivery O2 Flow Rate FiO2 05/05/17 14:00 91 05/05/17 12:00 99 05/05/17 12:00 98.7 99 21 147/97 (114) 97 05/05/17 10:00 98 05/05/17 08:00 98.4 82 14 129/79 (96) 94 05/05/17 08:00 82 05/05/17 06:00 92 05/05/17 04:00 98.7 81 19 103/73 (83) 94 05/05/17 04:00 81 05/05/17 02:00 83 05/05/17 00:00 99.1 91 14 110/75 (87) 95 05/05/17 00:00 91 05/04/17 22:00 94 05/04/17 20:00 99.7 119 28 146/78 (100) 94 05/04/17 20:00 119 05/04/17 18:00 127 05/04/17 18:00 120 197/95 I/O 05/04/17 05/04/17 05/04/17 05/05/17 05/05/17 05/05/17 07:00 15:00 23:00 07:00 15:00 23:00 Intake Total 804 ml Output Total 1450 ml 1250 ml 550 ml Balance -1450 ml -446 ml -550 ml IV Total 804 ml Other 0 ml Output Urine Total 1450 ml 1250 ml 550 ml # Voids 3 # Bowel Movements 0 0 0 Result Diagram: 05/05/17 0429 05/03/17 1400 Imaging Last Impressions Abdomen X-Ray 05/03/17 1144 Signed Impressions: Service Date/Time: April 12:09 - CONCLUSION: Feeding tube is not seen Mikel Martins MD Chest X-Ray 05/03/17 0000 Signed Impressions: Service Date/Time: April 12:09 - CONCLUSION: Feeding tube coiled in the mid esophagus. Milton Doshi MD Head CT 05/01/17 0000 Signed Impressions: Service Date/Time: Monday, May 01, 2017 10:45 - CONCLUSION: No significant change has occurred. Rony Palm MD Neck CTA 04/29/17 0000 Signed Impressions: Service Date/Time: Saturday, April 29, 2017 11:34 - CONCLUSION: 1. The distal right internal carotid artery at the C1-C2 level demonstrates a short segment of focal dissection measuring approximately 8 mm in length. The more distal internal carotid artery is normal. 2. There is no significant atherosclerotic disease or stenosis within either internal carotid artery. Mikel Angel MD Head CTA 04/29/17 0000 Signed Impressions: Service Date/Time: Saturday, April 29, 2017 11:34 - CONCLUSION: No acute intracranial vascular abnormality is identified. Mikel Angel MD Objective Remarks awake and alert, oriented x 3 + dysarthria anicteric pupils equal no facial asymmetry tongue midline,no gag reflex no nuchal rigidity lungs clear regular rhythm abdomen soft, nontender, + PEG extremities no edema grossly no sensory deficits- motor label stamper moves all equally gait testing deferred Procedures 05/04- PEG A/P Problem List: (1) CVA (cerebral vascular accident) ICD Code: I63.9 - Cerebral infarction, unspecified Status: Acute (2) Altered mental status ICD Code: R41.82 - Altered mental status, unspecified Status: Acute (3) Carotid artery dissection ICD Code: I77.71 - Dissection of carotid artery Status: Acute Assessment and Plan This is a 77-year-old gentleman that has presented to the emergency department 3 times in the last 3 days for neurologic symptomatology to include severe headaches left upper extremity weakness, vertigo. Noted to have after imaging studies right ICA focal dissection. Dr. Hinkle, interventional radiology was consulted by Dr. Rolle, no IR intervention regarding a stent is indicated secondary to adequate flow. T 8mm right ICA internal carotid artery dissection at the level of C1-C2- - april 27 History of TIA Hearing deficit Dementia Cephalgia Failed Swallowing Neurology ff 04/29 CTA brain-no acute vascular abnormality 04/29 CT brain-no acute abnormality continue on Seroquel 25 mg hs- at home was on this on chronic benz0- currently on IV Ativan q 12- change to Clonazepam 1 mg hs (at home was on 2 mg hs) and monitor. IM Geodon prn for agitation continue aspirin 81 mg daily on heparin infusion- and coumadin. Will DC start on eliquis- home 5 mg bid PT/OT/speech therapy daily Respiratory: stable Maintain O2 sat greater than 92% Bronchodilators when necessary Cardiovascular: Pacemaker Dyslipidemia Hypertension Maintain MAP > 65mmHg Continue carvedilol 6.25 BID, [id number]/day, Norvasc 10mg/day Continue simvastatin Pacemaker-St. Kalpesh demand rate set at 60 Renal: No Acosta -- Strict I/Os FEN/GI: Dysphagia- failed swallowing- S.P PEG 05/04 d/w through the course- from [facility] till now has not eaten for 6 days start TF- dietary recommendations Zofran 4 mg every 6 hours when necessary for nausea Protonix (home med) for GI prophylaxis Endocrine: Glucose monitoring per ICU protocol -- SSI Prophylaxis: GI Prophylaxis - Protonix DVT Prophylaxis- SCDs - - started back on Eliquis Activity- out of bed to chair daily PT/OT daily Problem Qualifiers (1) CVA (cerebral vascular accident): Qualified Codes: I63.8 - Other cerebral infarction Gillian Hernandez MD May 05, 2017 17:53
[2017-05-05] MEDS: APIXABAN 5 MG TABLET PO SCH (21:44)
[2017-05-05] MEDS: PRAVASTATIN SOD 80 MG TAB PO SCH (21:44)
[2017-05-05] MEDS: MEMANTINE HCL 10 MG TAB PO SCH (21:44)
[2017-05-05] MEDS: QUEtiapine FUMARATE 25 MG TAB G-TUBE SCH (21:44)
[2017-05-05] MEDS: clonazePAM 1 MG TAB PO SCH (21:44)
[2017-05-06] VITALS (11 sets, daily range): BP systolic 114–151; BP diastolic 73–91; PULSE 78–98; RESP 14–25; TEMP 98.7–99.7; O2SAT 95–100
[2017-05-06] MEDS: RESP: ALBUTEROL 2.5 MG/IPRATROPIUM 0.5 MG NEB (PRN) INH (00:08)
[2017-05-06] MEDS: CHLORHEXIDINE GLUCONATE 2 % 1 PACK (2 CLOTHS) TOP SCH (00:51)
[2017-05-06] MEDS: PANTOPRAZOLE SODIUM 40 MG VIAL IV PUSH SCH (08:00)
[2017-05-06] MEDS: APIXABAN 5 MG TABLET PO SCH ×2 (08:00→21:02)
[2017-05-06] MEDS: INSULIN ASPART SUPPLEMENTAL SCALE SQ SCH ×4 (08:00→21:00)
[2017-05-06] MEDS: MEMANTINE HCL 10 MG TAB PO SCH ×2 (08:01→21:01)
[2017-05-06] MEDS: LISINOPRIL 10 MG TAB PO SCH (08:01)
[2017-05-06] MEDS: DOCUSATE SODIUM 50 MG/SENNA 8.6 MG TAB PO SCH ×2 (08:01→21:02)
[2017-05-06] MEDS: SODIUM CHLORIDE 0.9% FLUSH 10 ML FLUSH IV FLUSH SCH ×2 (08:01→21:02)
[2017-05-06] MEDS: ASPIRIN 81 MG CHEW TAB CHEW SCH (08:01)
[2017-05-06] MEDS: CARVEDILOL 6.25 MG TAB PO SCH ×2 (08:01→21:01)
--- NOTE | 2017-05-06 11:09 | HHI.PR ---
Subjective Remarks awake and alert, interactive, aphasic but smiling and ff all commands tolerated tube feedings persistent hiccups overnight Objective Vitals Vital Signs Date Time Temp Pulse Resp B/P (MAP) Pulse Ox O2 Delivery O2 Flow Rate FiO2 05/06/17 10:00 78 05/06/17 08:00 99.0 87 20 148/89 (108) 98 05/06/17 08:00 89 05/06/17 06:00 81 05/06/17 04:00 99.7 86 18 122/73 (89) 100 05/06/17 04:00 89 05/06/17 02:00 98 05/06/17 00:00 93 05/06/17 00:00 99.3 93 18 151/91 (111) 95 05/05/17 22:00 100 05/05/17 20:00 104 05/05/17 20:00 100.6 104 16 150/94 (112) 96 05/05/17 18:00 113 05/05/17 16:00 98.6 94 16 156/93 (114) 96 05/05/17 16:00 94 05/05/17 14:00 91 05/05/17 12:00 99 05/05/17 12:00 98.7 99 21 147/97 (114) 97 I/O 05/05/17 05/05/17 05/05/17 05/06/17 05/06/17 05/06/17 07:00 15:00 23:00 07:00 15:00 23:00 Intake Total 533 ml 286 ml Output Total 550 ml 300 ml 900 ml Balance -550 ml 233 ml -614 ml Intake Oral 0 ml IV Total 485 ml Tube Feeding 48 ml 286 ml Output Urine Total 550 ml 300 ml 900 ml # Bowel Movements 0 0 0 Result Diagram: 05/05/17 0429 05/03/17 1400 Imaging Last Impressions Abdomen X-Ray 05/03/17 1144 Signed Impressions: Service Date/Time: April 12:09 - CONCLUSION: Feeding tube is not seen Mikel Martins MD Chest X-Ray 05/03/17 0000 Signed Impressions: Service Date/Time: April 12:09 - CONCLUSION: Feeding tube coiled in the mid esophagus. Milton Doshi MD Head CT 05/01/17 0000 Signed Impressions: Service Date/Time: Monday, May 01, 2017 10:45 - CONCLUSION: No significant change has occurred. Rony Palm MD Neck CTA 04/29/17 Signed Impressions: Service Date/Time: Saturday, April 29, 2017 11:34 - CONCLUSION: 1. The distal right internal carotid artery at the C1-C2 level demonstrates a short segment of focal dissection measuring approximately 8 mm in length. The more distal internal carotid artery is normal. 2. There is no significant atherosclerotic disease or stenosis within either internal carotid artery. Mikel Angel MD Head CTA 04/29/17 Signed Impressions: Service Date/Time: Saturday, April 29, 2017 11:34 - CONCLUSION: No acute intracranial vascular abnormality is identified. Mikel Angel MD Objective Remarks awake and alert, oriented x 3 + dysarthria anicteric pupils equal no facial asymmetry tongue midline,no gag reflex no nuchal rigidity lungs clear regular rhythm abdomen soft, nontender, + PEG extremities no edema grossly no sensory deficits- motor nursing service administrator moves all equally gait testing deferred Procedures 05/04- PEG A/P Problem List: (1) CVA (cerebral vascular accident) ICD Code: I63.9 - Cerebral infarction, unspecified Status: Acute (2) Altered mental status ICD Code: R41.82 - Altered mental status, unspecified Status: Acute (3) Carotid artery dissection ICD Code: I77.71 - Dissection of carotid artery Status: Acute Assessment and Plan This is a 77-year-old gentleman that has presented to the emergency department 3 times in the last 3 days for neurologic symptomatology to include severe headaches left upper extremity weakness, vertigo. Noted to have after imaging studies right ICA focal dissection. Dr. Hinkle, interventional radiology was consulted by Dr. Rolle, no IR intervention regarding a stent is indicated secondary to adequate flow. T 8mm right ICA internal carotid artery dissection at the level of C1-C2- - april 27 History of TIA Hearing deficit Dementia Cephalgia Failed Swallowing Neurology ff 04/29 CTA brain-no acute vascular abnormality 04/29 CT brain-no acute abnormality continue on Seroquel 25 mg hs- at home was on this on chronic benz0- currently on IV Ativan q 12- change to Clonazepam 1 mg hs (at home was on 2 mg hs) and monitor. IM Geodon prn for agitation continue aspirin 81 mg daily on heparin infusion- and coumadin. Will DC start on eliquis- home 5 mg bid PT/OT/speech therapy daily Respiratory: stable Maintain O2 sat greater than 92% Bronchodilators when necessary Cardiovascular: Pacemaker Dyslipidemia Hypertension Maintain MAP > 65mmHg Continue carvedilol 6.25 BID, [id number]/day, Norvasc 10mg/day Continue simvastatin Pacemaker-St. Kalpesh demand rate set at 60 Renal: No Acosta -- Strict I/Os FEN/GI: Dysphagia- failed swallowing- S.P PEG 05/04 d/w through the course- from [facility] till now has not eaten for 6 days continue TFi increase as tolerated Zofran 4 mg every 6 hours when necessary for nausea Protonix (home med) for GI prophylaxis HICCUPS- persistent trial of Thorazine IM x 1 continue on zofran- if no improvement - consider switching to Reglan Endocrine: Glucose monitoring per ICU protocol -- SSI Prophylaxis: GI Prophylaxis - Protonix DVT Prophylaxis- SCDs - - on Eliquis Activity- out of bed to chair daily Speech/PT/OT daily DC planning- CM consult - SNF- now that PEG placed Problem Qualifiers (1) CVA (cerebral vascular accident): Qualified Codes: I63.8 - Other cerebral infarction Gillian Hernandez MD May 06, 2017 11:09
[2017-05-06] MEDS: SODIUM CHLOR 0.9% 1000 ML INJ 1,000 ML IV SCH (12:43)
[2017-05-06] MEDS: PRAVASTATIN SOD 80 MG TAB PO SCH (21:01)
[2017-05-06] MEDS: QUEtiapine FUMARATE 25 MG TAB G-TUBE SCH (21:01)
[2017-05-06] MEDS: clonazePAM 1 MG TAB PO SCH (21:01)
[2017-05-06] MEDS: RESP: ALBUTEROL 2.5 MG/IPRATROPIUM 0.5 MG NEB (PRN) NEB (22:00)
--- NOTE | 2017-05-06 22:07 | RADRPT ---
EXAM DATE/TIME: 05/06/2017 21:42 [place] COMPARISON: CHEST SINGLE AP, May 03, 2017, 12:09. INDICATIONS : Evaluate pneumonia MEDICAL HISTORY : Hypertension. Carcinoma, bladder. Cerebrovascular disease. Cardiovascular disease Carcinoma, prostate SURGICAL HISTORY : Pacemaker. ENCOUNTER: Subsequent ACUITY: 4 - 6 days PAIN SCORE: Non-responsive. LOCATION: chest FINDINGS: A single view of the chest demonstrates the lungs to be symmetrically aerated without evidence of mas s, infiltrate or effusion. The cardiomediastinal contours are unremarkable. Osseous structures are intact. CONCLUSION: The lungs are clear. Isra Wood MD on May 06, 2017 at 22:06 Board Certified Radiologist. This report was verified electronically.
[2017-05-06] MEDS: ONDANSETRON HCL 4 MG/2 ML VIAL IV PUSH PRN (22:46)
[2017-05-06] MEDS ORDERED: PROMETHAZINE HCL 25 MG SUPP RECTAL PRN (23:00)
--- NOTE | 2017-05-06 23:59 | HHI.PR ---
Addendum to Inpatient Note Addendum Reason: Additional Documentation Additional Information Patient seen at 23:30 for vomiting and questionable aspiration. Patient has a hard time coughing and clearing his airway and when he was NT suctioned he vomited and had 02 sats in the 70s. X ray was ordered and at this time shows clear lungs. Bronchial lung sounds are heard in the upper airway. Given patients history and presentation it was decided to treat for aspiration pneumonia. Peg tube was placed to LIWS, and tube feeds placed on hold. Aspiration pneumonia: IV antibiotics empirically with clindamycin and Zosyn, jim scheduled and prn, cont to NT suction patient as needed, EZ pap ordered , will consult passenger vessel chef if patient worsens as he is a full code. 0330: Patient continues to be in afib/ aflutter RVR despite metoprolol and Cardizem bolus, cardizem drip started. Change duonebs to atrovent nebs. Pinky Robison May 06, 2017 23:58
[2017-05-07] VITALS (15 sets, daily range): BP systolic 97–138; BP diastolic 64–84; PULSE 85–115; RESP 16–27; TEMP 98.2–103.2; O2SAT 95–100
[2017-05-07] MEDS ORDERED: METOPROLOL TARTRATE 5 MG/5 ML VIAL IV PUSH ONE (00:30)
[2017-05-07] MEDS: PIPERACIL-TAZO 3.375 GM PREMIX 50 ML IV SCH ×5 (00:50→23:30)
[2017-05-07] MEDS: LABETALOL HCL 100 MG/20 ML VIAL IV PUSH PRN (01:14)
[2017-05-07] MEDS: CLINDAMYCIN INJ 300 MG in SODIUM CHLORIDE 0.9% INJ 100 ML IV SCH ×3 (01:23→17:59)
[2017-05-07] MEDS: ACETAMINOPHEN 1000 MG/100 ML VIAL IV PRN ×3 (01:23→21:28)
[2017-05-07] MEDS ORDERED: DILTIAZEM HCL 25 MG/5 ML VIAL IV ONE (02:00)
[2017-05-07 03:23] LABS: AUTOMATED NEUTROPHIL # 10.6 TH/MM3 (1.8-7.7); BASOPHIL % 0.4 % (0.0-2.0); EOSINOPHIL % 0.3 % (0.0-4.0); HEMATOCRIT 38.8 % (39.0-51.0); HEMO FLAGS DIFF FINAL; LYMPH % 2.8 % (9.0-44.0); LYMPHOCYTE # 0.3 TH/MM3 (1.0-4.8); MEAN CELL VOLUME 89.4 FL (80.0-100.0); MEAN CORPUSCULAR HEMOGLOBIN 29.6 PG (27.0-34.0); MEAN CORPUSCULAR HGB CONC 33.1 % (32.0-36.0); MONO % 3.7 % (0.0-8.0); NEUT % 92.8 % (16.0-70.0); PLATELET COUNT 161 TH/MM3 (150-450); RED BLOOD COUNT 4.35 MIL/MM3 (4.50-5.90); RED CELL DISTRIBUTION WIDTH 13.3 % (11.6-17.2); WHITE BLOOD COUNT 11.5 TH/MM3 (4.0-11.0)
[2017-05-07] MEDS: DILTIAZEM INJ 125 MG in SODIUM CHLORIDE 0.9% INJ 100 ML IV PRN ×2 (03:30→17:23)
[2017-05-07 03:37] LABS: BICARBONATE 26.1 MEQ/L (21.0-32.0); MAGNESIUM 2.4 MG/DL (1.5-2.5); POTASSIUM 3.8 MEQ/L (3.5-5.1)
[2017-05-07] MEDS: RESP: IPRATROPIUM 0.5 MG/2.5 ML NEB NEB SCH ×4 (03:54→23:06)
[2017-05-07] MEDS: CHLORHEXIDINE GLUCONATE 2 % 1 PACK (2 CLOTHS) TOP SCH (03:56)
[2017-05-07] MEDS ORDERED: RESP: ALBUTEROL 2.5 MG/IPRATROPIUM 0.5 MG NEB (SCH) NEB (04:00)
[2017-05-07] MEDS: SODIUM CHLORIDE 0.9% FLUSH 10 ML FLUSH IV FLUSH SCH ×2 (07:28→20:50)
[2017-05-07] MEDS: INSULIN ASPART SUPPLEMENTAL SCALE SQ SCH ×4 (08:00→20:51)
[2017-05-07] MEDS: PANTOPRAZOLE SODIUM 40 MG VIAL IV PUSH SCH (08:12)
[2017-05-07] MEDS: ASPIRIN 81 MG CHEW TAB CHEW SCH (08:13)
[2017-05-07] MEDS: DOCUSATE SODIUM 50 MG/SENNA 8.6 MG TAB PO SCH ×2 (08:13→20:51)
[2017-05-07] MEDS: APIXABAN 5 MG TABLET PO SCH ×2 (08:13→21:27)
[2017-05-07] MEDS: MEMANTINE HCL 10 MG TAB PO SCH ×2 (08:13→21:26)
[2017-05-07] MEDS: LISINOPRIL 10 MG TAB PO SCH (08:13)
[2017-05-07] MEDS: CARVEDILOL 6.25 MG TAB PO SCH ×2 (08:13→20:51)
--- NOTE | 2017-05-07 11:44 | HHI.PR ---
Subjective Remarks This is a 77-year-old gentleman that has presented to the emergency department 3 times in the last 3 days for neurologic symptomatology to include severe headaches left upper extremity weakness, vertigo. Noted to have after imaging studies right ICA focal dissection. Dr. Hinkle, interventional radiology was consulted by Dr. Rolle, no IR intervention regarding a stent is indicated secondary to adequate flow. Seen in his bedroom in the presence of his Mrs. Tigist Dhaliwal he had an episode of Nausea and vomit yesterday night and probable Aspiration Pneumonia started on IV antibiotics by District Plant Superintendent. Clindamycin and Zosyn. but the lungs were clear on Chest X ray. Objective Vital Signs Date Time Temp Pulse Resp B/P (MAP) Pulse Ox O2 Delivery O2 Flow Rate FiO2 05/07/17 10:00 90 05/07/17 09:15 99 Nasal Cannula 3.00 05/07/17 08:00 106 05/07/17 08:00 98.5 106 16 131/72 (91) 95 05/07/17 07:00 106 05/07/17 07:00 106 05/07/17 06:00 109 05/07/17 04:00 99.0 115 21 102/67 (79) 95 05/07/17 03:30 126 125/74 05/07/17 00:00 103.2 100 27 138/84 (102) 98 05/06/17 20:00 99.6 84 24 150/89 (109) 97 05/06/17 18:00 84 05/06/17 16:00 83 05/06/17 16:00 99.4 83 25 116/86 (96) 95 05/06/17 14:00 84 05/06/17 12:00 98.7 80 14 114/74 (87) 98 05/06/17 12:00 80 I/O 05/06/17 05/06/17 05/06/17 05/07/17 05/07/17 05/07/17 07:00 15:00 23:00 07:00 15:00 23:00 Intake Total 286 ml 544 ml 863 ml Output Total 900 ml 300 ml 550 ml Balance -614 ml 244 ml 313 ml Intake Oral 0 ml 0 ml 0 ml IV Total 344 ml 703 ml Tube Feeding 286 ml 200 ml 40 ml Other 120 ml Output Urine Total 900 ml 300 ml 450 ml Gastric Drainage Total 100 ml # Bowel Movements 0 0 0 Result Diagram: 05/07/1731005/07/17310 Imaging Last Impressions Chest X-Ray 05/06/17 0000 Signed Impressions: Service Date/Time: Saturday, May 06, 2017 21:42 - CONCLUSION: The lungs are clear. Isra Wood MD Abdomen X-Ray 05/03/17 1144 Signed Impressions: Service Date/Time: April 12:09 - CONCLUSION: Feeding tube is not seen Mikel Martins MD Head CT 05/01/17 0000 Signed Impressions: Service Date/Time: Monday, May 01, 2017 10:45 - CONCLUSION: No significant change has occurred. Rony Palm MD Neck CTA 04/29/17 0000 Signed Impressions: Service Date/Time: Saturday, April 29, 2017 11:34 - CONCLUSION: 1. The distal right internal carotid artery at the C1-C2 level demonstrates a short segment of focal dissection measuring approximately 8 mm in length. The more distal internal carotid artery is normal. 2. There is no significant atherosclerotic disease or stenosis within either internal carotid artery. Mikel Angel MD Head CTA 04/29/17 0000 Signed Impressions: Service Date/Time: Saturday, April 29, 2017 11:34 - CONCLUSION: No acute intracranial vascular abnormality is identified. Mikel Angel MD Procedures 05/04- PEG Other Results Laboratory Tests Test 04/29/17 10:15 04/29/17 10:30 04/30/17 04:55 05/03/17 06:08 Total Creatine Kinase 133 U/L Urine Color YELLOW Urine Turbidity HAZY Urine pH 5.5 Urine Specific [place] 1.024 Urine Protein 30 mg/dL Urine Glucose (UA) NEG mg/dL Urine Ketones TRACE mg/dL Urine Occult Blood SMALL Urine Nitrite NEG Urine Bilirubin NEG Urine Urobilinogen LESS THAN 2.0 MG/DL Urine Leukocyte Esterase TRACE Urine RBC 9 /hpf Urine WBC 2 /hpf Urine WBC Clumps OCC Urine Bacteria FEW /hpf Urine Hyaline Casts 26 /lpf Urine Mucus FEW /lpf Microscopic Urinalysis Comment CATH-CULTURE IND Blood Urea Nitrogen 19 MG/DL 13 MG/DL Creatinine 1.17 MG/DL 0.92 MG/DL Random Glucose 135 MG/DL 121 MG/DL Calcium Level 9.1 MG/DL 8.7 MG/DL Phosphorus Level 2.8 MG/DL Magnesium Level 2.2 MG/DL Sodium Level 141 MEQ/L 143 MEQ/L Potassium Level 3.2 MEQ/L 3.9 MEQ/L Chloride Level 107 MEQ/L 110 MEQ/L Carbon Dioxide Level 22.9 MEQ/L 24.8 MEQ/L Prothrombin Time 11.4 SEC Prothromb Time International Ratio 1.0 RATIO Total Protein 7.0 GM/DL Albumin 3.1 GM/DL Alkaline Phosphatase 59 U/L Aspartate Amino Transf (AST/SGOT) 24 U/L Alanine Aminotransferase (ALT/SGPT) 27 U/L Total Bilirubin 0.4 MG/DL Test 05/05/17 04:29 05/07/17 03:11 Activated Partial Thromboplast Time 26.8 SEC White Blood Count 11.5 TH/MM3 Red Blood Count 4.35 MIL/MM3 Hemoglobin 12.9 GM/DL Hematocrit 38.8 % Mean Corpuscular Volume 89.4 FL Mean Corpuscular Hemoglobin 29.6 PG Mean Corpuscular Hemoglobin Concent 33.1 % Red Cell Distribution Width 13.3 % Platelet Count 161 TH/MM3 Mean Platelet Volume 8.1 FL Neutrophils (%) (Auto) 92.8 % Lymphocytes (%) (Auto) 2.8 % Monocytes (%) (Auto) 3.7 % Eosinophils (%) (Auto) 0.3 % Basophils (%) (Auto) 0.4 % Neutrophils # (Auto) 10.6 TH/MM3 Lymphocytes # (Auto) 0.3 TH/MM3 Monocytes # (Auto) 0.4 TH/MM3 Eosinophils # (Auto) 0.0 TH/MM3 Basophils # (Auto) 0.0 TH/MM3 CBC Comment DIFF FINAL Differential Comment Blood Urea Nitrogen 23 MG/DL Creatinine 1.31 MG/DL Random Glucose 129 MG/DL Calcium Level 8.8 MG/DL Magnesium Level 2.4 MG/DL Sodium Level 143 MEQ/L Potassium Level 3.8 MEQ/L Chloride Level 109 MEQ/L Carbon Dioxide Level 26.1 MEQ/L Anion Gap 8 MEQ/L Estimat Glomerular Filtration Rate 64 ML/MIN Troponin I 0.07 NG/ML Objective Remarks GENERAL: Alert and Oriented x 3 SKIN: Warm and dry. HEAD: Atraumatic. Normocephalic. EYES: Pupils equal and round. No scleral icterus. No injection or drainage. ENT: No nasal bleeding or discharge. Mucous membranes pink and moist. NECK: Trachea midline. No JVD. CARDIOVASCULAR: Regular rate and rhythm. RESPIRATORY: No accessory muscle use. Clear to auscultation. Breath sounds equal bilaterally. GASTROINTESTINAL: Abdomen soft, non-tender, nondistended. Hepatic and splenic margins not palpable. PEG in place. has Condom Catheter. MUSCULOSKELETAL: Extremities without clubbing, cyanosis, or edema. No obvious deformities. NEUROLOGICAL: Dysarthria PSYCHIATRIC: Appropriate mood and affect; insight and judgment normal. Medications and IVs Current Medications Medications (Trade) Dose Ordered Sig/Benjamin Route Start Time Stop Time Status Last Admin Sodium Chloride 1,000 ml @ 42 mls/hr [id number] IV 04/29/17 14:00 05/06/17 12:43 (NS Flush) 2 ml UNSCH PRN IV FLUSH 04/29/17 14:00 (NS Flush) 2 ml BID IV FLUSH 04/29/17 21:00 05/07/17 07:28 (Protonix Inj) 40 mg DAILY IV PUSH 04/30/17 09:00 05/07/17 08:12 (Zofran Inj) 4 mg Q6H PRN IV PUSH 04/29/17 14:00 05/06/17 22:46 Miscellaneous Information 1 [id number] XX 04/29/17 14:00 (Chlorhexidine 2% Cloth) Taper DAILY@04 TOP 04/30/17 04:00 04/26/18 03:59 05/03/17 04:37 (Chlorhexidine 2% Cloth) 3 pack UNSCH PRN TOP 04/29/17 14:00 (Leonila-Colace) 1 tab BID PO 04/29/17 21:00 05/07/17 08:13 (Milk Of Magnesia Liq) 30 ml Q12H PRN PO 04/29/17 14:00 05/07/17 08:12 (Senokot) 17.2 mg Q12H PRN PO 04/29/17 14:00 05/07/17 08:12 (Dulcolax Supp) 10 mg DAILY PRN RECTAL 04/29/17 14:00 05/07/17 08:12 (Lactulose Liq) 30 ml DAILY PRN PO 04/29/17 14:00 05/07/17 08:12 Potassium Chloride 100 ml @ 50 mls/hr Q2H PRN IV 04/29/17 14:00 Potassium Chloride 100 ml @ 50 mls/hr Q2H PRN IV 04/29/17 14:00 05/02/17 21:10 (K-Lyte Cl Eff) 50 meq UNSCH PRN PO 04/29/17 14:00 Potassium Chloride 100 ml @ 25 mls/hr UNSCH PRN IV 04/29/17 14:00 Potassium Chloride 100 ml @ 50 mls/hr Q2H PRN IV 04/29/17 14:00 Magnesium Sulfate 4 gm/Sodium Chloride 100 ml @ 50 mls/hr UNSCH PRN IV 04/29/17 14:00 (Mag-Ox) 800 mg UNSCH PRN PO 04/29/17 14:00 Magnesium Sulfate 2 gm/Sodium Chloride 100 ml @ 50 mls/hr UNSCH PRN IV 04/29/17 14:00 (K-Phos) 2,000 mg Q4H PRN PO 04/29/17 14:00 Sodium Phosphate 30 mmol/Sodium Chloride 250 ml @ 42 mls/hr UNSCH PRN IV 04/29/17 14:00 (K-Phos) 2,000 mg UNSCH PRN PO/TUBE 04/29/17 14:00 Potassium Phosphate 30 mmol/ Sodium Chloride 260 ml @ 42 mls/hr UNSCH PRN IV 04/29/17 14:00 (D50w (Vial) Inj) 50 ml UNSCH PRN IV PUSH 04/29/17 14:15 (Glucagon Inj) 1 mg UNSCH PRN OTHER 04/29/17 14:15 (NovoLOG SUPPLEMENTAL SCALE) 1 ACHS SLIDING SCALE SQ 04/29/17 17:00 (Ofirmev 1000 Mg/ 100 ml Inj) 1,000 mg Q6H PRN IV 04/29/17 14:15 05/07/17 01:23 (Aspirin Chew) 81 mg DAILY CHEW 04/30/17 09:00 05/07/17 08:13 (Norvasc) 10 mg HS PO 04/29/17 21:00 05/06/17 21:01 (Coreg) 6.25 mg BID PO 04/29/17 21:00 05/07/17 08:13 (Prinivil) 10 mg DAILY PO 04/30/17 09:00 05/07/17 08:13 (Pravachol) 80 mg HS PO 04/29/17 21:00 05/06/17 21:01 (Trandate Inj) 10 mg Q4H PRN IV PUSH 04/29/17 20:00 05/07/17 01:14 Nicardipine HCl 25 mg/Sodium Chloride 250 ml @ 50 mls/hr TITRATE PRN IV 04/29/17 20:00 05/04/17 18:00 Dexmedetomidine HCl 200 mcg/ Sodium Chloride 52 ml @ 4.59 mls/hr TITRATE PRN IV 04/30/17 02:00 05/03/17 07:12 Potassium Chloride 100 ml @ 100 mls/hr Q1H PRN IV 04/30/17 20:00 05/01/17 03:25 (Duoneb Neb) 1 ampule Q2HR NEB PRN NEB 05/02/17 04:30 05/06/17 22:00 (SEROquel) 25 mg HS G-TUBE 05/05/17 21:00 05/06/17 21:01 (Eliquis) 5 mg BID PO 05/05/17 21:00 05/07/17 08:13 (Namenda) 10 mg BID PO 05/05/17 21:00 05/07/17 08:13 (KlonoPIN) 1 mg HS PO 05/05/17 21:00 05/06/17 21:01 (Geodon Inj) 10 mg Q8HR PRN IM 05/05/17 18:00 (Phenergan Supp) 25 mg Q6H PRN RECTAL 05/06/17 23:00 05/07/17 01:23 Clindamycin Phosphate 300 mg/ Sodium Chloride 102 ml @ 104 mls/hr Q8H IV 05/07/17 02:00 05/07/17 10:03 Piperacillin Sod/ Tazobactam Sod 50 ml @ 100 mls/hr Q6H IV 05/07/17 00:15 05/07/17 06:25 Diltiazem HCl 125 mg/Sodium Chloride 125 ml @ 5 mls/hr TITRATE PRN IV 05/07/17 03:45 05/07/17 03:30 (Atrovent Neb) 0.5 mg Q6HR NEB NEB 05/07/17 04:00 05/07/17 09:12 A/P Assessment and Plan 8mm right ICA internal carotid artery dissection at the level of C1-C2- - april 27 History of TIA Hearing deficit Dementia Cephalgia Failed Swallowing Neurology ff 04/29 CTA brain-no acute vascular abnormality 04/29 CT brain-no acute abnormality continue on Seroquel 25 mg hs- at home was on this on chronic benz0- currently on IV Ativan q 12- change to Clonazepam 1 mg hs (at home was on 2 mg hs) and monitor. IM Geodon prn for agitation continue aspirin 81 mg daily on heparin infusion- and coumadin. Will DC start on eliquis- home 5 mg bid PT/OT/speech therapy daily Respiratory: stable Maintain O2 sat greater than 92% Bronchodilators when necessary Cardiovascular: Pacemaker Dyslipidemia Hypertension Maintain MAP > 65mmHg Continue carvedilol 6.25 BID, [id number]/day, Norvasc 10mg/day Continue simvastatin Pacemaker-St. Kalpesh demand rate set at 60 FEN/GI: Dysphagia- failed swallowing- S.P PEG 05/04 d/w through the course- from [facility] till now has not eaten for 6 days continue TFi increase as tolerated Zofran 4 mg every 6 hours when necessary for nausea Protonix (home med) for GI prophylaxis HICCUPS- persistent trial of Thorazine IM x 1 continue on zofran- if no improvement - consider switching to Reglan Questionable Aspiration Pneumonia, On Clindamycin and Zosyn, no changes on CXR will follow to discontinue antibiotics soon if no signs of infection. GI Prophylaxis - Protonix DVT Prophylaxis- SCDs - - on Eliquis Activity- out of bed to chair daily Speech/PT/OT daily DC planning- CM consult - SNF- now that PEG placed Discharge Planning Once cleared by specialists. Juan David Hooper MD May 07, 2017 11:44
[2017-05-07] MEDS ORDERED: SODIUM CHLOR 0.9% 250 ML INJ 250 ML IV ONE (12:15)
[2017-05-07] MEDS: SODIUM CHLOR 0.9% 1000 ML INJ 1,000 ML IV SCH (13:49)
--- NOTE | 2017-05-07 16:14 | HHI.NSPN ---
Note Status Status: Progress Note Interval History Diagnosis Carotid artery dissection Interval History This is a 77-year-old Lao Lao male who presented to the ED with new onset right sided weakness. He has a medical history significant for dementia. On 04/27, per their report, the patient was in the emergency room at [facility] [place] for some weakness and was diagnosed with possible TIA. He was supposed to be admitted but patient left AMA, after his hearing aids were misplaced. Yesterday he came to [facility] [place] with complaints of severe headache. Laboratory and imaging studies to include a CT were performed, the diagnoses of complex migraine the patient was discharged home. After discharge, with family noticed that he was leaning to the left side. He was last seen his baseline at 11:30 in the morning. Since he went home as per the every time he try to stand up from a sitting position he kept falling. He has fallen about 6 times. He also noticed that he kept falling to his left side and has been unable to walk because of left- sided weakness. He has a pacemaker and MRI cannot be done. 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 Neurosurgery was consulted. 04/30. sedated. Response to pain. Moving all 4 extremities 10/2. He was started on IV antibiotics, Clindamycin and Zosyn for aspiration pneumonia . Labs, Micro, & Vital Signs Results Date Time Temp Pulse Resp B/P (MAP) Pulse Ox O2 Delivery O2 Flow Rate FiO2 05/07/17 12:00 98.4 87 18 115/64 (81) 100 05/07/17 10:00 90 05/07/17 09:15 99 Nasal Cannula 3.00 05/07/17 08:00 106 05/07/17 08:00 98.5 106 16 131/72 (91) 95 05/07/17 07:00 106 05/07/17 07:00 106 05/07/17 06:00 109 05/07/17 04:00 99.0 115 21 102/67 (79) 95 05/07/17 03:30 126 125/74 10/2/17 00:00 103.2 100 27 138/84 (102) 98 05/06/17 20:00 99.6 84 24 150/89 (109) 97 05/06/17 18:00 84 Constitutional Vital Signs Date Time Temp Pulse Resp B/P (MAP) Pulse Ox O2 Delivery O2 Flow Rate FiO2 05/07/17 12:00 98.4 87 18 115/64 (81) 100 05/07/17 10:00 90 05/07/17 09:15 99 Nasal Cannula 3.00 05/07/17 08:00 106 05/07/17 08:00 98.5 106 16 131/72 (91) 95 05/07/17 07:00 106 05/07/17 07:00 106 05/07/17 06:00 109 05/07/17 04:00 99.0 115 21 102/67 (79) 95 05/07/17 03:30 126 125/74 05/07/17 00:00 103.2 100 27 138/84 (102) 98 05/06/17 20:00 99.6 84 24 150/89 (109) 97 05/06/17 18:00 84 Physical Exam Mr winter is awake, alert. Oriented to self and place. Speech fluent. Follows commands Cranial Nerves: Pupils equal, round, reactive to light. Eyes appear conjugated. There was no nystagmus, no papilledema. Face musculature appeared symmetrical at rest. Face sensation, olfaction, visual titus, and hearing cannot be adequately assessed due to his neurological condition. The patient has a corneal reflex. He has a gag reflex. The sternocleidomastoid and trapezius are symmetrical. Cervical Spine: His neck is soft, supple, without nuchal rigidity. Motor: He moves all 4 extremities weakly and follows commands, appears weakly on his right side Reflexes: Deep tendon reflexes are 1+ and symmetrical in the biceps, triceps, and brachioradialis, bilaterally, in the upper extremities. In the lower extremities, the patellar and ankles are 1+, bilaterally. There is a bilateral plantar flexion response. There is no clonus or other abnormal reflexes noted. Sensory: On examination there is good response to pain localizing with upper and lower extremities. Cerebellar: Examination cannot be adequately assessed due to the patient's neurological condition. Medications Current Medications Current Medications Sodium Chloride (NS Flush) 2 ml UNSCH PRN IVF FLUSH AFTER USING IV ACCESS; Start 04/29/17 at 10:15; Stop 04/29/17 at 14:19; Status DC Sodium Chloride 500 ml @ 500 mls/hr BOLUS ONCE IV Last administered on 10:36; Start 04/29/17 at 10:15; Stop 04/29/17 at 11:14; Status DC Ceftriaxone Sodium 1000 mg/ Sodium Chloride 100 ml @ 200 mls/hr ONCE ONCE IV Last administered on 04/29/17 12:15; Start 04/29/17 at 11:30; Stop 04/29/17 at 11:59; Status DC Iohexol (Omnipaque 350 Inj) 75 ml STK-MED ONCE IV PUSH Last administered on 12:12; Start 04/29/17 at 12:12; Stop 04/29/17 at 12:13; Status DC Ondansetron HCl (Zofran Inj) 4 mg ONCE ONCE IV PUSH Last administered on 13:51; Start 04/29/17 at 14:00; Stop 04/29/17 at 14:01; Status DC Sodium Chloride 1,000 ml @ 83 mls/hr Q12H3M IV Last administered on 05/08/17 08:37; Start 04/29/17 at 14:00 Sodium Chloride (NS Flush) 2 ml UNSCH PRN IV FLUSH FLUSH AFTER USING IV ACCESS ; Start 04/29/17 at 14:00 Sodium Chloride (NS Flush) 2 ml BID IV FLUSH Last administered on 05/08/17 08: 02; Start 04/29/17 at 21:00 Pantoprazole Sodium (Protonix Inj) 40 mg DAILY IV PUSH Last administered on 08:36; Start 04/30/17 at 09:00 Ondansetron HCl (Zofran Inj) 4 mg Q6H PRN IV PUSH NAUSEA OR VOMITING Last administered on 05/06/17 22:46; Start 04/29/17 at 14:00 Albuterol/ Ipratropium (Duoneb Neb) 1 ampule Q4HR NEB PRN INH WHEEZING Last administered on 05/06/17 00:08; Start 04/29/17 at 14:00; Stop 05/07/17 at 00:30 ; Status DC Miscellaneous Information 1 [id number] XX ; Start 04/29/17 at 14:00 Chlorhexidine Gluconate (Chlorhexidine 2% Cloth) Taper DAILY@04 TOP Last administered on 05/03/17 04:37; Start 04/30/17 at 04:00; Stop 04/26/18 at 03:59 Chlorhexidine Gluconate (Chlorhexidine 2% Cloth) 3 pack UNSCH PRN TOP HYGIENIC CARE; Start 04/29/17 at 14:00 Senna/Docusate Sodium (Leonila-Colace) 1 tab BID PO Last administered on 08:36; Start 04/29/17 at 21:00 Magnesium Hydroxide (Milk Of Magnesia Liq) 30 ml Q12H PRN PO MILD - MODERATE CONSTIPATION Last administered on 05/07/17 08:12; Start 04/29/17 at 14:00 Sennosides (Senokot) 17.2 mg Q12H PRN PO MODERATE - SEVERE CONSTIPATION Last administered on 05/07/17 08:12; Start 04/29/17 at 14:00 Bisacodyl (Dulcolax Supp) 10 mg DAILY PRN RECTAL SEVERE CONSITIPATION Last administered on 05/07/17 08:12; Start 04/29/17 at 14:00 Lactulose (Lactulose Liq) 30 ml DAILY PRN PO SEVERE CONSITIPATION Last administered on 05/07/17 08:12; Start 04/29/17 at 14:00 Potassium Chloride 100 ml @ 50 mls/hr Q2H PRN IV For Potassium 2.8 - 3.2 mEq/L ; Start 04/29/17 at 14:00; Stop 05/08/17 at 10:37; Status DC Potassium Chloride 100 ml @ 50 mls/hr Q2H PRN IV For Potassium 2.8 - 3.2 mEq/ L Last administered on 05/02/17 21:10; Start 04/29/17 at 14:00; Stop 05/08/17 at 10:37; Status DC Potassium Bicarb/ Potassium Chloride (K-Lyte Cl Eff) 50 meq UNSCH PRN PO For Potassium 3.3 - 3.5 mEq/L; Start 04/29/17 at 14:00; Stop 05/08/17 at 10:39; Status DC Potassium Chloride 100 ml @ 25 mls/hr UNSCH PRN IV For Potassium 3.3 - 3.5 mEq /L; Start 04/29/17 at 14:00; Stop 05/08/17 at 10:37; Status DC Potassium Chloride 100 ml @ 50 mls/hr Q2H PRN IV For Potassium 3.3 - 3.5 mEq/L ; Start 04/29/17 at 14:00; Stop 05/08/17 at 10:37; Status DC Magnesium Sulfate 4 gm/Sodium Chloride 100 ml @ 50 mls/hr UNSCH PRN IV For Magnesium 0.9 - 1.1 mg/dL; Start 04/29/17 at 14:00 Magnesium Oxide (Mag-Ox) 800 mg UNSCH PRN PO For Magnesium 1.2 - 1.6 mg/dL; Start 04/29/17 at 14:00 Magnesium Sulfate 2 gm/Sodium Chloride 100 ml @ 50 mls/hr UNSCH PRN IV For Magnesium 1.2 - 1.6 mg/dL; Start 04/29/17 at 14:00 Potassium Phosphate (K-Phos) 2,000 mg Q4H PRN PO For Phosphorus < 2.5 mg/dL; Start 04/29/17 at 14:00; Stop 05/08/17 at 10:39; Status DC Sodium Phosphate 30 mmol/Sodium Chloride 250 ml @ 42 mls/hr UNSCH PRN IV For Phosphorus < 2.5 mg/dL; Start 04/29/17 at 14:00; Stop 05/08/17 at 10:37; Status DC Potassium Phosphate (K-Phos) 2,000 mg UNSCH PRN PO/TUBE SEE LABEL COMMENTS; Start 04/29/17 at 14:00; Stop 05/08/17 at 10:39; Status DC Potassium Phosphate 30 mmol/ Sodium Chloride 260 ml @ 42 mls/hr UNSCH PRN IV SEE LABEL COMMENTS; Start 04/29/17 at 14:00; Stop 05/08/17 at 10:37; Status DC Dextrose (D50w (Vial) Inj) 50 ml UNSCH PRN IV PUSH HYPOGLYCEMIA-SEE COMMENTS; Start 04/29/17 at 14:15 Glucagon (Glucagon Inj) 1 mg UNSCH PRN OTHER HYPOGLYCEMIA-SEE COMMENTS; Start 04/29/17 at 14:15 Insulin Aspart (NovoLOG SUPPLEMENTAL SCALE) 1 ACHS SLIDING SCALE SQ ; Start at 17:00 Acetaminophen (Ofirmev 1000 Mg/ 100 ml Inj) 1,000 mg Q6H PRN IV PAIN SCALE 3 TO 10 Last administered on 05/07/17 21:28; Start 04/29/17 at 14:15 Aspirin (Aspirin Chew) 81 mg DAILY CHEW Last administered on 05/08/17 08:37; Start 04/30/17 at 09:00 Aspirin (Aspirin Chew) 81 mg ONCE ONCE CHEW Last administered on 04/29/17 17: 00; Start 04/29/17 at 17:00; Stop 04/29/17 at 17:05; Status DC Amlodipine Besylate (Norvasc) 10 mg HS PO Last administered on 05/07/17 20:51 ; Start 04/29/17 at 21:00; Stop 05/08/17 at 10:37; Status DC Carvedilol (Coreg) 6.25 mg BID PO Last administered on 05/08/17 08:36; Start 04/29/17 at 21:00 Lisinopril (Prinivil) 10 mg DAILY PO Last administered on 05/08/17 08:37; Start 04/30/17 at 09:00 Pravastatin Sodium (Pravachol) 80 mg HS PO Last administered on 05/07/17 20:51 ; Start 04/29/17 at 21:00 Heparin Sodium/ Dextrose 250 ml @ 10.56 mls/ hr TITRATE PRN IV Coagulation management Last administered on 05/03/17 09:36; Start 04/29/17 at 17:15; Stop 05/04/17 at 13:25; Status DC Labetalol HCl (Trandate Inj) 10 mg Q4H PRN IV PUSH SBP >140 Last administered on 05/07/17 01:14; Start 04/29/17 at 20:00 Nicardipine HCl 25 mg/Sodium Chloride 250 ml @ 50 mls/hr TITRATE PRN IV Blood pressure management Last administered on 05/04/17 18:00; Start 04/29/17 at 20: 00; Stop 05/08/17 at 10:37; Status DC Haloperidol Lactate (Haldol Inj) 2 mg Q6H PRN IV PUSH FOR PATIENT SAFETY DUE TO AGITATION/HALLUCINATIONS Last administered on 05/04/17 18:00; Start at 22:00; Stop 05/05/17 at 17:45; Status DC Haloperidol Lactate (Haldol Inj) 2 mg ONCE ONCE IV PUSH Last administered on 02:33; Start 04/30/17 at 02:00; Stop 04/30/17 at 02:07; Status DC Dexmedetomidine HCl 200 mcg/ Sodium Chloride 52 ml @ 4.59 mls/hr TITRATE PRN IV SEDATION Last administered on 05/03/17 07:12; Start 04/30/17 at 02:00 Sodium Chloride 1,000 ml @ 999 mls/hr Q1H1M ONCE IV Last administered on 09:30; Start 04/30/17 at 09:30; Stop 04/30/17 at 10:30; Status DC Warfarin Sodium (Coumadin) 5 mg DAILY@1600 PO Last administered on 05/05/17 16 :29; Start 04/30/17 at 18:00; Stop 05/05/17 at 17:51; Status DC Patient Medication Teaching (Coumadin Booklet) 1 ONCE ONCE .XX Last administered on 05/01/17 16:22; Start 04/30/17 at 18:15; Stop 04/30/17 at 18:16 ; Status DC Lorazepam (Ativan Inj) 1 mg BID IV Last administered on 05/05/17 08:00; Start 04/30/17 at 21:00; Stop 05/05/17 at 17:56; Status DC Potassium Chloride 100 ml @ 100 mls/hr Q1H PRN IV For Potassium 2.8-3.2 mEq/L Last administered on 05/01/17 03:25; Start 04/30/17 at 20:00; Stop 05/08/17 at 10:37; Status DC Patient Medication Teaching (Coumadin Booklet) 1 STK-MED ONCE .ROUTE ; Start at 16:21; Stop 05/01/17 at 16:22; Status DC Albuterol/ Ipratropium (Duoneb Neb) 1 ampule Q2HR NEB PRN NEB SECRETIONS Last administered on 05/06/17 22:00; Start 05/02/17 at 04:30 Ziprasidone (Geodon Inj) 20 mg Q4H PRN IM SEVERE AGITATION Last administered on 05/05/17 16:48; Start 05/02/17 at 17:00; Stop 05/05/17 at 17:58; Status DC Ziprasidone (Geodon Inj) 20 mg ONCE ONCE IM Last administered on 05/02/17 17: 30; Start 05/02/17 at 17:00; Stop 05/02/17 at 17:14; Status DC Midazolam HCl (Versed Inj) 5 mg ONCE ONCE IM ; Start 05/03/17 at 11:15; Stop at 15:36; Status DC Heparin Sodium/ Dextrose 250 ml @ 10 mls/hr TITRATE PRN IV Coagulation management; Start 05/04/17 at 13:30; Status Cancel Sugammadex Sodium (Bridion Inj) 200 mg STK-MED ONCE IV PUSH ; Start 05/04/17 at 16:27; Stop 05/04/17 at 16:28; Status DC Cefazolin Sodium (Ancef Inj) 1,000 mg ONCE ONCE IV Last administered on 16:29; Start 05/04/17 at 16:33; Stop 05/04/17 at 16:37; Status DC Miscellaneous Information ALL NURSING DEPARTME... UNSCH PRN .XX SEE LABEL COMMENTS; Start 05/04/17 at 17:01; Stop 05/05/17 at 17:00; Status DC Quetiapine Fumarate (SEROquel) 25 mg HS G-TUBE Last administered on 05/07/17 20:51; Start 05/05/17 at 21:00 Apixaban (Eliquis) 5 mg BID PO Last administered on 05/08/17 08:36; Start at 21:00 Memantine (Namenda) 10 mg BID PO Last administered on 05/08/17 08:36; Start at 21:00 Clonazepam (KlonoPIN) 1 mg HS PO Last administered on 05/07/17 20:51; Start at 21:00 Ziprasidone (Geodon Inj) 10 mg Q8HR PRN IM AGITATION; Start 05/05/17 at 18:00 Chlorpromazine HCl (Thorazine Inj) 50 mg ONCE ONCE IM Last administered on 21:02; Start 05/06/17 at 12:00; Stop 05/06/17 at 12:01; Status DC Promethazine HCl (Phenergan Supp) 25 mg Q6H PRN RECTAL nausea Last administered on 05/07/17 01:23; Start 05/06/17 at 23:00 Albuterol/ Ipratropium (Duoneb Neb) 1 ampule Q6HR NEB NEB ; Start 05/07/17 at 04:00; Stop 05/07/17 at 04:00; Status DC Clindamycin Phosphate 300 mg/ Sodium Chloride 102 ml @ 104 mls/hr Q8H IV Last administered on 05/08/17 10:07; Start 05/07/17 at 02:00 Piperacillin Sod/ Tazobactam Sod 50 ml @ 100 mls/hr Q6H IV Last administered on 05/08/17 12:29; Start 05/07/17 at 00:15 Metoprolol Tartrate (Lopressor Inj) 5 mg ONCE ONCE IV PUSH Last administered on 05/07/17 00:50; Start 05/07/17 at 00:30; Stop 05/07/17 at 00:34; Status DC Diltiazem HCl (Cardizem Inj) 15 mg ONCE ONCE IV Last administered on 02:11; Start 05/07/17 at 02:00; Stop 05/07/17 at 02:03; Status DC Diltiazem HCl 125 mg/Sodium Chloride 125 ml @ 5 mls/hr TITRATE PRN IV Tachycardia Last administered on 05/07/17 17:23; Start 05/07/17 at 03:45; Stop 05/08/17 at 10:36; Status DC Ipratropium [place] (Atrovent Neb) 0.5 mg Q6HR NEB NEB Last administered on 09:33; Start 05/07/17 at 04:00 Sodium Chloride 250 ml @ 250 mls/hr BOLUS ONCE IV Last administered on 13:49; Start 05/07/17 at 12:15; Stop 05/07/17 at 13:14; Status DC Diltiazem HCl (Cardizem) 30 mg Q6HR PO Last administered on 05/08/17 12:29; Start 05/08/17 at 12:00 Medical Decision Making MDM Remarks Last 48 hours Impressions Abdomen X-Ray 05/03/17 1144 Signed Impressions: Service Date/Time: April 12:09 - CONCLUSION: Feeding tube is not seen Mikel Martins MD Last [address] 04/29/17 1008 Signed Impressions: Service Date/Time: Saturday, April 29, 2017 11:31 - CONCLUSION: 1. Stable noncontrast head CT. No acute intracranial abnormality is identified. 2. Chronic changes include mild cerebral atrophy and periventricular white matter change characteristic of chronic microvascular ischemia. Mikel Angel MD Neck CTA 04/29/17 0000 Signed Impressions: Service Date/Time: Saturday, April 29, 2017 11:34 - CONCLUSION: 1. The distal right internal carotid artery at the C1-C2 level demonstrates a short segment of focal dissection measuring approximately 8 mm in length. The more distal internal carotid artery is normal. 2. There is no significant atherosclerotic disease or stenosis within either internal carotid artery. Mikel Angel MD Head CTA 04/29/17 0000 Signed Impressions: Service Date/Time: Saturday, April 29, 2017 11:34 - CONCLUSION: No acute intracranial vascular abnormality is identified. Mikel Angel MD Plan Plan Remarks Septic Shock Reassessment Heart: Regular rate and rhythm Lungs: Clear Skin: Warm Peripheral Pulses: Bounding Right Radial Bounding Left Radial Bounding Right Dorsalis Pedis Bounding Left Dorsalis Pedis Cristinai VTE Risk Assessment Caprini VTE Risk Assessment [place] VTE Risk Assessment: Mod/High Risk (score >= 2) Caprini Risk Assessment Model Point Value = 1 Point Value = 2 Point Value = 3 Point Value = 5 Age 41-60 Minor surgery BMI > 25 kg/m2 Swollen legs Varicose veins or History of unexplained or recurrent spontaneous Oral contraceptives or hormone replacement Sepsis (< 1 month) Serious lung disease, including pneumonia (< 1 month) Abnormal pulmonary function Acute myocardial infarction Congestive heart failure (< 1 month) History of inflammatory bowel disease Medical patient at bed rest Age 61-74 Arthroscopic surgery Major open surgery (> 45 min) Laparoscopic surgery (> 45 min) Malignancy Confined to bed (> 72 hours) Immobilizing plaster cast Central venous access Age >= 75 History of VTE Family history of VTE Factor V Leiden Prothrombin [id number] Lupus anticoagulant Anticardiolipin antibodies Elevated serum homocysteine Heparin-induced thrombocytopenia Other congenital or acquired thrombophilia Stroke (< 1 month) Elective arthroplasty Hip, pelvis, or leg fracture Acute spinal cord injury (< 1 month) Prophylaxis Regimen Total Risk Factor Score Risk Level Prophylaxis Regimen 0-1 Low Early ambulation 2 Moderate Order ONE of the following: *Sequential Compression Device (SCD) *Heparin 5000 units SQ BID 3-4 Higher Order ONE of the following medications: *Heparin 5000 units SQ TID *Enoxaparin/Lovenox 40 mg SQ daily (WT < 150 kg, CrCl > 30 mL/min) *Enoxaparin/Lovenox 30 mg SQ daily (WT < 150 kg, CrCl > 10-29 mL/min) *Enoxaparin/Lovenox 30 mg SQ BID (WT < 150 kg, CrCl > 30 mL/min) AND/OR *Sequential Compression Device (SCD) 5 or more Highest Order ONE of the following medications: *Heparin 5000 units SQ TID (Preferred with Epidurals) *Enoxaparin/Lovenox 40 mg SQ daily (WT < 150 kg, CrCl > 30 mL/min) *Enoxaparin/Lovenox 30 mg SQ daily (WT < 150 kg, CrCl > 10-29 mL/min) *Enoxaparin/Lovenox 30 mg SQ BID (WT < 150 kg, CrCl > 30 mL/min) AND *Sequential Compression Device (SCD) Attending Statement right ICA internal carotid artery dissection at the level of C1-C2 History of TIA Hearing deficit Dementia Cephalgia Started on IV antibiotics for aspiration pneumonia Continue neuro checks.. CT brain-no acute abnormality. MRI of the brain Could not be done due to pacemaker. Follow up CT on 05/01 was stable Continue full anticoagulation with heparin drip and aspirin. Vascular surgeon has been consulted Defer to Neurology further recommendations HTN. Continue carvedilol 6.25 BID, [id number]/day, Norvasc 10mg/day Hyperlipidemia. Continue simvastatin Pacemaker-St. Kalpesh demand rate set at 60 Pulmonary.. Continue aggressive pulmonary toilette, nasotracheal suction, and breathing treatments with nebulizers. Renal. Continue to monitor closely urine output, BUN and creatinine Endocrine. Continue to onitor serial Acu checks and SSI as needed in detail Continue Protonix for stress ulcer prophylaxis Continue Redd hose and SCD's for DVT prophylaxis. Milton Harris MD May 07, 2017 16:14
--- NOTE | 2017-05-07 19:25 | EKG ---
Date Performed: 05/07/2017 Time Performed: 01:41:44 PTAGE: 77 years EKG: Atrial flutter with uncontrolled ventricular response with 2:1 A-V block. Extensive ST-T ch anges may be due to myocardial ischemia Abnormal ECG PREVIOUS TRACING : 04/29/2017 09.42 compared with previous EKG atrial flutter is new DOCTOR: Carl Rodrigez Interpretating Date/Time 05/07/2017 19:22:47
[2017-05-07] MEDS: PRAVASTATIN SOD 80 MG TAB PO SCH (20:51)
[2017-05-07] MEDS: QUEtiapine FUMARATE 25 MG TAB G-TUBE SCH (20:51)
[2017-05-07] MEDS: clonazePAM 1 MG TAB PO SCH (20:51)
[2017-05-08] VITALS (13 sets, daily range): BP systolic 79–139; BP diastolic 47–97; PULSE 82–110; RESP 15–26; TEMP 97.9–99.1; O2SAT 98–100
[2017-05-08] MEDS: SODIUM CHLOR 0.9% 1000 ML INJ 1,000 ML IV SCH ×3 (00:26→23:20)
[2017-05-08] MEDS: CLINDAMYCIN INJ 300 MG in SODIUM CHLORIDE 0.9% INJ 100 ML IV SCH ×3 (01:35→18:29)
[2017-05-08] MEDS: CHLORHEXIDINE GLUCONATE 2 % 1 PACK (2 CLOTHS) TOP SCH (04:00)
[2017-05-08] MEDS: RESP: IPRATROPIUM 0.5 MG/2.5 ML NEB NEB SCH ×4 (04:28→20:28)
[2017-05-08] MEDS: PIPERACIL-TAZO 3.375 GM PREMIX 50 ML IV SCH ×4 (06:01→23:29)
[2017-05-08 06:51] LABS: MEAN CORPUSCULAR HEMOGLOBIN 29.7 PG (27.0-34.0); MEAN CORPUSCULAR HGB CONC 33.4 % (32.0-36.0); PLATELET COUNT 143 TH/MM3 (150-450); RED BLOOD COUNT 3.82 MIL/MM3 (4.50-5.90); RED CELL DISTRIBUTION WIDTH 13.6 % (11.6-17.2); REVIEW FLAG FINAL; WHITE BLOOD COUNT 12.2 TH/MM3 (4.0-11.0)
[2017-05-08] MEDS: INSULIN ASPART SUPPLEMENTAL SCALE SQ SCH ×4 (08:00→20:17)
[2017-05-08] MEDS: SODIUM CHLORIDE 0.9% FLUSH 10 ML FLUSH IV FLUSH SCH ×2 (08:02→19:57)
[2017-05-08] MEDS: DOCUSATE SODIUM 50 MG/SENNA 8.6 MG TAB PO SCH ×2 (08:36→19:57)
[2017-05-08] MEDS: CARVEDILOL 6.25 MG TAB PO SCH ×2 (08:36→19:57)
[2017-05-08] MEDS: MEMANTINE HCL 10 MG TAB PO SCH ×2 (08:36→20:17)
[2017-05-08] MEDS: APIXABAN 5 MG TABLET PO SCH ×2 (08:36→20:18)
[2017-05-08] MEDS: PANTOPRAZOLE SODIUM 40 MG VIAL IV PUSH SCH (08:36)
[2017-05-08] MEDS: ASPIRIN 81 MG CHEW TAB CHEW SCH (08:37)
[2017-05-08] MEDS: LISINOPRIL 10 MG TAB PO SCH (08:37)
[2017-05-08] MEDS: DILTIAZEM HCL 30 MG TAB PO SCH ×3 (12:29→23:29)
--- NOTE | 2017-05-08 12:54 | HHI.NSPN ---
Note Status Status: Progress Note Interval History Diagnosis Carotid artery dissection Interval History This is a 77-year-old [place] Martiniquais male who presented to the ED with new onset right sided weakness. He has a medical history significant for dementia. On 04/27, per their report, the patient was in the emergency room at [facility] Sunday night for some weakness and was diagnosed with possible TIA. He was supposed to be admitted but patient left AMA, after his hearing aids were misplaced. Yesterday he came to [facility] with complaints of severe headache. Laboratory and imaging studies to include a CT were performed, the diagnoses of complex migraine the patient was discharged home. After discharge, with family noticed that he was leaning to the left side. He was last seen his baseline at 11:30 in the morning. Since he went home as per the every time he try to stand up from a sitting position he kept falling. He has fallen about 6 times. He also noticed that he kept falling to his left side and has been unable to walk because of left- sided weakness. He has a pacemaker and MRI cannot be done. 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 Neurosurgery was consulted. 04/30. sedated. Response to pain. Moving all 4 extremities 10. He was started on IV antibiotics, Clindamycin and Zosyn for aspiration pneumonia 05/08. Arouses to voice. Persistent hiccups. Answer questions. Follows commands . Labs, Micro, & Vital Signs Results Date Time Temp Pulse Resp B/P (MAP) Pulse Ox O2 Delivery O2 Flow Rate FiO2 05/08/17 10:00 92 05/08/17 09:35 100 Nasal Cannula 2.00 05/08/17 08:00 95 05/08/17 07:00 98 Nasal Cannula 3.00 05/08/17 07:00 82 05/08/17 06:00 99 05/08/17 04:00 88 05/08/17 04:00 98.2 88 15 89/64 (72) 100 05/08/17 02:00 86 05/08/17 00:00 82 05/08/17 00:00 82 05/08/17 00:00 97.9 82 15 79/47 (58) 98 05/07/17 23:06 99 Nasal Cannula 3.00 05/07/17 22:00 86 05/07/17 20:00 86 05/07/17 20:00 98.8 86 16 97/66 (76) 98 05/07/17 20:00 98 Nasal Cannula 3.00 05/07/17 20:00 86 05/07/17 18:00 86 05/07/17 17:23 83 111/66 05/07/17 16:00 85 05/07/17 16:00 98.2 85 17 106/66 (79) 98 05/07/17 15:00 85 05/07/17 15:00 85 05/07/17 14:00 85 05/09/17 07:00 Intake Total 930 ml Balance 930 ml Constitutional Vital Signs Date Time Temp Pulse Resp B/P (MAP) Pulse Ox O2 Delivery O2 Flow Rate FiO2 05/08/17 10:00 92 05/08/17 09:35 100 Nasal Cannula 2.00 05/08/17 08:00 95 05/08/17 07:00 98 Nasal Cannula 3.00 05/08/17 07:00 82 05/08/17 06:00 99 05/08/17 04:00 88 05/08/17 04:00 98.2 88 15 89/64 (72) 100 05/08/17 02:00 86 05/08/17 00:00 82 05/08/17 00:00 82 05/08/17 00:00 97.9 82 15 79/47 (58) 98 05/07/17 23:06 99 Nasal Cannula 3.00 05/07/17 22:00 86 05/07/17 20:00 86 05/07/17 20:00 98.8 86 16 97/66 (76) 98 05/07/17 20:00 98 Nasal Cannula 3.00 05/07/17 20:00 86 05/07/17 18:00 86 05/07/17 17:23 83 111/66 05/07/17 16:00 85 05/07/17 16:00 98.2 85 17 106/66 (79) 98 05/07/17 15:00 85 05/07/17 15:00 85 05/07/17 14:00 85 05/09/17 07:00 Intake Total 930 ml Balance 930 ml Physical Exam Mr winter is awake, alert. Oriented to self and place. Speech fluent. Follows commands Cranial Nerves: Pupils equal, round, reactive to light. Eyes appear conjugated. There was no nystagmus, no papilledema. Face musculature appeared symmetrical at rest. Face sensation, olfaction, visual titus, and hearing cannot be adequately assessed due to his neurological condition. The patient has a corneal reflex. He has a gag reflex. The sternocleidomastoid and trapezius are symmetrical. Cervical Spine: His neck is soft, supple, without nuchal rigidity. Motor: He moves all 4 extremities weakly and follows commands, appears weakly on his right side Reflexes: Deep tendon reflexes are 1+ and symmetrical in the biceps, triceps, and brachioradialis, bilaterally, in the upper extremities. In the lower extremities, the patellar and ankles are 1+, bilaterally. There is a bilateral plantar flexion response. There is no clonus or other abnormal reflexes noted. Sensory: On examination there is good response to pain localizing with upper and lower extremities. Cerebellar: Examination cannot be adequately assessed due to the patient's neurological condition. Medications Current Medications Current Medications Sodium Chloride (NS Flush) 2 ml UNSCH PRN IVF FLUSH AFTER USING IV ACCESS; Start 04/29/17 at 10:15; Stop 04/29/17 at 14:19; Status DC Sodium Chloride 500 ml @ 500 mls/hr BOLUS ONCE IV Last administered on 10:36; Start 04/29/17 at 10:15; Stop 04/29/17 at 11:14; Status DC Ceftriaxone Sodium 1000 mg/ Sodium Chloride 100 ml @ 200 mls/hr ONCE ONCE IV Last administered on 04/29/17 12:15; Start 04/29/17 at 11:30; Stop 04/29/17 at 11:59; Status DC Iohexol (Omnipaque 350 Inj) 75 ml STK-MED ONCE IV PUSH Last administered on 12:12; Start 04/29/17 at 12:12; Stop 04/29/17 at 12:13; Status DC Ondansetron HCl (Zofran Inj) 4 mg ONCE ONCE IV PUSH Last administered on 13:51; Start 04/29/17 at 14:00; Stop 04/29/17 at 14:01; Status DC Sodium Chloride 1,000 ml @ 83 mls/hr Q12H3M IV Last administered on 05/08/17 08:37; Start 04/29/17 at 14:00 Sodium Chloride (NS Flush) 2 ml UNSCH PRN IV FLUSH FLUSH AFTER USING IV ACCESS ; Start 04/29/17 at 14:00 Sodium Chloride (NS Flush) 2 ml BID IV FLUSH Last administered on 05/08/17 08: 02; Start 04/29/17 at 21:00 Pantoprazole Sodium (Protonix Inj) 40 mg DAILY IV PUSH Last administered on 08:36; Start 04/30/17 at 09:00 Ondansetron HCl (Zofran Inj) 4 mg Q6H PRN IV PUSH NAUSEA OR VOMITING Last administered on 05/06/17 22:46; Start 04/29/17 at 14:00 Albuterol/ Ipratropium (Duoneb Neb) 1 ampule Q4HR NEB PRN INH WHEEZING Last administered on 05/06/17 00:08; Start 04/29/17 at 14:00; Stop 05/07/17 at 00:30 ; Status DC Miscellaneous Information 1 Q361D XX ; Start 04/29/17 at 14:00 Chlorhexidine Gluconate (Chlorhexidine 2% Cloth) Taper DAILY@04 TOP Last administered on 05/03/17 04:37; Start 04/30/17 at 04:00; Stop 04/26/18 at 03:59 Chlorhexidine Gluconate (Chlorhexidine 2% Cloth) 3 pack UNSCH PRN TOP HYGIENIC CARE; Start 04/29/17 at 14:00 Senna/Docusate Sodium (Leonila-Colace) 1 tab BID PO Last administered on 08:36; Start 04/29/17 at 21:00 Magnesium Hydroxide (Milk Of Magnesia Liq) 30 ml Q12H PRN PO MILD - MODERATE CONSTIPATION Last administered on 05/07/17 08:12; Start 04/29/17 at 14:00 Sennosides (Senokot) 17.2 mg Q12H PRN PO MODERATE - SEVERE CONSTIPATION Last administered on 05/07/17 08:12; Start 04/29/17 at 14:00 Bisacodyl (Dulcolax Supp) 10 mg DAILY PRN RECTAL SEVERE CONSITIPATION Last administered on 05/07/17 08:12; Start 04/29/17 at 14:00 Lactulose (Lactulose Liq) 30 ml DAILY PRN PO SEVERE CONSITIPATION Last administered on 05/07/17 08:12; Start 04/29/17 at 14:00 Potassium Chloride 100 ml @ 50 mls/hr Q2H PRN IV For Potassium 2.8 - 3.2 mEq/L ; Start 04/29/17 at 14:00; Stop 05/08/17 at 10:37; Status DC Potassium Chloride 100 ml @ 50 mls/hr Q2H PRN IV For Potassium 2.8 - 3.2 mEq/ L Last administered on 05/02/17 21:10; Start 04/29/17 at 14:00; Stop 05/08/17 at 10:37; Status DC Potassium Bicarb/ Potassium Chloride (K-Lyte Cl Eff) 50 meq UNSCH PRN PO For Potassium 3.3 - 3.5 mEq/L; Start 04/29/17 at 14:00; Stop 05/08/17 at 10:39; Status DC Potassium Chloride 100 ml @ 25 mls/hr UNSCH PRN IV For Potassium 3.3 - 3.5 mEq /L; Start 04/29/17 at 14:00; Stop 05/08/17 at 10:37; Status DC Potassium Chloride 100 ml @ 50 mls/hr Q2H PRN IV For Potassium 3.3 - 3.5 mEq/L ; Start 04/29/17 at 14:00; Stop 05/08/17 at 10:37; Status DC Magnesium Sulfate 4 gm/Sodium Chloride 100 ml @ 50 mls/hr UNSCH PRN IV For Magnesium 0.9 - 1.1 mg/dL; Start 04/29/17 at 14:00 Magnesium Oxide (Mag-Ox) 800 mg UNSCH PRN PO For Magnesium 1.2 - 1.6 mg/dL; Start 04/29/17 at 14:00 Magnesium Sulfate 2 gm/Sodium Chloride 100 ml @ 50 mls/hr UNSCH PRN IV For Magnesium 1.2 - 1.6 mg/dL; Start 04/29/17 at 14:00 Potassium Phosphate (K-Phos) 2,000 mg Q4H PRN PO For Phosphorus < 2.5 mg/dL; Start 04/29/17 at 14:00; Stop 05/08/17 at 10:39; Status DC Sodium Phosphate 30 mmol/Sodium Chloride 250 ml @ 42 mls/hr UNSCH PRN IV For Phosphorus < 2.5 mg/dL; Start 04/29/17 at 14:00; Stop 05/08/17 at 10:37; Status DC Potassium Phosphate (K-Phos) 2,000 mg UNSCH PRN PO/TUBE SEE LABEL COMMENTS; Start 04/29/17 at 14:00; Stop 05/08/17 at 10:39; Status DC Potassium Phosphate 30 mmol/ Sodium Chloride 260 ml @ 42 mls/hr UNSCH PRN IV SEE LABEL COMMENTS; Start 04/29/17 at 14:00; Stop 05/08/17 at 10:37; Status DC Dextrose (D50w (Vial) Inj) 50 ml UNSCH PRN IV PUSH HYPOGLYCEMIA-SEE COMMENTS; Start 04/29/17 at 14:15 Glucagon (Glucagon Inj) 1 mg UNSCH PRN OTHER HYPOGLYCEMIA-SEE COMMENTS; Start 04/29/17 at 14:15 Insulin Aspart (NovoLOG SUPPLEMENTAL SCALE) 1 ACHS SLIDING SCALE SQ ; Start at 17:00 Acetaminophen (Ofirmev 1000 Mg/ 100 ml Inj) 1,000 mg Q6H PRN IV PAIN SCALE 3 TO 10 Last administered on 05/07/17 21:28; Start 04/29/17 at 14:15 Aspirin (Aspirin Chew) 81 mg DAILY CHEW Last administered on 05/08/17 08:37; Start 04/30/17 at 09:00 Aspirin (Aspirin Chew) 81 mg ONCE ONCE CHEW Last administered on 04/29/17 17: 00; Start 04/29/17 at 17:00; Stop 04/29/17 at 17:05; Status DC Amlodipine Besylate (Norvasc) 10 mg HS PO Last administered on 05/07/17 20:51 ; Start 04/29/17 at 21:00; Stop 05/08/17 at 10:37; Status DC Carvedilol (Coreg) 6.25 mg BID PO Last administered on 05/08/17 08:36; Start 04/29/17 at 21:00 Lisinopril (Prinivil) 10 mg DAILY PO Last administered on 05/08/17 08:37; Start 04/30/17 at 09:00 Pravastatin Sodium (Pravachol) 80 mg HS PO Last administered on 05/07/17 20:51 ; Start 04/29/17 at 21:00 Heparin Sodium/ Dextrose 250 ml @ 10.56 mls/ hr TITRATE PRN IV Coagulation management Last administered on 05/03/17 09:36; Start 04/29/17 at 17:15; Stop 05/04/17 at 13:25; Status DC Labetalol HCl (Trandate Inj) 10 mg Q4H PRN IV PUSH SBP >140 Last administered on 05/07/17 01:14; Start 04/29/17 at 20:00 Nicardipine HCl 25 mg/Sodium Chloride 250 ml @ 50 mls/hr TITRATE PRN IV Blood pressure management Last administered on 05/04/17 18:00; Start 04/29/17 at 20: 00; Stop 05/08/17 at 10:37; Status DC Haloperidol Lactate (Haldol Inj) 2 mg Q6H PRN IV PUSH FOR PATIENT SAFETY DUE TO AGITATION/HALLUCINATIONS Last administered on 05/04/17 18:00; Start at 22:00; Stop 05/05/17 at 17:45; Status DC Haloperidol Lactate (Haldol Inj) 2 mg ONCE ONCE IV PUSH Last administered on 02:33; Start 04/30/17 at 02:00; Stop 04/30/17 at 02:07; Status DC Dexmedetomidine HCl 200 mcg/ Sodium Chloride 52 ml @ 4.59 mls/hr TITRATE PRN IV SEDATION Last administered on 05/03/17 07:12; Start 04/30/17 at 02:00 Sodium Chloride 1,000 ml @ 999 mls/hr Q1H1M ONCE IV Last administered on 09:30; Start 04/30/17 at 09:30; Stop 04/30/17 at 10:30; Status DC Warfarin Sodium (Coumadin) 5 mg DAILY@1600 PO Last administered on 05/05/17 16 :29; Start 04/30/17 at 18:00; Stop 05/05/17 at 17:51; Status DC Patient Medication Teaching (Coumadin Booklet) 1 ONCE ONCE .XX Last administered on 05/01/17 16:22; Start 04/30/17 at 18:15; Stop 04/30/17 at 18:16 ; Status DC Lorazepam (Ativan Inj) 1 mg BID IV Last administered on 05/05/17 08:00; Start 04/30/17 at 21:00; Stop 05/05/17 at 17:56; Status DC Potassium Chloride 100 ml @ 100 mls/hr Q1H PRN IV For Potassium 2.8-3.2 mEq/L Last administered on 05/01/17 03:25; Start 04/30/17 at 20:00; Stop 05/08/17 at 10:37; Status DC Patient Medication Teaching (Coumadin Booklet) 1 STK-MED ONCE .ROUTE ; Start at 16:21; Stop 05/01/17 at 16:22; Status DC Albuterol/ Ipratropium (Duoneb Neb) 1 ampule Q2HR NEB PRN NEB SECRETIONS Last administered on 05/06/17 22:00; Start 05/02/17 at 04:30 Ziprasidone (Geodon Inj) 20 mg Q4H PRN IM SEVERE AGITATION Last administered on 05/05/17 16:48; Start 05/02/17 at 17:00; Stop 05/05/17 at 17:58; Status DC Ziprasidone (Geodon Inj) 20 mg ONCE ONCE IM Last administered on 05/02/17 17: 30; Start 05/02/17 at 17:00; Stop 05/02/17 at 17:14; Status DC Midazolam HCl (Versed Inj) 5 mg ONCE ONCE IM ; Start 05/03/17 at 11:15; Stop at 15:36; Status DC Heparin Sodium/ Dextrose 250 ml @ 10 mls/hr TITRATE PRN IV Coagulation management; Start 05/04/17 at 13:30; Status Cancel Sugammadex Sodium (Bridion Inj) 200 mg STK-MED ONCE IV PUSH ; Start 05/04/17 at 16:27; Stop 05/04/17 at 16:28; Status DC Cefazolin Sodium (Ancef Inj) 1,000 mg ONCE ONCE IV Last administered on 16:29; Start 05/04/17 at 16:33; Stop 05/04/17 at 16:37; Status DC Miscellaneous Information ALL NURSING DEPARTME... UNSCH PRN .XX SEE LABEL COMMENTS; Start 05/04/17 at 17:01; Stop 05/05/17 at 17:00; Status DC Quetiapine Fumarate (SEROquel) 25 mg HS G-TUBE Last administered on 05/07/17 20:51; Start 05/05/17 at 21:00 Apixaban (Eliquis) 5 mg BID PO Last administered on 05/08/17 08:36; Start at 21:00 Memantine (Namenda) 10 mg BID PO Last administered on 05/08/17 08:36; Start at 21:00 Clonazepam (KlonoPIN) 1 mg HS PO Last administered on 05/07/17 20:51; Start at 21:00 Ziprasidone (Geodon Inj) 10 mg Q8HR PRN IM AGITATION; Start 05/05/17 at 18:00 Chlorpromazine HCl (Thorazine Inj) 50 mg ONCE ONCE IM Last administered on 21:02; Start 05/06/17 at 12:00; Stop 05/06/17 at 12:01; Status DC Promethazine HCl (Phenergan Supp) 25 mg Q6H PRN RECTAL nausea Last administered on 05/07/17 01:23; Start 05/06/17 at 23:00 Albuterol/ Ipratropium (Duoneb Neb) 1 ampule Q6HR NEB NEB ; Start 05/07/17 at 04:00; Stop 05/07/17 at 04:00; Status DC Clindamycin Phosphate 300 mg/ Sodium Chloride 102 ml @ 104 mls/hr Q8H IV Last administered on 05/08/17 10:07; Start 05/07/17 at 02:00 Piperacillin Sod/ Tazobactam Sod 50 ml @ 100 mls/hr Q6H IV Last administered on 05/08/17 12:29; Start 05/07/17 at 00:15 Metoprolol Tartrate (Lopressor Inj) 5 mg ONCE ONCE IV PUSH Last administered on 05/07/17 00:50; Start 05/07/17 at 00:30; Stop 05/07/17 at 00:34; Status DC Diltiazem HCl (Cardizem Inj) 15 mg ONCE ONCE IV Last administered on 02:11; Start 05/07/17 at 02:00; Stop 05/07/17 at 02:03; Status DC Diltiazem HCl 125 mg/Sodium Chloride 125 ml @ 5 mls/hr TITRATE PRN IV Tachycardia Last administered on 05/07/17 17:23; Start 05/07/17 at 03:45; Stop 05/08/17 at 10:36; Status DC Ipratropium [place] (Atrovent Neb) 0.5 mg Q6HR NEB NEB Last administered on 09:33; Start 05/07/17 at 04:00 Sodium Chloride 250 ml @ 250 mls/hr BOLUS ONCE IV Last administered on 13:49; Start 05/07/17 at 12:15; Stop 05/07/17 at 13:14; Status DC Diltiazem HCl (Cardizem) 30 mg Q6HR PO Last administered on 05/08/17 12:29; Start 05/08/17 at 12:00 Medical Decision Making MDM Remarks Last 48 hours Impressions Abdomen X-Ray 05/03/17 1144 Signed Impressions: Service Date/Time: April 12:09 - CONCLUSION: Feeding tube is not seen Mikel Martins MD Last [address] 04/29/17 1008 Signed Impressions: Service Date/Time: Saturday, April 29, 2017 11:31 - CONCLUSION: 1. Stable noncontrast head CT. No acute intracranial abnormality is identified. 2. Chronic changes include mild cerebral atrophy and periventricular white matter change characteristic of chronic microvascular ischemia. Mikel Angel MD Neck CTA 04/29/17 0000 Signed Impressions: Service Date/Time: Saturday, April 29, 2017 11:34 - CONCLUSION: 1. The distal right internal carotid artery at the C1-C2 level demonstrates a short segment of focal dissection measuring approximately 8 mm in length. The more distal internal carotid artery is normal. 2. There is no significant atherosclerotic disease or stenosis within either internal carotid artery. Mikel Angel MD Head CTA 04/29/17 0000 Signed Impressions: Service Date/Time: Saturday, April 29, 2017 11:34 - CONCLUSION: No acute intracranial vascular abnormality is identified. Mikel Angel MD Plan Plan Remarks Septic Shock Reassessment Heart: Regular rate and rhythm Lungs: Clear Skin: Warm Peripheral Pulses: Bounding Right Radial Bounding Left Radial Bounding Right Dorsalis Pedis Bounding Left Dorsalis Pedis Caprini VTE Risk Assessment Caprini VTE Risk Assessment Caprini VTE Risk Assessment: Mod/High Risk (score >= 2) Caprini Risk Assessment Model Point Value = 1 Point Value = 2 Point Value = 3 Point Value = 5 Age 41-60 Minor surgery BMI > 25 kg/m2 Swollen legs Varicose veins or History of unexplained or recurrent spontaneous Oral contraceptives or hormone replacement Sepsis (< 1 month) Serious lung disease, including pneumonia (< 1 month) Abnormal pulmonary function Acute myocardial infarction Congestive heart failure (< 1 month) History of inflammatory bowel disease Medical patient at bed rest Age 61-74 Arthroscopic surgery Major open surgery (> 45 min) Laparoscopic surgery (> 45 min) Malignancy Confined to bed (> 72 hours) Immobilizing plaster cast Central venous access Age >= 75 History of VTE Family history of VTE Factor V Leiden Prothrombin [id number] Lupus anticoagulant Anticardiolipin antibodies Elevated serum homocysteine Heparin-induced thrombocytopenia Other congenital or acquired thrombophilia Stroke (< 1 month) Elective arthroplasty Hip, pelvis, or leg fracture Acute spinal cord injury (< 1 month) Prophylaxis Regimen Total Risk Factor Score Risk Level Prophylaxis Regimen 0-1 Low Early ambulation 2 Moderate Order ONE of the following: *Sequential Compression Device (SCD) *Heparin 5000 units SQ BID 3-4 Higher Order ONE of the following medications: *Heparin 5000 units SQ TID *Enoxaparin/Lovenox 40 mg SQ daily (WT < 150 kg, CrCl > 30 mL/min) *Enoxaparin/Lovenox 30 mg SQ daily (WT < 150 kg, CrCl > 10-29 mL/min) *Enoxaparin/Lovenox 30 mg SQ BID (WT < 150 kg, CrCl > 30 mL/min) AND/OR *Sequential Compression Device (SCD) 5 or more Highest Order ONE of the following medications: *Heparin 5000 units SQ TID (Preferred with Epidurals) *Enoxaparin/Lovenox 40 mg SQ daily (WT < 150 kg, CrCl > 30 mL/min) *Enoxaparin/Lovenox 30 mg SQ daily (WT < 150 kg, CrCl > 10-29 mL/min) *Enoxaparin/Lovenox 30 mg SQ BID (WT < 150 kg, CrCl > 30 mL/min) AND *Sequential Compression Device (SCD) Attending Statement Continue IV antibiotics for aspiration pneumonia Status post PEG. COntinue tube feedings Continue neuro checks.. CT brain-no acute abnormality. MRI of the brain Could not be done due to pacemaker. Follow up CT on 05/01 was stable Continue full anticoagulation with heparin drip and aspirin. Vascular surgeon has been consulted Defer to Neurology further recommendations HTN. Continue carvedilol 6.25 BID, [id number]/day, Norvasc 10mg/day Hyperlipidemia. Continue simvastatin Pacemaker-[employer] demand rate set at 60 Pulmonary.. Continue aggressive pulmonary toilette, nasotracheal suction, and breathing treatments with nebulizers. Renal. Continue to monitor closely urine output, BUN and creatinine Endocrine. Continue to onitor serial Acu checks and SSI as needed in detail Continue Protonix for stress ulcer prophylaxis Continue Redd hose and SCD's for DVT prophylaxis. Will follow Milton Estevez MD May 08, 2017 12:54
--- NOTE | 2017-05-08 14:23 | HHI.PR ---
Subjective Remarks This is a 77-year-old gentleman that has presented to the emergency department 3 times in the last 3 days for neurologic symptomatology to include severe headaches left upper extremity weakness, vertigo. Noted to have after imaging studies right ICA focal dissection. Dr. Hinkle, interventional radiology was consulted by Dr. Rolle, no IR intervention regarding a stent is indicated secondary to adequate flow. Seen in his bedroom in the presence of his Mrs. Tigist Dhaliwal he had an episode of Nausea and vomit yesterday night and probable Aspiration Pneumonia started on IV antibiotics by Screen Printing Machine Loader Unloader. Clindamycin and Zosyn. but the lungs were clear on Chest X ray. 05/08: Stable in his bedroom, discussed with nurse, his Cardizem drip was removed yesterday, had some Hypotension and today his blood pressure is going up, removed Amlodipine and switch to Cardizem by mouth with parameters, continue IV fluids and had to stop Tube feedings due to lactose intolerance, asked for dietitian, continue with nausea and some vomit but no diarrhea. has PEG tube in place. Objective Vital Signs Date Time Temp Pulse Resp B/P (MAP) Pulse Ox O2 Delivery O2 Flow Rate FiO2 05/08/17 14:00 104 05/08/17 12:00 96 05/08/17 12:00 98.2 96 20 110/79 (89) 100 05/08/17 10:00 92 05/08/17 09:35 100 Nasal Cannula 2.00 05/08/17 08:00 95 05/08/17 08:00 98.6 102 21 126/71 (89) 100 05/08/17 07:00 98 Nasal Cannula 3.00 05/08/17 07:00 82 05/08/17 06:00 99 05/08/17 04:00 88 05/08/17 04:00 98.2 88 15 89/64 (72) 100 05/08/17 02:00 86 05/08/17 00:00 82 05/08/17 00:00 82 05/08/17 00:00 97.9 82 15 79/47 (58) 98 05/07/17 23:06 99 Nasal Cannula 3.00 05/07/17 22:00 86 05/07/17 20:00 86 05/07/17 20:00 98.8 86 16 97/66 (76) 98 05/07/17 20:00 98 Nasal Cannula 3.00 05/07/17 20:00 86 05/07/17 18:00 86 05/07/17 17:23 83 111/66 05/07/17 16:00 85 05/07/17 16:00 98.2 85 17 106/66 (79) 98 05/07/17 15:00 85 05/07/17 15:00 85 I/O 05/07/17 05/07/17 05/07/17 05/08/17 05/08/17 05/08/17 07:00 15:00 23:00 07:00 15:00 23:00 Intake Total 863 ml 1119 ml 152 ml 930 ml Output Total 550 ml 310 ml 325 ml Balance 313 ml 809 ml -173 ml 930 ml Intake Oral 0 ml 0 ml IV Total 703 ml 1069 ml 152 ml 930 ml Tube Feeding 40 ml 20 ml 0 ml Other 120 ml 30 ml Output Urine Total 450 ml 310 ml 325 ml Gastric Drainage Total 100 ml # Voids 3 # Bowel Movements 0 2 1 0 Result Diagram: 05/08/17 0521 05/07/17 0311 Imaging Last Impressions Chest X-Ray 05/06/17 0000 Signed Impressions: Service Date/Time: Saturday, May 06, 2017 21:42 - CONCLUSION: The lungs are clear. Isra Wood MD Abdomen X-Ray 05/03/17 1144 Signed Impressions: Service Date/Time: April 12:09 - CONCLUSION: Feeding tube is not seen Mikel Martins MD Head CT 05/01/17 0000 Signed Impressions: Service Date/Time: Monday, May 01, 2017 10:45 - CONCLUSION: No significant change has occurred. Rony Palm MD Neck CTA 04/29/17 0000 Signed Impressions: Service Date/Time: Saturday, April 29, 2017 11:34 - CONCLUSION: 1. The distal right internal carotid artery at the C1-C2 level demonstrates a short segment of focal dissection measuring approximately 8 mm in length. The more distal internal carotid artery is normal. 2. There is no significant atherosclerotic disease or stenosis within either internal carotid artery. Mikel Angel MD Head CTA 04/29/17 0000 Signed Impressions: Service Date/Time: Saturday, April 29, 2017 11:34 - CONCLUSION: No acute intracranial vascular abnormality is identified. Mikel Angel MD Procedures 05/04- PEG Other Results Laboratory Tests Test 04/29/17 10:15 04/29/17 10:30 04/30/17 04:55 05/03/17 06:08 Total Creatine Kinase 133 U/L Urine Color YELLOW Urine Turbidity HAZY Urine pH 5.5 Urine Specific [place] 1.024 Urine Protein 30 mg/dL Urine Glucose (UA) NEG mg/dL Urine Ketones TRACE mg/dL Urine Occult Blood SMALL Urine Nitrite NEG Urine Bilirubin NEG Urine Urobilinogen LESS THAN 2.0 MG/DL Urine Leukocyte Esterase TRACE Urine RBC 9 /hpf Urine WBC 2 /hpf Urine WBC Clumps OCC Urine Bacteria FEW /hpf Urine Hyaline Casts 26 /lpf Urine Mucus FEW /lpf Microscopic Urinalysis Comment CATH-CULTURE IND Blood Urea Nitrogen 19 MG/DL 13 MG/DL Creatinine 1.17 MG/DL 0.92 MG/DL Random Glucose 135 MG/DL 121 MG/DL Calcium Level 9.1 MG/DL 8.7 MG/DL Phosphorus Level 2.8 MG/DL Magnesium Level 2.2 MG/DL Sodium Level 141 MEQ/L 143 MEQ/L Potassium Level 3.2 MEQ/L 3.9 MEQ/L Chloride Level 107 MEQ/L 110 MEQ/L Carbon Dioxide Level 22.9 MEQ/L 24.8 MEQ/L Prothrombin Time 11.4 SEC Prothromb Time International Ratio 1.0 RATIO Total Protein 7.0 GM/DL Albumin 3.1 GM/DL Alkaline Phosphatase 59 U/L Aspartate Amino Transf (AST/SGOT) 24 U/L Alanine Aminotransferase (ALT/SGPT) 27 U/L Total Bilirubin 0.4 MG/DL Test 05/05/17 04:29 05/07/17 03:11 05/08/17 05:21 Activated Partial Thromboplast Time 26.8 SEC Neutrophils (%) (Auto) 92.8 % Lymphocytes (%) (Auto) 2.8 % Monocytes (%) (Auto) 3.7 % Eosinophils (%) (Auto) 0.3 % Basophils (%) (Auto) 0.4 % Neutrophils # (Auto) 10.6 TH/MM3 Lymphocytes # (Auto) 0.3 TH/MM3 Monocytes # (Auto) 0.4 TH/MM3 Eosinophils # (Auto) 0.0 TH/MM3 Basophils # (Auto) 0.0 TH/MM3 CBC Comment DIFF FINAL Differential Comment Blood Urea Nitrogen 23 MG/DL Creatinine 1.31 MG/DL Random Glucose 129 MG/DL Calcium Level 8.8 MG/DL Magnesium Level 2.4 MG/DL Sodium Level 143 MEQ/L Potassium Level 3.8 MEQ/L Chloride Level 109 MEQ/L Carbon Dioxide Level 26.1 MEQ/L Anion Gap 8 MEQ/L Estimat Glomerular Filtration Rate 64 ML/MIN Troponin I 0.07 NG/ML White Blood Count 12.2 TH/MM3 Red Blood Count 3.82 MIL/MM3 Hemoglobin 11.4 GM/DL Hematocrit 34.0 % Mean Corpuscular Volume 89.0 FL Mean Corpuscular Hemoglobin 29.7 PG Mean Corpuscular Hemoglobin Concent 33.4 % Red Cell Distribution Width 13.6 % Platelet Count 143 TH/MM3 Mean Platelet Volume 9.0 FL Hematology Comments Objective Remarks GENERAL: Alert and Oriented x 3 SKIN: Warm and dry. HEAD: Atraumatic. Normocephalic. EYES: Pupils equal and round. No scleral icterus. No injection or drainage. ENT: No nasal bleeding or discharge. Mucous membranes pink and moist. NECK: Trachea midline. No JVD. CARDIOVASCULAR: Regular rate and rhythm. RESPIRATORY: No accessory muscle use. Clear to auscultation. Breath sounds equal bilaterally. GASTROINTESTINAL: Abdomen soft, non-tender, nondistended. Hepatic and splenic margins not palpable. PEG in place. has Condom Catheter. MUSCULOSKELETAL: Extremities without clubbing, cyanosis, or edema. No obvious deformities. NEUROLOGICAL: Dysarthria PSYCHIATRIC: Appropriate mood and affect; insight and judgment normal. Medications and IVs Current Medications Medications (Trade) Dose Ordered Sig/Benjamin Route Start Time Stop Time Status Last Admin Sodium Chloride 1,000 ml @ 83 mls/hr Q12H3M IV 04/29/17 14:00 05/08/17 08:37 (NS Flush) 2 ml UNSCH PRN IV FLUSH 04/29/17 14:00 (NS Flush) 2 ml BID IV FLUSH 04/29/17 21:00 05/08/17 08:02 (Protonix Inj) 40 mg DAILY IV PUSH 04/30/17 09:00 05/08/17 08:36 (Zofran Inj) 4 mg Q6H PRN IV PUSH 04/29/17 14:00 05/06/17 22:46 Miscellaneous Information 1 Q361D XX 04/29/17 14:00 (Chlorhexidine 2% Cloth) Taper DAILY@04 TOP 04/30/17 04:00 04/26/18 03:59 05/03/17 04:37 (Chlorhexidine 2% Cloth) 3 pack UNSCH PRN TOP 04/29/17 14:00 (Leonila-Colace) 1 tab BID PO 04/29/17 21:00 05/08/17 08:36 (Milk Of Magnesia Liq) 30 ml Q12H PRN PO 04/29/17 14:00 05/07/17 08:12 (Senokot) 17.2 mg Q12H PRN PO 04/29/17 14:00 05/07/17 08:12 (Dulcolax Supp) 10 mg DAILY PRN RECTAL 04/29/17 14:00 05/07/17 08:12 (Lactulose Liq) 30 ml DAILY PRN PO 04/29/17 14:00 05/07/17 08:12 Magnesium Sulfate 4 gm/Sodium Chloride 100 ml @ 50 mls/hr UNSCH PRN IV 04/29/17 14:00 (Mag-Ox) 800 mg UNSCH PRN PO 04/29/17 14:00 Magnesium Sulfate 2 gm/Sodium Chloride 100 ml @ 50 mls/hr UNSCH PRN IV 04/29/17 14:00 (D50w (Vial) Inj) 50 ml UNSCH PRN IV PUSH 04/29/17 14:15 (Glucagon Inj) 1 mg UNSCH PRN OTHER 04/29/17 14:15 (NovoLOG SUPPLEMENTAL SCALE) 1 ACHS SLIDING SCALE SQ 04/29/17 17:00 (Ofirmev 1000 Mg/ 100 ml Inj) 1,000 mg Q6H PRN IV 04/29/17 14:15 05/07/17 21:28 (Aspirin Chew) 81 mg DAILY CHEW 04/30/17 09:00 05/08/17 08:37 (Coreg) 6.25 mg BID PO 04/29/17 21:00 05/08/17 08:36 (Prinivil) 10 mg DAILY PO 04/30/17 09:00 05/08/17 08:37 (Pravachol) 80 mg HS PO 04/29/17 21:00 05/07/17 20:51 (Trandate Inj) 10 mg Q4H PRN IV PUSH 04/29/17 20:00 05/07/17 01:14 Dexmedetomidine HCl 200 mcg/ Sodium Chloride 52 ml @ 4.59 mls/hr TITRATE PRN IV 04/30/17 02:00 05/03/17 07:12 (Duoneb Neb) 1 ampule Q2HR NEB PRN NEB 05/02/17 04:30 05/06/17 22:00 (SEROquel) 25 mg HS G-TUBE 05/05/17 21:00 05/07/17 20:51 (Eliquis) 5 mg BID PO 05/05/17 21:00 05/08/17 08:36 (Namenda) 10 mg BID PO 05/05/17 21:00 05/08/17 08:36 (KlonoPIN) 1 mg HS PO 05/05/17 21:00 05/07/17 20:51 (Geodon Inj) 10 mg Q8HR PRN IM 05/05/17 18:00 (Phenergan Supp) 25 mg Q6H PRN RECTAL 05/06/17 23:00 05/07/17 01:23 Clindamycin Phosphate 300 mg/ Sodium Chloride 102 ml @ 104 mls/hr Q8H IV 05/07/17 02:00 05/08/17 10:07 Piperacillin Sod/ Tazobactam Sod 50 ml @ 100 mls/hr Q6H IV 05/07/17 00:15 05/08/17 12:29 (Atrovent Neb) 0.5 mg Q6HR NEB NEB 05/07/17 04:00 05/08/17 09:33 (Cardizem) 30 mg Q6HR PO 05/08/17 12:00 05/08/17 12:29 A/P Assessment and Plan 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 04/29 CTA brain-no acute vascular abnormality 04/29 CT brain-no acute abnormality continue on Seroquel 25 mg hs- at home was on this on chronic benz0- currently on IV Ativan q 12- change to Clonazepam 1 mg hs (at home was on 2 mg hs) and monitor. IM Geodon prn for agitation continue aspirin 81 mg daily Discontinue Heparin and now on Eliquis 5 mg BID. continue PT, OT and Speech therapy. Acute Kidney Injury continue IV fluids and follow in am tomorrow. Respiratory: stable Maintain O2 sat greater than 92% Bronchodilators when necessary Cardiovascular: Pacemaker Dyslipidemia Hypertension Maintain MAP > 65mmHg Continue carvedilol 6.25 BID, [id number]/day, discontinue Amlodipine and started on Cardizem with parameters. Continue simvastatin Pacemaker-St. Kalpesh demand rate set at 60 FEN/GI: Dysphagia- failed swallowing- S.P PEG 05/04 Zofran 4 mg every 6 hours when necessary for nausea Protonix (home med) for GI prophylaxis Tube feedings has lactose and the patient has lactose intolerance asked for Dietitian. HICCUPS- persistent trial of Thorazine IM x 1 continue on Zofran- if no improvement - consider switching to Reglan Questionable Aspiration Pneumonia, On Clindamycin and Zosyn, no changes on CXR will follow to discontinue antibiotics soon if no signs of infection. will continue antibiotics today and follow cultures. GI Prophylaxis - Protonix DVT Prophylaxis- SCDs - - on Eliquis Activity- out of bed to chair daily Speech/PT/OT daily DC planning- CM consult - SNF- now that PEG placed Discharge Planning Once cleared by specialists. Juan David Hooper MD May 08, 2017 14:23
[2017-05-08] MEDS: ZIPRASIDONE MESYLATE 20 MG VIAL IM PRN ×2 (14:47→22:22)
[2017-05-08] MEDS: clonazePAM 1 MG TAB PO SCH (19:57)
[2017-05-08] MEDS: QUEtiapine FUMARATE 25 MG TAB G-TUBE SCH (19:57)
[2017-05-08] MEDS: PRAVASTATIN SOD 80 MG TAB PO SCH (19:57)
[2017-05-09] VITALS (7 sets, daily range): BP systolic 92–152; BP diastolic 59–94; PULSE 78–94; RESP 18–25; TEMP 98–99; O2SAT 93–99
[2017-05-09] MEDS: CLINDAMYCIN INJ 300 MG in SODIUM CHLORIDE 0.9% INJ 100 ML IV SCH ×2 (02:35→11:08)
[2017-05-09] MEDS: CHLORHEXIDINE GLUCONATE 2 % 1 PACK (2 CLOTHS) TOP SCH (04:00)
[2017-05-09] MEDS: RESP: IPRATROPIUM 0.5 MG/2.5 ML NEB NEB SCH ×2 (04:14→10:00)
[2017-05-09] MEDS: DILTIAZEM HCL 30 MG TAB PO SCH ×2 (05:28→11:05)
[2017-05-09 05:57] LABS: BICARBONATE 27.3 MEQ/L (21.0-32.0)
[2017-05-09] MEDS: PIPERACIL-TAZO 3.375 GM PREMIX 50 ML IV SCH ×2 (06:25→13:52)
[2017-05-09 07:14] LABS: AUTOMATED NEUTROPHIL # 12.6 TH/MM3 (1.8-7.7); BASOPHIL # 0.1 TH/MM3 (0-0.2); BASOPHIL % 0.5 % (0.0-2.0); EOSINOPHIL # 0.2 TH/MM3 (0-0.4); EOSINOPHIL % 1.6 % (0.0-4.0); HEMATOCRIT 40.7 % (39.0-51.0); HEMO FLAGS DIFF FINAL; LYMPH % 11.5 % (9.0-44.0); LYMPHOCYTE # 1.7 TH/MM3 (1.0-4.8); MEAN CORPUSCULAR HEMOGLOBIN 29.5 PG (27.0-34.0); MEAN CORPUSCULAR HGB CONC 32.8 % (32.0-36.0); NEUT % 82.4 % (16.0-70.0); PLATELET COUNT 221 TH/MM3 (150-450); RED BLOOD COUNT 4.53 MIL/MM3 (4.50-5.90); RED CELL DISTRIBUTION WIDTH 13.8 % (11.6-17.2); WHITE BLOOD COUNT 15.2 TH/MM3 (4.0-11.0)
[2017-05-09] MEDS: MEMANTINE HCL 10 MG TAB PO SCH (11:05)
[2017-05-09] MEDS: DOCUSATE SODIUM 50 MG/SENNA 8.6 MG TAB PO SCH (11:05)
[2017-05-09] MEDS: LISINOPRIL 10 MG TAB PO SCH (11:05)
[2017-05-09] MEDS: CARVEDILOL 6.25 MG TAB PO SCH (11:06)
[2017-05-09] MEDS: ASPIRIN 81 MG CHEW TAB CHEW SCH (11:06)
[2017-05-09] MEDS: PANTOPRAZOLE SODIUM 40 MG VIAL IV PUSH SCH (11:06)
[2017-05-09] MEDS: APIXABAN 5 MG TABLET PO SCH (11:07)
[2017-05-09] MEDS: SODIUM CHLORIDE 0.9% FLUSH 10 ML FLUSH IV FLUSH SCH (11:08)
[2017-05-09] MEDS: RESP: ALBUTEROL 2.5 MG/IPRATROPIUM 0.5 MG NEB (PRN) NEB (11:41)
--- NOTE | 2017-05-09 12:09 | HHI.PR ---
Subjective Remarks This is a 77-year-old gentleman that has presented to the emergency department 3 times in the last 3 days for neurologic symptomatology to include severe headaches left upper extremity weakness, vertigo. Noted to have after imaging studies right ICA focal dissection. Dr. Hinkle, interventional radiology was consulted by Dr. Rolle, no IR intervention regarding a stent is indicated secondary to adequate flow. Seen in his bedroom in the presence of his Mrs. Tigist Dhaliwal he had an episode of Nausea and vomit yesterday night and probable Aspiration Pneumonia started on IV antibiotics by Oil Well Drilling Manager. Clindamycin and Zosyn. but the lungs were clear on Chest X ray. 05/08: Stable in his bedroom, discussed with nurse, his Cardizem drip was removed yesterday, had some Hypotension and today his blood pressure is going up, removed Amlodipine and switch to Cardizem by mouth with parameters, continue IV fluids and had to stop Tube feedings due to lactose intolerance, asked for dietitian, continue with nausea and some vomit but no diarrhea. has PEG tube in place. 05/09: Discussed in the room with patient and his , awaiting for Dietitian to start tube feedings to be able to discharge to Rehab. seen by dietitian and changes performed will go today to Rehab, discussed with his in the room Objective Vital Signs Date Time Temp Pulse Resp B/P (MAP) Pulse Ox O2 Delivery O2 Flow Rate FiO2 05/09/17 11:44 93 21 05/09/17 06:00 88 05/09/17 04:00 88 05/09/17 04:00 99.0 88 22 152/88 (109) 98 05/09/17 00:00 98.6 87 25 134/94 (107) 99 05/09/17 00:00 87 05/08/17 20:00 110 05/08/17 20:00 99.1 110 15 137/83 (101) 99 05/08/17 19:00 100 Nasal Cannula 2.00 05/08/17 18:00 102 05/08/17 16:00 98.1 109 26 139/97 (111) 99 05/08/17 16:00 109 05/08/17 14:00 104 I/O 05/08/17 05/08/17 05/08/17 05/09/17 05/09/174/17 07:00 15:00 23:00 07:00 15:00 23:00 Intake Total 152 ml 930 ml 799 ml 1050 ml Output Total 325 ml 350 ml 2450 ml Balance -173 ml 930 ml 449 ml -1400 ml Intake Oral 0 ml IV Total 152 ml 930 ml 799 ml 1050 ml Tube Feeding 0 ml Output Urine Total 325 ml 350 ml 2450 ml # Voids 3 # Bowel Movements 1 0 0 0 Result Diagram: 05/09/173 05/09/173 Imaging Last Impressions Chest X-Ray 05/06/17 0000 Signed Impressions: Service Date/Time: Saturday, May 06, 2017 21:42 - CONCLUSION: The lungs are clear. Isra Wood MD Abdomen X-Ray 05/03/17 1144 Signed Impressions: Service Date/Time: April 12:09 - CONCLUSION: Feeding tube is not seen Mikel Martins MD Head CT 05/01/17 0000 Signed Impressions: Service Date/Time: Monday, May 01, 2017 10:45 - CONCLUSION: No significant change has occurred. Rony Palm MD Neck CTA 04/29/17 0000 Signed Impressions: Service Date/Time: Saturday, April 29, 2017 11:34 - CONCLUSION: 1. The distal right internal carotid artery at the C1-C2 level demonstrates a short segment of focal dissection measuring approximately 8 mm in length. The more distal internal carotid artery is normal. 2. There is no significant atherosclerotic disease or stenosis within either internal carotid artery. Mikel Angel MD Head CTA 04/29/17 0000 Signed Impressions: Service Date/Time: Saturday, April 29, 2017 11:34 - CONCLUSION: No acute intracranial vascular abnormality is identified. Mikel Angel MD Procedures 05/04- PEG Other Results Laboratory Tests Test 04/29/17 10:15 04/29/17 10:30 04/30/17 04:55 05/03/17 06:08 Total Creatine Kinase 133 U/L Urine Color YELLOW Urine Turbidity HAZY Urine pH 5.5 Urine Specific [place] 1.024 Urine Protein 30 mg/dL Urine Glucose (UA) NEG mg/dL Urine Ketones TRACE mg/dL Urine Occult Blood SMALL Urine Nitrite NEG Urine Bilirubin NEG Urine Urobilinogen LESS THAN 2.0 MG/DL Urine Leukocyte Esterase TRACE Urine RBC 9 /hpf Urine WBC 2 /hpf Urine WBC Clumps OCC Urine Bacteria FEW /hpf Urine Hyaline Casts 26 /lpf Urine Mucus FEW /lpf Microscopic Urinalysis Comment CATH-CULTURE IND Blood Urea Nitrogen 19 MG/DL 13 MG/DL Creatinine 1.17 MG/DL 0.92 MG/DL Random Glucose 135 MG/DL 121 MG/DL Calcium Level 9.1 MG/DL 8.7 MG/DL Phosphorus Level 2.8 MG/DL Magnesium Level 2.2 MG/DL Sodium Level 141 MEQ/L 143 MEQ/L Potassium Level 3.2 MEQ/L 3.9 MEQ/L Chloride Level 107 MEQ/L 110 MEQ/L Carbon Dioxide Level 22.9 MEQ/L 24.8 MEQ/L Prothrombin Time 11.4 SEC Prothromb Time International Ratio 1.0 RATIO Total Protein 7.0 GM/DL Albumin 3.1 GM/DL Alkaline Phosphatase 59 U/L Aspartate Amino Transf (AST/SGOT) 24 U/L Alanine Aminotransferase (ALT/SGPT) 27 U/L Total Bilirubin 0.4 MG/DL Test 05/05/17 04:29 05/07/17 03:11 05/08/17 05:21 05/09/17 04:43 Activated Partial Thromboplast Time 26.8 SEC Blood Urea Nitrogen 23 MG/DL 12 MG/DL Creatinine 1.31 MG/DL 0.94 MG/DL Random Glucose 129 MG/DL 96 MG/DL Calcium Level 8.8 MG/DL 9.1 MG/DL Magnesium Level 2.4 MG/DL Sodium Level 143 MEQ/L 141 MEQ/L Potassium Level 3.8 MEQ/L 4.0 MEQ/L Chloride Level 109 MEQ/L 104 MEQ/L Carbon Dioxide Level 26.1 MEQ/L 27.3 MEQ/L Troponin I 0.07 NG/ML Hematology Comments White Blood Count 15.2 TH/MM3 Red Blood Count 4.53 MIL/MM3 Hemoglobin 13.3 GM/DL Hematocrit 40.7 % Mean Corpuscular Volume 90.0 FL Mean Corpuscular Hemoglobin 29.5 PG Mean Corpuscular Hemoglobin Concent 32.8 % Red Cell Distribution Width 13.8 % Platelet Count 221 TH/MM3 Mean Platelet Volume 8.4 FL Neutrophils (%) (Auto) 82.4 % Lymphocytes (%) (Auto) 11.5 % Monocytes (%) (Auto) 4.0 % Eosinophils (%) (Auto) 1.6 % Basophils (%) (Auto) 0.5 % Neutrophils # (Auto) 12.6 TH/MM3 Lymphocytes # (Auto) 1.7 TH/MM3 Monocytes # (Auto) 0.6 TH/MM3 Eosinophils # (Auto) 0.2 TH/MM3 Basophils # (Auto) 0.1 TH/MM3 CBC Comment DIFF FINAL Differential Comment Anion Gap 10 MEQ/L Estimat Glomerular Filtration Rate 94 ML/MIN Objective Remarks GENERAL: Alert and Oriented x 3 SKIN: Warm and dry. HEAD: Atraumatic. Normocephalic. EYES: Pupils equal and round. No scleral icterus. No injection or drainage. ENT: No nasal bleeding or discharge. Mucous membranes pink and moist. NECK: Trachea midline. No JVD. CARDIOVASCULAR: Regular rate and rhythm. RESPIRATORY: No accessory muscle use. Clear to auscultation. Breath sounds equal bilaterally. GASTROINTESTINAL: Abdomen soft, non-tender, nondistended. Hepatic and splenic margins not palpable. PEG in place. has Condom Catheter. MUSCULOSKELETAL: Extremities without clubbing, cyanosis, or edema. No obvious deformities. NEUROLOGICAL: Dysarthria PSYCHIATRIC: Appropriate mood and affect; insight and judgment normal. Medications and IVs Current Medications Medications (Trade) Dose Ordered Sig/Benjamin Route Start Time Stop Time Status Last Admin Sodium Chloride 1,000 ml @ 83 mls/hr Q12H3M IV 04/29/17 14:00 05/08/17 23:20 (NS Flush) 2 ml UNSCH PRN IV FLUSH 04/29/17 14:00 (NS Flush) 2 ml BID IV FLUSH 04/29/17 21:00 05/09/17 11:08 (Protonix Inj) 40 mg DAILY IV PUSH 04/30/17 09:00 05/09/17 11:06 (Zofran Inj) 4 mg Q6H PRN IV PUSH 04/29/17 14:00 05/06/17 22:46 Miscellaneous Information 1 Q361D XX 04/29/17 14:00 (Chlorhexidine 2% Cloth) Taper DAILY@04 TOP 04/30/17 04:00 04/26/18 03:59 05/03/17 04:37 (Chlorhexidine 2% Cloth) 3 pack UNSCH PRN TOP 04/29/17 14:00 (Leonila-Colace) 1 tab BID PO 04/29/17 21:00 05/09/17 11:05 (Milk Of Magnesia Liq) 30 ml Q12H PRN PO 04/29/17 14:00 05/07/17 08:12 (Senokot) 17.2 mg Q12H PRN PO 04/29/17 14:00 05/07/17 08:12 (Dulcolax Supp) 10 mg DAILY PRN RECTAL 04/29/17 14:00 05/07/17 08:12 (Lactulose Liq) 30 ml DAILY PRN PO 04/29/17 14:00 05/07/17 08:12 Magnesium Sulfate 4 gm/Sodium Chloride 100 ml @ 50 mls/hr UNSCH PRN IV 04/29/17 14:00 (Mag-Ox) 800 mg UNSCH PRN PO 04/29/17 14:00 Magnesium Sulfate 2 gm/Sodium Chloride 100 ml @ 50 mls/hr UNSCH PRN IV 04/29/17 14:00 (D50w (Vial) Inj) 50 ml UNSCH PRN IV PUSH 04/29/17 14:15 (Glucagon Inj) 1 mg UNSCH PRN OTHER 04/29/17 14:15 (NovoLOG SUPPLEMENTAL SCALE) 1 ACHS SLIDING SCALE SQ 04/29/17 17:00 (Ofirmev 1000 Mg/ 100 ml Inj) 1,000 mg Q6H PRN IV 04/29/17 14:15 05/07/17 21:28 (Aspirin Chew) 81 mg DAILY CHEW 04/30/17 09:00 05/09/17 11:06 (Coreg) 6.25 mg BID PO 04/29/17 21:00 05/09/17 11:06 (Prinivil) 10 mg DAILY PO 04/30/17 09:00 05/09/17 11:05 (Pravachol) 80 mg HS PO 04/29/17 21:00 05/08/17 19:57 (Trandate Inj) 10 mg Q4H PRN IV PUSH 04/29/17 20:00 05/07/17 01:14 Dexmedetomidine HCl 200 mcg/ Sodium Chloride 52 ml @ 4.59 mls/hr TITRATE PRN IV 04/30/17 02:00 05/03/17 07:12 (Duoneb Neb) 1 ampule Q2HR NEB PRN NEB 05/02/17 04:30 05/09/17 11:41 (SEROquel) 25 mg HS G-TUBE 05/05/17 21:00 05/08/17 19:57 (Eliquis) 5 mg BID PO 05/05/17 21:00 05/09/17 11:07 (Namenda) 10 mg BID PO 05/05/17 21:00 05/09/17 11:05 (KlonoPIN) 1 mg HS PO 05/05/17 21:00 05/08/17 19:57 (Geodon Inj) 10 mg Q8HR PRN IM 05/05/17 18:00 05/08/17 22:22 (Phenergan Supp) 25 mg Q6H PRN RECTAL 05/06/17 23:00 05/07/17 01:23 Clindamycin Phosphate 300 mg/ Sodium Chloride 102 ml @ 104 mls/hr Q8H IV 05/07/17 02:00 05/09/17 11:08 Piperacillin Sod/ Tazobactam Sod 50 ml @ 100 mls/hr Q6H IV 05/07/17 00:15 05/09/17 06:25 (Atrovent Neb) 0.5 mg Q6HR NEB NEB 05/07/17 04:00 05/09/17 04:14 (Cardizem) 30 mg Q6HR PO 05/08/17 12:00 05/09/17 11:05 A/P Assessment and Plan 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 04/29 CTA brain-no acute vascular abnormality 04/29 CT brain-no acute abnormality continue on Seroquel 25 mg hs- at home was on this on chronic benz0- currently on IV Ativan q 12- change to Clonazepam 1 mg hs (at home was on 2 mg hs) and monitor. IM Geodon prn for agitation continue aspirin 81 mg daily Discontinue Heparin and now on Eliquis 5 mg BID. continue PT, OT and Speech therapy. Acute Kidney Injury continue IV fluids and follow in am tomorrow. Respiratory: stable Maintain O2 sat greater than 92% Bronchodilators when necessary Cardiovascular: Pacemaker Dyslipidemia Hypertension Maintain MAP > 65mmHg Continue carvedilol 6.25 BID, [id number]/day, discontinue Amlodipine and started on Cardizem with parameters. Continue simvastatin Pacemaker-St. Kalpesh demand rate set at 60 FEN/GI: Dysphagia- failed swallowing- S.P PEG 05/04 Zofran 4 mg every 6 hours when necessary for nausea Protonix (home med) for GI prophylaxis Tube feedings has lactose and the patient has lactose intolerance asked for Dietitian. HICCUPS- persistent trial of Thorazine IM x 1 continue on Zofran- if no improvement - consider switching to Reglan Questionable Aspiration Pneumonia, On Clindamycin and Zosyn, no changes on CXR will follow to discontinue antibiotics soon if no signs of infection. will continue antibiotics today and follow cultures. GI Prophylaxis - Protonix DVT Prophylaxis- SCDs - - on Eliquis Activity- out of bed to chair daily Speech/PT/OT daily DC planning- CM consult - SNF- now that PEG placed Discharge Planning Transfer to Rehab now. Juan David Hooper MD May 09, 2017 12:09
[2017-05-09] MEDS: SODIUM CHLOR 0.9% 1000 ML INJ 1,000 ML IV SCH (12:35)
[2017-05-09] MEDS ORDERED: DILT31TA PO (12:46)
[2017-05-09] MEDS ORDERED: PRAV80TA PO (12:46)
[2017-05-09] MEDS ORDERED: LISI10TA3 PEG (16:45)
[2017-05-09] MEDS ORDERED: CARV6.252 PEG (16:45)
[2017-05-09] MEDS ORDERED: PROT40TA PEG (16:45)
[2017-05-09] MEDS ORDERED: CLON2TAB PEG (16:45)
[2017-05-09] MEDS ORDERED: APIX5TAB PEG (16:45)
[2017-05-09] MEDS ORDERED: MEMA1TAB2 PEG (16:45)
[2017-05-09] MEDS ORDERED: PRAV80TA2 PEG (16:45)
[2017-05-09] MEDS ORDERED: ASPI81CH PEG (16:45)
[2017-05-09] MEDS ORDERED: SERO25TA PEG (16:45)
[2017-05-09] MEDS ORDERED: DILT31TA PEG (16:45)
[2017-05-09] MEDS ORDERED: APIX5TAB PO (16:45)
--- NOTE | 2017-05-09 19:05 | HHI.DS ---
Discharge Summary Admission Date Apr 29, 2017 at 13:22 Discharge Date: May 09, 2017 Admitting Diagnosis (1) CVA (cerebral vascular accident) ICD Code: I63.9 - Cerebral infarction, unspecified Diagnosis: Principal Status: Acute (2) Altered mental status ICD Code: R41.82 - Altered mental status, unspecified Diagnosis: Principal Status: Acute (3) Carotid artery dissection ICD Code: I77.71 - Dissection of carotid artery Diagnosis: Principal Status: Acute Procedures 05/04- PEG Brief History - From Admission Is a 77-year-old Czech Czech gentleman back presented to the ED with history of right sided weakness as per the family. The patient has a medical history significant for dementia, history obtained from patient's and son. On 04/27, per their report, the patient was in the emergency room at [facility] [place] night for some weakness and was diagnosed with possible TIA. He was supposed to be admitted but patient left AMA, after his hearing aids were lost/misplaced. Yesterday he came to [facility] with complaints of severe headache. Laboratory and imaging studies to include a CT were performed, the diagnoses of complex migraine the patient was discharged home. After discharge, with family noticed that he was leaning a little to the left side. Patient was last seen his baseline normal self at 11: 30 in the morning. Since he went home as per the every time he try to stand up from a sitting position he kept falling. He has fallen about 6 times since then. He also noticed that he kept falling to his left side and has been unable to walk because of left-sided weakness. Patient has history of dementia. He is awake and answering questions although slowly. He is aware in time and place and person. Vital signs are stable. Patient has a pacemaker in the warned us that an MRI cannot be done. His upholstery trimmer is Dr. Berman. 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 Critical care medicine was consulted. [facility] Past Medical History Narrative Medical List of his past medical, surgical, social and family history is reviewed from the nursing note. 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) Psychiatric: Yes (DEMENTIA) Reproductive: No Respiratory: Yes Integumentary: No Radiation Therapy: Yes Sleep Apnea: Yes Thyroid Disease: Yes ( growth removed) Ulcer: Yes Past Surgical History Abdominal Surgery: No AICD: No Cardiac Surgery: Yes (PACEMAKER, ABLATIONS X 2) Ear Surgery: No Endocrine Surgery: Yes (GROWTH REMOVED FROM THYROID) Eye Surgery: No Genitourinary Surgery: Yes (PROSTATECTOMY) Gynecologic Surgery: No Joint Replacement: No Oral Surgery: No Pacemaker: Yes Thoracic Surgery: No Other Surgery: Yes Social History Alcohol Use: No Tobacco Use: No Substance Use: No Allergies-Medications (Allergen,Severity, Reaction): Coded Allergies: MRI PRECAUTION (Verified Adverse Reaction, Severe, MRI PRECAUTION/ PACEMAKER, 04/29/17) [facility] PACEMAKER/ 12/22/16 [facility] Comments List of his allergies reviewed from the nursing note. Reported Meds & Prescriptions Reported Meds & Active Scripts Active Fioricet-Codeine (Qwrddpxpvt-Bitujaznjgmiv-Npdiwnme-Codeine) [id number] Mg Cap 1-2 Cap PO Q4H PRN Do not exceed 6 capsules/day. Eliquis (Apixaban) 5 Mg Tab 5 Mg PO BID Reported Quetiapine (Quetiapine Fumarate) 25 Mg Tab 25 Mg PO HS Amlodipine (Amlodipine Besylate) 10 Mg Tab 10 Mg PO HS Clonazepam 2 Mg Tab 2 Mg PO HS Aspirin Low Dose (Aspirin) 81 Mg Chew 81 Mg CHEW HS Zocor (Simvastatin) 40 Mg Tab 40 Mg PO HS Pantoprazole (Pantoprazole Sodium) 40 Mg Tab 40 Mg PO DAILY Memantine 10 Mg Tab 10 Mg PO BID Lisinopril 10 Mg Tab 10 Mg PO DAILY Carvedilol 6.25 Mg Tab 6.25 Mg PO BID Flecainide (Flecainide Acetate) 100 Mg Tab 100 Mg PO BID Narrative Medication List of his home medications reviewed from the nursing note. Review of Systems Except as stated in HPI: all other systems reviewed are Neg CBC/BMP: 05/09/17 0443 05/09/17 0443 Significant Findings Laboratory Tests Test 05/07/17 03:11 05/08/17 05:21 05/09/17 04:43 White Blood Count 11.5 TH/MM3 (4.0-11.0) 12.2 TH/MM3 (4.0-11.0) 15.2 TH/MM3 (4.0-11.0) Red Blood Count 4.35 MIL/MM3 (4.50-5.90) 3.82 MIL/MM3 (4.50-5.90) Hemoglobin 12.9 GM/DL (13.0-17.0) 11.4 GM/DL (13.0-17.0) Hematocrit 38.8 % (39.0-51.0) 34.0 % (39.0-51.0) Neutrophils (%) (Auto) 92.8 % (16.0-70.0) 82.4 % (16.0-70.0) Lymphocytes (%) (Auto) 2.8 % (9.0-44.0) Neutrophils # (Auto) 10.6 TH/MM3 (1.8-7.7) 12.6 TH/MM3 (1.8-7.7) Lymphocytes # (Auto) 0.3 TH/MM3 (1.0-4.8) Blood Urea Nitrogen 23 MG/DL (7-18) Creatinine 1.31 MG/DL (0.60-1.30) Random Glucose 129 MG/DL (74-106) Chloride Level 109 MEQ/L (98-107) Estimat Glomerular Filtration Rate 64 ML/MIN (>89) Troponin I 0.07 NG/ML (0.02-0.05) Platelet Count 143 TH/MM3 (150-450) Imaging Last Impressions Chest X-Ray 05/06/17 0000 Signed Impressions: Service Date/Time: Saturday, May 06, 2017 21:42 - CONCLUSION: The lungs are clear. Isra Wood MD Abdomen X-Ray 05/03/17 1144 Signed Impressions: Service Date/Time: April 12:09 - CONCLUSION: Feeding tube is not seen Mikel Martins MD Head CT 05/01/17 0000 Signed Impressions: Service Date/Time: Monday, May 01, 2017 10:45 - CONCLUSION: No significant change has occurred. Rony Palm MD Neck CTA 04/29/17 0000 Signed Impressions: Service Date/Time: Saturday, April 29, 2017 11:34 - CONCLUSION: 1. The distal right internal carotid artery at the C1-C2 level demonstrates a short segment of focal dissection measuring approximately 8 mm in length. The more distal internal carotid artery is normal. 2. There is no significant atherosclerotic disease or stenosis within either internal carotid artery. Mikel Angel MD Head CTA 04/29/17 0000 Signed Impressions: Service Date/Time: Saturday, April 29, 2017 11:34 - CONCLUSION: No acute intracranial vascular abnormality is identified. Mikel Angel MD PE at Discharge GENERAL: Alert and Oriented x 3 SKIN: Warm and dry. HEAD: Atraumatic. Normocephalic. EYES: Pupils equal and round. No scleral icterus. No injection or drainage. ENT: No nasal bleeding or discharge. Mucous membranes pink and moist. NECK: Trachea midline. No JVD. CARDIOVASCULAR: Regular rate and rhythm. RESPIRATORY: No accessory muscle use. Clear to auscultation. Breath sounds equal bilaterally. GASTROINTESTINAL: Abdomen soft, non-tender, nondistended. Hepatic and splenic margins not palpable. PEG in place. has Condom Catheter. MUSCULOSKELETAL: Extremities without clubbing, cyanosis, or edema. No obvious deformities. NEUROLOGICAL: Dysarthria PSYCHIATRIC: Appropriate mood and affect; insight and judgment normal. Hospital Course This is a 77-year-old gentleman that has presented to the emergency department 3 times in the last 3 days for neurologic symptomatology to include severe headaches left upper extremity weakness, vertigo. Noted to have after imaging studies right ICA focal dissection. Dr. Hinkle, interventional radiology was consulted by Dr. Rolle, no IR intervention regarding a stent is indicated secondary to adequate flow. Seen in his bedroom in the presence of his Mrs. Tigist Dhaliwal he had an episode of Nausea and vomit yesterday night and probable Aspiration Pneumonia started on IV antibiotics by Bottom Painter. Clindamycin and Zosyn. but the lungs were clear on Chest X ray. 05/08: Stable in his bedroom, discussed with nurse, his Cardizem drip was removed yesterday, had some Hypotension and today his blood pressure is going up, removed Amlodipine and switch to Cardizem by mouth with parameters, continue IV fluids and had to stop Tube feedings due to lactose intolerance, asked for dietitian, continue with nausea and some vomit but no diarrhea. has PEG tube in place. 05/09: Discussed in the room with patient and his , awaiting for Dietitian to start tube feedings to be able to discharge to Rehab. 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 04/29 CTA brain-no acute vascular abnormality 04/29 CT brain-no acute abnormality continue on Seroquel 25 mg hs- at home was on this on chronic benz0- currently on IV Ativan q 12- change to Clonazepam 1 mg hs (at home was on 2 mg hs) and monitor. IM Geodon prn for agitation continue aspirin 81 mg daily Discontinue Heparin and now on Eliquis 5 mg BID. continue PT, OT and Speech therapy. Acute Kidney Injury continue IV fluids and follow in am tomorrow. Respiratory: stable Maintain O2 sat greater than 92% Bronchodilators when necessary Cardiovascular: Pacemaker Dyslipidemia Hypertension Maintain MAP > 65mmHg Continue carvedilol 6.25 BID, [id number]/day, discontinue Amlodipine and started on Cardizem with parameters. Continue simvastatin Pacemaker-[facility] demand rate set at 60 FEN/GI: Dysphagia- failed swallowing- S.P PEG 05/04 Zofran 4 mg every 6 hours when necessary for nausea Protonix (home med) for GI prophylaxis Tube feedings has lactose and the patient has lactose intolerance asked for Dietitian. HICCUPS- persistent trial of Thorazine IM x 1 continue on Zofran- if no improvement - consider switching to Reglan Questionable Aspiration Pneumonia, On Clindamycin and Zosyn, no changes on CXR will follow to discontinue antibiotics soon if no signs of infection. will continue antibiotics today and follow cultures. GI Prophylaxis - Protonix DVT Prophylaxis- SCDs - - on Eliquis Activity- out of bed to chair daily Speech/PT/OT daily DC planning- CM consult - SNF- now that PEG placed Discharge Planning Transfer to Rehab now. Pt Condition on Discharge: Good Discharge Disposition: Rehab Inpatient Discharge Time: > 30 minutes Discharge Instructions DIET: Follow Instructions for: Heart Healthy Diet Activities you can perform: Regular-No Restrictions Juan David Hooper MD May 09, 2017 19:05
[2017-05-23] MEDS ORDERED: GETGO ROLLING W1 MI1 (16:35)
[2017-05-23] MEDS ORDERED: WHEEMIS3 (16:35)
[2017-05-26] MEDS ORDERED: QUET1TAB7 PEG (12:16)
[2017-05-26] MEDS ORDERED: ASPI81CH25 CHEW (12:16)
[2017-05-26] MEDS ORDERED: GNP5TAB6 PO (12:16)
[2017-05-26] MEDS ORDERED: APIX5TAB G-TUBE (12:16)
[2017-05-26] MEDS ORDERED: PREV30TA3 PEG (12:16)
[2017-05-26] MEDS ORDERED: PRAV80TA PEG (12:16)
[2017-05-26] MEDS ORDERED: DILT31TA PEG (12:16)
[2017-05-26] MEDS ORDERED: ONDA4TAB7 SL (12:16)
[2017-05-26] MEDS ORDERED: LISI-519 PO (12:16)
[2017-05-26] MEDS ORDERED: CARV6.25 PEG (12:16)
[2017-05-26] MEDS ORDERED: METO10TA PEG (12:16)
[2017-05-26] MEDS ORDERED: NAME10TA PEG (12:16)
[2017-05-26] MEDS ORDERED: NYST1000 SWISH-SPIT (12:16)
== END 2017-05-09 14:18 | DRG 64 ==
LOC: NEPE 09:29 → NEDA 13:22 → N03B 16:55
PROVIDERS: ADMIT Internal Medicine; ATTEND Internal Medicine
PROC: 0DH68UZ Insertion of Feeding Device into Stomach, Via Natural or Artificial Opening Endoscopic (ICD-10-PCS; principal; 2017-05-04 16:14)
PROC: 0DJ08ZZ Inspection of Upper Intestinal Tract, Via Natural or Artificial Opening Endoscopic (ICD-10-PCS; 2017-05-04 16:14)
DX: I63.9 Cerebral infarction, unspecified (principal); I77.71 Dissection of carotid artery; J69.0 Pneumonitis due to inhalation of food and vomit; I48.92 Unspecified atrial flutter; N17.9 Acute kidney failure, unspecified; G81.94 Hemiplegia, unspecified affecting left nondominant side; R13.10 Dysphagia, unspecified; N39.0 Urinary tract infection, site not specified; J44.9 Chronic obstructive pulmonary disease, unspecified; E78.5 Hyperlipidemia, unspecified; I10 Essential (primary) hypertension; K21.9 Gastro-esophageal reflux disease without esophagitis; E78.00 Pure hypercholesterolemia, unspecified; G47.30 Sleep apnea, unspecified; G47.33 Obstructive sleep apnea (adult) (pediatric); F03.90 Unspecified dementia, unspecified severity, without behavioral disturbance, psychotic disturbance, mood disturbance, and anxiety; Z78.1 Physical restraint status; I48.0 Paroxysmal atrial fibrillation; I25.10 Atherosclerotic heart disease of native coronary artery without angina pectoris; R06.6 Hiccough; R29.6 Repeated falls; M54.30 Sciatica, unspecified side; M19.90 Unspecified osteoarthritis, unspecified site; Z79.01 Long term (current) use of anticoagulants; Z85.46 Personal history of malignant neoplasm of prostate; Z85.51 Personal history of malignant neoplasm of bladder; Z86.73 Personal history of transient ischemic attack (TIA), and cerebral infarction without residual deficits; Z95.0 Presence of cardiac pacemaker; R51 Headache; R94.31 Abnormal electrocardiogram [ECG] [EKG]; R11.0 Nausea; Z79.899 Other long term (current) drug therapy; Z92.21 Personal history of antineoplastic chemotherapy
CPT/HCPCS: 70450; 70496; 70498; 71010; 74000; 80048; 80053; 81001; 82550; 82948; 83690; 83735; 84100; 84132; 84484; 85025; 85027; 85610; 85730; 87086; 93005; 94640; 94664; 96361; 96365; 96374; 96375; C9113; J0131; J0690; J0696; J1100; J1200; J1630; J1644; J2060; J2405; J2543; J2765; J3230; J3480; J3486; J7030; J7040; J7050; J7644; Q9967

== ENCOUNTER 2017-06-16 08:56 | Emergency (ER) | payer MEDICARE, BC ==
[~2017-06-16] VITALS: Ht 180.3 cm; Wt 100.0 kg
[~2017-06-16 08:56] MED LIST changes: -AMLO10TA2 PO; +APIX5TAB G-TUBE; +APIX5TAB PEG; -APIX5TAB PO; +ASPI-516 PEG; +ASPI81CH25 CHEW; -ASPI81CH37 CHEW; +ASPI81CH6 CHEW; -BUTA1CAP2 PO; +CARV6.25 PEG; +CARV6.252 PEG; -CARV6.252 PO; +CLON2TAB PEG; -CLON2TAB PO; +DILT31TA PEG; -FLEC100T PO; +GETGO ROLLING W1 MI1; +LISI-519 PO; +LISI10TA3 PEG; +MELA1TAB31 PO; +MEMA1TAB2 PEG; -MEMA1TAB2 PO; +METO10TA PEG; +NAME10TA PEG; +NYST1000 SWISH-SPIT; +ONDA4TAB7 SL; -PANT40TA3 PO; +PRAV80TA PEG; +PRAV80TA2 PEG; +PREV30TA3 PEG; +PROT40TA PEG; +QUET1TAB7 PEG; -QUET1TAB7 PO; +SERO25TA PEG; +WHEEMIS3; -ZOCO40TA PO
[2017-06-16 09:02] VITALS: BP 106/73; PULSE 60; RESP 16; TEMP 98.9; O2SAT 99
[2017-06-16] MEDS ORDERED: NYST15T TOPICAL (09:51)
[2017-06-16] MEDS ORDERED: APIX5TAB PO (09:51)
[2017-06-16] MEDS ORDERED: SIMV10TA PO (09:51)
[2017-06-16] MEDS ORDERED: SIMV20TA PO (09:51)
[2017-06-16] MEDS ORDERED: ESOM0.1C PO (09:51)
[2017-06-16] MEDS ORDERED: MAGNSOL2 PO (09:54)
--- NOTE | 2017-06-16 09:55 | PD ---
HPI Chief Complaint: GI Complaint Time Seen by Provider: 09:23 Travel History International Travel<30 days: No Contact w/Intl Traveler<30days: No Traveled to known affect area: No History of Present Illness HPI 77yo M with dementia and CVA and dysphagia here for evaluation of possible aspiration. Pt was sent to [facility] yesterday and is suppose to be NPO but when went there today, saw a half eaten tray of food. She was very upset. Pt denies any chest pain, sob, n/v, abdominal pain. PFSH Past Medical History Hx Anticoagulant Therapy: Yes Arthritis: Yes Asthma: No Atrial Fibrillation: Yes Autoimmune Disease: No Blood Disorders: No Anxiety: Yes Depression: Yes Heart Rhythm Problems: Yes (a fib) Cancer: Yes (PROSTATE/BLADDER) Cardiovascular Problems: Yes High Cholesterol: Yes Chemotherapy: Yes Chest Pain: No Congestive Heart Failure: No COPD: No Cerebrovascular Accident: Yes (HEMIPARESIS , DYSPHAGIA -CEREBRAL INFARCTION ) Dementia: Yes Diabetes: No Diminished Hearing: No Endocrine: Yes Gastrointestinal Disorders: Yes (NAUSEA/VOMITING , CONSTIPATION ) GERD: Yes Glaucoma: No Genitourinary: Yes (Bladder CA with chemo) Headaches: Yes Hepatitis: No Hiatal Hernia: No Hypertension: Yes Immune Disorder: No Implanted Vascular Access Dvce: Yes Kidney Stones: No Medical other: Yes (CANDIDIASIS , HYPERLIPIDEMIA ) Musculoskeletal: Yes Neurologic: Yes (HERNIATED DISK, 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) Psychiatric: Yes Reproductive: No Respiratory: No Integumentary: No Immunizations Current: No Migraines: Yes Radiation Therapy: Yes Renal Failure: No Seizures: No Sickle Cell Disease: No Sleep Apnea: No Thyroid Disease: Yes ( growth removed) Ulcer: Yes (previous hx 20 yrs ago) Influenza Vaccination: Yes Past Surgical History Abdominal Surgery: No AICD: No Arteriovenous Shunt: No Cardiac Surgery: Yes (PACEMAKER, ABLATIONS X 2) Ear Surgery: No Endocrine Surgery: Yes (GROWTH REMOVED FROM THYROID) Eye Surgery: No Genitourinary Surgery: Yes (PROSTATECTOMY 2000 w/radiation) Gynecologic Surgery: No Insulin Pump: No Joint Replacement: No Oral Surgery: No Pacemaker: Yes Thoracic Surgery: No Other Surgery: Yes Social History Alcohol Use: No Tobacco Use: No Substance Use: No Allergies-Medications (Allergen,Severity, Reaction): Coded Allergies: MRI PRECAUTION (Verified Adverse Reaction, Severe, MRI PRECAUTION/ PACEMAKER, 04/29/17) [facility] PACEMAKER/ 12/22/16 [facility] Reported Meds & Prescriptions Reported Meds & Active Scripts Active Gnp Melatonin Maximum Str (Melatonin) 5 Mg Tab 5 Mg PO HS 30 Days Metoclopramide (Metoclopramide HCl) 10 Mg Tab 10 Mg PEG Q8HR 30 Days Ondansetron Odt 4 Mg Tab 4 Mg SL Q6H PRN 30 Days Namenda (Memantine) 10 Mg Tab 10 Mg PEG BID 30 Days Quetiapine (Quetiapine Fumarate) 25 Mg Tab 50 Mg PEG HS 30 Days Cardizem (Diltiazem HCl) 30 Mg Tab 30 Mg PEG Q6HR 30 Days Nystatin Liq 100,000 unit/ml Susp 5 Ml SWISH-SPIT QID 10 Days Reported Magnesium Citrate Liq (Magnesium Citrate) 300 Ml Liq 300 Ml PO DIRECTED PRN Nystatin Topical (Nystatin) 100,000 unit/gm Cream 1 Applic TOPICAL Q8HR PRN Simvastatin 20 Mg Tab 20 Mg PO HS Simvastatin 10 Mg Tab 10 Mg PO DAILY Esomeprazole DR 20 Mg Capdr 20 Mg PO DAILY Eliquis (Apixaban) 5 Mg Tab 5 Mg PO BID Seroquel (Quetiapine Fumarate) 25 Mg Tab 25 Mg PEG HS Clonazepam 2 Mg Tab 1 Mg PEG HS Cardizem (Diltiazem HCl) 30 Mg Tab 30 Mg PEG BID Aspirin Low Dose (Aspirin) 81 Mg Chew 81 Mg CHEW HS Review of Systems Except as stated in HPI: all other systems reviewed are Neg Physical Exam Narrative GENERAL: 77yo M not in distress. SKIN: Focused skin assessment warm/dry. HEAD: Atraumatic. Normocephalic. EYES: Pupils equal and round. No scleral icterus. No injection or drainage. ENT: No nasal bleeding or discharge. Mucous membranes pink and moist. NECK: Trachea midline. No JVD. CARDIOVASCULAR: Regular rate and rhythm. No murmur appreciated. RESPIRATORY: No accessory muscle use. Clear to auscultation. Breath sounds equal bilaterally. Saturating at 100% on RA. GASTROINTESTINAL: Abdomen soft, non-tender, nondistended. MUSCULOSKELETAL: No obvious deformities. No clubbing. No cyanosis. No edema. NEUROLOGICAL: Awake and alert. No obvious cranial nerve deficits. Motor grossly within normal limits. Normal speech. Data Data Last Documented VS Vital Signs Date Time Temp Pulse Resp B/P (MAP) Pulse Ox O2 Delivery O2 Flow Rate FiO2 06/16/17 12:01 60 18 133/82 (99) 100 06/16/17 09:02 98.9 Orders Orders Chest, Single Ap (06/16/17 ) [facility] Medical Decision Making Medical Screen Exam Complete: Yes Emergency Medical Condition: Yes Differential Diagnosis Possible aspiration Narrative Course 77yo M with possible aspiration. Pt was suppose to be NPO but was eating. Lungs are clear. Saturating at 100% RA. Pt is well appearing and not coughing. CXR negative. Return precautions given. Diagnosis Primary Impression: Routine medical exam Patient Instructions: General Instructions Departure Forms: Tests/Procedures Additional Instructions: Please follow up with your PMD. Return to the ED if symptoms worsen. Med/Other Pt SpecificInfo: No Change to Meds Disposition: 01 DISCHARGE HOME Condition: Stable SmithBrittney garcia Jun 16, 2017 09:55
--- NOTE | 2017-06-16 10:38 | RADRPT ---
EXAM DATE/TIME: 06/16/2017 10:03 [place] COMPARISON: CHEST SINGLE AP, May 11, 2017, 22:33. INDICATIONS : Short of Breath MEDICAL HISTORY : Stroke. Hypertension. Cardiovascular disease. Dementia. Carcinoma, bladder SURGICAL HISTORY : Prostatectomy. J tube ENCOUNTER: Initial ACUITY: 1 day PAIN SCORE: 0/10 LOCATION: Bilateral chest FINDINGS: A single view of the chest demonstrates the lungs to be symmetrically aerated without evidence of mas s, infiltrate or effusion. The cardiomediastinal contours are unremarkable. Stable pacemaker is note d. Osseous structures are intact. CONCLUSION: No acute disease. Stable cardiac pacemaker. Pascual Lane MD on June 16, 2017 at 10:36 Board Certified Radiologist. This report was verified electronically.
[2017-06-16 11:00] VITALS: BP 127/76; PULSE 60; RESP 18; O2SAT 11; O2SAT 99
[2017-06-16 12:01] VITALS: BP 133/82; PULSE 60; RESP 18; O2SAT 100
== END 2017-06-16 12:45 | disposition home or self-care (01) ==
LOC: NEPC 08:56
DX: Z00.00 Encounter for general adult medical examination without abnormal findings (principal); I10 Essential (primary) hypertension; I48.91 Unspecified atrial fibrillation; K21.9 Gastro-esophageal reflux disease without esophagitis; F03.90 Unspecified dementia, unspecified severity, without behavioral disturbance, psychotic disturbance, mood disturbance, and anxiety; F41.9 Anxiety disorder, unspecified; Z86.73 Personal history of transient ischemic attack (TIA), and cerebral infarction without residual deficits
CPT/HCPCS: 71010; 99283